=== PATIENT | male | born 1960 | race Caucasian/White ===

== ENCOUNTER 2021-02-27 13:00 | Outpatient (RCR) | payer MEDICARE, SELFPAY ==
[2021-02-27 13:03] VITALS: BMI 33.3
[2021-02-27 13:06] VITALS: BMI 33.3
== END 2021-03-25 09:26 | disposition home or self-care (01) ==
LOC: ANHDMC 13:00
PROVIDERS: PCP Family Medicine; Visit Provider Internal Medicine Endocrinology, Diabetes & Metabolism
DX: E11.65 Type 2 diabetes mellitus with hyperglycemia (principal); Z71.89 Other specified counseling; Z71.3 Dietary counseling and surveillance
CPT/HCPCS: 97802; G0108

== ENCOUNTER 2021-07-09 14:30 | Outpatient (RCR) | payer MEDICARE, SELFPAY | END 2021-07-28 14:27 | disposition home or self-care (01) | LOC: ANHDMC 14:30 | PROVIDERS: PCP Family Medicine; Referring Provider Internal Medicine Endocrinology, Diabetes & Metabolism; Visit Provider Internal Medicine Endocrinology, Diabetes & Metabolism | DX: E11.9 Type 2 diabetes mellitus without complications (principal); Z71.89 Other specified counseling | CPT/HCPCS: G0109 ==

== ENCOUNTER 2021-10-02 14:20 | Outpatient (RCR) | payer MEDICARE, SELFPAY | END 2021-10-10 13:22 | disposition home or self-care (01) | LOC: ANHDMC 14:20 | PROVIDERS: PCP Internal Medicine; Referring Provider Internal Medicine Endocrinology, Diabetes & Metabolism; Visit Provider Internal Medicine Endocrinology, Diabetes & Metabolism | DX: E11.65 Type 2 diabetes mellitus with hyperglycemia (principal); Z71.89 Other specified counseling | CPT/HCPCS: G0109 ==

== ENCOUNTER 2024-08-25 21:06 | Emergency (ER) | payer MEDICARE, SELFPAY ==
[2024-08-25] VITALS (14 sets, daily range): BP systolic 147–234; BP diastolic 83–201; PULSE 84–122; RESP 13–27; TEMP 36.4; O2SAT 89–100
--- NOTE | ~2024-08-25 | CT_ITS ---
EXAMINATION: CTA chest abdomen pelvis DATE: 08/26/2024 06:50 CDT INDICATION: Abdomen pain and vomiting. TECHNIQUE: Computed tomographic angiography (CTA) of the chest, abdomen, and pelvis was performed wit hout and with 100 mL Omnipaque-350 intravenous contrast. The dose-length product was 2059.84 mGy-cm. Maximum intensity projection 3D-reconstructions of the aorta and other arteries were constructed by [facility] technologist on a separate workstation. Automated exposure control and iterative reconstruction te torey were employed. COMPARISON: None. FINDINGS: CHEST CTA: Trace pericardial effusion. There is a left atrial occlusive device. No evidence for pulmonary emboli sm. There is atherosclerosis of the aorta without aneurysm or dissection. There are stent grafts in [facility] aorta and iliac arteries. No thoracic lymphadenopathy. No significant pleural effusion. There is d ependent atelectasis. No pneumothorax. There is emphysema. Small 4 mm right middle lobe nodule, likel y benign. ABDOMEN AND PELVIS CTA: Gallstones. The liver, spleen, pancreas, adrenal glands and kidneys are unremarkable. Dilated small b owel with air-fluid levels, consistent with small bowel obstruction. The colon is relatively decompre ssed. There is transition in the mid abdomen. The distal small bowel is decompressed. No lymphadenopa thy. Mild thoracic spondylosis. No acute osseous abnormality. IMPRESSION: 1. Small bowel obstruction. 2: Cholelithiasis. Reviewed, dictated and finalized at location B.
--- NOTE | ~2024-08-25 | XR_ITS ---
XR abdomen gastric tube insert INDICATION: Evaluate NG tube position. TECHNIQUE: Limited KUB perform for evaluating NG tube . COMPARISON: No prior studies for comparison. FINDINGS: NG tube tip in the stomach. Visualized bowel gas pattern is nonspecific. IMPRESSION: 1: NG tube tip in the stomach. Reviewed, dictated and finalized at location B.
--- OUTSIDE RECORDS SUMMARY | 2024-08-25 21:08 | XMS_ITS | Continuity of Care Document ---
Author Organization [facility] Address [address] [place] [address] utive [facility] [address] [place] [address] Phone Care Team Providers Care Chief Controller Name Role Phone VandanabrodiePepeEvin Unavailable Unavailable Procedures Procedure Date Office/outpatient Visit, [facility] Advance Directives Directive Yes / No Effective Date File Name No Information Encounters Encounter Description Practice Location Reason(s) For Visit Diagnoses Date Provider Providers Copied on Encounter Office/outpat ient Visit, [facility], [address], [place], [place], [id number], tel:[phone] SEC [facility] No Information 7-201 0 Madie Cantuhil. [address] [facility] [address], [place], [place], [facility], . tel:[phone] Referring Provider: Javier Pemberton MD, [facility] [address], [place], [place], [facility]. tel:[phone] Family History Family Member Type Diagnosis Age At Onset No Information Payers Payer name Insurance type Covered constitution party ID Authoriza tion(s) No Information Social History Type Description Quantity Date Captured Comments Sex Male Smoking Status No Information Chief Complaint And Reason For Visit No Information Reason For Referral Reason For Referral No Information History Of Present Illness Encounter Date Complaint History Of Prese nt Illness No Information Functional Status Date Functional Assessmen t No Information Instructions Date Instruction Additional Infor mation No Information Assessments Type Assessment Date No Information Patient Care Teams Name Effective Dates (start - stop) Status Members No Information
--- OUTSIDE RECORDS SUMMARY | 2024-08-25 21:08 | XMS_ITS | Encounter Summary ---
Author Organization [facility] Address [address] [place] [address] Phone Care Team Providers Care Lime Slaker Name Role Phone Neel Lincoln MD Primary Care Provider [phone] Neel Lincoln MD Unavailable [phone] J Carlos Banuelos MD Unavailable [phone] Delmer Heaton MD Unavailable [phone] Lemuel Vega MD Unavailable Encounter Details Date Type Department Care Team (Late Contact Info) Description 12/24/2023 Telephone [facility] [address] [address] Delmer Heaton MD [address] [place] [phone] Social History Tobacco Use Types Packs/Day Years Used Date Smoking Tobacco: Former Cigarettes Smokeless Tobacco: Never Alcohol Use Standard Drinks/Week Comments Not Currently 0 (1 standard drink = 0.6 oz pur e alcohol) quit Sex and Gender Information Value Date Recorded Sex Assigned at Not on file Legal Sex Male 11:00 AM CDT Gender Identity Not on file Sexual Orientation Not on file documented as of this encounter Plan of Treatment Upcoming Encounters Date Type Department Care Team (Late st Contact Info) Description 09/26/2024 2:00 PM CDT Lab [facility] [address] [phone] Lab, [facility] 10/04/2024 1:30 PM CDT Office Visit [facility] [place] [address] [place] [phone] Delmer Heaton MD [address] [place] [phone] 11/07/2024 3:45 PM CDT Office Visit [facility] - Endocrin[facility] [address] [place] [address] Lemuel Vega MD [address] [address] documented as of this encounter Visit Diagnoses Not on filedocumented in this encounter Care Teams Lime Slaker Relationship Specialty Start Date End Date Neel Lincoln MD [address] [place] [address] PCP - General Family Medicine 12/17/23 Neel Lincoln MD [address] [place] [address] Family Medicine 12/17/23 J Carlos Banuelos MD [address] [address] Neuromuscular Medicine 11/02/23 Delmer Heaton MD [address] [place] [phone] Consulting Physician Oncology 11/02/23 Lemuel Vega MD [address] [address] Consulting Physician Endocrinology 01/26/24 documented as of this encounter
--- OUTSIDE RECORDS SUMMARY | 2024-08-25 21:08 | XMS_ITS | Clinical Summary ---
Author Organization [facility] [employer] Address [address] [place] [address] Care Team Providers Care Site Controller Name Role Phone Neel Lincoln MD Primary Care Provider [phone] Source Comments [facility],non-owned Affiliates and Associated Physician Practices is amultiple site organization consisting of ambulatory clinics and hospital sitesin [place], [place], [place] and [place]. This disclosure is being madepursuant to the Care Everywhere program and may not contain all information available regarding this patient. Last updated 17.[facility] [employer] Allergies Active Allergy Reactions Criticality Noted Date Comments Acetazolamide Other High 06/19/2022 He states he was dizzy and had a hard time moving arms and legs and was staggering. He states he was dizzy and had a hard time moving arms and legs and was staggering. Cefadroxil Shortness of Breath High 09/02/2021 Reaction: SOB, , Tolerated zosyn 07/2022 Doxycycline Shortness of Breath High 01/15/2023 Medications * Be aware that medications may not be up to date on this document. Alwaysverify current medications with the patient. acetaminophen (Tylenol) 325 MG tablet Take 2 (two) tablets by mouth every 6 hours as needed 08/14/19 23 Active apixaban (Eliquis) 5 MG tablet Take 1 (one) tablet by mouth 2 times daily 08/06/19 23 Active Aspirin Low Dose 81 MG chew tablet CHEW AND SWALLOW 1 TABLET BY MOUTH DAILY AT 8AM 04/10/19 24 Active atorvastatin (Lipitor) 80 MG tablet Take 1 (one) tablet by mouth 10/31/19 23 Active ezetimibe (Zetia) 10 MG tablet Take 1 (one) tablet by mouth once daily 04/15/19 24 Active furosemide (Lasix) 20 MG tablet Take 1 (one) tablet by mouth once daily 05/18/19 24 Active gabapentin (Neurontin) 800 MG tablet Take 1 (one) tablet by mouth 3 times daily 04/15/19 24 Active gemfibrozil (Lopid) 600 MG tablet Take 1 (one) tablet by mouth 10/09/19 23 Active Insulin Glargine, 1 Unit Dial, (Toujeo) pen Inject 45 (forty five) Units subcutaneously 2 times daily Active HumaLOG KwikPen 100 UNIT/ML pen INJECT UNDER THE SKIN TWICE A DAY PER: 200-300:5UNITS, 301-400:7UNITS, 400+:10UNITS. MAX 20UNITS/DAY 05/01/19 24 Active B-D ULTRAFINE III SHORT PEN 31G X 8 MM needle USE TO INJECT INSULIN UP TO 5 TIMES DAILY. 02/26/20 23 Active isosorbide mononitrate CR 24hr (Imdur) 30 MG tablet Take 1 (one) tablet by mouth once daily 03/25/19 24 Active levothyroxine (Synthroid) 75 MCG tablet Take 1 (one) tablet by mouth every morning 04/02/19 24 Active lisinopril (Prinivil; Zestril) 20 MG tablet Take 1 (one) tablet by mouth once daily 06/01/19 23 Active metFORMIN ER 24hr (Glucophage XR) 500 MG tablet Take 1 (one) tablet by mouth 2 times daily 03/06/20 23 Active metoprolol succinate XL 24hr (Toprol XL) 100 MG tablet 06/14/19 24 Active nitroGLYCERIN (Nitrostat) 0.4 MG tablet PLEASE SEE ATTACHED FOR DETAILED DIRECTIONS 08/18/19 23 Active pantoprazole EC (Protonix) 40 MG tablet Take 1 (one) tablet by mouth once daily 05/05/19 24 Active potassium chloride ER (K-TAB) 20 MEQ tablet Take 2 (two) tablets by mouth once daily 04/10/19 24 Active folic acid (Folvite) 1 MG tablet Take 1 (one) tablet by mouth once daily 10/23/19 24 Active Pyridoxine HCl 100 MG Take 0.5 (one-half) tablet by mouth once daily 10/28/19 24 Active Mounjaro 5 MG/0.5ML injection Inject 5 (five) mg subcutaneously every 7 days 07/21/19 25 Active omeprazole (PriLOSEC) 40 MG capsule Take 1 (one) capsule by mouth once daily 05/09/19 25 Active levETIRAcetam (Keppra) 250 MG tablet Take 1 (one) tablet by mouth 2 times daily Active clopidogrel (plaVIX) 75 MG tablet Take 1 (one) tablet by mouth once daily 06/10/19 25 Active vitamin D3 (Cholecalcifero l) 125 MCG (5000 UT) capsule Take 125 mcg by mouth once daily Active glipiZIDE (Glucotrol) 5 MG tablet Take 1 (one) tablet by mouth every evening 04/22/19 24 025 Discontin ued(List Clean-Up) Active Problems Problem Noted Date Diagnosed Date Malignant melanoma of skin of chest 06/23/2023 Encounters Date Type Department Care Team Description 08/02/2024 10:15 AM CDT Office Visit [facility] - General Surgery [address] [place] [address] Enrico Milan MD Malignant melanoma of skin of chest (HCC) (Primary Dx) 08/02/2024 Travel 08/01/2024 Orders Only [facility] - General Surgery [address] [place] [address] Enrico Milan MD Malignant melanoma of skin of chest (HCC) from Last 3 Months Social History Tobacco Use Types Packs/Day Years Used Date Smoking Tobacco: Former Cigarettes 1.5 46 0 07/1976 - 07/2022 Smokeless Tobacco: Former Tobacco Cessation:Counseling Given: No Alcohol Use Standard Drinks/Week Comments Not Currently 0 (1 standard drink = 0.6 oz pure alcohol) 8 years since last alcoholic beverage AUDIT-C Answer Date Recorded Q1: How often do you have a drink containing alcohol? Never 07/08/2023 Q2: How many drinks containi ng alcohol do you have on a typical day when you are drinking? Patient does not drink Q3: How often do you have si x or more drinks on one occasion? Never 07/08/2023 Sex and Gender Information Value Date Recorded Sex Assigned at Not on file Legal Sex Male 8:57 AM AUTOMOTIVE TIRE TESTER Gender Identity Not on file Sexual Orientation Not on file Last Filed Vital Signs Vital Sign Reading Time Taken Comments Blood Pressure 155/88 08/02/2024 10:34 AM CDT Pulse 73 08/02/2024 10:34 AM CDT Temperature 36.4 C (97.6 F) 08/02/2024 10:34 AM CDT Respiratory Rate 14 07/08/2023 1:45 PM CDT Oxygen Saturation 97% 08/02/2024 10:34 AM CDT Inhaled Oxygen Concentration - - Weight 128.4 kg (283 lb) 08/02/2024 10:34 AM CDT Height 185.4 cm (6' 1) 08/02/2024 10:34 AM CDT Body Mass Index 37.34 08/02/2024 10:34 AM CDT Plan of Treatment Upcoming Encounters Date Type Department Care Team (Late st Contact Info) Description 02/07/2025 9:30 AM AUTOMOTIVE TIRE TESTER Office Visit [facility] - General Surgery [address] [place] [phone] Enrico Milan MD [address] [facility] [address] [place] [address] Health Maintenance Due Date Last Done Comments COLOGUARD (AGES 45-75) - COLON CA SCREENING 1960 COLON MONITORING 1960 COLONOSCOPY - COLON CA SCREENING 1960 CT COLONOGRAPHY - COLON CA SCREENING 1960 Colorectal Cancer Screening 1960 FIT - COLON CA SCREENING 1960 FLEX SIG - COLON CA SCREENING 1960 MEDICARE AWV 12 MONTHS 1960 HIV SCREENING 12/08/1975 HEPATITIS C SCREENING 12/03/1978 DTAP/TDAP/TD VACCINES (1 - Tdap) 12/08/1979 PNEUMOCOCCAL VACCINE 50+ (1 of 2 - PCV) 12/08/1979 LUNG CANCER SCREENING 2010 ZOSTER VACCINE (1 of 2) 2010 Respiratory Syncytial Virus (RSV) Vaccine Pt: or over 60 yrs (1 - Risk 60-74 years 1-dose series) 2020 COVID-19 VACCINE ( season) 2023 07/09/2020, 06/11/2020 DEPRESSION SCREENING 03/15/2024 SCREENING FOR DIABETES 06/28/2027 , 05/30/2024, 04/18/2024, Additional history exists INFLUENZA VACCINE Completed 01/26/2024, , 12/20/2020, Additional history exists HEPATITIS B VACCINE Aged Out No longe r eligible based on patient's age to complete this topic HIB VACCINE Aged Out No longer eligi ble based on patient's age to complete this topic HPV VACCINE Aged Out No longer eligi ble based on patient's age to complete this topic MENINGOCOCCAL (Group B) VACCINE SHARED DECISION-MAKING Aged Out No longer eligible based on patient's age to complete this topic MENINGOCOCCAL GROUPS A/C/Y/W VACCINE Aged Out No longer eligible based on patient's age to complete this topic Procedures Procedure Name Priority Date/Time Associated Diagnosis Comments GLUCOSE - POINT OF CARE Routine 07/08/2023 8:46 AM CDT from Last 3 Months or Most Recently Relevant to Health Maintenance Results * (ABNORMAL) GLUCOSE - POINT OF CARE (07/08/2023 8:46 AM CDT) Pathologist [facility] Glucose WB/POC 207(H) 70 - 115 mg/dL 07/08/2023 10:47 AM CDT [facility] Specimen Type Cap Fingerstick 2023 10:47 AM CDT [facility] Blood BLOOD SPECIMEN / Unknown 07/08/2023 8:46 AM CDT 07/08/2023 10:47 AM CDT Enrico Milan MD LAB - POINT OF CARE ORDERABLES F inal Result [facility] [address] [place] [address], [place] [phone] from Last 3 Months or Most Recently Relevant to Health Maintenance Insurance MEDICARE [facility] MEDICARE SUPPLEMENT Care Teams Site Controller Relationship Specialty Start Date End Date Neel Lincoln MD [address] [place] [address] PCP - General Internal Medicine 06/18/23
--- OUTSIDE RECORDS SUMMARY | 2024-08-25 21:08 | XMS_ITS | Encounter Summary ---
Author Organization [facility] Address [address] [facility] [place] [address] Care Team Providers Care Rodding Anode Worker Name Role Phone Neel Lincoln MD Primary Care Provider [phone] Reason for Referral * Consultation (Routine) - Closed Specialty Diagnoses / Procedures Referred By Contac t Referred To Contact Nutrition Services Diagnoses Type 2 diabetes mellitus with other specified complication, with long-term current use of insulin (HCC) PAD (peripheral artery disease) Neel Lincoln MD [address] [place] [address] Phone: tel: fax: Referral ID Status Reason Start Date Expiration Date V isits Requested Visits Authorized [id number] Closed Specialty Services Required 02/03/2024 02/02/2025 1 1 F DIGITAL OFFICER Encounter Details Date Type Department Care Team (Latest Contact Info) Description 02/03/2024 Transcribe Orders [facility] - Centralized Scheduling [address] [place] [address] Neel Lincoln MD [address] [place] [address] Type 2 diabetes mellitus with other specified complication, with long-term current use of insulin ; PAD (peripheral artery disease) Social History Tobacco Use Types Packs/Day Years Used Date Smoking Tobacco: Former Cigarettes 1.5 46 0 07/1976 - 07/2022 Smokeless Tobacco: Former Alcohol Use Standard Drinks/Week Comments Not Currently [...] on file Legal Sex Male 8:57 AM CHIEF DIGITAL OFFICER Gender Identity Not on file Sexual Orientation Not on file documented as of this encounter Functional Status * Is person deaf or have serious hearing difficulty? Answer Date of Assessment Author No 07/08/2023 1:41 PM Ruth Ross RN * Is person blind or have serious difficulty seeing? Answer Date of Assessment Author No 07/08/2023 1:41 PM Ruth Ross RN * Does person have serious difficulty walking/climbing stairs? Answer Date of Assessment Author No 07/08/2023 1:41 PM Ruth Ross RN * Does person have difficulty dressing/bathing? Answer Date of Assessment Author No 07/08/2023 1:41 PM Ruth Ross RN * Does person have difficulty doing errands alone? Answer Date of Assessment Author No 07/08/2023 1:41 PM Ruth Ross RN documented as of this encounter Mental Status * Does person have difficulty concentrating/remembering/making decisions? Answer Entry Date Author No 07/08/2023 1:41 PM Ruth Ross RN documented in this encounter Plan of Treatment Upcoming Encounters Date Type Department Care Team (Late st Contact Info) Description 02/07/2025 9:30 AM CHIEF DIGITAL OFFICER Office Visit [facility] - General Surgery [address] [place] [phone] Enrico Milan MD [address] [facility] [address] [place] [address] Scheduled Referrals Name Type Priority Associated Diagnoses Order Schedule AMB REFERRAL TO NUTRITION Outpatient Referral Routine Type 2 diabetes mellitus with other specified complication, with long-term current use of insulin PAD (peripheral artery disease) 1 Occurrences starting 02/03/2024 until 02/02/2025 documented as of this encounter Visit Diagnoses Diagnosis Type 2 diabetes mellitus with other specified complication, with long-term current use of insulin (HCC)- Primary PAD (peripheral artery disease) Unspecified disorders of arteries and arterioles documented in this encounter Care Teams Rodding Anode Worker Relationship Specialty Start Date End Date Neel Lincoln MD [address] [place] [address] PCP - General Internal Medicine 06/18/23 documented as of this encounter
--- OUTSIDE RECORDS SUMMARY | 2024-08-25 21:08 | XMS_ITS | Clinical Summary ---
Author Organization [facility] Address [address] [place] [address] Phone Care Team Providers Care Advisory Software Engineer Name Role Phone Neel Lincoln MD Primary Care Provider [phone] Neel Lincoln MD Unavailable [phone] J Carlos Banuelos MD Unavailable [phone] Delmer Heaton MD Unavailable [phone] Lemuel Vega MD Unavailable Allergies Active Allergy Reactions Criticality Noted Date Comments Acetazolamide Other (see Comments) High 06/19/2022 He states he was dizzy [...] 09/02/2021 Reaction: SOB, , Tolerated zosyn 07/2022 Reaction: SOB, , Tolerated zosyn 07/2022 Doxycycline Shortness of Breath 04/05/2024 Medications gabapentin (NEURONTIN) 800 MG Tablet Take 1 Tablet by mouth 2 times daily. 04/15/19 24 Active pantoprazole (PROTONIX) 40 MG Tablet Delayed Response Take 1 Tablet by mouth daily. 05/05/19 24 Active apixaban (Eliquis) 5 MG Tablet Take 5 mg by mouth. 08/06/19 Active metoprolol Succinate (TOPROL-XL) 100 MG TABLET SR 24 HR Take 1 Tablet by mouth 2 times daily. 06/05/19 23 Active levothyroxine (SYNTHROID) 75 MCG Tablet Take 1 Tablet by mouth every morning. 07/04/19 22 Active furosemide (LASIX) 20 MG Tablet Take 1 Tablet by mouth daily. 05/18/19 24 Active lisinopril (PRINIVIL, ZESTRIL) 20 MG Tablet Take 1 Tablet by mouth daily. 06/01/19 23 Active isosorbide mononitrate (IMDUR) 30 MG TABLET SR 24 HR Take 1 Tablet by mouth daily. 03/25/19 24 Active gemfibrozil (LOPID) 600 MG Tablet Take 2 Tablets by mouth 2 times daily. 10/09/19 23 Active atorvastatin (LIPITOR) 80 MG Tablet Take 1 Tablet by mouth nightly. 10/31/19 23 Active ezetimibe (ZETIA) 10 MG Tablet Take 10 mg by mouth daily. 12/16/19 22 Active Potassium Chloride ER (KLORCON) 20 MEQ Tablet Controlled Release Take 40 mEq by mouth daily. 10/14/19 24 Active Vitamin B-6 (PYRIDOXINE) 100 MG Tablet Take 50 mg by mouth daily. 10/28/19 24 Active Glucose Blood (Contour Next Test) StripIndication s:Type 2 diabetes mellitus with diabetic polyneuropathy, with long-term current use of insulin (HCC) 3 times a day, E11.42, insulin dependent 300 Each 3 02/01/20 24 Active Insulin Pen Needle (TechLite Plus Pen [place]) 32G X 4 MM [facility] 1 Pen Needle by Does not apply route 5 times daily. 500 Pen Needle 3 02/01/20 24 Active Toujeo SoloStar 300 UNIT/ML Solution Pen-injector 36 units twice a day 21 mL 1 02/29/20 24 Active HumaLOG KwikPen 100 UNIT/ML Solution Pen-injector 24 units before each meal; correctional factor insulin of 1:15 if >140 mg/dL, up to 120 units per day 105 mL 1 02/29/20 24 Active ergocalciferol (VITAMIN D) 37829 UNIT CapsuleIndicati ons:Vitamin D deficiency TAKE 1 CAPSULE BY MOUTH ONCE WEEKLY FOR 8 TOTAL DOSES 8 Capsule 03/21/19 25 Active clindamycin (CLEOCIN T) 1 % Lotion 04/05/19 25 Active ketoconazole (NIZORAL) 2 % Cream 04/05/19 25 Active levETIRAcetam (Keppra) 250 MG Tablet Take 250 mg by mouth 2 times daily. Active clopidogrel (PLAVIX) 75 MG Tablet Take 75 mg by mouth daily. Active omeprazole (PriLOSEC) 40 MG CAPSULE DELAYED RELEASE Take 40 mg by mouth daily. Active folic acid (FOLVITE) 1 MG TabletIndicatio ns:Folate Deficiency Anemia Take 1 Tablet by mouth daily. Indications: Anemia From Inadequate Folic Acid 30 Tablet 3 07/06/19 25 Active Continuous Glucose [employer] (Dexcom G7 [employer]) Device Check blood glucose before each meal and at bedtime 1 Each 08/02/19 25 Active Continuous Glucose Sensor (Dexcom G7 Sensor) Misc Every 10 days 9 Each 3 08/02/19 25 Active Insulin Pen Needle 32G X 4 MM Misc 5 times a day 500 Each 3 08/02/19 25 Active metFORMIN (GLUCOPHAGE) 500 MG Tablet Take 1 Tablet by mouth 2 times daily (with meals). 180 Tablet 3 08/02/19 25 Active Tirzepatide (Mounjaro) 5 MG/0.5ML Solution Auto-injector 5 mg by Subcutaneous route once a week. 6 mL 08/23/19 25 Active Insulin Pen Needle 32G X 4 MM Misc 5 times a day 500 Each 3 01/28/20 24 025 Discontin ued(Dupli betty Order) Continuous Glucose [employer] (Dexcom G7 [employer]) Device Check blood glucose before each meal and at bedtime 1 Each 05/31/19 25 025 Discontin ued(Reord er) Continuous Glucose Sensor (Dexcom G7 Sensor) Misc Every 10 days 9 Each 3 05/31/19 25 025 Discontin ued(Reord er) Tirzepatide (Mounjaro) 5 MG/0.5ML Solution Auto-injector 5 mg by Subcutaneous route once a week. 2 mL 07/21/19 25 025 Discontin ued(Dose adjustmen t) Tirzepatide (Mounjaro) 7.5 MG/0.5ML Solution Auto-injectorIn dications:Type 2 diabetes mellitus with diabetic polyneuropathy, with long-term current use of insulin (HCC) 7.5 mg by Subcutaneous route once a week. 6 mL 08/19/19 25 025 Discontin ued(Dose adjustmen t) Active Problems Problem Noted Date Diagnosed Date Type 2 diabetes mellitus wit h diabetic polyneuropathy, with long-term current use of insulin 01/30/2024 Encounters Date Type Department Care Team Description 08/22/[address] [facility] [address] [place] [address] Lemuel Vega MD Medication Refill 08/18[facility] [place] [address] Lemuel Vega MD Medication Refill 08/01/2024 3:30 PM CDT Office Visit [facility] [address] [place] [address] Lemuel Vega MD Type 2 diabetes mellitus with diabetic polyneuropathy, with long-term current use of insulin (HCC) (Primary Dx); Medication side effect; Insulin dose changed (HCC); Medication dose changed; Class 2 severe obesity due to excess calories with serious comorbidity and body mass index (BMI) of 36.0 to 36.9 in adult (HCC) Discharge Disposition: Discharged to home or Selfcare 08/01/2024 Telephone [facility] [place] [address] Lemuel Vega MD Results 08/01/2024 Travel 07/19/[address] [facility] [address] [place] [address] Lemuel Vega MD Medication Refill 07/05/2024 9:00 AM CDT Office Visit [facility] [address] [phone] Yoselin Michael APRN, ZACK Elevated serum immunoglobulin free light chain level (Primary Dx) 07/05/2024 Travel 06/27/2024 10:30 AM CDT Lab [facility] [address] [phone] [facility] Elevated serum immunoglobulin free light chain level; Hypercalcemia; Paraproteinemia 06/27/2024 Travel 06/07/2024 Results Follow-Up [facility] [address] [place] [address] Lemuel Vega MD CMP (COMPREHENSIVE METABOLIC PANEL) 05/30/2024 3:30 PM CDT Office Visit [facility] [address] [place] [address] Lemuel Vega MD Type 2 diabetes mellitus with diabetic polyneuropathy, with long-term current use of insulin (HCC) (Primary Dx); Insulin dose changed (HCC); New medication added; Class 2 severe obesity due to excess calories with serious comorbidity and body mass index (BMI) of 36.0 to 36.9 in adult (HCC) Discharge Disposition: Discharged to home or Selfcare 05/30/2024 Travel from Last 3 Months Immunizations Immunization Administration Dates Next Due Influenza Vaccine, Quadrivalent, PF 02/02/2023,1 ,01/03/2020 Influenza, Seasonal, Injectable, Undefined 12/16 Influenza,Split Virus,Trivalent,Injectable,PF 01/26/2024 Pneumococcal conjugate PCV20 , polysaccharide FFG260 conjugate, adjuvant, PF 11/17/2023 Family History Medical History Relation Name Comments Cancer Brother 1 Other-comment Brother 1 vascular disea se Diabetes Father Heart Disease Father Cancer Mother Diabetes Mother Heart Disease Mother Diabetes Sister Relation Name Status Comments Brother 1 Alive Brother 2 Alive Child 1 Alive Child 2 Alive Father Mother Alive Sister Alive Social History Tobacco Use Types Packs/Day Years Used Date Smoking Tobacco: Former Cigarettes Smokeless Tobacco: Never Tobacco Cessation:Counseling Given: Not Answered Alcohol Use Standard Drinks/Week Comments Not Currently 0 (1 standard drink = 0.6 oz pur e alcohol) quit Sex and Gender Information Value Date Recorded Sex Assigned at Not on file Legal Sex Male 11:00 AM CDT Gender Identity Not on file Sexual Orientation Not on file Last Filed Vital Signs Vital Sign Reading Time Taken Comments Blood Pressure 128/64 08/01/2024 3:33 PM CDT Pulse 61 08/01/2024 3:33 PM CDT Temperature 36.8 C (98.3 F) 08/01/2024 3:33 PM CDT Respiratory Rate 22 08/01/2024 3:33 PM CDT Oxygen Saturation 96% 08/01/2024 3:33 PM CDT Inhaled Oxygen Concentration - - Weight 127.1 kg (280 lb 3.2 oz) 08/01/2024 3:33 PM CDT Height 185.4 cm (6' 1) 07/05/2024 8:36 AM CDT Body Mass Index 36.97 07/05/2024 8:36 AM CDT Plan of Treatment Upcoming Encounters Date Type Department Care Team (Late st Contact Info) Description 09/26/2024 2:00 PM CDT Lab [facility] [address] [phone] Lab, Cc [facility] 10/04/2024 1:30 PM CDT Office Visit [facility] [address] [phone] Delmer Heaton MD [address] [place] [phone] 11/07/2024 3:45 PM CDT Office Visit [facility] [place] [address] [place] [address] Lemuel Vega MD [address] [address] Health Maintenance Due Date Last Done Comments Diabetes: Eye Exam 1960 Hepatitis C Virus (HCV) Screening 1960 TdaP Immunization 1960 Cologuard 2005 Colonoscopy 2005 Colorectal Cancer Screening 2005 Immunochemical Fecal Occult Blood 2005 Zoster Immunization (1 of 2) 2010 PSA Discussion 12/08/2015 Respiratory Syncytial Virus (RSV) Immunization (Adult) (1 - Risk 60-74 years 1-dose series) 2020 SARS-COV-2 Immunization ( - 2023- season) 2023 07/09/2020, 06/11/2020 Diabetes: Hemoglobin A1c 09/26/2024 025, 02/29/2024, 01/26/2024, Additional history exists Diabetes: Foot Exam 01/27/2025 01/28/2024 Diabetes: Nephropathy Screening 06/27/2025 06/27/2024, 05/30/2024, 03/28/2024, Additional history exists Pneumococcal Immunization (50+ years) Completed 11/17/2023 Pneumococcal Immunization Combined Discontinued 11/17/2023 Influenza Immunization Completed , 02/02/2023, 12/20/2020, Additional history exists Hepatitis B Immunization Aged Out No longer eligible based on patient's age to complete this topic Human Papillomavirus (HPV) Immunization Aged Out No longer eligible based on patient's age to complete this topic Meningococcal Immunization (ACWY) Aged Out No longer eligible based on patient's age to complete this topic Rotavirus Immunization Aged Out No lo nger eligible based on patient's age to complete this topic Procedures Procedure Name Priority Date/Time Associated Diagnosis Comments SERUM FREE LIGHT CHAINS, [place] Routine 06/27/2024 3:28 PM CDT CBC WITH AUTO DIFF OH Routine 06/27/2024 3:28 PM CDT CMP (COMPREHENSIVE METABOLIC PANEL) Routine 06/27/2024 3:28 PM CDT Elevated serum immunoglobulin free light chain level Hypercalcemia Paraproteinemia ELECTROPHORESIS W/ TOTAL PROTEIN SERUM Routine 06/27/2024 3:28 PM CDT Elevated serum immunoglobulin free light chain level Hypercalcemia Paraproteinemia IMMUNOFIXATION, SERUM [place] Routine 06/27/2024 3:28 PM CDT Elevated serum immunoglobulin free light chain level Hypercalcemia Paraproteinemia IMMUNOGLOBULIN IGA, IGG & IGM QUANT Routine 06/27/2024 3:28 PM CDT Elevated serum immunoglobulin free light chain level Hypercalcemia Paraproteinemia FOLIC ACID (FOLATE) Routine 06/27/2024 3 :28 PM CDT Elevated serum immunoglobulin free light chain level Hypercalcemia Paraproteinemia CMP (COMPREHENSIVE METABOLIC PANEL) Routine 05/30/2024 4:31 PM CDT Type 2 diabetes mellitus with diabetic polyneuropathy, with long-term current use of insulin (HCC) POCT GLYCOSYLATED HEMOGLOBIN Routine 02/29/2024 3:38 PM FIRER LOW PRESSURE Type 2 diabetes mellitus with diabetic polyneuropathy, with long-term current use of insulin (HCC) from Last 3 Months or Most Recently Relevant to Health Maintenance Results * (ABNORMAL) SERUM FREE LIGHT CHAINS, [place] (06/27/2024 3:28 PM CDT) FREE KAPPA LT CHAINS 64.8(H) 2.9 - 20.7 mg/L [facility] FREE LAMBDA LT CHAINS 27.0 4.2 - 27.6 mg/L [facility] JOGGLE [facility]ESS [facility] KAPPA/LAMBDA RATIO 2.40(H) 0.22 - 1.[address] [facility] 06/27/2024 3:28 PM CDT us Yoselin Michael APRN, ROLLED MATERIALS WORKER LAB SEND OUTS Fin al Result CANCER JOGGLE PRESS OPERATOR [facility] [place] [address], * IMMUNOFIXATION, SERUM [place] (06/27/2024 3:28 PM CDT) Pathologist [facility] IMMUNOFIXATION RESULT, SERUM Comment CANCER JOGGLE PRESS OPERATOR [facility] Comment:No monoclonality det ected. 06/27/2024 3:28 PM CDT Narrative CANCER JOGGLE PRESS OPERATOR [facility] - 06/29/2024 3:08 PM CDT Testing performed at: [] [facility], [address] [place] [address], [place], [address], , Ruby On Rails Developer: Rickie Cook, PhD Release to patient->Immediate us Yoselin Michael APRN, ROLLED MATERIALS WORKER LAB SEND OUTS Fin al Result CANCER JOGGLE PRESS OPERATOR [facility] [place] [address], [place] [phone] * (ABNORMAL) CBC WITH AUTO DIFF [place] (06/27/2024 3:28 PM CDT) [facility] WBC 8.7 4.0 - 10.0 10*3/uL CANCER JOGGLE PRESS OPERATOR [facility] HGB 14.4 13.7 - 17.5 g/dL CANCER JOGGLE PRESS OPERATOR [facility] HCT 44.2 40.1 - 51.0 % CANCER JOGGLE PRESS OPERATOR [facility] PLT 268 163 - 369 10*3/uL CANCER JOGGLE PRESS OPERATOR [facility] MPV 11.7 9.4 - 12.4 fL CANCER JOGGLE PRESS OPERATOR [facility] RBC 4.93 4.63 - 6.08 10*6/uL CANCER JOGGLE PRESS OPERATOR [facility] MCV 90 79 - 95 fL CANCER JOGGLE PRESS OPERATOR [facility] MCH 29.2 25.6 - 32.2 pg CANCER JOGGLE PRESS OPERATOR OF [facility] MCHC 32.6 32.2 - 36.5 g/dL CANCER JOGGLE PRESS OPERATOR [facility] RDW 15.6(H) 11.6 - 14.4 % CANCER JOGGLE PRESS OPERATOR OF [facility] Neutrophils % 67.2(H) 36.0 - 66.0 % CANCER JOGGLE PRESS OPERATOR OF [facility] Lymphocytes % 21.9 19.0 - 40.0 % CANCER JOGGLE PRESS OPERATOR OF [facility] Monocytes % 7.2 4.1 - 12.1 % CANCER JOGGLE PRESS OPERATOR OF [facility] Eosinophils % 2.2 0.0 - 3.5 % CANCER JOGGLE PRESS OPERATOR [facility] Basophils % 0.9 0.0 - 1.0 % CANCER JOGGLE PRESS OPERATOR [facility] Absolute Neutrophils 5.8 1.4 - 6.6 10*3/uL CANCER JOGGLE PRESS OPERATOR [facility] Absolute Lymphocytes 1.9 0.8 - 4.0 10*3/uL CANCER JOGGLE PRESS OPERATOR [facility] Absolute Monocytes 0.6 0.2 - 1.2 10*3/uL CANCER JOGGLE PRESS OPERATOR [facility] Absolute Eosinophils 0.2 0.0 - 0.4 10*3/uL CANCER JOGGLE PRESS OPERATOR [facility] Absolute Basophils 0.1 0.0 - 0.1 10*3/uL CANCER JOGGLE PRESS OPERATOR [facility] 06/27/2024 3:28 PM CDT Yoselin Michael APRN, ROLLED MATERIALS WORKER LAB SEND OUTS Fin al Result CANCER JOGGLE PRESS OPERATOR [facility] [address] [place] [address], [place] [phone] * IMMUNOGLOBULIN IGA, IGG & IGM QUANT (06/27/2024 3:28 PM CDT) IGG 1,229 635 - 1,741 mg/dL [facility] JOGGLE PRESS [facility] IGA 283 66 - 433 mg/dL [facility] JOGGLE PR[facility] IGM 149 45 - 281 mg/dL [facility] JOGGLE [facility] Blood 06/27/2024 3:2 8 PM CDT Narrative CANCER JOGGLE PRESS OPERATOR [facility] - 06/28/2024 3:02 PM CDT Release to patient->Immediate Yoselin Michael APRN, ROLLED MATERIALS WORKER CHEMISTRY ORDERABLE S Final Result Performing Organization Address City/[facility]/ZIP Co de Phone Number CANCER JOGGLE PRESS OPERATOR [facility] [address] [place] [address], [place] [phone] * FOLIC ACID (FOLATE) (06/27/2024 3:28 PM CDT) Folate >20.00 >=5.90 ng/mL CANCER JOGGLE PRESS OPERATOR [facility] Blood 06/27/2024 3:28 PM CDT Narrative CANCER JOGGLE PRESS OPERATOR [facility] - 06/29/2024 10:21 AM CDT Release to patient->Immediate IS THE PATIENT REQUIRED TO BE FASTING FOR 12 HOURS?->No us Yoselin Michael RIGHT OF WAY MANAGER, ROLLED MATERIALS WORKER CHEMISTRY ORDERABLE S Final Result CANCER JOGGLE PRESS OPERATOR [facility] [address] [place] [address], [place] [phone] * (ABNORMAL) ELECTROPHORESIS W/ TOTAL PROTEIN SERUM (06/27/2024 3:28 PM CDT) PROTEIN, TOTAL, SERUM 7.3 6.0 - 8.5 g/dL CANCER JOGGLE PRESS OPERATOR [facility] ALBUMIN 3.4 2.9 - 4.4 g/dL CANCER JOGGLE PRESS OPERATOR [facility] KEMXX-3-[id number] 0.3 0.0 - 0.4 g/dL CANCER JOGGLE PRESS OPERATOR [facility] PCSUD-9-[id number] 1.1(H) 0.4 - 1.0 g/dL CANCER JOGGLE PRESS OPERATOR [facility] BETA GLOBULIN 1.3 0.7 - 1.3 g/dL CANCER JOGGLE PRESS OPERATOR [facility] GAMMA GLOBULIN 1.3 0.4 - 1.8 g/dL CANCER JOGGLE PRESS OPERATOR [facility] M-SPIKE Not Observed Not Observed g/dL CANCER JOGGLE PRESS OPERATOR [facility] GLOBULIN, TOTAL 3.9 2.2 - 3.9 g/dL CANCER JOGGLE PRESS OPERATOR [facility] A/G RATIO 0.9 0.7 - 1.7 [facility] [facility] [facility] PLEASE NOTE: Comment CANCER JOGGLE PRESS OPERATOR [facility] Comment: Protein electrophoresis scan will follow via computer, mail, or director of instrumental music delivery. PDF . CANCER JOHNNIE TER [facility] Blood 06/27/2024 3:28 PM CDT Narrative CANCER JOGGLE PRESS OPERATOR [facility] - 06/29/2024 3:08 PM CDT Testing performed at: [] [facility], [address] [place] [address], [place], [address], , Ruby On Rails Developer: Rickie Cook, PhD Release to patient->Immediate Yoselin Michael APRN, CNP CHEMISTRY ORDERABLE S Final Result CANCER JOGGLE PRESS OPERATOR [facility] [place] [address], [place] [phone] * (ABNORMAL) CMP (COMPREHENSIVE METABOLIC PANEL) (06/27/2024 3:28 PM CDT) Only the most recent of2 resultswithin the time period is included. Glucose 90 70 - 105 mg/dL [facility] [place] [place] Blood Urea Nitrogen 25 7 - 25 mg/dL [facility] [place] Creatinine 1.4(H) 0.7 - 1.3 mg/dL [facility] [place] Sodium 144 136 - 145 mEq/L [facility] [place] Potassium 4.1 3.5 - 5.1 mEq/L [facility] [place] Chloride 108(H) 98 - 107 mEq/L [facility] [place] Bicarbonate 25 21 - 31 mEq/L [facility] [place] Total Bilirubin 0.4 0.3 - 1.0 mg/dL [facility] [place] Alk. Phosphatase 103 34 - 104 U/L [facility] [place] Aspartate Aminotransferase 22 13 - 39 U/L [facility] [place] Alanine Aminotransferase 21 7 - 52 U/L [facility] [place] Total Protein 7.2 6.4 - 8.9 g/dL [facility] [place] Albumin 4.2 3.5 - 5.7 g/dL [facility] [place] Calcium 10.6(H) 8.6 - 10.3 mg/dL [facility] [place] Anion Gap 15.1(H) 7.0 - 15.0 mEq/L [facility] [place] Globulin 3.0 2.0 - 3.5 g/dL [facility] [place] EGFR 56(L) >60 ml/min/1. 73m2 [facility] [place] Comment: This eGFR is calculated using 2020 CKD-EPI Creatinine equation without race modifier based on the NKF-ASN task force recommendations Equation: sBMY=572*min(SCr/k,1)a*max(SCr/k,1)-1.200*0.9938Age*1.012 (if female), where SCr is serum creatinine, k is 0.7 for females and 0.9 for males, and a is -0.241 for females and -0.302 for males Blood 06/27/2024 3:28 PM CDT Narrative CANCER JOGGLE PRESS OPERATOR [facility] - 06/27/2024 4:16 PM CDT Release to patient->Immediate IS THE PATIENT REQUIRED TO BE FASTING FOR 8 HOURS?->No Yoselin Michael APRN, ROLLED MATERIALS WORKER CHEMISTRY ORDERABLE S Final Result CANCER JOGGLE PRESS OPERATOR [facility] [place] [address], * (ABNORMAL) POCT GLYCOSYLATED HEMOGLOBIN (02/29/2024 3:38 PM FIRER LOW PRESSURE) HGB-A1C 10.1(A) 4 - 6 % Blood 02/29/2024 3:38 PM FIRER LOW PRESSURE Lemuel Vega MD POINT OF CARE TESTING (MANUAL) F inal Result from Last 3 Months or Most Recently Relevant to Health Maintenance Insurance MEDICARE [facility] MEDICARE [employer] [facility] [address] [facility] Care Teams Advisory Software Engineer Relationship Specialty Start Date End Date Neel Lincoln MD [facility] [place] [address] PCP - General Family Medicine 12/17/23 Neel Lincoln MD [address] [place] [address] Family Medicine 12/17/23 JCarlos Banuelos MD [address] [address] Neuromuscular Medicine 11/02/23 Delmer Heaton MD [address] [place] [phone] Consulting Physician Oncology 11/02/23 Lemuel Vgea MD #[address] [address] Consulting Physician Endocrinology 01/26/24
--- OUTSIDE RECORDS SUMMARY | 2024-08-25 21:08 | XMS_ITS | Encounter Summary ---
Author Organization [facility] [place] [address] [facility] [place] [address] Care Team Providers Care Rn Ccu Name Role Phone Neel Lincoln MD Primary Care Provider [phone] Encounter Details Date Type Department Care Team (Late st Contact Info) Description 06/11/2023 Lab Requisition [facility] - DermPath Lab [address] [place] [phone] Anjum Weems MD [facility] DERMATOLOGY [address] [place] [phone] Neoplasm of uncertain behavior of skin Social History Tobacco Use Types Packs/Day Years Used Date Smoking Tobacco: Never Assessed Sex and Gender Information Value Date Recorded Sex Assigned at Not on file Legal 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 Gender Identity Not on file Sexual Orientation Not on file documented as of this encounter Plan of Treatment Upcoming Encounters Date Type Department Care Team (Late st Contact Info) Description 02/07/2025 9:30 AM HAND I BLOCKER Office Visit [facility] - General Surgery [address] [place] [phone] Enrico Milan MD [address] [facility] [address] [place] [address] documented as of this encounter Procedures Procedure Name Priority Date/Time Associated Diagnosis Comments DERMATOPATHOLOGY Routine 06/11/2023 3:33 AM CDT Neoplasm of uncertain behavior of skin documented in this encounter Results * DERMATOPATHOLOGY (06/11/2023 3:33 AM CDT) Case Report Dermatopathology Report Case: [id number] Authorizing Provider: Anjum Weems MD Collected: 06/11/2023 03:33 AM Ordering Location: [facility] - Received: 06/14/2023 01:17 PM DermPath Lab Pathologist: Hoda Harrison MD Specimen: Skin, left chest 3:37 PM CDT DERMATOPATHOLOGY LABORATORY Final Diagnosis Specimen A. SKIN, left chest: MALIGNANT MELANOMA, NODULAR TYPE. BRESLOW THICKNESS 1.9MM, ANTHONY LEVEL IV PRESENT AT MARGIN (C43.59) (see microscopic description, comment, and synoptic report) 3:37 PM CDT DERMATOPATHOLOGY LABORATORY at 1537 CDT Clinical History Basal cell carcinoma vs. Pyogenic granuloma 3:37 PM CDT DERMATOPATHOLOGY LABORATORY Gross Description Specimen A: Received is one formalin filled container labeled with the patient's name and designated left chest. The specimen consists of a shave biopsy measuring 8x7x4 mm. Jar 0. 3:37 PM CDT DERMATOPATHOLOGY LABORATORY Microscopic Description Specimen A. SKIN, left chest: Sections show a proliferation of melanocytes distributed in an irregular pattern at the dermal epidermal junction. In the dermis there are nests and single melanocytes forming a nodule which extends to the margin of the specimen. There is an intraepidermal component present; however, it is not present beyond the dermal component of the tumor. By immunohistochemistr y, lesional cells are positive with SOX-10 (strong, diffuse) and MART-1/MelanA (patchy). There is an associated ulcer, beneath which there are vascular proliferation, fibroblasts, and an edematous stroma. There is also a brisk lymphoid infiltrate associated with the tumor. This lesion is not present at the margin of the specimen. COMMENT: A primary melanoma is favored; however, an epidermotropic metastasis cannot be excluded. Clinical correlation is recommended. 3:37 PM CDT DERMATOPATHOLOGY LABORATORY Disclaimer An external and internal positive and negative controls are appropriate for the histochemical, immunohistochemical and immunofluorescence stain(s) in this case (if any), except where stated explicitly. The performance characteristics of the stain(s) cited in this report were developed and its performance characteristic determined by the Dermatopathology Laboratory at [facility], directed by Dr. Shaw Squires. These tests need not be, and therefore are not, approved by the [place] Food and Drug Administration. The tests are used for clinical purposes. Billing Codes Specimen Charges Stain Charges 87996 1 [id number] 1 1 4 3:37 PM CDT DERMATOPATHOLOGY LABORATORY Embedded Images 4 3:37 PM [facility] DERMATOPATHOLOGY LABORATORY Synoptic Report INVASIVE MELANOMA OF THE SKIN: Biopsy INVASIVE MELANOMA OF THE SKIN: BIOPSY - All Specimens 8th Edition - Protocol posted: 02/24/2023 SPECIMEN Procedure: Biopsy, shave Specimen Laterality: Left TUMOR Tumor Site: Skin of trunk: Left chest Histologic Type: Nodular melanoma Maximum Tumor (Breslow) Thickness (Millimeters): At least: 1.9 mm : Tumor is present at the surgical margin; therefore, the final depth may exceed the current one. Ulceration: Present Anatomic (Anthony) Level: At least level: IV : Tumor is present at the surgical margin; therefore, the final depth may exceed the current one. Mitotic Rate: 7 mitoses per mm2 Microsatellite(s): Cannot be determined Lymphatic and / or Vascular Invasion: Not identified Neurotropism: Not identified Tumor-Infiltrating Lymphocytes: Present, brisk Tumor Regression: Not identified MARGINS Margin Status for Invasive Melanoma: Invasive melanoma present at margin Margin(s) Involved by Invasive Melanoma: Peripheral Margin(s) Involved by Invasive Melanoma: Deep Margin Status for Melanoma In Situ: All margins negative for melanoma in situ pTMN CLASSIFICATION (AJCC 8th Edition) Reporting of pT category is based on information available to the pathologist at the time the report is issued. As per the AJCC (Chapter 1, 8th Ed.) it is the managing physician s responsibility to establish the final pathologic stage based upon all pertinent information, including but potentially not limited to this pathology report. pT Category: pT2b Comment(s): This case was reviewed by Dr. Rashida Weiss, who agrees. 4 3:37 PM CDT DERMATOPATHOLOGY LABORATORY Pathology/Cytolo gy TISSUE SPECIMEN FROM SKIN / Unknown 06/11/2023 3:33 AM CDT 06/14/2023 1:17 PM CDT us Anjum Weems MD LAB - PATHOLOGY/CYTOLOGY LEE SUE Final Result DERMATOPATHOLOGY LABORATORY [facility] - Department of Dermatology [facility] Specialized Medicine [address] [place] [address], [address] [phone] documented in this encounter Visit Diagnoses Diagnosis Neoplasm of uncertain behavior of skin documented in this encounter Care Teams Rn Ccu Relationship Specialty Start Date End Date Neel Lincoln MD [address] [place] [id number] PCP - General Internal Medicine 06/18/23 documented as of this encounter
--- OUTSIDE RECORDS SUMMARY | 2024-08-25 21:09 | XMS_ITS | Clinical Summary ---
Author Organization [facility] Address [address] [place] [address] Care Team Providers Care Reconsignment Clerk Name Role Phone Moisés Flynn MD Unavailable [phone] Eileen Mueller MD Unavailable [phone] Neel Lincoln MD Primary Care Provider [phone] Wes Redmond MD Unavailable [phone] Moisés Bryant MD Unavailable [phone] Allergies Active Allergy Reactions Criticality Noted Date Comments Acetazolamide Dystonia,Other (See comments) High 06/19/2022 He states he was dizzy and had a hard time moving arms and legs and was staggering. He states he was dizzy and had a hard time moving arms and legs and was staggering. He states he was dizzy and had a hard time moving arms and legs and was staggering. Cefadroxil Shortness of breath High 09/02/2021 Tolerated zosyn 07/2022 Reaction: SOB, , Tolerated zosyn 07/2022 Reaction: SOB, , Tolerated zosyn 07/2022 Reaction: SOB, , Tolerated zosyn 07/2022 Doxycycline Shortness of breath High 01/15/2023 Medications gabapentin (NEURONTIN) 800 mg tablet Take 1 tablet (800 mg total) by mouth 3 (three) times a day Active pantoprazole DR (PROTONIX) 40 mg EC tablet Take 1 tablet (40 mg total) by mouth daily Active isosorbide mononitrate ER (IMDUR) 30 mg 24 hr tablet Take 1 tablet (30 mg total) by mouth daily Active insulin lispro (HumaLOG) 100 unit/mL injectionIndicat ions:sliding Scale BS 201-300-3 units, BS 301-400-7 units, BS >400-15 units Inject 0-20 Units under the skin 3 (three) times a day before meals Active metFORMIN (GLUMETZA) 500 mg 24 hr tabletIndication s:resume 06/09/2019 Take 2 tablets (1,000 mg total) by mouth nightly Resume on 07/19/20 1 Active insulin glargine (TOUJEO) 300 unit/mL (1.5 mL) pen for injectionIndicat ions:30 units in am, and 35units at HS Inject 45 Units under the skin 2 (two) times a day Active levothyroxine (SYNTHROID) 75 mcg tablet Take 1 tablet (75 mcg total) by mouth every morning 2 Active ezetimibe (ZETIA) 10 mg tablet Take 1 tablet (10 mg total) by mouth daily 2 Active metoprolol XL (TOPROL-XL) 100 mg 24 hr tablet Take 1 tablet (100 mg total) by mouth 2 (two) times a day 3 Active nitroglycerin (NITROSTAT) 0.[address] 1 tablet (0.4 mg total) under the tongue every 5 (five) minutes as needed for chest pain 2 Active lisinopriL (PRINIVIL,ZESTRI L) 20 mg tablet Take 1 tablet (20 mg total) by mouth daily 3 Active dorzolamide (TRUSOPT) 2 % ophthalmic solution Administer 1 drop into both eyes every evening Active apixaban (ELIQUIS) 5 mg tabletIndication s:atrial fibrillation Take 1 tablet (5 mg total) by mouth every 12 (twelve) hours 3 Active aspirin 81 mg chewable tabletIndication s:cerebral ischemia,Cerebra l Ischemia Take 1 tablet (81 mg total) by mouth daily 30 tablet 11 3 Active acetaminophen 500 mg capsule Take 1 capsule (500 mg total) by mouth every 6 (six) hours as needed for pain 3 Active nicotine (NICODERM CQ) [address] 1 patch on the skin daily 30 patch 3 Active potassium chloride ER (KLOR-CON) 20 mEq CR tablet Take 2 tablets (40 mEq total) by mouth daily 3 Active atorvastatin (LIPITOR) 80 mg tablet Take 1 tablet (80 mg total) by mouth nightly 3 Active furosemide (LASIX) 20 mg tablet Take 1 tablet (20 mg total) by mouth daily Active glipiZIDE (GLUCOTROL) 5 mg tabletIndication s:type 2 diabetes mellitus Take 1 tablet (5 mg total) by mouth nightly Active gemfibroziL (LOPID) 600 mg tablet Take 1 tablet (600 mg total) by mouth 2 (two) times a day 3 Active HYDROcodone-acet aminophen (NORCO) 5-325 mg per tabletIndication s:Pain Take 1-2 tablets by mouth every 4 (four) hours as needed for pain 20 tablet 3 Active Additional Information Patient not taking.Reported on 02/23/2024 Active Problems Problem Noted Date Diagnosed Date Asymptomatic bilateral carotid artery stenosis 0 08/14/2024 Assessment & Plan (08/14/2024 12:37 PM CDT): Minimal carotid stenosis. Repeat carotid doppler in one year and then likely once every two years if stable. Amputation of toe of right foot 11/25/2022 Eschar of toe 11/02/2022 Status post aortic bifurcation bypass graft 09/2022 Amputation of left great toe 08/19/2022 Stroke (cerebrum) 07/20/2022 Hypertension 07/12/2020 Sleep apnea 07/12/2020 GERD (gastroesophageal reflux disease) CAD (coronary artery disease) 07/12/2020 Atherosclerosis of telida ar teries of extremities with intermittent claudication, bilateral legs 07/09/2020 Overview (07/09/2020): Added automatically from request for surgery [id number] Assessment & Plan (06/09/2021 12:42 PM CDT): He has widely patent fem-pop bypasses bilaterally however there's been significant decline in the left SEB with a now absent left toe pressure. There's been less significant decline of the right SEB. I will discuss the changes in his ABIs with Dr. Flynn. We may order a CTA for evaluation of possible recurrent disease developing in the aorto-iliac arteries. Assessment & Plan (12/18/2020 10:40 AM CDT): Progressive left calf claudication with occlusion of left SFA stent on Doppler and poor femoral pulses. Arrange CT AIF for further evaluation then plan revascularization left leg. Chronic pain of both hips 02/26/2020 Assessment & Plan (02/26/2020 9:38 AM ROPE TIER): Bilateral hip claudication with chronically occluded bilateral internal iliac arteries without revascularization options. Common/external iliac artery stenoses without a great decline in pre & post exercise ankle pressures. He's not had a lumbar spine MRI since 2018. We'll repeat an MRI to determine if there is a neurogenic component to his hip claudication. We wouldn't recommend common/external iliac artery intervention unless we're convinced it's contributing to his symptoms. S/P carotid endarterectomy 01/15/2020 Assessment & Plan (03/04/2023 10:37 AM ROPE TIER): Due for follow-up carotid doppler summer 2023. Will coordinate with his 6 month f/u studies of his legs. Assessment & Plan (01/15/2020 2:00 PM ROPE TIER): Left SFA stent patent. Repeat arterial Doppler in six months. Our office will contact him to make the appointment when the time comes. Certainly if there are interval problems, we would be happy to see him sooner. Status post femoral-popliteal bypass surgery 04/2019 Assessment & Plan (03/04/2023 10:36 AM ROPE TIER): Widely patent aorto-bifemoral bypass and bilateral fem-pop bypasses. Repeat ABIs and bilateral LE duplex scans again in six months. Assessment & Plan (12/18/2020 10:32 AM CDT): Patent right leg bypass with stable right leg perfusion. Assessment & Plan (01/15/2020 1:59 PM ROPE TIER): Widely patent right leg bypass. Monitor with repeat Duplex scan in six months. Our office will contact him to make the appointment when the time comes. Certainly if there are interval problems, we would be happy to see him sooner. Generalized postprandial abdominal pain 01/15/20 Assessment & Plan (01/15/2020 1:57 PM ROPE TIER): Arrange CT Angiogram abdomen/pelvis to determine if there's evidence of mesenteric arterial disease as a source of his abdominal pain. Tobacco abuse 05/22/2019 Assessment & Plan (05/22/2019 2:34 PM CDT): The importance of smoking cessation was discussed with the patient including the relationship between peripheral vascular disease and tobacco abuse. Atrial fibrillation (CMS/HCC) 05/19/2017 Hypothyroidism Hyperlipidemia Diabetes Resolved Problems Problem Noted Date Diagnosed Date Resolved Date Claudication 01/22/2021 03/03/2023 Atherosclerosis of telida ar teries of extremities with rest pain, bilateral legs 01/17/2021 03/03/2023 Overview (01/17/2021): Added automatically from request for surgery [id number] Atherosclerosis of telida ar teries of extremities with intermittent claudication, left leg 06/01/2019 07/12/2020 Overview (06/01/2019): Added automatically from request for surgery [id number] Stenosis of peripheral vascular stent 06/01/2019 07/12/2020 Overview (06/01/2019): Added automatically from request for surgery [id number] Foreign body of great toe of right foot with infection 10/17/2018 07/12/2020 Atherosclerosis of telida ar diogo of left lower extremity with intermittent claudication 08/17/2018 07/12/2020 Overview (08/17/2018): Added automatically from request for surgery [id number] Assessment & Plan (05/22/2019 2:44 PM CDT): He has progressive proximal left leg claudication at the level of the hip with a severe left external iliac artery stenosis, a moderate recurrent left in-stent SFA stenosis and decline in the left SEB. I'll discuss his progressive left leg arterial disease with Dr. Flynn, we'll likely arrange a CT angiogram or AIF angiogram. Claudication of lower extremity 11/24/2017 07/12/2020 Assessment & Plan (01/15/2020 2:01 PM ROPE TIER): 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 Revascularization is not possible. Continue exercise to encourage collateral flow. Encounter for therapeutic drug monitoring 05/19/2017 07/12/2020 Surgical follow-up care 02/03/201606/15 Overview (06/18/2016): Postoperative follow-up Sebaceous cyst 12/30/2015 07/10/2022 Overview (06/18/2016): Sebaceous cyst Atherosclerosis of telida artery of extremity 05/08/19 16 07/12/2020 Overview (06/18/2016): Atherosclerosis of telida artery of right lower extremity with rest pain Encounters Date Type Department Care Team Description 08/15/2024 9:00 AM CDT Office Visit [facility] [address] [place] [id number] Shannan Jesus PA Asymptomatic bilateral carotid artery stenosis (Primary Dx); PAD (peripheral artery disease) 08/15/2024 8:00 AM CDT Ancillary Procedure [facility] [address] [place] [id number] Bilateral carotid artery stenosis from Last 3 Months Immunizations Immunization Administration Dates Next Due Influenza, Trivalent, IM (MDV) 12/16/2014 Surgical History Surgery Date Site/Laterality Comments CARDIOVERSION CARDIAC STENT PLACEMENT APPENDECTOMY FEMORAL ARTERY - POPLITEAL ARTERY BYPASS GRAFT 03/15/2015 - 03/14/2016 Right previous right SFA stent occluded FEMORAL ARTERY STENT 03/15/2016 - 03/14/2017 Left left SFA stent ILIAC ARTERY STENT 12/13/2017 Left distal common iliac artery ANGIOPLASTY / STENTING FEMORAL 08/25/2018 Left Medical History Medical History Date Comments Myocardial infarction (HCC) Hyperlipidemia Hypothyroidism Diabetes mellitus type I (HCC) Generalized postprandial abd ominal pain 01/15/2020 Chronic pain of both hips 02/26/2020 Atherosclerosis of telida ar teries of extremities with intermittent claudication, bilateral legs 07/09/2020 Added automatically from request for surgery [id number] Sebaceous cyst 12/30/2015 Sebaceous cyst Foreign body of great toe of right foot with infection 10/17/2018 Tobacco abuse 05/22/2019 Status post femoral-poplitea l bypass surgery 01/15/2020 Hypertension 07/12/2020 GERD (gastroesophageal reflux disease) 07/12/2020 CAD (coronary artery disease) 07/12/2020 Sleep apnea 07/12/2020 no cpap use Atrial fibrillation (HCC) Family History Medical History Relation Name Comments Diabetes Father Heart disease Father Diabetes Mother Heart disease Mother Relation Name Status Comments Father Mother Social History Tobacco Use Types Packs/Day Years Used Date Smoking Tobacco: Former Cigarettes 0.5 47 1 976 - 2022 Passive Smoke Exposure: Past Smokeless Tobacco: Never Tobacco Cessation:Counseling Given: Not Answered Alcohol Use Standard Drinks/Week Comments No 0 (1 standard drink = 0.6 oz pur e alcohol) Social Connection and Isolat ion Panel [NHANES] Answer Date Recorded In a typical week, how many times do you talk on the phone with family, friends, or neighbors? More than three times a week 07/20/2022 How often do you get togethe r with friends or relatives? More than three times a week 07/20/2022 How often do you attend chur or roman catholic services? Never 07/20/2022 Do you belong to any clubs o r organizations such as baptist groups, unions, fraternal or athletic groups, or school groups? No 07/20/2022 How often do you attend meet ings of the clubs or organizations you belong to? Never 07/20/2022 Are you , , di vorced, , never , or living with a partner? 07/20/2022 AUDIT-C Answer Date Recorded Q1: How often do you have a drink containing alcohol? Never 08/23/2023 Q2: How many drinks containi ng alcohol do you have on a typical day when you are drinking? Patient does not drink 06/10/202 4 Q3: How often do you have si x or more drinks on one occasion? Never 08/23/2023 Overall Financial Resource Strain (CARDIA) Answe r Date Recorded How hard is it for you to pa y for the very basics like food, housing, medical care, and heating? Not hard at all 07/20/2022 PRAPARE - Transportation Answer Date Re corded In the past 12 months, has l ack of transportation kept you from medical appointments or from getting medications? No 10/2022 In the past 12 months, has l ack of transportation kept you from meetings, work, or from getting things needed for daily living? No 07/20/2022 Personal Safety Answer Date Recorded Have you ever been in or are you currently in a harmful physical or emotional relationship or is someone making you feel afraid or unsafe? Denies 11/17/2022 Sex and Gender Information Value Date Recorded Sex Assigned at Not on file Legal Sex Male 2:42 PM ROPE TIER Gender Identity Not on file Sexual Orientation Not on file Obstetrics History Last Filed Vital Signs Vital Sign Reading Time Taken Comments Blood Pressure 188/115 02/23/2024 12:02 PM ROPE TIER Pulse 72 02/23/2024 12:02 PM ROPE TIER Temperature 36.6 C (97.8 F) 02/23/2024 12:02 PM ROPE TIER Respiratory Rate 13 11/17/2022 4:05 PM CDT Oxygen Saturation 96% 02/23/2024 12:02 PM ROPE TIER Inhaled Oxygen Concentration - - Weight 111.6 kg (246 lb) 02/23/2024 12:02 PM ROPE TIER Height 182.9 cm (6') 02/23/2024 12:02 PM ROPE TIER Body Mass Index 33.36 02/23/2024 12:02 PM ROPE TIER Plan of Treatment Health Maintenance Due Date Last Done Comments Albumin Creatinine Ratio, Urine 1960 Colon Cancer Screening-Colonoscopy 1960 Depression Screening 1960 Hepatitis C Screening 1960 Prostate Cancer Screening-PSA 1960 Dilated Eye Exam 1960 Foot Exam 1960 DTaP/Tdap/Td Vaccine (1 - Tdap) 12/08/1971 Hepatitis B Screening 1978 Regular Well Visit/Exam 18-64 1978 Pneumococcal vaccine <65 (1 of 2 - PCV) 12/08/1979 Lung Cancer Screening 2010 Zoster Vaccine (1 of 2) 2010 eGFR 11/11/2023 11/10/2022, 07/14, 08/04/2022, Additional history exists Covid-19 Vaccine (3 - 2023-2 5 season) 2023 07/09/2020, 06/11/2020 Hemoglobin A1C 12/23/2023 06/23/2023, 10/14, 07/10/2022, Additional history exists Lipid Panel 03/29/2025 03/29/2024, 01/13, 07/20/2022, Additional history exists Influenza Vaccine Completed 01/26/2024, , 12/20/2020, Additional history exists Medical Devices Implanted Type Area Road Monkey Device Identifier Shelf Expiration Date Model / Serial / Lot [employer] Hemagard 16/8mm 50cm Knit Cross Link Tensile Strength Excellent [id number] - [id number] - [id number] Implanted:Qty: 1 on 07/27/2022 by Moisés Flynn MD at [facility] Graft N/A: Abdomen Book[employer] 01/12/2027 [id number] / [id number] / Daig Thien [id number] Device Closure Angio-Seal Vip Bondek-Plus Polyglyd L70 Cm Od6 Fr Odsec.035 In Vascular - Sn/A - [id number] Implanted:Qty: 1 on 07/17/2020 by Moisés Flynn MD at [facility] Other - see comments Left: Groin Terumo Medical Thien 04/14/2021 [id number] / N/A / [id number] Bard Peripheral Vascular [id number] E-Luminexx Safe Performaxx 9mm 6fr 60mm 80cm Delivery System - [id number] Implanted:Qty: 1 on 12/13/2017 by Moisés Flynn MD at [facility] Stent Left: Arterial Bard Peripheral Vascular 01/12/2020 [id number] / / [id number] Description:Left Common and External Iliac Artery Medtronic Inc Everflex Entrust 6mm 60mm 80cm Self Expand Triaxial Low Profile - Sn/A - [id number] Implanted:Qty: 1 on 07/17/2020 by Moisés Flynn MD at [facility] Stent Right: Iliac Medtronic Inc 01/12/2022 [id number] / N/A / [id number] Medtronic Inc Everflex Entrust 6mm 100mm 80cm Self Expand Triaxial Low Profile - Sn/A - [id number] Implanted:Qty: 1 on 07/17/2020 by Moisés Flynn MD at [facility] Stent Left: Iliac Medtronic Inc 10/15/2022 [id number] / N/A / [id number] Daig Thien/[employer] [id number] Angio-Seal Vip Bondek-Plus 6fr .035in 70cm Hemostatic Latex Free - [id number] Implanted:Qty: 1 on 12/13/2017 by Moisés Flynn MD at [facility] Left: Groin Daig Thien/[employer] 08/12/2018 [id number] / / [id number] Cryolife Inc Patch Cardiovascular 0.8x8cm Nonpyrogenic Pfp0.8x8 - [id number] Implanted:Qty: 1 on 07/21/2022 by Moisés Flynn MD at [facility] Left: Carotid [employer]olife Inc 03/28/2024 PFP0.8X8 / / [id number] Vitalitec Intrnl Inc Sls-Clip Ligate Triangular Wire Chio Groove Small Chevron Clip Latex Free V6804-6 - [id number] Implanted:Qty: 1 on 07/21/2022 by Moisés Flynn MD at [facility] Left: Neck Vitalitec Intrnl Inc A2504-7 / / Vital[employer]c Intrnl Inc Sls-Clip Ligate Triangular Wire Chio Groove Small Chevron Clip Latex Free C8381-4 - [id number] Implanted:Qty: 4 on 07/27/2022 by Moisés Flynn MD at [facility] N/A: Abdomen Vital[employer]c Intrnl Inc [id number] / / Bard Peripheral Vascular Bard .25x.25in [place] Thk1.65mm Square Pledget Cardiovascular Ptfe [id number] - [id number] Implanted:Qty: 1 on 07/27/2022 by Moisés Flynn MD at [facility] N/A: Abdomen Bard Peripheral Vascular [id number] / / Bard Peripheral Vascular Bard 5/16x5/16in [place] Thk1.65mm Pledget Cardiovascular Ptfe 060003 - [id number] Implanted:Qty: 1 on 07/27/2022 by Moisés Flynn MD at [facility] N/A: Abdomen Bard Peripheral Vascular [id number] / / Procedures Procedure Name Priority Date/Time Associated Diagnosis Comments US CAROTIDS DUPLEX BILATERAL Schedule Routine, Read Routine (OP Routine) 08/15/2024 8:48 AM CDT Bilateral carotid artery stenosis EGFR Routine 11/10/2022 1:03 PM CDT Pre-op evaluation HEMOGLOBIN A1C Routine 11/10/2022 1:03 PM CDT Pre-op evaluation LIPID PANEL Routine 07/20/2022 12:27 AM CDT from Last 3 Months or Most Recently Relevant to Health Maintenance Results * US Carotids Duplex Bilateral (08/15/2024 8:48 AM CDT) Anatomical Region Laterality Modality Vascular Bilateral Ultrasound 08/15/2024 7:58 AM CDT Narrative 08/15/2024 3:23 PM CDT [facility] - Department of Vascular Surgery, Vascular Laboratory [address] [place] [address] Carotid Duplex Ultrasound Report Patient Name: CYRUS SUBRAMANIAN : 1960 (63y 8m) Study Date: 08/15/2024 7:58:41 AM Gender: M Tech: Location: [facility] Provider: MOISÉS FLYNN Quality: Adequate Order Provider: MOISÉS FLYNN PROCEDURES: Carotid Report: Carotid duplex examination of the extracranial arteries was performed using 2D, color and spectral Doppler. INDICATIONS: I65.23 Occlusion and stenosis of bilateral carotid arteries. MEASUREMENTS: Right Value Units Left Value Units RT Prox CCA PSV 94 cm/sec LT Prox CCA PSV 120 cm/sec RT Prox CCA EDV 14 cm/sec LT Prox CCA EDV 31 cm/sec RT Distal CCA PSV 80 cm/sec LT Distal CCA PSV 138 cm/sec RT Distal CCA EDV 16 cm/sec LT Distal CCA EDV 34 cm/sec RT Prox ICA PSV 156 cm/sec LT Prox ICA PSV 83 cm/sec RT Prox ICA EDV 32 cm/sec LT Prox ICA EDV 34 cm/sec RT Mid ICA PSV 147 cm/sec LT Mid ICA PSV 81 cm/sec RT Mid ICA EDV 45 cm/sec LT Mid ICA EDV 25 cm/sec RT Distal ICA PSV 71 cm/sec LT Distal ICA PSV 69 cm/sec RT Distal ICA EDV 25 cm/sec LT Distal ICA EDV 28 cm/sec RT ECA Prx PSV 116 cm/sec LT ECA Prx PSV 111 cm/sec RT ICA/CCA 1.96 ratio LT ICA/CCA 0.60 ratio RT VERT PSV 66 cm/sec LT VERT PSV 221 cm/sec FINDINGS: Performing Well Testing Operator: NERY ArambulaT. Rt Common Carotid Artery: The plaque in the right CCA appears to be heterogeneous, calcified and smooth. Atherosclerotic changes of the right common carotid artery with no hemodynamically significant Doppler findings. Rt Internal Carotid Artery: The plaque in the right internal carotid artery appears to be heterogeneous, calcified and smooth. Atherosclerotic changes of the right internal carotid artery without hemodynamically significant Doppler findings. <50% stenosis. Rt External Carotid Artery: Patent right external carotid artery with evidence of atherosclerotic disease present. Rt Vertebral Artery: The right vertebral artery is patent with antegrade flow. Lt Common Carotid Artery: The plaque in the left CCA appears to be heterogeneous and smooth. Atherosclerotic changes of the left common carotid artery with hemodynamically significant Doppler findings; elevated peak systolic velocity as above. Lt Internal Carotid Artery: The plaque in the left internal carotid artery appears to be heterogeneous and smooth. Atherosclerotic changes of the left internal carotid artery without hemodynamically significant Doppler findings. <50% stenosis. Lt External Carotid Artery: Patent left external carotid artery with evidence of atherosclerotic disease present. Lt Vertebral Artery: The left vertebral artery is patent with antegrade flow and ABNORMAL increased velocity of 221cm/s. Comments: Unable to visualize a 0.58cm segment of the right proximal ICA due to calcific shadowing. Due to LEFT distal CCA increased velocity ICA velocities may be underestimated. ICA stenosis grading criteria may not be applicable. Provider Notification: The patient was sent to clinic per provider request. CONCLUSIONS: 1. The right internal carotid artery disease is consistent with a less than 50% stenosis. 2. The left internal carotid artery disease is consistent with a less than 50% stenosis. 3. No evidence of hemodynamically significant stenosis in the right common carotid artery. 4. Atherosclerotic changes of the left common carotid artery with hemodynamically significant Doppler findings. 5. Normal, antegrade flow is noted in the right vertebral artery. 6. The left vertebral artery is patent with antegrade flow and ABNORMAL increased velocity of 221cm/s. 7. Patent bilateral external carotid arteries with evidence of atherosclerotic plaque. HISTORY: Left carotid endarterectomy 07/21/2022. PREVIOUS STUDIES: Previous carotid ultrasound on 08-23-23 Bilat ICA less than 50% stenosis., antegrade verts - DISCLAIMER: The study images and the final report will be retained in the patient chart by the Vascular Laboratory for the legally required time period. This chart constitutes the legal record of any testing performed. ATTESTATION: I have reviewed and interpreted the pertinent images and measurements of this study. I attest to the conclusions in the final report that is provided above. Electronically Signed By: Moisés Flynn MD FACS 08/15/2024 2:05:41 PM CDT Procedure Note Moisés Flynn MD - 08/15/2024 [facility] - Department of Vascular Surgery,Vascular Laboratory [address] [place] [id number] Carotid Duplex Ultrasound Report Patient Name: CYRUS SUBRAMANIAN : 1960 (63y 8m) Study Date: 08/15/2024 7:58:41 AM Gender: M Tech: Location: [facility] Provider: MOISÉS FLYNN Quality: Adequate Order Provider: MOISÉS FLYNN PROCEDURES: Carotid Report: Carotid duplex examination of the extracranial arterieswas performed using 2D, color and spectral Doppler. INDICATIONS: I65.23 Occlusion and stenosis of bilateral carotid arteries. MEASUREMENTS: Right Value Units Left Value Units RT Prox CCA PSV 94 cm/sec LT Prox CCA PSV 120 cm/sec RT Prox CCA EDV 14 cm/sec LT Prox CCA EDV 31 cm/sec RT Distal CCA PSV 80 cm/sec LT Distal CCA PSV 138 cm/sec RT Distal CCA EDV 16 cm/sec LT Distal CCA EDV 34 cm/sec RT Prox ICA PSV 156 cm/sec LT Prox ICA PSV 83 cm/sec RT Prox ICA EDV 32 cm/sec LT Prox ICA EDV 34 cm/sec RT Mid ICA PSV 147 cm/sec LT Mid ICA PSV 81 cm/sec RT Mid ICA EDV 45 cm/sec LT Mid ICA EDV 25 cm/sec RT Distal ICA PSV 71 cm/sec LT Distal ICA PSV 69 cm/sec RT Distal ICA EDV 25 cm/sec LT Distal ICA EDV 28 cm/sec RT ECA Prx PSV 116 cm/sec LT ECA Prx PSV 111 cm/sec RT ICA/CCA 1.96 ratio LT ICA/CCA 0.60 ratio RT VERT PSV 66 cm/sec LT VERT PSV 221 cm/sec FINDINGS: Performing Well Testing Operator: NERY ArambulaT. Rt Common Carotid Artery: The plaque in the right CCA appears to beheterogeneous, calcified and smooth. Atherosclerotic changes of the right common carotidartery with no hemodynamically significant Doppler findings. Rt Internal Carotid Artery: The plaque in the right internal carotidartery appears to be heterogeneous, calcified and smooth. Atherosclerotic changes of the rightinternal carotid artery without hemodynamically significant Doppler findings. <50%stenosis. Rt External Carotid Artery: Patent right external carotid artery withevidence of atherosclerotic disease present. Rt Vertebral Artery: The right vertebral artery is patent with antegradeflow. Lt Common Carotid Artery: The plaque in the left CCA appears to beheterogeneous and smooth. Atherosclerotic changes of the left common carotid artery withhemodynamically significant Doppler findings; elevated peak systolic velocity as above. Lt Internal Carotid Artery: The plaque in the left internal carotid arteryappears to be heterogeneous and smooth. Atherosclerotic changes of the left internalcarotid artery without hemodynamically significant Doppler findings. <50% stenosis. Lt External Carotid Artery: Patent left external carotid artery withevidence of atherosclerotic disease present. Lt Vertebral Artery: The left vertebral artery is patent with antegradeflow and ABNORMAL increased velocity of 221cm/s. Comments: Unable to visualize a 0.58cm segment of the right proximal ICAdue to calcific shadowing. Due to LEFT distal CCA increased velocity ICA velocities may beunderestimated. ICA stenosis grading criteria may not be applicable. Provider Notification: The patient was sent to clinic per providerrequest. CONCLUSIONS: 1. The right internal carotid artery disease is consistent with a lessthan 50% stenosis. 2. The left internal carotid artery disease is consistent with a less than50% stenosis. 3. No evidence of hemodynamically significant stenosis in the right commoncarotid artery. 4. Atherosclerotic changes of the left common carotid artery withhemodynamically significant Doppler findings. 5. Normal, antegrade flow is noted in the right vertebral artery. 6. The left vertebral artery is patent with antegrade flow and ABNORMALincreased velocity of 221cm/s. 7. Patent bilateral external carotid arteries with evidence ofatherosclerotic plaque. HISTORY: Left carotid endarterectomy 07/21/2022. PREVIOUS STUDIES: Previous carotid ultrasound on 08-23-23 Bilat ICA less than 50% stenosis.,antegrade verts - DISCLAIMER: The study images and the final report will be retained in the patientchart by the Vascular Laboratory for the legally required time period. This chartconstitutes the legal record of any testing performed. ATTESTATION: I have reviewed and interpreted the pertinent images and measurements ofthis study. I attest to the conclusions in the final report that is provided above. Electronically Signed By: Moisés Flynn MD [facility] 08/15/2024 2:05:41 PM CDT us Moisés Flynn MD IM US PROCEDURES Final Result * eGFR (11/10/2022 1:03 PM CDT) eGFR 77 mL/min/1. 73 m2 [facility] Comment: Interpretive Data Reference Interval Normal >/= 90 mL/min/1.73m2 Mildly decreased* 60 - 89 mL/min/1.73m2 Mildly to moderately decreased 45 - 59 mL/min/1.73m2 Moderately to severely decreased 30 - 44 mL/min/1.73m2 Severely decreased 15 - 29 mL/min/1.73m2 Kidney Failure < 15 mL/min/1.73m2 *Relative to young adult level Estimated glomerular filtration rate is determined by the 2020 CKD-EPI equation recommended by the National Kidney Foundation (A Unifying Approach to GFR Estimation: Recommendations of the NKF-ASK Task Force on Reassessing the Inclusion of Race in Diagnosing Kidney Disease, JASN 2020). The CKD-EPI equation should not be used for patients with unstable renal function and has not been validated in children and those over 70. Current interpretive data was last reviewed 2021. Blood 11/10/2022 1:03 PM CDT 11/10/2022 1:03 PM CDT Andreea Espinoza NP LAB BLOOD ORDERABLES Fin al Result Performing Organization Address [facility] de Phone Number [facility] [address] [place] [address] * (ABNORMAL) Hemoglobin A1c (11/10/2022 1:03 PM CDT) Pathologist [facility] Hgb A1C 10.0(H) 4.0 - 5.6 % [facility] Estimated Average Glucose 240 mg/dL [facility] Comment: The ADA recommends reporting an estimated Average Glucose (eAG) with all Hemoglobin A1c results using the equation derived from a study of 507 normal and diabetic adults. Minority populations were underrepresented and children were not included. (Diabetes Care 31:9076-4519, 2008). The eAG is not equivalent to a fasting glucose. Blood 11/10/2022 1:03 PM CDT 11/10/2022 1:03 PM CDT Andreea Espinoza NP LAB BLOOD ORDERABLES Fin al Result Performing Organization Address [facility] de Phone Number [facility] [address] [place] [address] * (ABNORMAL) Lipid panel (07/20/2022 12:27 AM CDT) [facility] Cholesterol 97 30 - 199 mg/dL [facility] Comment: Interpretive Data Ages < or = 19 years Acceptable: <170 mg/dL Borderline high: 170-199 mg/dL High: >or= 200 mg/dL Ages > or = 20 years Desirable: <200 mg/dL Borderline high: 200-239 mg/dL High: >or= 240 mg/dL Literature References: 1. Expert Panel on Integrated Guidelines for Cardiovascular Health and Risk Reduction in Children and Adolescents. Pediatrics 2011;128:S213 2. NCEP Expert Panel. Circulation 2004;110:227 Current Interpretive Data was last revised on 2017. Triglycerides 133 <=149 mg/dL [facility] Comment: Interpretive Data Ages < or = 9 years Acceptable: <75 mg/dL Borderline high: 75-99 mg/dL High: >or= 100 mg/dL Ages 10 to 20 years Acceptable: <90 mg/dL Borderline high: 90-129 mg/dL High: >or= 130 mg/dL Ages > or = 20 years Desirable: <150 mg/dL Borderline high: 150-199 mg/dL High: 200-499 mg/dL Very high: >or= 499 mg/dL Literature References: 1. Expert Panel on Integrated Guidelines for Cardiovascular Health and Risk Reduction in Children and Adolescents. Pediatrics 2011;128:S213 2. NCEP Expert Panel. Circulation 2004;110:227 Current Interpretive Data was last revised on 2017. HDL 25(L) >=40 mg/dL [facility] Comment: Interpretive Data Ages < or = 19 years Acceptable: >45 mg/dL Borderline low: 40-45 mg/dL Low: <40 mg/dL Ages > or = 20 years Desirable: >or= 60 mg/dL Low: <40 mg/dL Literature References: 1. Expert Panel on Integrated Guidelines for Cardiovascular Health and Risk Reduction in Children and Adolescents. Pediatrics 2011;128:S213 2. NCEP Expert Panel. Circulation 2004;110:227 Current Interpretive Data was last revised on 2017. LDL, calculated 45 <=129 mg/dL [facility] Comment: Interpretive Data Ages < or = 19 years Acceptable: <110 mg/dL Borderline high: 110-129 mg/dL High: >or= 130 mg/dL Ages > or = 20 years Optimal: <100 mg/dL Near optimal: 100-129 mg/dL Borderline high: 130-159 mg/dL High: >160 mg/dL Literature References: 1. Expert Panel on Integrated Guidelines for Cardiovascular Health and Risk Reduction in Children and Adolescents. Pediatrics 2011;128:S213 2. NCEP Expert Panel. Circulation 2004;110:227 Current Interpretive Data was last revised on 2017. Non-HDL Cholesterol 72 mg/dL [facility] Comment: Interpretive Data Ages < or = 19 years Acceptable: <120 mg/dL Borderline high: 120-144 mg/dL High: >145 mg/dL Ages > or = 20 years When triglycerides are >200 mg/dL, Non-HDL cholesterol is a secondary target of therapy with treatment goals that are 30 mg/dL greater than the LDL cholesterol target. Literature References: 1. Expert Panel on Integrated Guidelines for Cardiovascular Health and Risk Reduction in Children and Adolescents. Pediatrics 2011;128:S213 2. NCEP Expert Panel. Circulation 2004;110:227 Current Interpretive Data was last revised on 2017. Chol/HDL ratio 4 [facility] Blood 07/20/2022 12:2 7 AM CDT 07/20/2022 12:30 AM CDT us Navin Sandoval MD LAB BLOOD ORDERABLES Final Re sult [facility] [address] [place] [address] from Last 3 Months or Most Recently Relevant to Health Maintenance Insurance MEDICARE [facility] [place] [id number] COMMERCIAL GENERIC MEDICARE [facility] [place] [id number] MEDICARE [place] [employer] Advance Directives For more information, please contact: [phone] * Full Code (Latest Code Status on File) Date Activated Date Inactivated Comments 07/20/2022 12:08 AM 08/05/2022 6:30 PM * Full Code Date Activated Date Inactivated Comments 01/22/2021 5:55 PM 01/25/2021 5:15 PM * Full Code Date Activated Date Inactivated Comments 07/17/2020 5:07 PM 07/18/2020 3:08 PM * Full Code Date Activated Date Inactivated Comments 06/07/2019 7:55 PM 06/08/2019 3:07 PM * Full Code Date Activated Date Inactivated Comments 08/25/2018 4:34 PM 08/26/2018 2:20 PM Care Teams Reconsignment Clerk Relationship Specialty Start Date End Date Neel Lincoln MD 1949 [place] [address] PCP - General Internal Medicine 09/03/21 Moisés Flynn MD Surgeon Vascular Surgery 12/14/17 Eileen Mueller MD Internal Medicine 12/18/20 Wes Redmond MD 1949 [place] [address] Internal Medicine 03/04/22 Moisés Bryant MD [address] [address] Neurology 08/24/22
--- OUTSIDE RECORDS SUMMARY | 2024-08-25 21:09 | XMS_ITS | Referral Summary ---
Author Organization [facility] Address [address] [place] [address] Care Team Providers Care Icing Maker Name Role Phone Moisés Flynn MD Unavailable [phone] Eileen Mueller MD Unavailable Neel Lincoln MD Primary Care Provider [phone] Wes Redmond MD Unavailable Moisés Bryant MD Unavailable Encounters Date Type Department Care Team Description 08/15/2024 9:00 AM CDT Office Visit [facility] Surgery [address] [place] [phone] Shannan Jesus PA Asymptomatic bilateral carotid artery stenosis (Primary Dx); PAD (peripheral artery disease) 08/15/2024 8:00 AM CDT Ancillary Procedure [facility] Surgery [address] [place] [phone] Bilateral carotid artery stenosis from Last 3 Months Allergies Active Allergy Reactions Criticality Noted Date [...] Sleep apnea 07/12/2020 GERD (gastroesophageal reflux disease) 1 CAD (coronary artery disease) 07/12/2020 Atherosclerosis of prairie island ar teries of extremities with intermittent claudication, bilateral legs 07/09/2020 Overview (07/09/2020): Added automatically from request for surgery [id number] Assessment & Plan (06/09/2021 12:42 PM CDT): [...] 02/26/2020 Assessment & Plan (02/26/2020 9:38 AM TOP FLAVOR ATTENDANT): Bilateral hip claudication with chronically occluded bilateral [...] 01/15/2020 Assessment & Plan (03/04/2023 10:37 AM TOP FLAVOR ATTENDANT): Due for follow-up carotid doppler summer 2023. Will coordinate with his 6 month f/u studies of his legs. Assessment & Plan (01/15/2020 2:00 PM TOP FLAVOR ATTENDANT): Left SFA stent patent. Repeat arterial Doppler in six months. Our office will contact him to make the appointment when the time comes. Certainly if there are interval problems, we would be happy to see him sooner. Status post femoral-popliteal bypass surgery 04/2019 Assessment & Plan (03/04/2023 10:36 AM TOP FLAVOR ATTENDANT): Widely patent aorto-bifemoral bypass and bilateral fem-pop bypasses. Repeat ABIs and bilateral LE duplex scans again in six months. Assessment & Plan (12/18/2020 10:32 AM CDT): Patent right leg bypass with stable right leg perfusion. Assessment & Plan (01/15/2020 1:59 PM TOP FLAVOR ATTENDANT): Widely patent right leg bypass. Monitor with repeat Duplex scan in six months. Our office will contact him to make the appointment when the time comes. Certainly if there are interval problems, we would be happy to see him sooner. Generalized postprandial abdominal pain 01/15/20 Assessment & Plan (01/15/2020 1:57 PM TOP FLAVOR ATTENDANT): Arrange CT Angiogram abdomen/pelvis to determine if there's evidence of mesenteric arterial disease as a source of his abdominal pain. Tobacco abuse 05/22/2019 Assessment & Plan (05/22/2019 2:34 PM CDT): The importance of smoking cessation was discussed with the patient including the relationship between peripheral vascular disease and tobacco abuse. Atrial fibrillation ([facility]) 05/19/2017 Hypothyroidism Hyperlipidemia Diabetes Resolved Problems Problem Noted Date Diagnosed Date Resolved Date Claudication 01/22/2021 03/03/2023 Atherosclerosis of [place] ar teries of extremities with rest pain, bilateral legs 01/17/2021 03/03/2023 Overview (01/17/2021): Added automatically from request for surgery [id number] Atherosclerosis of [place] ar teries of extremities with intermittent claudication, left leg 06/01/2019 07/12/2020 Overview (06/01/2019): Added automatically from request for surgery [id number] Stenosis of peripheral vascular stent 06/01/2019 07/12/2020 Overview (06/01/2019): Added automatically from request for surgery [id number] Foreign body of great toe of right foot with infection 10/17/2018 07/12/2020 Atherosclerosis of [place] ar diogo of left lower extremity with intermittent claudication 08/17/2018 07/12/2020 Overview (08/17/2018): Added automatically from request for surgery [id number] Assessment & Plan (05/22/2019 2:44 PM CDT): [...] 07/12/2020 Assessment & Plan (01/15/2020 2:01 PM TOP FLAVOR ATTENDANT): 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 Revascularization is not possible. Continue exercise to encourage collateral flow. Encounter for therapeutic drug monitoring 05/19/2017 07/12/2020 Surgical follow-up care 02/03/201606/15 Overview (06/18/2016): Postoperative follow-up Sebaceous cyst 12/30/2015 07/10/2022 Overview (06/18/2016): Sebaceous cyst Atherosclerosis of prairie island artery of extremity 05/08/19 16 07/12/2020 Overview (06/18/2016): Atherosclerosis of [place] artery of right lower extremity with rest pain Immunizations Immunization Administration Dates Next Due Influenza, Trivalent, IM (MDV) 12/16/2014 Social History Tobacco Use Types Packs/Day Years [...] 07/20/2022 How often do you attend chur ch or samaritan services? Never 07/20/2022 Do you belong to any clubs o r organizations such as yarsani groups, unions, fraternal or athletic groups, or [...] on file Legal Sex Male 2:42 PM TOP FLAVOR ATTENDANT Gender Identity Not on file Sexual Orientation Not on file Last Filed Vital Signs Vital Sign Reading Time Taken Comments Blood Pressure 188/115 02/23/2024 12:02 PM TOP FLAVOR ATTENDANT Pulse 72 02/23/2024 12:02 PM TOP FLAVOR ATTENDANT Temperature 36.6 C (97.8 F) 02/23/2024 12:02 PM TOP FLAVOR ATTENDANT Respiratory Rate 13 11/17/2022 4:05 PM CDT Oxygen Saturation 96% 02/23/2024 12:02 PM TOP FLAVOR ATTENDANT Inhaled Oxygen Concentration - - Weight 111.6 kg (246 lb) 02/23/2024 12:02 PM TOP FLAVOR ATTENDANT Height 182.9 cm (6') 02/23/2024 12:02 PM TOP FLAVOR ATTENDANT Body Mass Index 33.36 02/23/2024 12:02 PM TOP FLAVOR ATTENDANT Plan of Treatment Not on file Medical Devices Implanted Type Area Inspection Supervisor Device Identifier Shelf Expiration Date Model / Serial / Lot Trips n Salsa [employer] Hemagard 16/8mm 50cm Knit Cross Link Tensile Strength Excellent [id number] - [id number] - [id number] Implanted:Qty: 1 on 07/27/2022 by Moisés Flynn MD at [facility] Graft N/A: Abdomen Orlebar BrownINGE CASTLE INC 01/12/2027 [id number] / [id number] / Daig Thien [id number] Device Closure Angio-Seal Vip Bondek-Plus Polyglyd L70 Cm Od6 Fr Odsec.035 In Vascular - Sn/A - [id number] Implanted:Qty: 1 on 07/17/2020 by Moisés Flynn MD at [facility] Other - see comments Left: Groin Terumo Medical Thien 04/14/2021 [id number] / N/A / [id number] Bard Peripheral Vascular [id number] E-Luminexx Safe Performaxx 9mm 6fr 60mm 80cm Delivery System - [id number] Implanted:Qty: 1 on 12/13/2017 by Moisés Flynn MD at [facility] Stent Left: Arterial Bard Peripheral Vascular 01/12/2020 [id number] / / [id number] Description:Left Common and External Iliac Artery Medtronic Inc Everflex Entrust 6mm 60mm 80cm Self Expand Triaxial Low Profile - Sn/A - [id number] Implanted:Qty: 1 on 07/17/2020 by Moisés Flynn MD at [facility] Stent Right: Iliac Medtronic Inc 01/12/2022 [id number] -060-080 / N/A / [id number] Medtronic Inc Everflex Entrust 6mm 100mm 80cm Self Expand Triaxial Low Profile - Sn/A - [id number] Implanted:Qty: 1 on 07/17/2020 by Moisés Flynn MD at [facility] Stent Left: Iliac Medtronic Inc 10/15/2022 [id number] -100-080 / N/A / [id number] Daig Thien/[employer] [id number] Angio-Seal Vip Bondek-Plus 6fr .035in 70cm Hemostatic Latex Free - [id number] Implanted:Qty: 1 on 12/13/2017 by Moisés Flynn MD at [facility] Left: Groin Daig Thien/[employer] 08/12/2018 [id number] / / [id number] Cryolife Inc Patch Cardiovascular 0.8x8cm Nonpyrogenic Pfp0.8x8 - [id number] Implanted:Qty: 1 on 07/21/2022 by Moisés Flynn MD at [facility] Left: Carotid Cryolife Inc 03/28/2024 PFP0.8X8 / / [id number] Vitalitec Intrnl Inc Sls-Clip Ligate Triangular Wire Chio Groove Small Chevron Clip Latex Free X2671-9 - [id number] Implanted:Qty: 1 on 07/21/2022 by Moisés Flynn MD at [facility] Left: Neck Vitalitec Intrnl Inc M4056-2 / / Vitalitec Intrnl Inc Sls-Clip Ligate Triangular Wire Chio Groove Small Chevron Clip Latex Free I3439-4 - [id number] Implanted:Qty: 4 on 07/27/2022 by Moisés Flynn MD at [facility] N/A: Abdomen Vitalitec Intrnl Inc [id number] / / Bard Peripheral Vascular Bard .25x.25in La Sal Thk1.65mm Square Pledget Cardiovascular Ptfe [id number] - [id number] Implanted:Qty: 1 on 07/27/2022 by Moisés Flynn MD at [facility] N/A: Abdomen Bard Peripheral Vascular [id number] / / Bard Peripheral Vascular Bard 5/16x5/16in La Sal Thk1.65mm Pledget Cardiovascular Ptfe 805058 - [id number] Implanted:Qty: 1 on 07/27/2022 by Moisés Flynn MD at [facility] N/A: Abdomen Bard Peripheral Vascular [id number] / / Procedures Procedure Name Priority Date/Time [...] AM CDT Narrative 08/15/2024 3:23 PM CDT [facility] - Department of Vascular Surgery, Vascular Laboratory [address] [place] [address] Carotid Duplex Ultrasound Report Patient Name: CYRUS SUBRAMANIAN : 1960 (63y 8m) Study Date: 08/15/2024 7:58:41 AM Gender: M Tech: Location: [facility] Anh Provider: MOISÉS FLYNN Quality: Adequate Order Provider: [...] LT VERT PSV 221 cm/sec FINDINGS: Performing Home Care Assistant: NERY ArambulaT. Rt Common Carotid Artery: The [...] 07/21/2022. PREVIOUS STUDIES: Previous carotid ultrasound on 08-22- Bilat ICA less than 50% stenosis., antegrade [...] Procedure Note Moisés Flynn MD - 08/15/2024 [facility] - Department of Vascular Surgery,Vascular Laboratory [address] [place] [id number] Carotid Duplex Ultrasound Report Patient Name: CYRUS SUBRAMANIAN : 1960 (63y 8m) Study Date: 08/15/2024 7:58:41 AM Gender: M Tech: Location: [facility] Provider: MOISÉS FLYNN Quality: Adequate Order Provider: [...] LT VERT PSV 221 cm/sec FINDINGS: Performing Home Care Assistant: Mary Garcia RVT. Rt Common Carotid Artery: The plaque in [...] 07/21/2022. PREVIOUS STUDIES: Previous carotid ultrasound on 24 Bilat ICA less than 50% stenosis.,antegrade verts [...] above. Electronically Signed By: Moisés Flynn MD [facility] 08/15/2024 2:05:41 PM CDT us Moisés Flynn MD [facility] US PROCEDURES Final Result * eGFR (11/10/2022 1:03 PM CDT) eGFR 77 mL/min/1. 73 m2 [facility] Comment: Interpretive Data Reference Interval Normal [...] of Race in Diagnosing Kidney Disease, JASN 202). The CKD-EPI equation should not be used for patients with unstable renal function and has not been validated in children and those over 70. Current interpretive data was last reviewed 2021. Blood 11/10/2022 1:03 PM CDT 11/10/2022 1:03 PM CDT Andreea Espinoza DIRECTOR OF PRODUCT DEVELOPMENT LAB BLOOD ORDERABLES Fin al Result Performing Organization Address [facility] de Phone Number [facility] [address] [facility] [place] [address] * (ABNORMAL) Hemoglobin A1c (11/10/2022 1:03 PM CDT) Pathologist [facility] Hgb A1C 10.0(H) 4.0 - 5.6 % [facility] Estimated Average Glucose 240 mg/dL [facility] Comment: The ADA recommends reporting an estimated Average Glucose (eAG) with all Hemoglobin A1c results using the equation derived from a study of 507 normal and diabetic adults. Minority populations were underrepresented and children were not included. (Diabetes Care 31:9819-5105, 2008). The eAG is not equivalent to a fasting glucose. Blood 11/10/2022 1:03 PM CDT 11/10/2022 1:03 PM CDT Andreea Espinoza NP LAB BLOOD ORDERABLES Fin al Result Performing Organization Address [facility] de Phone Number [facility] [address] [facility] [place] [address] * (ABNORMAL) Lipid panel (07/20/2022 12:27 AM CDT) [facility] Cholesterol 97 30 - 199 mg/dL [facility] Comment: Interpretive Data Ages < or = [...] revised on 2017. Triglycerides 133 <=149 mg/dL [facility] Comment: Interpretive Data Ages < or = [...] revised on 2017. HDL 25(L) >=40 mg/dL [facility] Comment: Interpretive Data Ages < or = [...] on 2017. LDL, calculated 45 <=129 mg/dL [facility] Comment: Interpretive Data Ages < or = [...] revised on 2017. Non-HDL Cholesterol 72 mg/dL [facility] Comment: Interpretive Data Ages < or = [...] last revised on 2017. Chol/HDL ratio 4 [facility] Blood 07/20/2022 12:2 7 AM CDT 07/20/2022 12:30 AM CDT us Navin Sandoval MD LAB BLOOD ORDERABLES Final [facility] [address] [place] [address] from Last 3 Months or Most Recently Relevant to Health Maintenance Insurance MEDICARE [employer] COMMERCIAL GENERIC MEDICARE [place] MEDICARE [place] [employer] Advance Directives For more information, please contact: [phone] * Full Code (Latest Code Status on [...] 4:34 PM 08/26/2018 2:20 PM Care Teams Icing Maker Relationship Specialty Start Date End Date Neel Lincoln MD 1949 [place] [address] PCP - General Internal Medicine 09/03/21 Moisés Flynn MD Surgeon Vascular Surgery 12/14/17 Eileen Mueller MD Internal Medicine 12/18/20 Wes Redmond MD [address] [place] [address] Internal Medicine 03/04/22 Moisés Bryant MD [address] [facility] [address] [place] [address] Neurology 08/24/22
[2024-08-25 21:58] LABS: Basophils Absolute Auto 0.1 K/mm3 (0.0-0.1); Basophils Percent Auto 0.7 % (0.2-1.2); Eosinophils Absolute Auto 0.2 K/mm3 (0-0.3); Hematocrit 42.2 % (42.0-52.0); Hemoglobin 13.7 g/dL (14.0-18.0); Immature Granulocyte Absolute 0.06 K/mm3 (0.00-0.031); Immature Granulocyte Percent A 0.6 % (0-0.5); Lymphocytes Absolute Auto 1.24 K/mm3 (0.9-3.2); Lymphocytes Percent Auto 11.5 % (18.3-44.2); Mean Corpuscular HGB Conc 32.5 g/dl (32-36); Mean Corpuscular Hemoglobin 28.6 pg (26-34); Mean Corpuscular Volume 88.1 fl (80-100); Mean Platelet Volume 11.2 fl (7.4-10.4); Monocytes Absolute Auto 0.6 K/mm3 (0.1-0.6); Monocytes Percent Auto 5.9 % (2.6-8.5); Neutrophils Absolute Auto 8.5 K/mm3 (1.3-6.7); Neutrophils Percent Auto 79.3 % (45.5-73.1); Platelet Count Result 278 k/mm3 (150-375); Red Blood Count 4.79 M/mm3 (4.6-6.20); Red Cell Distribution Width 15.1 % (11.5-14.5); White Blood Count 10.8 K/mm3 (4.5-10.0)
--- OUTSIDE RECORDS SUMMARY | 2024-08-25 22:00 | XMS_ITS | Continuity of Care Document ---
Author Organization [facility] Address [address] [place] [address] utive [facility] [address] [place] [address] Phone Care Team Providers Care Health And Fitness Professor Name Role Phone VandanabrodiePepeEvin Unavailable Unavailable Procedures Procedure Date Office/outpatient Visit, [facility] Advance Directives Directive Yes / No Effective Date File Name No Information Encounters Encounter Description Practice Location Reason(s) For Visit Diagnoses Date Provider Providers Copied on Encounter Office/outpat ient Visit, [facility], [address], [place], [place], [id number], tel:[phone] [facility] No Information 7-201 0 Madie Cantuhil. [address] [facility] [address], [place], [place], [facility], . tel:[phone] Referring Provider: Javier Pemberton MD, [facility] [facility] [address], [place], [place], [facility]. tel:[phone] Family History Family Member Type Diagnosis Age At Onset No Information Payers Payer name Insurance type Covered democrat ID Authoriza tion(s) No Information Social History [...]
--- OUTSIDE RECORDS SUMMARY | 2024-08-25 22:00 | XMS_ITS | Clinical Summary ---
Author Organization [facility] Address [address] [place] [address] Care Team Providers Care Parts Chaser Name Role Phone Neel Lincoln MD Primary Care Provider [phone] Source Comments [facility],non-owned Affiliates and Associated Physician Practices is amultiple site organization consisting of ambulatory clinics and hospital sitesin [place], [place] and [place]. This disclosure is being madepursuant to the Care Everywhere program and may not contain all information available regarding this patient. 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 Gender Identity Not on file Sexual Orientation [...] st Contact Info) Description 02/07/2025 9:30 AM NURSE STAFF INDUSTRIAL Office Visit [facility] - General Surgery [address] [place] [phone] Enrico Milan MD [address] [facility] [address] [place] [address] Health Maintenance Due Date Last Done [...] OF CARE (07/08/2023 8:46 AM CDT) Pathologist [facility] Glucose WB/POC 207(H) 70 - 115 mg/dL 07/08/2023 10:47 AM CDT [facility] Specimen Type Cap Fingerstick 2023 10:47 AM CDT [facility] Blood BLOOD SPECIMEN / Unknown 07/08/2023 8:46 AM CDT 07/08/2023 10:47 AM CDT Enrico Milan MD LAB - POINT OF CARE ORDERABLES F inal Result [facility] [address] [place] [address], [place] [phone] from Last 3 Months or Most Recently Relevant to Health Maintenance Insurance MEDICARE [facility] MEDICARE SUPPLEMENT Care Teams Parts Chaser Relationship Specialty Start Date End Date Neel Lincoln MD [address] [place] [address] PCP - General Internal Medicine 06/18/23
--- OUTSIDE RECORDS SUMMARY | 2024-08-25 22:01 | XMS_ITS | Clinical Summary ---
Author Organization [facility] Address [address] [place] [address] Care Team Providers Care Operations Support Specialist Name Role Phone Moisés Flynn MD Unavailable [phone] Eileen Mueller MD Unavailable [phone] Neel Lincoln MD Primary Care Provider [phone] Wes Redmond MD Unavailable [phone] Moisés Bryant MD Unavailable [phone] Allergies Active Allergy Reactions Criticality Noted Date [...] CAD (coronary artery disease) 07/12/2020 Atherosclerosis of [place] ar teries of extremities with intermittent claudication, bilateral legs 07/09/2020 Overview (07/09/2020): Added automatically from request for surgery [id number] Assessment & Plan (06/09/2021 12:42 PM CDT): [...] 02/26/2020 Assessment & Plan (02/26/2020 9:38 AM WILDLIFE BIOSTATION RESEARCH ECOLOGIST): Bilateral hip claudication with chronically occluded bilateral [...] 01/15/2020 Assessment & Plan (03/04/2023 10:37 AM WILDLIFE BIOSTATION RESEARCH ECOLOGIST): Due for follow-up carotid doppler summer 2023. Will coordinate with his 6 month f/u studies of his legs. Assessment & Plan (01/15/2020 2:00 PM WILDLIFE BIOSTATION RESEARCH ECOLOGIST): Left SFA stent patent. Repeat arterial Doppler in six months. Our office will contact him to make the appointment when the time comes. Certainly if there are interval problems, we would be happy to see him sooner. Status post femoral-popliteal bypass surgery 04/2019 Assessment & Plan (03/04/2023 10:36 AM WILDLIFE BIOSTATION RESEARCH ECOLOGIST): Widely patent aorto-bifemoral bypass and bilateral fem-pop bypasses. Repeat ABIs and bilateral LE duplex scans again in six months. Assessment & Plan (12/18/2020 10:32 AM CDT): Patent right leg bypass with stable right leg perfusion. Assessment & Plan (01/15/2020 1:59 PM WILDLIFE BIOSTATION RESEARCH ECOLOGIST): Widely patent right leg bypass. Monitor with repeat Duplex scan in six months. Our office will contact him to make the appointment when the time comes. Certainly if there are interval problems, we would be happy to see him sooner. Generalized postprandial abdominal pain 01/15/20 Assessment & Plan (01/15/2020 1:57 PM WILDLIFE BIOSTATION RESEARCH ECOLOGIST): Arrange CT Angiogram abdomen/pelvis to determine if [...] Resolved Date Claudication 01/22/2021 03/03/2023 Atherosclerosis of [place] ar teries of extremities with rest pain, bilateral legs 01/17/2021 03/03/2023 Overview (01/17/2021): Added automatically from request for surgery [id number] Atherosclerosis of [place] ar teries of extremities with intermittent claudication, left leg 06/01/2019 07/12/2020 Overview (06/01/2019): Added automatically from request for surgery [id number] Stenosis of peripheral vascular stent 06/01/2019 07/12/2020 Overview (06/01/2019): Added automatically from request for surgery [id number] Foreign body of great toe of right foot with infection 10/17/2018 07/12/2020 Atherosclerosis of [place] ar diogo of left lower extremity with intermittent claudication 08/17/2018 07/12/2020 Overview (08/17/2018): Added automatically from request for surgery [id number] Assessment & Plan (05/22/2019 2:44 PM CDT): [...] 07/12/2020 Assessment & Plan (01/15/2020 2:01 PM WILDLIFE BIOSTATION RESEARCH ECOLOGIST): 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 Revascularization is not possible. Continue exercise to encourage collateral flow. Encounter for therapeutic drug monitoring 05/19/2017 07/12/2020 Surgical follow-up care 02/03/201606/15 Overview (06/18/2016): Postoperative follow-up Sebaceous cyst 12/30/2015 07/10/2022 Overview (06/18/2016): Sebaceous cyst Atherosclerosis of [place] artery of extremity 05/08/19 16 07/12/2020 Overview (06/18/2016): Atherosclerosis of [place] artery of right lower extremity with rest pain Encounters Date Type Department Care Team Description 08/15/2024 9:00 AM CDT Office Visit [facility] Surgery [address] [place] [phone] Shannan Jesus PA Asymptomatic bilateral carotid artery stenosis (Primary Dx); PAD (peripheral artery disease) 08/15/2024 8:00 AM CDT Ancillary Procedure [facility] Surgery [address] [place] [phone] Bilateral carotid artery stenosis from Last 3 [...] pain of both hips 02/26/2020 Atherosclerosis of [place] ar teries of extremities with intermittent claudication, bilateral legs 07/09/2020 Added automatically from request for surgery [id number] Sebaceous cyst 12/30/2015 Sebaceous cyst Foreign body [...] How often do you attend chur or church services? Never 07/20/2022 Do you belong to any clubs o r organizations such as protestant groups, unions, fraternal or athletic groups, or [...] on file Legal Sex Male 2:42 PM WILDLIFE BIOSTATION RESEARCH ECOLOGIST Gender Identity Not on file Sexual Orientation Not on file Obstetrics History Last Filed Vital Signs Vital Sign Reading Time Taken Comments Blood Pressure 188/115 02/23/2024 12:02 PM WILDLIFE BIOSTATION RESEARCH ECOLOGIST Pulse 72 02/23/2024 12:02 PM WILDLIFE BIOSTATION RESEARCH ECOLOGIST Temperature 36.6 C (97.8 F) 02/23/2024 12:02 PM WILDLIFE BIOSTATION RESEARCH ECOLOGIST Respiratory Rate 13 11/17/2022 4:05 PM CDT Oxygen Saturation 96% 02/23/2024 12:02 PM WILDLIFE BIOSTATION RESEARCH ECOLOGIST Inhaled Oxygen Concentration - - Weight 111.6 kg (246 lb) 02/23/2024 12:02 PM WILDLIFE BIOSTATION RESEARCH ECOLOGIST Height 182.9 cm (6') 02/23/2024 12:02 PM WILDLIFE BIOSTATION RESEARCH ECOLOGIST Body Mass Index 33.36 02/23/2024 12:02 PM WILDLIFE BIOSTATION RESEARCH ECOLOGIST Plan of Treatment Health Maintenance Due Date [...] history exists Medical Devices Implanted Type Area Caregivers Homecare Device Identifier Shelf Expiration Date Model / Serial / Lot SplitSecnd Inc Hemagard 16/8mm 50cm Knit Cross Link Tensile Strength Excellent [id number] - [id number] - [id number] Implanted:Qty: 1 on 07/27/2022 by Moisés Flynn MD at [facility] Graft N/A: Abdomen SolidFireINGE CASTLE INC 01/12/2027 [id number] / [id number] / Daig Thien [id number] Device Closure Angio-Seal Vip Bondek-Plus Polyglyd L70 Cm Od6 Fr Odsec.035 In Vascular - Sn/A - [id number] Implanted:Qty: 1 on 07/17/2020 by Moisés Flynn MD at [facility] Other - see comments Left: Groin Terumo Medical Thien 04/14/2021 [id number] / N/A / [id number] Bard Peripheral Vascular [id number] E-Luminexx Safe Performaxx 9mm 6fr 60mm 80cm Delivery System - [id number] Implanted:Qty: 1 on 12/13/2017 by Moisés Flynn MD at [facility] Stent Left: Arterial Bard Peripheral Vascular 01/12/2020 [id number] / / [id number] Description:Left Common and External Iliac Artery Medtronic Inc Everflex Entrust 6mm 60mm 80cm Self Expand Triaxial Low Profile - Sn/A - [id number] Implanted:Qty: 1 on 07/17/2020 by Moisés Flynn MD at [facility] Stent Right: Iliac Medtronic Inc 01/12/2022 [id number] -060-080 / N/A / [id number] Medtronic Inc Everflex Entrust 6mm 100mm 80cm Self Expand Triaxial Low Profile - Sn/A - [id number] Implanted:Qty: 1 on 07/17/2020 by Moisés Flynn MD at [facility] Stent Left: Iliac Medtronic Inc 10/15/2022 [id number] -100-080 / N/A / [id number] Daig Thien/[employer] [id number] Angio-Seal Vip Bondek-Plus 6fr .035in 70cm Hemostatic Latex Free - [id number] Implanted:Qty: 1 on 12/13/2017 by Moisés Flynn MD at [facility] Left: Groin Daig Thien/[employer] 08/12/2018 [id number] / / [id number] Cryolife Inc Patch Cardiovascular 0.8x8cm Nonpyrogenic Pfp0.8x8 - [id number] Implanted:Qty: 1 on 07/21/2022 by Moisés Flynn MD at [facility] Left: Carotid Cryolife Inc 03/28/2024 PFP0.8X8 / / [id number] Vitalitec Intrnl Inc Sls-Clip Ligate Triangular Wire Chio Groove Small Chevron Clip Latex Free X4122-0 - [id number] Implanted:Qty: 1 on 07/21/2022 by Moisés Flynn MD at [facility] Left: Neck Vitalitec Intrnl Inc S2800-0 / / Vitalitec Intrnl Inc Sls-Clip Ligate Triangular Wire Chio Groove Small Chevron Clip Latex Free L8153-3 - [id number] Implanted:Qty: 4 on 07/27/2022 by Moisés Flynn MD at [facility] N/A: Abdomen Vitalitec Intrnl Inc H8519-0 / / Bard Peripheral Vascular Bard .25x.25in Buhl Thk1.65mm Square Pledget Cardiovascular Ptfe [id number] - [id number] Implanted:Qty: 1 on 07/27/2022 by Moisés Flynn MD at [facility] N/A: Abdomen Bard Peripheral Vascular [id number] / / Bard Peripheral Vascular Bard 5/16x5/16in Buhl Thk1.65mm Pledget Cardiovascular Ptfe 983206 - [id number] Implanted:Qty: 1 on 07/27/2022 by Moisés Flynn MD at [facility] N/A: Abdomen Bard Peripheral Vascular [id number] / / Procedures Procedure Name Priority Date/Time [...] AM CDT Narrative 08/15/2024 3:23 PM CDT [facility] - Department of Vascular Surgery, Vascular Laboratory [address] [place] [address] Carotid Duplex Ultrasound Report Patient Name: CYRUS SUBRAMANIAN : 1960 (63y 8m) Study Date: 08/15/2024 7:58:41 AM Gender: M Tech: Location: [facility] Provider: MOISÉS FLYNN Quality: Adequate Order Provider: [...] LT VERT PSV 221 cm/sec FINDINGS: Performing Micropaleontologist: NERY ArambulaT. Rt Common Carotid Artery: The [...] Procedure Note Moisés Flynn MD - 08/15/2024 [facility] - Department of Vascular Surgery,Vascular Laboratory [address] [place] [address] Carotid Duplex Ultrasound Report Patient Name: CYRUS SUBRAMANIAN : 1960 (63y 8m) Study Date: 08/15/2024 7:58:41 AM Gender: M Tech: Location: [facility] Provider: MOISÉS FLYNN Quality: Adequate Order Provider: [...] LT VERT PSV 221 cm/sec FINDINGS: Performing Micropaleontologist: NERY ArambulaT. Rt Common Carotid Artery: The [...] above. Electronically Signed By: Moisés Flynn MD [facility] 08/15/2024 2:05:41 PM CDT us Moisés Flynn MD IM US PROCEDURES Final Result * eGFR (11/10/2022 1:03 PM CDT) eGFR 77 mL/min/1. 73 m2 [facility] Comment: Interpretive Data Reference Interval Normal >/= [...] ORDERABLES Fin al Result Performing Organization Address [facility] de Phone Number [facility] [address] [place] [address] * (ABNORMAL) Hemoglobin A1c (11/10/2022 1:03 PM CDT) Pathologist [facility] Hgb A1C 10.0(H) 4.0 - 5.6 % [facility] Estimated Average Glucose 240 mg/dL [facility] Comment: The ADA recommends reporting an estimated Average Glucose (eAG) with all Hemoglobin A1c results using the equation derived from a study of 507 normal and diabetic adults. Minority populations were underrepresented and children were not included. (Diabetes Care 31:1361-4552, 2008). The eAG is not equivalent to a fasting glucose. Blood 11/10/2022 1:03 PM CDT 11/10/2022 1:03 PM CDT Andreea Espinoza NP LAB BLOOD ORDERABLES Fin al Result Performing Organization Address [facility] de Phone Number [facility] [address] [place] [address] * (ABNORMAL) Lipid panel (07/20/2022 12:27 AM CDT) [facility] Cholesterol 97 30 - 199 mg/dL [facility] Comment: Interpretive Data Ages < or = [...] revised on 2017. Triglycerides 133 <=149 mg/dL [facility] Comment: Interpretive Data Ages < or = [...] revised on 2017. HDL 25(L) >=40 mg/dL [facility] Comment: Interpretive Data Ages < or = [...] on 2017. LDL, calculated 45 <=129 mg/dL [facility] Comment: Interpretive Data Ages < or = [...] revised on 2017. Non-HDL Cholesterol 72 mg/dL [facility] Comment: Interpretive Data Ages < or = [...] last revised on 2017. Chol/HDL ratio 4 [facility] Blood 07/20/2022 12:2 7 AM CDT 07/20/2022 12:30 AM CDT us Navin Sandoval MD LAB BLOOD ORDERABLES Final Re sult [facility] [address] Department [place] [address] from Last 3 Months or Most Recently Relevant to Health Maintenance Insurance MEDICARE [facility] [place] [id number] COMMERCIAL GENERIC MEDICARE [facility] [place] [id number] MEDICARE [place] [facility] Advance Directives For more information, please contact: [phone] * Full Code (Latest Code Status on [...] 4:34 PM 08/26/2018 2:20 PM Care Teams Operations Support Specialist Relationship Specialty Start Date End Date Neel Lincoln MD [address] [place] [address] PCP - General Internal Medicine 09/03/21 Moisés Flynn MD Surgeon Vascular Surgery 12/14/17 Eileen Mueller MD Internal Medicine 12/18/20 Wes Redmond MD [address] [place] [address] Internal Medicine 03/04/22 Moisés Bryant MD [address] [address] Neurology 08/24/22
--- OUTSIDE RECORDS SUMMARY | 2024-08-25 22:01 | XMS_ITS | Encounter Summary ---
Author Organization [facility] Address [address] [place] [place] [address] Care Team Providers Care Wastewater Superintendent Name Role Phone Neel Lincoln MD Primary Care Provider [phone] Encounter Details Date Type Department Care Team (Late st Contact Info) Description 06/11/2023 Lab Requisition [facility] - DermPath Lab [address] 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 Gender Identity Not on file Sexual Orientation Not on file documented as of this encounter Plan of Treatment Upcoming Encounters Date Type Department Care Team (Late st Contact Info) Description 02/07/2025 9:30 AM ELECTRONICS TEACHER Office Visit [facility] - General Surgery [address] [place] [phone] Enrico Milan MD [address] [facility] [address] [place] [address] documented as of this encounter Procedures Procedure Name Priority Date/Time Associated Diagnosis Comments DERMATOPATHOLOGY Routine 06/11/2023 3:33 AM CDT Neoplasm of uncertain behavior of skin documented in this encounter Results * DERMATOPATHOLOGY (06/11/2023 3:33 AM CDT) Case Report Dermatopathology Report Case: [id number] Authorizing Provider: Anjum Weems MD Collected: 06/11/2023 03:33 AM Ordering Location: [facility] - Received: 06/14/2023 01:17 PM [...] characteristic determined by the Dermatopathology Laboratory at [facility], directed by Dr. Shaw Squires. These tests need not be, and therefore are not, approved by the [place] Food and Drug Administration. The tests are used for clinical purposes. Billing Codes Specimen Charges Stain Charges 26281 1 02242 87735 1 1 4 3:37 PM CDT DERMATOPATHOLOGY LABORATORY Embedded Images 4 3:37 PM [facility] [place]NOTE 2] DERMATOPATHOLOGY LABORATORY Synoptic Report INVASIVE MELANOMA OF [...] PATHOLOGY/CYTOLOGY LEE SUE Final Result DERMATOPATHOLOGY LABORATORY [facility] - Department of Dermatology [facility] Specialized Medicine [address] [place] [address], [address] [phone] documented in this encounter Visit Diagnoses Diagnosis Neoplasm of uncertain behavior of skin documented in this encounter Care Teams Wastewater Superintendent Relationship Specialty Start Date End Date Neel Lincoln MD [address] [place] [address] PCP - General Internal Medicine 06/18/23 documented as of this encounter
--- OUTSIDE RECORDS SUMMARY | 2024-08-25 22:01 | XMS_ITS | Clinical Summary ---
Author Organization [facility] Address [address] [place] [address] Phone Care Team Providers Care Cover Making Machine Operator Name Role Phone Neel Lincoln MD Primary Care Provider [phone] Neel Lincoln MD Unavailable [phone] J Carlos Banuelos MD Unavailable [phone] Delmer Heaton MD Unavailable [phone] Lemuel Vega MD Unavailable Allergies Active Allergy [...] Active Insulin Pen Needle (TechLite Plus Pen Randolph) 32G X 4 MM [facility] 1 Pen Needle by Does not apply [...] 1 02/29/20 24 Active ergocalciferol (VITAMIN D) 12127 UNIT CapsuleIndicati ons:Vitamin D deficiency TAKE 1 [...] Tablet 3 07/06/19 25 Active Continuous Glucose Flight Radio Operator (Dexcom G7 Flight Radio Operator) Device Check blood glucose before each meal [...] 025 Discontin ued(Dupli betty Order) Continuous Glucose Flight Radio Operator (Dexcom G7 Flight Radio Operator) Device Check blood glucose before each meal [...] Type Department Care Team Description 08/22/2024 Refill [facility] [address] [place] [address] Lemuel Vega MD Medication Refill 08/18[facility] [place] [address] Lemuel Vega MD Medication Refill 08/01/2024 3:30 PM CDT Office Visit [facility] [address] [place] [address] Lemuel Vega MD Type 2 diabetes mellitus with diabetic polyneuropathy, with long-term current use of insulin (HCC) (Primary Dx); Medication side effect; Insulin dose changed (HCC); Medication dose changed; Class 2 severe obesity due to excess calories with serious comorbidity and body mass index (BMI) of 36.0 to 36.9 in adult (HCC) Discharge Disposition: Discharged to home or Selfcare 08/01/2024 Telephone [facility] [place] [address] Lemuel Vega MD Results 08/01/2024 Travel 07/19/2024 Refill [facility] [address] [place] [address] Lemuel Vega MD Medication Refill 07/05/2024 9:00 AM CDT Office Visit [facility] [address] [phone] Yoselin Michael APRN, ZACK Elevated serum immunoglobulin free light chain level (Primary Dx) 07/05/2024 Travel 06/27/2024 10:30 AM CDT Lab [facility] [address] [phone] Lab, [facility] Elevated serum immunoglobulin free light chain level; Hypercalcemia; Paraproteinemia 06/27/2024 Travel 06/07/2024 Results Follow-Up [facility] [address] [place] [address] Lemuel Vega MD CMP (COMPREHENSIVE METABOLIC PANEL) 05/30/2024 3:30 PM CDT Office Visit [facility] [address] [place] [address] Lemuel Vega MD Type 2 diabetes mellitus [...] Virus,Trivalent,Injectable,PF 01/26/2024 Pneumococcal conjugate PCV20 , polysaccharide VSA826 conjugate, adjuvant, PF 11/17/2023 Family History Medical [...] 2:00 PM CDT Lab [facility] [address] [phone] Lab, Cc [facility] 10/04/2024 1:30 PM CDT Office Visit [facility] [address] [phone] Delmer Heaton MD [address] [place] [phone] 11/07/2024 3:45 PM CDT Office Visit [facility] - [place] [address] [place] [address] Lemuel Vega MD [address] [address] Health Maintenance Due Date Last [...] POCT GLYCOSYLATED HEMOGLOBIN Routine 02/29/2024 3:38 PM PUSHER RUNNER Type 2 diabetes mellitus with diabetic polyneuropathy, with long-term current use of insulin (HCC) from Last 3 Months or Most Recently Relevant to Health Maintenance Results * (ABNORMAL) SERUM FREE LIGHT CHAINS, [place] (06/27/2024 3:28 PM CDT) FREE KAPPA LT CHAINS 64.8(H) 2.9 - 20.7 mg/L [facility] FREE LAMBDA LT CHAINS 27.0 4.2 - 27.6 mg/L [facility] KAPPA/LAMBDA RATIO 2.40(H) 0.22 - 1.74 [facility] 06/27/2024 3:28 PM CDT us Yoselin Michael APRN, CATHODE BUILDER LAB SEND OUTS Fin al Result [facility] [place] [address], * IMMUNOFIXATION, SERUM [place] (06/27/2024 3:28 PM CDT) Pathologist [facility] IMMUNOFIXATION RESULT, SERUM Comment [facility] Comment:No monoclonality det ected. 06/27/2024 3:28 PM CDT Narrative [facility] - 06/29/2024 3:08 PM CDT Testing performed at: [] [facility], [address] [place] [address], [place], [address], , Stripper Opaquer: Rickie Cook, PhD Release to patient->Immediate us Yoselin Michael APRN, CATHODE BUILDER LAB SEND OUTS Fin al Result [facility] [address] [place] [address], [place] [phone] * (ABNORMAL) CBC WITH AUTO DIFF [place] (06/27/2024 3:28 PM CDT) [facility] WBC 8.7 4.0 - 10.0 10*3/uL [facility] HGB 14.4 13.7 - 17.5 g/dL [facility] HCT 44.2 40.1 - 51.0 % [facility] PLT 268 163 - 369 10*3/uL [facility] MPV 11.7 9.4 - 12.4 fL [facility] RBC 4.93 4.63 - 6.08 10*6/uL [facility] MCV 90 79 - 95 fL [facility] MCH 29.2 25.6 - 32.2 pg [facility] LEAD LEVEL DESIGN[facility] MCHC 32.6 32.2 - 36.5 g/dL [facility] RDW 15.6(H) 11.6 - 14.4 % [facility] Neutrophils % 67.2(H) 36.0 - 66.0 % [facility] Lymphocytes % 21.9 19.0 - 40.0 % [facility] Monocytes % 7.2 4.1 - 12.1 % [facility] Eosinophils % 2.2 0.0 - 3.5 % [facility] Basophils % 0.9 0.0 - 1.0 % [facility] Absolute Neutrophils 5.8 1.4 - 6.6 10*3/uL [facility] Absolute Lymphocytes 1.9 0.8 - 4.0 10*3/uL [facility] Absolute Monocytes 0.6 0.2 - 1.2 10*3/uL [facility] Absolute Eosinophils 0.2 0.0 - 0.4 10*3/uL [facility] Absolute Basophils 0.1 0.0 - 0.1 10*3/uL [facility] 06/27/2024 3:28 PM CDT Yoselin Michael APRN, CATHODE BUILDER LAB SEND OUTS Fin al Result [facility] [address] [place] [address], [place] [phone] * IMMUNOGLOBULIN IGA, IGG & IGM QUANT (06/27/2024 3:28 PM CDT) IGG 1,229 635 - 1,741 mg/dL [facility] IGA 283 66 - 433 mg/dL [facility] IGM 149 45 - 281 mg/dL [facility] Blood 06/27/2024 3:2 8 PM CDT Narrative [facility] - 06/28/2024 3:02 PM CDT Release to patient->Immediate Yoselin Michael APRN, CATHODE BUILDER CHEMISTRY ORDERABLE S Final Result Performing Organization Address City/[facility]/ZIP Co de Phone Number [facility] [address] [place] [address], [place] [phone] * FOLIC ACID (FOLATE) (06/27/2024 3:28 PM CDT) Folate >20.00 >=5.90 ng/mL [facility] Blood 06/27/2024 3:28 PM CDT Narrative [facility] - 06/29/2024 10:21 AM CDT Release to patient->Immediate IS THE PATIENT REQUIRED TO BE FASTING FOR 12 HOURS?->No us Yoselin Michael PULP GRINDER AND BLENDER, CATHODE BUILDER CHEMISTRY ORDERABLE S Final Result [facility] [address] [place] [address], [place] [phone] * (ABNORMAL) ELECTROPHORESIS W/ TOTAL PROTEIN SERUM (06/27/2024 3:28 PM CDT) PROTEIN, TOTAL, SERUM 7.3 6.0 - 8.5 g/dL [facility] ALBUMIN 3.4 2.9 - 4.4 g/dL [facility] HTQEY-5-GJMYCKQS 0.3 0.0 - 0.4 g/dL [facility] [id number]-6-AFENCVNG 1.1(H) 0.4 - 1.0 g/dL [facility] BETA GLOBULIN 1.3 0.7 - 1.3 g/dL [facility] GAMMA GLOBULIN 1.3 0.4 - 1.8 g/dL [facility] M-SPIKE Not Observed Not Observed g/dL [facility] GLOBULIN, TOTAL 3.9 2.2 - 3.9 g/dL [facility] A/G RATIO 0.9 0.7 - 1.7 [facility] PLEASE NOTE: Comment [facility] Comment: Protein electrophoresis scan will follow via computer, mail, or enrollment consultant delivery. PDF . [facility] Blood 06/27/2024 3:28 PM CDT Narrative [facility] - 06/29/2024 3:08 PM CDT Testing performed at: [] [facility], [address] [place] [address], [place], [address], , Stripper Opaquer: Rickie Cook, PhD Release to patient->Immediate Yoselin Michael APRN, CNP CHEMISTRY ORDERABLE S Final Result [facility] [place] [address], [place] [phone] * (ABNORMAL) CMP (COMPREHENSIVE METABOLIC PANEL) (06/27/2024 3:28 PM CDT) Only the most recent of2 resultswithin the time period is included. Glucose 90 70 - 105 mg/dL [facility] Blood Urea Nitrogen 25 7 - 25 mg/dL [facility] Creatinine 1.4(H) 0.7 - 1.3 mg/dL [facility] Sodium 144 136 - 145 mEq/L [facility] Potassium 4.1 3.5 - 5.1 mEq/L [facility] Chloride 108(H) 98 - 107 mEq/L [facility] Bicarbonate 25 21 - 31 mEq/L [facility] Total Bilirubin 0.4 0.3 - 1.0 mg/dL [facility] Alk. Phosphatase 103 34 - 104 U/L [facility] Aspartate Aminotransferase 22 13 - 39 U/L [facility] Alanine Aminotransferase 21 7 - 52 U/L [facility] Total Protein 7.2 6.4 - 8.9 g/dL [facility] Albumin 4.2 3.5 - 5.7 g/dL [facility] Calcium 10.6(H) 8.6 - 10.3 mg/dL [facility] Anion Gap 15.1(H) 7.0 - 15.0 mEq/L [facility] Globulin 3.0 2.0 - 3.5 g/dL [facility] EGFR 56(L) >60 ml/min/1. 73m2 [facility] Comment: This eGFR is calculated using 2020 CKD-EPI Creatinine equation without race modifier based on the NKF-ASN task force recommendations Equation: qOXJ=035*min(SCr/k,1)a*max(SCr/k,1)-1.200*0.9938Age*1.012 (if female), where SCr is serum creatinine, k is 0.7 for females and 0.9 for males, and a is -0.241 for females and -0.302 for males Blood 06/27/2024 3:28 PM CDT Narrative [facility] - 06/27/2024 4:16 PM CDT Release to patient->Immediate IS THE PATIENT REQUIRED TO BE FASTING FOR 8 HOURS?->No Yoselin Michael APRN, CATHODE BUILDER CHEMISTRY ORDERABLE S Final Result [facility] [place] [address], * (ABNORMAL) POCT GLYCOSYLATED HEMOGLOBIN (02/29/2024 3:38 PM PUSHER RUNNER) HGB-A1C 10.1(A) 4 - 6 % Blood 02/29/2024 3:38 PM PUSHER RUNNER Lemuel Vega MD POINT OF CARE TESTING (MANUAL) F inal Result from Last 3 Months or Most Recently Relevant to Health Maintenance Insurance MEDICARE [facility] MEDICARE [facility] [place] [id number] [facility] Care Teams Cover Making Machine Operator Relationship Specialty Start Date End Date Neel Lincoln MD [facility] [place] [address] PCP - General Family Medicine 12/17/23 Neel Lincoln MD [address] [place] [address] Family Medicine 12/17/23 J Carlos Banuelos MD [address] [address] Neuromuscular Medicine 11/02/23 Delmer Heaton MD [address] [place] [phone] Consulting Physician Oncology 11/02/23 Lemuel Vega MD #[address] [address] Consulting Physician Endocrinology 01/26/24
--- OUTSIDE RECORDS SUMMARY | 2024-08-25 22:01 | XMS_ITS | Encounter Summary ---
Author Organization [facility] Address [address] [facility] [place] [address] Care Team Providers Care Fitness And Wellness Manager Name Role Phone Neel Lincoln MD Primary Care Provider [phone] Reason for Referral * Consultation (Routine) - Closed Specialty Diagnoses / Procedures Referred By Contac t Referred To Contact Nutrition Services Diagnoses Type 2 diabetes mellitus with other specified complication, with long-term current use of insulin (HCC) PAD (peripheral artery disease) Neel Lincoln MD [address] [place] [address] Phone: tel: fax: Referral ID Status Reason Start Date Expiration Date V isits Requested Visits Authorized [id number] Closed Specialty Services Required 02/03/2024 02/02/2025 1 1 ETIC ASSEMBLER Encounter Details Date Type Department Care Team (Latest Contact Info) Description 02/03/2024 Transcribe Orders [facility] - Centralized Scheduling [address] [place] [address] Neel Lincoln MD [address] [place] [id number] Type 2 diabetes mellitus with other [...] on file Legal Sex Male 8:57 AM COSMETIC ASSEMBLER Gender Identity Not on file Sexual Orientation [...] st Contact Info) Description 02/07/2025 9:30 AM COSMETIC ASSEMBLER Office Visit [facility] - General Surgery [address] [place] [phone] Enrico Milan MD [address] [facility] [address] [place] [phone] Scheduled Referrals Name Type Priority Associated [...] arterioles documented in this encounter Care Teams Fitness And Wellness Manager Relationship Specialty Start Date End Date Neel Lincoln MD [address] [place] [address] PCP - General Internal Medicine 06/18/23 documented as of this encounter
--- OUTSIDE RECORDS SUMMARY | 2024-08-25 22:01 | XMS_ITS | Encounter Summary ---
Author Organization [facility] Address [address] [place] [address] Phone Care Team Providers Care Direct Support Specialist Name Role Phone Neel Lincoln MD Primary Care Provider [phone] Neel Lincoln MD Unavailable [phone] J Carlos Banuelos MD Unavailable [phone] Delmer Heaton MD Unavailable [phone] Lemuel Vega MD Unavailable Encounter Details Date Type Department Care Team (Late Contact Info) Description 12/24/2023 Telephone [facility] [address] [address] Delmer Heaton MD [address] [place] [phone] Social History Tobacco Use Types Packs/Day [...] PM CDT Lab [facility] [address] [phone] Lab, [facility] 10/04/2024 1:30 PM CDT Office Visit [facility] [place] [address] [place] [phone] Delmer Heaton MD [address] [place] [phone] 11/07/2024 3:45 PM CDT Office Visit [facility] - [facility] [address] [place] [address] Lemuel Vega MD [address] [address] documented as of this encounter Visit Diagnoses Not on filedocumented in this encounter Care Teams Direct Support Specialist Relationship Specialty Start Date End Date Neel Lincoln MD [address] [place] [address] PCP - General Family Medicine 12/17/23 Neel Lincoln MD [address] [place] [address] Family Medicine 12/17/23 J Carlos Banuelos MD [address] [address] Neuromuscular Medicine 11/02/23 Delmer Heaton MD [address] [place] [phone] Consulting Physician Oncology 11/02/23 Lemuel Vega MD #[address] [address] Consulting Physician Endocrinology 01/26/24 documented as of this encounter
--- OUTSIDE RECORDS SUMMARY | 2024-08-25 22:01 | XMS_ITS | Referral Summary ---
Author Organization [facility] Address [address] [place] [address] Care Team Providers Care Unix Architect Name Role Phone Moisés Flynn MD Unavailable [phone] Eileen Mueller MD Unavailable Neel Lincoln MD Primary Care Provider [phone] Wes Redmond MD Unavailable Moisés Bryant MD Unavailable Encounters Date Type Department Care Team Description 08/15/2024 9:00 AM CDT Office Visit [facility] Surgery [address] [place] [phone] Shannan Jesus PA Asymptomatic bilateral carotid artery stenosis (Primary Dx); PAD (peripheral artery disease) 08/15/2024 8:00 AM CDT Ancillary Procedure [facility] [address] [place] [phone] Bilateral carotid artery stenosis from Last [...] CAD (coronary artery disease) 07/12/2020 Atherosclerosis of tangirnaq ar teries of extremities with intermittent claudication, bilateral legs 07/09/2020 Overview (07/09/2020): Added automatically from request for surgery [id number] Assessment & Plan (06/09/2021 12:42 PM CDT): [...] 02/26/2020 Assessment & Plan (02/26/2020 9:38 AM GREENHOUSE SUPERINTENDENT): Bilateral hip claudication with chronically occluded bilateral [...] 01/15/2020 Assessment & Plan (03/04/2023 10:37 AM GREENHOUSE SUPERINTENDENT): Due for follow-up carotid doppler summer 2023. Will coordinate with his 6 month f/u studies of his legs. Assessment & Plan (01/15/2020 2:00 PM GREENHOUSE SUPERINTENDENT): Left SFA stent patent. Repeat arterial Doppler in six months. Our office will contact him to make the appointment when the time comes. Certainly if there are interval problems, we would be happy to see him sooner. Status post femoral-popliteal bypass surgery 04/2019 Assessment & Plan (03/04/2023 10:36 AM GREENHOUSE SUPERINTENDENT): Widely patent aorto-bifemoral bypass and bilateral fem-pop bypasses. Repeat ABIs and bilateral LE duplex scans again in six months. Assessment & Plan (12/18/2020 10:32 AM CDT): Patent right leg bypass with stable right leg perfusion. Assessment & Plan (01/15/2020 1:59 PM GREENHOUSE SUPERINTENDENT): Widely patent right leg bypass. Monitor with repeat Duplex scan in six months. Our office will contact him to make the appointment when the time comes. Certainly if there are interval problems, we would be happy to see him sooner. Generalized postprandial abdominal pain 01/15/20 Assessment & Plan (01/15/2020 1:57 PM GREENHOUSE SUPERINTENDENT): Arrange CT Angiogram abdomen/pelvis to determine if there's evidence of mesenteric arterial disease as a source of his abdominal pain. Tobacco abuse 05/22/2019 Assessment & Plan (05/22/2019 2:34 PM CDT): The importance of smoking cessation was discussed with the patient including the relationship between peripheral vascular disease and tobacco abuse. Atrial fibrillation ([facility]) 05/19/2017 Hypothyroidism Hyperlipidemia Diabetes Resolved Problems Problem Noted Date Diagnosed Date Resolved Date Claudication 01/22/2021 03/03/2023 Atherosclerosis of tangirnaq ar teries of extremities with rest pain, bilateral legs 01/17/2021 03/03/2023 Overview (01/17/2021): Added automatically from request for surgery [id number] Atherosclerosis of tangirnaq ar teries of extremities with intermittent claudication, left leg 06/01/2019 07/12/2020 Overview (06/01/2019): Added automatically from request for surgery [id number] Stenosis of peripheral vascular stent 06/01/2019 07/12/2020 Overview (06/01/2019): Added automatically from request for surgery [id number] Foreign body of great toe of right foot with infection 10/17/2018 07/12/2020 Atherosclerosis of tangirnaq ar diogo of left lower extremity with intermittent claudication 08/17/2018 07/12/2020 Overview (08/17/2018): Added automatically from request for surgery [id number] Assessment & Plan (05/22/2019 2:44 PM CDT): [...] 07/12/2020 Assessment & Plan (01/15/2020 2:01 PM GREENHOUSE SUPERINTENDENT): 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 Revascularization is not possible. Continue exercise to encourage collateral flow. Encounter for therapeutic drug monitoring 05/19/2017 07/12/2020 Surgical follow-up care 02/03/201606/15 Overview (06/18/2016): Postoperative follow-up Sebaceous cyst 12/30/2015 07/10/2022 Overview (06/18/2016): Sebaceous cyst Atherosclerosis of tangirnaq artery of extremity 05/08/19 16 07/12/2020 Overview (06/18/2016): Atherosclerosis of tangirnaq artery of right lower extremity with rest [...] often do you attend chur ch or gnosticist services? Never 07/20/2022 Do you belong to any clubs o r organizations such as judaism groups, unions, fraternal or athletic groups, or [...] on file Legal Sex Male 2:42 PM GREENHOUSE SUPERINTENDENT Gender Identity Not on file Sexual Orientation Not on file Last Filed Vital Signs Vital Sign Reading Time Taken Comments Blood Pressure 188/115 02/23/2024 12:02 PM GREENHOUSE SUPERINTENDENT Pulse 72 02/23/2024 12:02 PM GREENHOUSE SUPERINTENDENT Temperature 36.6 C (97.8 F) 02/23/2024 12:02 PM GREENHOUSE SUPERINTENDENT Respiratory Rate 13 11/17/2022 4:05 PM CDT Oxygen Saturation 96% 02/23/2024 12:02 PM GREENHOUSE SUPERINTENDENT Inhaled Oxygen Concentration - - Weight 111.6 kg (246 lb) 02/23/2024 12:02 PM GREENHOUSE SUPERINTENDENT Height 182.9 cm (6') 02/23/2024 12:02 PM GREENHOUSE SUPERINTENDENT Body Mass Index 33.36 02/23/2024 12:02 PM GREENHOUSE SUPERINTENDENT Plan of Treatment Not on file Medical Devices Implanted Type Area Casting Carrier Device Identifier Shelf Expiration Date Model / Serial / Lot MyPronostic [employer] Hemagard 16/8mm 50cm Knit Cross Link Tensile Strength Excellent [id number] - [id number] - [id number] Implanted:Qty: 1 on 07/27/2022 by Moisés Flynn MD at [facility] Graft N/A: Abdomen [employer] 01/12/2027 [id number] / [id number] / Daig Thien [id number] Device Closure Angio-Seal Vip Bondek-Plus Polyglyd L70 Cm Od6 Fr Odsec.035 In Vascular - Sn/A - [id number] Implanted:Qty: 1 on 07/17/2020 by Moisés Flynn MD at [facility] Other - see comments Left: Groin Terumo Medical Thien 04/14/2021 [id number] / N/A / [id number] Bard Peripheral Vascular [id number] E-Luminexx Safe Performaxx 9mm 6fr 60mm 80cm Delivery System - [id number] Implanted:Qty: 1 on 12/13/2017 by Moisés Flynn MD at [facility] Stent Left: Arterial Bard Peripheral Vascular 01/12/2020 [id number] / / [id number] Description:Left Common and External Iliac Artery Medtronic Inc Everflex Entrust 6mm 60mm 80cm Self Expand Triaxial Low Profile - Sn/A - [id number] Implanted:Qty: 1 on 07/17/2020 by Moisés Flynn MD at [facility] Stent Right: Iliac Medtronic Inc 01/12/2022 IMD32-23 -060-080 / N/A / [id number] Medtronic Inc Everflex Entrust 6mm 100mm 80cm Self Expand Triaxial Low Profile - Sn/A - [id number] Implanted:Qty: 1 on 07/17/2020 by Moisés Flynn MD at [facility] Stent Left: Iliac Medtronic Inc 10/15/2022 NNO02-37 -100-080 / N/A / [id number] Daig Thien/[employer] [id number] Angio-Seal Vip Bondek-Plus 6fr .035in 70cm Hemostatic Latex Free - [id number] Implanted:Qty: 1 on 12/13/2017 by Moisés Flynn MD at [facility] Left: Groin Daig Thien/[employer] 08/12/2018 [id number] / / [id number] Cryolife Inc Patch Cardiovascular 0.8x8cm Nonpyrogenic Pfp0.8x8 - [id number] Implanted:Qty: 1 on 07/21/2022 by Moisés Flynn MD at [facility] Left: Carotid Cryolife Inc 03/28/2024 PFP0.8X8 / / [id number] Vitalitec Intrnl Inc Sls-Clip Ligate Triangular Wire Chio Groove Small Chevron Clip Latex Free O0338-3 - [id number] Implanted:Qty: 1 on 07/21/2022 by Moisés Flynn MD at [facility] Left: Neck Vitalitec Intrnl Inc P9070-6 / / Vitalitec Intrnl Inc Sls-Clip Ligate Triangular Wire Chio Groove Small Chevron Clip Latex Free J0517-0 - [id number] Implanted:Qty: 4 on 07/27/2022 by Moisés Flynn MD at [facility] N/A: Abdomen Vitalitec Intrnl Inc Z6260-7 / / Bard Peripheral Vascular Bard .25x.25in [place] Thk1.65mm Square Pledget Cardiovascular Ptfe 085194 - [id number] Implanted:Qty: 1 on 07/27/2022 by Moisés Flynn MD at [facility] N/A: Abdomen Bard Peripheral Vascular [id number] / / Bard Peripheral Vascular Bard 5/16x5/16in [place] Thk1.65mm Pledget Cardiovascular Ptfe 085111 - [id number] Implanted:Qty: 1 on 07/27/2022 by Moisés Flynn MD at [facility] N/A: Abdomen Bard Peripheral Vascular [id number] / / Procedures Procedure Name Priority Date/Time [...] AM CDT Narrative 08/15/2024 3:23 PM CDT [facility] - Department of Vascular Surgery, Vascular Laboratory [address] [place] [address] Carotid Duplex Ultrasound Report Patient Name: CYRUS SUBRAMANIAN : 1960 (63y 8m) Study Date: 08/15/2024 7:58:41 AM Gender: M Tech: Location: [facility] Anh Provider: MOISÉS FLYNN Quality: Adequate Order [...] LT VERT PSV 221 cm/sec FINDINGS: Performing Plate Shear Operator: NERY ArambulaT. Rt Common Carotid Artery: [...] Procedure Note Moisés Flynn MD - 08/15/2024 [facility] - Department of Vascular Surgery,Vascular Laboratory [address] [place] [address] Carotid Duplex Ultrasound Report Patient Name: CYRUS SUBRAMANIAN : 1960 (63y 8m) Study Date: 08/15/2024 7:58:41 AM Gender: M Tech: Location: [facility] Provider: MOISÉS FLYNN Quality: Adequate Order Provider: [...] LT VERT PSV 221 cm/sec FINDINGS: Performing Plate Shear Operator: Mary Garcia RVT. Rt Common Carotid Artery: [...] above. Electronically Signed By: Moisés Flynn MD [facility] 08/15/2024 2:05:41 PM CDT us oMisés Flynn MD [facility] PROCEDURES Final Result * eGFR (11/10/2022 [...] CDT 11/10/2022 1:03 PM CDT Andreea Espinoza DIVE SUPERVISOR LAB BLOOD ORDERABLES Fin al Result Performing Organization Address [facility] de Phone Number [facility] [address] [facility] [address] [place] [address] * (ABNORMAL) Hemoglobin A1c (11/10/2022 1:03 PM CDT) Pathologist [facility] Hgb A1C 10.0(H) 4.0 - 5.6 % [facility] Estimated Average Glucose 240 mg/dL [facility] Comment: The ADA recommends reporting an estimated Average Glucose (eAG) with all Hemoglobin A1c results using the equation derived from a study of 507 normal and diabetic adults. Minority populations were underrepresented and children were not included. (Diabetes Care 31:8849-4787, 2008). The eAG is not equivalent to a fasting glucose. Blood 11/10/2022 1:03 PM CDT 11/10/2022 1:03 PM CDT Andreea Espinoza NP LAB BLOOD ORDERABLES Fin al Result Performing Organization Address [facility] de Phone Number [facility] [address] [facility] [address] [place] [address] * (ABNORMAL) Lipid panel (07/20/2022 12:27 AM CDT) [facility] Cholesterol 97 30 - 199 mg/dL [facility] Comment: Interpretive Data Ages < or = [...] revised on 2017. Triglycerides 133 <=149 mg/dL [facility] Comment: Interpretive Data Ages < or = [...] revised on 2017. HDL 25(L) >=40 mg/dL [facility] Comment: Interpretive Data Ages < or = [...] on 2017. LDL, calculated 45 <=129 mg/dL [facility] Comment: Interpretive Data Ages < or = [...] revised on 2017. Non-HDL Cholesterol 72 mg/dL [facility] Comment: Interpretive Data Ages < or = [...] revised on 2017. Chol/HDL ratio 4 [facility] Blood 07/20/2022 12:2 7 AM CDT 07/20/2022 12:30 AM CDT us Navin Sandoval MD LAB BLOOD ORDERABLES Final Re sult [facility] [address] Department [place] [address] from Last 3 Months or Most Recently Relevant to Health Maintenance Insurance [employer] COMMERCIAL GENERIC [employer]ICARE [employer]ARE [employer] Advance Directives For more information, please contact: [phone] * Full Code (Latest Code Status on [...] 4:34 PM 08/26/2018 2:20 PM Care Teams Unix Architect Relationship Specialty Start Date End Date Neel Lincoln MD [address] [place] [address] PCP - General Internal Medicine 09/03/21 Moisés Flynn MD Surgeon Vascular Surgery 12/14/17 Eileen Mueller MD Internal Medicine 12/18/20 Wes Redmond MD [address] [place] [address] Internal Medicine 03/04/22 Moisés Bryant MD [address] [facility] [address] [place] [address] Neurology 08/24/22
[2024-08-25 22:08] LABS: Alanine Aminotransferase 22 U/L (6-50); Albumin Level 3.9 g/dL (3.5-5.1); Alkaline Phosphatase 110 U/L (38-126); Anion Gap 10 mmol/L (4-12); Aspartate Amino Transferase 38 U/L (17-59); Bilirubin,Total 0.6 mg/dL (0.2-1.3); Blood Urea Nitrogen 21 mg/dL (9-20); Calcium 10.2 mg/dL (8.4-10.2); Carbon Dioxide 23 mmol/L (22-30); Chloride 106 mmol/L (98-107); Estimated CRCL calculation 64 ml/min; Estimated Glomerular Filt Rate 50; Glucose 209 mg/dL (65-110); Lipase 71 U/L (23-300); Potassium 3.9 mmol/L (3.4-5.0); Sodium 139 mmol/L (137-145); Total Protein 7.5 g/dL (6.3-8.2)
[2024-08-25] MEDS: ONDANSETRON INJ 4 MG/2 ML VIAL IV PUSH (22:19)
[2024-08-25] MEDS: SODIUM CHLORIDE 0.9% IV 1,000 ML 999 ML IV CONT (22:19)
[2024-08-25] MEDS: MORPHINE SULFATE (*CRX) 4 MG/ML INJ IV PUSH (22:19)
--- NOTE | 2024-08-25 22:24 | ED_ITS ---
HPI - Abdominal Pain General Chief Complaint: Abdominal Pain <JOI Pickering Last Filed: 08/26/24 14:04> Stated Complaint: abd pain, bloating <JOI Pickering Last Filed: 08/26/24 14:04> Time Seen by Provider: 08/25/24 21:25 <JOI Pickering Last Filed: 08/26/24 14:04> Source: patient <JOI Pickering Last Filed: 08/26/24 14:04> Mode of arrival: ambulatory <JOI Pickering Last Filed: 08/26/24 14:04> Limitations: no limitations <JOI Pickering Last Filed: 08/26/24 14:04> History of Present Illness HPI narrative: This is a 63 year old male that presents to the ER for abdominal pain, nausea, vomiting. Ongoing over the last 3 days. Reports some diarrhea earlier this morning. Extensive abdominal/vascular surgery history. <Rabia Paez PA-C - Last Filed: 08/26/24 14:04> Related Data Allergies/Adverse Reactions: Allergies Allergy/AdvReac Type Severity Reaction Status Date / Time cefadroxil Allergy Dyspnea / Verified 08/25/24 21:32 SOB acetazolamide AdvReac Other Verified 08/25/24 21:32 <Rabia Paez PA-C - Last Filed: 08/26/24 14:04> Review of Systems 2 Review of Systems: CONSTITUTIONAL: Denies fever GASTROINTESTINAL: Reports abdominal pain, nausea, vomiting, and diarrhea. <JOI Pickering Last Filed: 08/26/24 14:04> All systems reviewed & are unremarkable except as noted in HPI and below < JOI Pickering Last Filed: 08/26/24 14:04> [facility] Past Medical History Medical History: Medical History (Updated 08/26/24 @ 03:59 by Keren Saenz MD) Hypertension Hyperlipidemia CAD (coronary artery disease) Peripheral arterial disease Atrial fibrillation Acute on chronic diastolic heart failure <JOI Pickering Last Filed: 08/26/24 14:04> Family History Family History: Family History Father Diabetes mellitus Heart disease Mother Diabetes mellitus Heart disease <Rabia Paez PA-C - Last Filed: 08/26/24 14:04> Social History Social History: Social History Smoking packs per day: 0.5 Smoking cigarettes per day: 10.0 Years smoked: 45 Smoking pack-years: 22.50 Smoking status: Former smoker Tobacco type: cigarettes Smoking end date: 07/19/22 Spiritual care concerns: No <Rabia Paez PA-C - Last Filed: 08/26/24 14:04> Exam 2 Narrative: GENERAL: Uncomfortable, well-nourished, and in no acute distress. HEAD: Normocephalic, atraumatic. EYES: EOMI. CHEST: Clear to auscultation. No respiratory distress. No wheezes rales or rhonchi HEART: Regular rate and rhythm. No murmur heard. Normal peripheral pulses. ABDOMEN: Distended, hypoactive bowel sounds. Tender to palpation throughout the abdomen, without guarding EXTREMITIES: Normal range of motion. No edema. SKIN: Warm, dry, no rash. NEURO: No focal deficits. Alert and oriented x3. PSYCH: Normal mood and affect <Rabia Paez PA-C - Last Filed: 08/26/24 14:04> Course Course Emergency Course: Patient updated on his workup. Will consult with general surgery here first to see if he is appropriate to stay at [facility]. Blackwood recommends transfer for higher level of care due to patient's vascular history <Rabia Paez PA-C - Last Filed: 08/26/24 14:04> patient updated on his workup <Keren Saenz MD - Last Filed: 08/26/24 06:05> Consultations Consultation #1: Spoke with Dr. Deutsch about patient and workup who accepts patient as transfer to [facility] <Rabia Paez PA-C - Last Filed: 08/26/24 14:04> Date: 08/26/24 <Rabia Paez PA-C - Last Filed: 08/26/24 14:04> Vital Signs Vital signs: Vital Signs Temperature 97.6 F 08/25/24 21:09 Pulse Rate 122 H 08/25/24 21:09 Respiratory Rate 20 08/25/24 21:09 Blood Pressure 150/99 H 08/25/24 21:09 Pulse Oximetry 99 08/25/24 21:09 Oxygen Delivery Room Air 08/25/24 21:09 Temperature 97.6 F 08/25/24 21:09 Pulse Rate 97 08/26/24 07:30 Respiratory Rate 16 08/26/24 07:30 Blood Pressure 173/97 H 08/26/24 07:30 Pulse Oximetry 95 08/26/24 07:30 Oxygen Delivery Room Air 08/25/24 21:29 <Rabia Paez PA-C - Last Filed: 08/26/24 14:04> Vital Signs Temperature 97.6 F 08/25/24 21:09 Pulse Rate 122 H 08/25/24 21:09 Respiratory Rate 20 08/25/24 21:09 Blood Pressure 150/99 H 08/25/24 21:09 Pulse Oximetry 99 08/25/24 21:09 Oxygen Delivery Room Air 08/25/24 21:09 Temperature 97.6 F 08/25/24 21:09 Pulse Rate 97 08/26/24 07:30 Respiratory Rate 16 08/26/24 07:30 Blood Pressure 173/97 H 08/26/24 07:30 Pulse Oximetry 95 08/26/24 07:30 Oxygen Delivery Room Air 08/25/24 21:29 <Keren Saenz MD - Last Filed: 08/26/24 06:05> MDM - Abdominal Pain MDM Narrative Medical decision making narrative: 63M here with abd pain, n/v; complicated vascular/abd surgical history. Labs with minimally elevated white count, CT showing SBO. NG tube placed, pain medication IV morphine given, on re-evaluation still having pain so additional rounds given. Discussed with surgeon here who recommends transfer to the hospital his vascular surgeon is at, given his complicated history. Accepted for transfer at [facility] by Dr Deutsch, pending bed availability. I will put him on anticoagulation since he cannot take p.o. right now, discussed with pharmacist, 40 mg subcutaneous Lovenox ordered. Will also give dose of labetalol for heart rate +blood pressure control. 0600: Bed now available; stable for transfer at this time. <Rabia Paez PA-C - Last Filed: 08/26/24 14:04> 63M here with abd pain, n/v; complicated vascular/abd surgical history. Labs with minimally elevated white count, CT showing SBO. NG tube placed, pain medication IV morphine given, on re-evaluation still having pain so additional rounds given. Discussed with surgeon here who recommends transfer to the hospital his vascular surgeon is at, given his complicated history. Accepted for transfer at [facility] by Dr Deutsch, pending bed availability. I will put him a anticoagulation since he cannot take p.o. right now, discussed with pharmacist, 40 mg subcutaneous Lovenox ordered. Will also give dose of labetalol for heart rate +blood pressure control. 0600: Bed now available; stable for transfer at this time. <Keren Saenz MD - Last Filed: 08/26/24 06:05> Lab Data Attestation: I reviewed the patient's lab results. <Rabia Paez PA-C - Last Filed: 08/26/24 14:04> Result diagrams: 08/25/24 21:52 08/25/24 21:52 <Rabia Paez PA-C - Last Filed: 08/26/24 14:04> Labs: Lab Results 08/25/24 08/25/24 08/26/24 Range/Units 21:52 22:11 00:53 WBC 10.8 H (4.5-10.0) K/mm3 RBC 4.79 (4.6-6.20) M/mm3 Hgb 13.7 L (14.0-18.0) g/dL Hct 42.2 (42.0-52.0) % MCV 88.1 (80-100) fl MCH 28.6 (26-34) pg MCHC 32.5 (32-36) g/dl RDW 15.1 H (11.5-14.5) % Plt Count 278 (150-375) k/mm3 MPV 11.2 H (7.4-10.4) fl Immature Gran % (Auto) 0.6 H (0-0.5) % Neut % (Auto) 79.3 H (45.5-73.1) % Lymph % (Auto) 11.5 L (18.3-44.2) % Mower % (Auto) 5.9 (2.6-8.5) % Eos % (Auto) 2.0 (0-4.4) % Baso % (Auto) 0.7 (0.2-1.2) % Lymph # (Auto) 1.24 (0.9-3.2) K/mm3 Mower # (Auto) 0.6 (0.1-0.6) K/mm3 Eos # (Auto) 0.2 (0-0.3) K/mm3 Baso # (Auto) 0.1 (0.0-0.1) K/mm3 Abs Immat Gran (auto) 0.06 H (0.00-0.031) K/mm3 Absolute Neuts (auto) 8.5 H (1.3-6.7) K/mm3 Absolute Nucleated RBC 0.000 (0.0-0.012) K/mm3 Nucleated RBC % 0.0 (0.0-0.2) % Sodium 139 (137-145) mmol/L Potassium 3.9 (3.4-5.0) mmol/L Chloride 106 (98-107) mmol/L Carbon Dioxide 23 (22-30) mmol/L Anion Gap 10 (4-12) mmol/L BUN 21 H D (9-20) mg/dL Creatinine 1.44 H (0.7-1.3) mg/dL Estim Creat Clear Calc 64 ml/min Estimated GFR 50 L (59 - ) Glucose 209 H (65-110) mg/dL Lactic Acid 1.6 (0.7-2.0) mmol/L Calcium 10.2 (8.4-10.2) mg/dL Total Bilirubin 0.6 (0.2-1.3) mg/dL AST 38 (17-59) U/L ALT 22 (6-50) U/L Alkaline Phosphatase 110 (38-126) U/L Total Protein 7.5 (6.3-8.2) g/dL Albumin 3.9 (3.5-5.1) g/dL Lipase 71 (23-300) U/L Urine Color Yellow (Yellow) Urine Appearance Clear (Clear) Urine pH 5.5 (5.0-9.0) Ur Specific [place] > 1.045 H (1.001-1.035) Urine Protein 1+ H (Negative) mg/dL Urine Glucose (UA) 1+ H (Negative) mg/dL Urine Ketones Trace H (Negative) mg/dL Ur Blood (Man) Negative (Negative) Urine Nitrate Negative (Negative) Urine Bilirubin Negative (Negative) Urine Urobilinogen 1.0 (<2.0) mg/dL Leukocyte Esterase Rfl Negative (Negative) OLAYINKA/UL Urine RBC 0-2 (0-2) /hpf Urine WBC 0-5 (0-3) /hpf Ur Squamous Epith Cells None seen (Few) /hpf Urine Bacteria None seen /hpf Urine Casts 0-2 <Rabia Paez PA-C - Last Filed: 08/26/24 14:04> Lab Results 08/25/24 08/25/24 08/26/24 Range/Units 21:52 22:11 00:53 WBC 10.8 H (4.5-10.0) K/mm3 RBC 4.79 (4.6-6.20) M/mm3 Hgb 13.7 L (14.0-18.0) g/dL Hct 42.2 (42.0-52.0) % MCV 88.1 (80-100) fl MCH 28.6 (26-34) pg MCHC 32.5 (32-36) g/dl RDW 15.1 H (11.5-14.5) % Plt Count 278 (150-375) k/mm3 MPV 11.2 H (7.4-10.4) fl Immature Gran % (Auto) 0.6 H (0-0.5) % Neut % (Auto) 79.3 H (45.5-73.1) % Lymph % (Auto) 11.5 L (18.3-44.2) % Mower % (Auto) 5.9 (2.6-8.5) % Eos % (Auto) 2.0 (0-4.4) % Baso % (Auto) 0.7 (0.2-1.2) % Lymph # (Auto) 1.24 (0.9-3.2) K/mm3 Mower # (Auto) 0.6 (0.1-0.6) K/mm3 Eos # (Auto) 0.2 (0-0.3) K/mm3 Baso # (Auto) 0.1 (0.0-0.1) K/mm3 Abs Immat Gran (auto) 0.06 H (0.00-0.031) K/mm3 Absolute Neuts (auto) 8.5 H (1.3-6.7) K/mm3 Absolute Nucleated RBC 0.000 (0.0-0.012) K/mm3 Nucleated RBC % 0.0 (0.0-0.2) % Sodium 139 (137-145) mmol/L Potassium 3.9 (3.4-5.0) mmol/L Chloride 106 (98-107) mmol/L Carbon Dioxide 23 (22-30) mmol/L Anion Gap 10 (4-12) mmol/L BUN 21 H D (9-20) mg/dL Creatinine 1.44 H (0.7-1.3) mg/dL Estim Creat Clear Calc 64 ml/min Estimated GFR 50 L (59 - ) Glucose 209 H (65-110) mg/dL Lactic Acid 1.6 (0.7-2.0) mmol/L Calcium 10.2 (8.4-10.2) mg/dL Total Bilirubin 0.6 (0.2-1.3) mg/dL AST 38 (17-59) U/L ALT 22 (6-50) U/L Alkaline Phosphatase 110 (38-126) U/L Total Protein 7.5 (6.3-8.2) g/dL Albumin 3.9 (3.5-5.1) g/dL Lipase 71 (23-300) U/L Urine Color Yellow (Yellow) Urine Appearance Clear (Clear) Urine pH 5.5 (5.0-9.0) Ur Specific [place] > 1.045 H (1.001-1.035) Urine Protein 1+ H (Negative) mg/dL Urine Glucose (UA) 1+ H (Negative) mg/dL Urine Ketones Trace H (Negative) mg/dL Ur Blood (Man) Negative (Negative) Urine Nitrate Negative (Negative) Urine Bilirubin Negative (Negative) Urine Urobilinogen 1.0 (<2.0) mg/dL Leukocyte Esterase Rfl Negative (Negative) OLAYINKA/UL Urine RBC 0-2 (0-2) /hpf Urine WBC 0-5 (0-3) /hpf Ur Squamous Epith Cells None seen (Few) /hpf Urine Bacteria None seen /hpf Urine Casts 0-2 <Keren Saenz MD - Last Filed: 08/26/24 06:05> Imaging Data Radiologist's impression: ITS Impressions Abdomen X-Ray 08/26/24 06:26 IMPRESSION: 1: NG tube tip in the stomach. Chest/Abdomen/Pelvis CTA 08/26/24 06:50 IMPRESSION: 1. Small bowel obstruction. 2: Cholelithiasis. CTA chest/abdomen/pelvis: No pulmonary contusion or pneumothorax. No acute fractures. No traumatic visceral injury. No acute fractures. Dilated small bowel, measuring up to 3.8 cm, concerning for bowel obstruction. Area of transition is wall thickened small bowel in the midabdomen <MARILU Pickering - Last Filed: 08/26/24 14:04> ITS Impressions Abdomen X-Ray 08/26/24 06:26 IMPRESSION: 1: NG tube tip in the stomach. Chest/Abdomen/Pelvis CTA 08/26/24 06:50 IMPRESSION: 1. Small bowel obstruction. 2: Cholelithiasis. <Keren Saenz MD - Last Filed: 08/26/24 06:05> Critical Care Time Critical Care Time Critical Care Time: Yes <Keren Saenz MD - Last Filed: 08/26/24 06:05> Total Critical Care Time: 35 <Rabia Paez PA-C - Last Filed: 08/26/24 14:04> 31 <Keren Saenz MD - Last Filed: 08/26/24 06:05> Discharge Plan Discharge Clinical Impression: SBO (small bowel obstruction) <JOI Pickering Last Filed: 08/26/24 14:04> Patient Disposition: Acute Care Hospital <Rabia Paez PA-C - Last Filed: 08/26/24 14:04> Condition: Serious <JOI Pickering Last Filed: 08/26/24 14:04> Patient Language: Korean <JIO Pickering Last Filed: 08/26/24 14:04> Prescriptions: No Action atorvastatin 80 mg Tablet 80 mg PO HS Qty: 30 0RF sennosides [Senokot] 8.6 mg Tablet 8.6 mg PO HS Qty: 30 0RF acetaminophen [Mapap (acetaminophen)] 325 mg Tablet 650 mg PO Q6H PRN (Reason: Pain) Qty: 30 0RF trazodone 50 mg Tablet 25 mg PO HS Qty: 30 0RF lisinopril 20 mg Tablet 20 mg PO DAILY Qty: 30 0RF isosorbide mononitrate 30 mg Tablet Extended Release 24 Hr 30 mg PO QAM Qty: 30 0RF metoprolol succinate [Toprol XL] 100 mg Tablet Extended Release 24 Hr 100 mg PO BID Qty: 60 0RF gabapentin 400 mg Capsule 800 mg PO TID Qty: 90 0RF levothyroxine [Synthroid] 75 mcg Tablet 75 mcg PO DAILY@0630 Qty: 30 0RF gemfibrozil 600 mg Tablet 600 mg PO BIDAC Qty: 60 0RF pantoprazole 40 mg Tablet,Delayed Release (Dr/Ec) 40 mg PO QAM Qty: 30 0RF nicotine [Nicoderm CQ] 21 mg/24 hr Patch 24 Hour 1 patch transdermal QAM Qty: 30 0RF nitroglycerin [Nitrostat] 0.4 mg Tablet, Sublingual 0.4 mg sublingual Q5MIN PRN (Reason: Chest Pain) Qty: 30 0RF aspirin [Children's Aspirin] 81 mg Tablet,Chewable 81 mg PO DAILY@0800 Qty: 30 0RF furosemide 20 mg Tablet 60 mg PO QAM Qty: 30 0RF glipizide 5 mg Tablet 5 mg PO QPM Qty: 30 0RF oxycodone 5 mg Tablet 5 mg PO Q6H PRN (Reason: Pain Rated 7-10) Qty: 12 0RF ezetimibe [Zetia] 10 mg Tablet 10 mg PO QAM Qty: 30 0RF Eliquis 5 mg Tablet 5 mg PO Q12HR Qty: 60 0RF potassium chloride [K-Tab] 20 mEq Tablet Extended Release 40 meq PO DAILY Qty: 30 0RF metformin 1,000 mg tablet extended release 24 hr 1,000 mg PO QPM Qty: 30 0RF insulin glargine 100 unit/mL solution 36 unit subcut BID Qty: 10 0RF dorzolamide 2 % drops 1 drp EACH EYE DAILY Qty: 10 0RF <Rabia Paez PA-C - Last Filed: 08/26/24 14:04> Follow-up/Referrals: Latonia,Neel Braden MD [Primary Care Provider] - <Rabia Paez PA-C - Last Filed: 08/26/24 14:04>
[2024-08-25 22:30] LABS: Lactic Acid Reflex 1.6 mmol/L (0.7-2.0)
[2024-08-26] VITALS (15 sets, daily range): BP systolic 153–215; BP diastolic 91–126; PULSE 91–118; RESP 9–20; O2SAT 90–99
[2024-08-26] MEDS: METOCLOPRAMIDE HCL INJ 10 MG/2 ML VIAL IV PUSH (00:14)
[2024-08-26] MEDS: diphenhydrAMINE HCl INJ 50 MG/ML VIAL 25 MG IV PUSH (00:14)
[2024-08-26] MEDS: MORPHINE SULFATE (*CRX) 4 MG/ML INJ IV PUSH (00:52)
[2024-08-26 01:04] LABS: Add Urine Microscopic? YES; Appearance Urine Clear (Clear); Bacteria Urine None Seen /hpf; Bilirubin Urine Negative (Negative); Blood Urine Negative (Negative); Color Urine Yellow (Yellow); Glucose Urine UA 1+ mg/dL (Negative); Ketones Urine Trace mg/dL (Negative); Leukocyte Esterase Ur Negative LEU/UL (Negative); Nitrate Urine Negative (Negative); Non Pathogenic Casts 0-2; Protein Urine 1+ mg/dL (Negative); RBC Urine 0-2 /hpf (0-2); Specific Grav Ur > 1.045 (1.001-1.035); Squamous Epithelial Cell Urine None Seen /hpf (Few); WBC Urine 0-5 /hpf (0-3); pH Urine 5.5 (5.0-9.0)
[2024-08-26] MEDS: METOPROLOL TARTRATE INJ 5 MG/5 ML VIAL IV PUSH (01:47)
--- NOTE | 2024-08-26 02:15 | PC.NURSE ---
this rn spoke with CLEMENT Cason at 0214 for nurse to nurse report.
[2024-08-26] MEDS: HYDROmorphone HCL INJ (*CRX) 2 MG/ML VIAL 0.5 MG IV PUSH (03:12)
[2024-08-26] MEDS: ENOXAPARIN 40 MG/0.4 ML SYRINGE SUB-Q (06:03)
[2024-08-26] MEDS: LABETALOL HCL INJ 100 MG/20 ML VIAL 10 MG IV PUSH (06:04)
== END 2024-08-26 08:45 | disposition short-term general hospital (02) ==
PROVIDERS: Physician Assistant; Emergency Provider Emergency Medicine; PCP Internal Medicine
DX: K56.609 Unspecified intestinal obstruction, unspecified as to partial versus complete obstruction (principal); I25.10 Atherosclerotic heart disease of native coronary artery without angina pectoris; I73.9 Peripheral vascular disease, unspecified; I48.91 Unspecified atrial fibrillation; I11.0 Hypertensive heart disease with heart failure; I50.33 Acute on chronic diastolic (congestive) heart failure; E78.5 Hyperlipidemia, unspecified; Z87.891 Personal history of nicotine dependence; Z79.899 Other long term (current) drug therapy; Z79.82 Long term (current) use of aspirin; Z79.01 Long term (current) use of anticoagulants; Z79.84 Long term (current) use of oral hypoglycemic drugs; K80.20 Calculus of gallbladder without cholecystitis without obstruction
CPT/HCPCS: 36415; 71275; 74174; 80053; 81001; 83605; 83690; 85025; 96361; 96374; 96375; 96376; 99285; J1171; J1200; J1650; J2270; J2405; J2765; J7030; Q9967

== ENCOUNTER 2025-03-07 06:56 | Inpatient (IN) | payer MEDICARE, SELFPAY ==
--- OUTSIDE RECORDS SUMMARY | 2025-03-06 15:20 | XMS_ITS | Encounter Summary ---
Author Organization [facility] Address [address] [place] [address] Care Team Providers Care Log Operations Coordinator Name Role Phone Neel Lincoln MD Primary Care Provider [phone] Reason for Visit * Reason Comments Follow Up Patient is here for a 3 month follow up. Diabetes Patient sees Dr. Vega @ [facility]. Last A1c on 02/27 was 8.7%. Hyperlipidemia Hypothyroidism GERD Encounter Details Date Type Department Care Team (Late st Contact Info) Description 03/06/2025 3:20 PM OFFICE MACHINE SERVICER Office Visit [facility] Family & Internal Medicine [address] [phone] Neel Lincoln MD [address] [place] [id number] Follow Up (Patient is here for a 3 month follow up.); Diabetes (Patient sees Dr. Vega @ [facility]. Last A1c on 02/27 was 8.7%.); Hyperlipidemia; Hypothyroidism; GERD Social History Tobacco Use Types Packs/Day Years Used Date Smoking Tobacco: Former Cigarettes 0.5 46 0 07/19/1976 - 07/19/2022 Smokeless Tobacco: Never Tobacco Cessation:Counseling Given: No Alcohol Use Standard Drinks/Week Comments Not Currently 0 (1 standard drink = 0.6 oz pur e alcohol) quit 8 years ago B1300 Health Literacy Answer Date Recor ded How often do you need to hav e someone help you when you read instructions, pamphlets, or other written material from your doctor or pharmacy? Rarely 03/29/2024 [facility] Utilities Answer Date Recorded In the past 12 months has th e [employer], [employer], [employer]aud[employer], or water [employer] threatened to shut off services in your home? No 03/29/2024 Humiliation, Afraid, Rape, and Kick questionnair e Answer Date Recorded Within the last year, have y ou been afraid of your partner or ex-partner? No 03/29/2024 Within the last year, have y ou been humiliated or emotionally abused in other ways by your partner or ex-partner? No Within the last year, have y ou been kicked, hit, slapped, or otherwise physically hurt by your partner or ex-partner? No 03/29/2024 Within the last year, have y ou been raped or forced to have any kind of sexual activity by your partner or ex-partner? No 03/29/2024 Social Connection and Isolation Panel Answer Date Recorded In a typical week, how many times do you talk on the phone with family, friends, or neighbors? Three times a week 03/29/19 How often do you get togethe r with friends or relatives? Once a week 03/29/2024 How often do you attend chur or samaritan services? 1 to 4 times per year 03/29/2024 Do you belong to any clubs o r organizations such as moravian groups, unions, fraternal or athletic groups, or school groups? Patient declined 03/29/2024 How often do you attend meet ings of the clubs or organizations you belong to? Patient declined 03/29/2024 Are you , , di vorced, , never , or living with a partner? 03/29/2024 AUDIT-C Answer Date Recorded Q1: How often do you have a drink containing alcohol? Never 03/29/2024 Q2: How many drinks containi ng alcohol do you have on a typical day when you are drinking? Patient does not drink Q3: How often do you have si x or more drinks on one occasion? Never 03/29/2024 Overall Financial Resource Strain (CARDIA) Answe r Date Recorded How hard is it for you to pa y for the very basics like food, housing, medical care, and heating? Not hard at all 03/29/2024 PHQ-2 Answer Date Recorded Patient Health Questionnaire-2 Score 0 04/04/2024 [facility] - Occupational Stress Questionnaire Answer Date Recorded Do you feel stress - tense, restless, nervous, or anxious, or unable to sleep at night because your mind is troubled all the time - these days? Only a little 03/29/2024 Exercise Vital Sign Answer Date Recorde d On average, how many days pe r week do you engage in moderate to strenuous exercise (like a brisk walk)? 2 days 03/29/2024 On average, how many minutes do you engage in exercise at this level? 30 min 03/29/2024 Hunger Vital Sign Answer Date Recorded Within the past 12 months, y ou worried that your food would run out before you got the money to buy more. Never true 03/29/19 25 Within the past 12 months, t he food you bought just didn't last and you didn't have money to get more. Never true 03/29/2024 PRAPARE - Transportation Answer Date Re corded In the past 12 months, has l ack of transportation kept you from medical appointments or from getting medications? No 03/15 In the past 12 months, has l ack of transportation kept you from meetings, work, or from getting things needed for daily living? No 03/29/2024 Housing Stability Vital Sign Answer Hardeep e Recorded In the last 12 months, was t here a time when you were not able to pay the mortgage or rent on time? No 03/29/2024 In the past 12 months, how m any times have you moved where you were living? 0 03/29/2024 At any time in the past 12 m [facility], were you homeless or living in a detention (including now)? No 03/29/2024 Sex and Gender Information Value Date Recorded Sex Assigned at Male 03/29/2024 8:05 PM OFFICE MACHINE SERVICER Legal Sex Male 1:56 PM CDT Gender Identity Not on file Sexual Orientation Not on file Occupation Industry Job Start Date Job End Date Not on file Not on file Not on file Not on file documented as of this encounter Last Filed Vital Signs Vital Sign Reading Time Taken Comments Blood Pressure 108/62 03/06/2025 3:25 PM OFFICE MACHINE SERVICER Pulse 57 03/06/2025 3:25 PM OFFICE MACHINE SERVICER Temperature 36.7 C (98.1 F) 03/06/2025 3:25 PM OFFICE MACHINE SERVICER Respiratory Rate - - Oxygen Saturation 92% 03/06/2025 3:25 PM OFFICE MACHINE SERVICER Inhaled Oxygen Concentration - - Weight 130.8 kg (288 lb 4.8 oz) 03/06/2025 3:25 PM OFFICE MACHINE SERVICER Height 182.9 cm (6') 03/06/2025 3:25 PM OFFICE MACHINE SERVICER Body Mass Index 39.1 03/06/2025 3:25 PM OFFICE MACHINE SERVICER documented in this encounter Functional Status * Are you deaf or do you have serious difficulty hearing Answer Date of Assessment Author Status Yes 03/29/2024 11:07 PM Jacki Lua RN Active * Are you blind or do you have serious difficulty seeing, even when wearing glasses? Answer Date of Assessment Author Status Yes 03/29/2024 11:07 PM Jacki Lua RN Active * Do you have serious difficulty walking or climbing stairs? Answer Date of Assessment Author Status Yes 03/29/2024 11:07 PM Jacki Lua RN Active * Do you have difficulty dressing or bathing? Answer Date of Assessment Author Status No 03/29/2024 11:07 PM Jacki Lua RN Active * Because of a physical, mental, or emotional condition, do you have difficulty doing errands alone such as visiting a doctor's office or shopping? Answer Date of Assessment Author Status No 03/29/2024 11:07 PM Jacki Lua RN Active documented as of this encounter Mental Status * Because of a physical, mental, or emotional condition, do you have serious difficulty concentrating, remembering, or making decisions? Answer Entry Date Author Status No 03/29/2024 11:07 PM Jacki Lua RN Active documented in this encounter Progress Notes * Neel Lincoln MD - 03/06/2025 3:20 PM CST Images from the original note were not included. Office Progress Note Reason for Visit: Follow Up (Patient is here for a 3 month follow up.), Diabetes (Patient sees Dr. Vega @ [facility]. Last A1c on 02/27 was 8.7%.), Hyperlipidemia, Hypothyroidism, and GERD History of Present Illness: History of Present Illness The patient presents for evaluation of diabetes mellitus. He reports a gradual decrease in his blood glucose levels, with the most recent A1c test conducted last week. He has been prescribed Ozempic but has not yet started the treatment. His current medication regimen includes Mounjaro, which he takes at a low dose for 1 to 2 weeks before gradually increasing the dosage. He does not currently take any fiber supplements and consumes approximately 2 to 3 bottles of water daily. He has previously consulted with several dietitians and continues to follow their dietary recommendations. His diet primarily consists of corn, potatoes, green beans, chicken sandwiches, and fish. He also consumes cupcakes before bedtime, which he believes contributes to his insomnia. He occasionally takes Benadryl to aid sleep. He has experienced weight fluctuations, with a recent weight loss followed by a regain to his current weight of 288 pounds. He has a history of skin cancer and his insole buffer has requested a chest x- ray as part of his ongoing health monitoring. Hypertension: Doing well on current medications. He is compliant with medication without medicationside effects. He denies chest pain, shortness of breath, headaches, lightheadedness or dizziness. Hyperlipidemia: Doing well with current medication. Compliant with medication without medication side effects. Denies muscle aches or joint pains from medications Coronary disease: Doing well at this time on current medications. He denies chest pains or dyspnea on exertion. He denies neck strength usage. Hypothyroidism: Doing well on current levothyroxine dosage. He is compliant with medication withoutmedication side effects. He denies signs or symptoms of hypothyroidism. Atrial fibrillation: Doing well on current medications. He denies palpitations or dyspnea on exertion. ROS: Review of Systems All other systems reviewed and are negative. Medications: Current Outpatient Medications on File Prior to Visit Medication Sig acetaminophen (TYLENOL) 325 MG tablet Take 2 tablets (650 mg total) by mouth every 6 (six) hours asneeded. FOR PAIN ASPIRIN LOW DOSE 81 MG chewable tablet CHEW AND SWALLOW 1 TABLET BY MOUTH DAILY AT 8AM atorvastatin (LIPITOR) 80 MG tablet TAKE 1 TABLET BY MOUTH EVERY NIGHT AT BEDTIME CONTOUR NEXT TEST test strip USE TO TEST 4 TIMES DAILY BEFORE MEALS AND NIGHTLY ezetimibe (ZETIA) 10 MG tablet TAKE 1 TABLET BY MOUTH DAILY fluticasone propionate (FLONASE) 50 MCG/ACT nasal spray 1 spray by Nasal route daily. folic acid (FOLVITE) 1 MG tablet Take 1 tablet (1 mg total) by mouth daily. furosemide (LASIX) 20 MG tablet TAKE 1 TABLET BY MOUTH DAILY gabapentin (NEURONTIN) 800 MG tablet Take 1 tablet (800 mg total) by mouth 3 (three) times daily. gemfibrozil (LOPID) 600 MG tablet TAKE 1 TABLET BY MOUTH TWICE DAILY insulin lispro, 1 Unit Dial, (HUMALOG KWIKPEN) 100 UNIT/ML injection (PEN) INJECT UNDER THE SKIN TWICE A DAY PER: 200-300:5UNITS, 301-400:7UNITS, 400+:10UNITS. MAX 20UNITS/DAY (Patient taking differently: Inject 24 Units into the skin 3 (three) times daily before meals.) Insulin Pen Needle (TECHLITE PEN NEEDLES) 31G X 5 MM Misc USE 1 NEEDLE 4 TIMES A DAY isosorbide mononitrate ER (IMDUR) 30 MG 24 hr tablet TAKE 1 TABLET BY MOUTH DAILY [employer] BLOOD GLUCOSE TEST test strip 1 STRIP BY DOES NOT APPLY ROUTE 4 (FOUR) TIMES DAILY BEFORE MEALS AND NIGHTLY. Lancets 30G [facility] [place] TO [place] TWICE DAILY levETIRAcetam (KEPPRA) 250 MG tablet Take 1 tablet (250 mg total) by mouth 2 (two) times daily. levETIRAcetam (KEPPRA) 500 MG tablet Take 1 tablet (500 mg total) by mouth 2 (two) times daily. levothyroxine (SYNTHROID) 75 MCG tablet TAKE 1 TABLET BY MOUTH EVERY MORNING lisinopril (PRINIVIL) 20 MG tablet TAKE 1 TABLET BY MOUTH DAILY metFORMIN ER (GLUCOPHAGE-XR) 500 MG 24 hr tablet Take 1 tablet (500 mg total) by mouth 2 (two) times a day. metoprolol succinate ER (TOPROL-XL) 100 MG 24 hr tablet TAKE 1 TABLET BY MOUTH TWICE DAILY nitroglycerin 0.[address] 1 tablet (0.4 mg total) under the tongue every 5 (five) minutes as needed for Chest Pain (x3 doses). omeprazole (PRILOSEC) 40 MG capsule TAKE 1 CAPSULE BY MOUTH DAILY potassium chloride CR (K-TAB) 20 MEQ tablet Take 1 tablet (20 mEq total) by mouth daily. Pyridoxine 100 MG tablet Take 0.5 tablets (50 mg total) by mouth daily. TOUJEO SOLOSTAR 300 UNIT/ML Solution Pen-injector Inject 36 Units into the skin 2 (two) times a day. vitamin D3, cholecalciferol, 125 mcg capsule Take 1 capsule (125 mcg total) by mouth daily. levETIRAcetam (KEPPRA) 500 MG tablet TAKE 1 TABLET BY MOUTH TWICE A DAY No current facility-administered medications on file prior to visit. Allergies: Allergies Allergen Reactions Acetazolamide Dystonia and Other (see comment) He states he was dizzy and had [...] and was staggering. Cefadroxil Shortness of Breath Reaction: SOB, , Tolerated zosyn 07/2022 Doxycycline Shortness of Breath Medical History: Past Medical History[1] Surgical History: Past Surgical History[2] Social History: Social History[3] Family History: Family History[4] PE: Physical Exam Vitals and nursing note reviewed. Constitutional: Appearance: Normal appearance. He is well-developed. HENT: Head: Normocephalic and atraumatic. Eyes: Extraocular Movements: Extraocular movements intact. Conjunctiva/sclera: Conjunctivae normal. Pupils: Pupils are equal, round, and reactive to light. Neck: Vascular: Normal carotid pulses. No carotid bruit. Cardiovascular: Rate and Rhythm: Normal rate and regular rhythm. Heart sounds: Normal heart sounds. No murmur heard. No friction rub. No gallop. Pulmonary: Effort: Pulmonary effort is normal. No respiratory distress. Breath sounds: Normal breath sounds. No wheezing. Skin: General: Skin is warm and dry. Neurological: Mental Status: He is alert and oriented to person, place, and time. Psychiatric: Behavior: Behavior normal. Judgment: Judgment normal. Filed Vitals: 03/06/25 1525 BP: 108/62 Pulse: (!) 57 Temp: 98.1 ??F (36.7 ??C) TempSrc: Temporal SpO2: 92% Weight: 130.8 kg (288 lb 4.8 oz) Height: 1.829 m (6') Diagnoses/Impression: 1. Malignant melanoma of skin of chest (CMS/HCC HHS/HCC) CANCELED: XR CHEST PA+LAT 2. Diabetic polyneuropathy associated with type 2 diabetes mellitus (CMS/HCC HHS/HCC) Chronic 3. Hyperlipidemia associated with type 2 diabetes mellitus (CMS/HCC HHS/HCC) 4. Hypertension associated with type 2 diabetes mellitus (CMS/HCC HHS/HCC) Chronic 5. Coronary artery disease due to type 2 diabetes mellitus (CMS/HCC HHS/HCC) Chronic 6. Type 2 diabetes mellitus with atherosclerosis of [place] arteries of extremity with intermittent claudication (CMS/HCC HHS/HCC) Chronic 7. Acquired hypothyroidism Chronic 8. Paroxysmal atrial fibrillation (CMS/HCC HHS/HCC) Chronic 9. Uncontrolled type 2 diabetes mellitus with hyperglycemia (CMS/HCC HHS/HCC) Chronic 10. Type 2 diabetes mellitus with other specified complication, with long-term current use of insulin (CMS/HCC HHS/HCC) Chronic 11. Type 2 diabetes mellitus with diabetic peripheral angiopathy and gangrene, with long-term current use of insulin (CMS/HCC HHS/HCC) Chronic Recommendations and Plan: 1. Diabetic polyneuropathy associated with type 2 diabetes mellitus (CMS/HCC HHS/HCC) Stable, continue with current treatment. 2. Hyperlipidemia associated with type 2 diabetes mellitus (CMS/HCC HHS/HCC) Well controlled, continue with present management. 3. Hypertension associated with type 2 diabetes mellitus (CMS/HCC HHS/HCC) Doing well, continue with same medications. 4. Coronary artery disease due to type 2 diabetes mellitus (CMS/HCC HHS/HCC) Well controlled, continue with present management. 5. Malignant melanoma of skin of chest (CMS/HCC HHS/HCC) (Primary) Chest x-ray ordered, will forward results to his insole buffer. 6. Type 2 diabetes mellitus with atherosclerosis of [place] arteries of extremity with intermittent claudication (CMS/HCC HHS/HCC) 7. Acquired hypothyroidism Doing well, continue with same levothyroxine dosage. 8. Paroxysmal atrial fibrillation (CMS/HCC HHS/HCC) Well controlled, continue with present management. 9. Uncontrolled type 2 diabetes mellitus with hyperglycemia (CMS/HCC HHS/HCC) 10. Type 2 diabetes mellitus with other specified complication, with long-term current use of insulin (CMS/HCC HHS/HCC) 11. Type 2 diabetes mellitus with diabetic peripheral angiopathy and gangrene, with long-term current use of insulin ([facility]) No orders of the defined types were placed in this encounter. Assessment & Plan Diabetes mellitus: - A1c level has shown a significant improvement, decreasing from 10.2 to 8.7. - Benefiber is recommended as a fiber supplement to alleviate constipation. He is encouraged to increase his water intake to 6-8 bottles per day to prevent dehydration. A high-protein, low-fat, and low-carbohydrate diet is recommended, with a focus on lean meats such as chicken and fish, and a reduction in red meat consumption. He is cautioned against overeating and consuming unhealthy foods, which could lead to nausea and abdominal pain. - He is advised to monitor his food intake closely and make necessary adjustments if these symptomsoccur. He is encouraged to limit his intake of cupcakes and chips, and instead opt for healthier snacks such as apples, bananas, beef jerky, chicken breast, carrot sticks, and celery. He is advised to avoid fried foods and opt for grilled or boiled alternatives. - He is encouraged to reduce his portion sizes, particularly when consuming pork and beef. If thereis no significant weight loss by the next visit, a referral to a dietitian will be considered. Malignant melanoma: - A chest x-ray will be ordered to monitor for any potential metastasis or recurrence. Follow-up: The patient will follow up in 3 months. I personally spent a total of 45 minutes on the day of the encounter. This includes uqxn-ra-peic and puy-nwnz-oi-face time I provided on the day of the encounter & excludes time spent performing separately reportable services. This document was created in part by using voice recognition software and was reviewed by the author. If errors are present, please bring them to your provider's attention. PCP: NEEL LINCOLN MD 03/06/2025 [1] Past Medical History: Diagnosis Date A-fib ([facility]) Arthritis CAD (coronary artery disease) COPD (chronic obstructive pulmonary disease) ([facility]) previous primary always said pt did not have this, but current says he does (per ) Diabetes mellitus ([facility]) Disease of thyroid gland Hypertension Metabolic encephalopathy 03/29/2024 PVD (peripheral vascular disease) Sleep apnea, unspecified [2] Past Surgical History: Procedure Laterality Date AMPUTATION METATARSAL+TOE,SINGLE 11/2022 left great toe, right second toe APPENDECTOMY CARDIAC CATHETERIZATION 1999 & 2013 CATARACT EXTRACTION Bilateral 12/2022 EV FEMPOP ARTL REVSC TCAT PLMT IV ST [facility] CLSR 2015 & 2020 OTHER PROCEDURE bypass graft XA CORONARY INTERVENTION 1999 & 2013 [3] Social History Socioeconomic History Marital status: Spouse name: Remedios Number of children: 2 Occupational History Employer: DISABLED Tobacco Use Smoking status: Former Current packs/day: 0.00 Average packs/day: 0.5 packs/day for 46.0 years (23.0 ttl pk-yrs) Types: Cigarettes Start date: 07/19/1976 Quit date: 07/19/2022 Years since quittin.6 Smokeless tobacco: Never Vaping Use Vaping status: Never Used Substance and Sexual Activity Alcohol use: Not Currently Comment: quit 8 years ago Drug use: Never Other Topics Concern Service No Blood Transfusions Yes Caffeine Concern Yes Special Diet No Exercise No Social Drivers of Health Financial Resource Strain: Low Risk (03/29/2024) Overall Financial Resource Strain (CARDIA) Difficulty of Paying Living Expenses: Not hard at all Food Insecurity: No Food Insecurity (03/29/2024) Hunger Vital Sign Worried About Running Out of Food in the Last Year: Never true Ran Out of Food in the Last Year: Never true Transportation Needs: No Transportation Needs (03/29/2024) PRAPARE - Transportation Lack of Transportation (Medical): No Lack of Transportation (Non-Medical): No Physical Activity: Insufficiently Active (03/29/2024) Exercise Vital Sign Days of Exercise per Week: 2 days Minutes of Exercise per Session: 30 min Stress: No Stress Concern Present (03/29/2024) [facility] - Occupational Stress Questionnaire Feeling of Stress : Only a little Social Connections: Unknown (03/29/2024) Social Connection and Isolation Panel Frequency of Communication with Friends and Family: Three times a week Frequency of Social Gatherings with Friends and Family: Once a week Attends Protestant Services: 1 to 4 times per year Active Member of Clubs or Organizations: Patient declined Attends Club or Organization Meetings: Patient declined Marital Status: Intimate Partner Violence: Not At Risk (03/29/2024) Humiliation, Afraid, Rape, and Kick questionnaire Fear of Current or Ex-Partner: No Emotionally Abused: No Physically Abused: No Sexually Abused: No Housing Stability: Low Risk (03/29/2024) Housing Stability Vital Sign Unable to Pay for Housing in the Last Year: No Number of Times Moved in the Last Year: 0 Homeless in the Last Year: No [4] Family History Problem Relation Name Age of Onset Diabetes Mother Coronary artery disease Mother Heart Attack Mother Breast Cancer Mother Stent Cardiac Mother Other (Pacemaker) Mother Atrial fibrillation Mother Hyperlipidemia Mother Thyroid Disease Mother Diabetes Father Heart Attack Father Coronary artery disease Father CABG Father 46 x3 Hypertension Father Hyperlipidemia Father Diabetes Sister Other (lung mass) Brother non-cancerous, lobectomy Peripheral vascular disease Brother COPD Brother Colon Cancer Brother No Known Problems Brother Alzheimer's disease Maternal Aunt Stroke Maternal Aunt Breast Cancer Maternal Aunt Cancer Paternal Uncle stomach cancer Seizures Paternal Uncle CHF Maternal Grandmother Heart Attack Maternal Grandfather CABG Maternal Grandfather Coronary artery disease Maternal Grandfather Diabetes Paternal Grandmother DE Paternal Grandfather Cancer Paternal Grandfather unknown type CE MACHINE SERVICER documented in this encounter Plan of Treatment Upcoming Encounters Date Type Department Care Team (Late st Contact Info) Description 03/27/2025 3:40 PM OFFICE MACHINE SERVICER [facility] [address] [facility], [address] [place] [phone] J Carlos Banuelos MD [address] [place] [address] 04/10/2025 8:00 AM OFFICE MACHINE SERVICER [facility] [address] [facility] [address] [place] [phone] Estrada Cao DO 3 [facility] [address] [place] [address] 06/12/2025 2:40 PM CDT Office Visit [facility] Family & Internal Medicine - [employer] [address] [place] [phone] Neel Lincoln MD [address] [place] [address] 12/03/2025 12:30 PM CDT Office Visit [facility] [address] [place], [place] [phone] Yonathan Kelley MD Three [facility] [address] [place] [address] documented as of this encounter Goals Goal Patient Goal Type Associated Problems Recent Progress Patient-Stated? Author Consistently take medications as Prescribed Lifestyle On track(2024 1:56 PM OFFICE MACHINE SERVICER) No Nguyen Muller, RN Health - patient able to perform ADLs independently Lifestyle On track(2024 1:56 PM OFFICE MACHINE SERVICER) No Nguyen Muller, RN documented as of this encounter Visit Diagnoses Diagnosis Malignant melanoma of skin of chest ([facility])- Primary Malignant melanoma of skin of trunk, except scrotum Diabetic polyneuropathy associated with type 2 diabetes mellitus ([facility]) Hyperlipidemia associated with type 2 diabetes mellitus ([facility]) Hypertension associated with type 2 diabetes mellitus ([facility]) Coronary artery disease due to type 2 diabetes mellitus ([facility]) Type 2 diabetes mellitus with atherosclerosis of [place] arteries of extremity with intermittent claudication ([facility]/H[facility]) Acquired hypothyroidism Paroxysmal atrial fibrillation ([facility]) Atrial fibrillation Uncontrolled type 2 diabetes mellitus with hyperglycemia ([facility]) Type 2 diabetes mellitus with other specified complication, with long-term current use of insulin ([facility]) Type 2 diabetes mellitus with diabetic peripheral angiopathy and gangrene, with long-term current use of insulin ([facility]) documented in this encounter Additional Health Concerns Assessment Noted Time PHQ-9 Depression Total Score: 1 12/04/19 22 1:22 PM CDT documented as of this encounter Care Teams Log Operations Coordinator Relationship Specialty Start Date End Date Neel Lincoln MD [address] [place] [address] PCP - General INTERNAL MEDICINE 09/02/21 documented as of this encounter
--- OUTSIDE RECORDS SUMMARY | 2025-03-06 15:20 | XMS_ITS | Encounter Summary ---
Author Organization [facility] Address [address] [place] [address] Care Team Providers Care Pasting Inspector Name Role Phone Neel Lincoln MD Primary Care Provider [phone] Reason for Visit * Reason Comments Follow Up Patient is here for a 3 month follow up. Diabetes Patient sees Dr. Vega @ [facility]. Last A1c on 02/27 was 8.7%. Hyperlipidemia Hypothyroidism GERD Encounter Details Date Type Department Care Team (Late st Contact Info) Description 03/06/2025 3:20 PM MIRROR FABRICATION SUPERVISOR Office Visit [facility] Family & Internal Medicine [address] [phone] Neel Lincoln MD [address] [place] [address] Follow Up (Patient is here for [...] from your doctor or pharmacy? Rarely 03/29/2024 [facility] Utilities Answer Date Recorded In the past 12 months has th e [employer], [employer], [facility], or water [employer] threatened to shut off services in your [...] How often do you attend chur or caodaism services? 1 to 4 times per year 03/29/2024 Do you belong to any clubs o r organizations such as jainism groups, unions, fraternal or athletic groups, or [...] Recorded Patient Health Questionnaire-2 Score 0 04/04/2024 [place] [employer] of Occupat ional Health - Occupational Stress [...] any time in the past [address] [facility], were you homeless or living in a mcfp (including now)? No 03/29/2024 Sex and Gender Information Value Date Recorded Sex Assigned at Male 03/29/2024 8:05 PM MIRROR FABRICATION SUPERVISOR Legal Sex Male 1:56 PM CDT Gender Identity Not on file Sexual Orientation Not on file Occupation Industry Job Start Date Job End Date Not on file Not on file Not on file Not on file documented as of this encounter Last Filed Vital Signs Vital Sign Reading Time Taken Comments Blood Pressure 108/62 03/06/2025 3:25 PM MIRROR FABRICATION SUPERVISOR Pulse 57 03/06/2025 3:25 PM MIRROR FABRICATION SUPERVISOR Temperature 36.7 C (98.1 F) 03/06/2025 3:25 PM MIRROR FABRICATION SUPERVISOR Respiratory Rate - - Oxygen Saturation 92% 03/06/2025 3:25 PM MIRROR FABRICATION SUPERVISOR Inhaled Oxygen Concentration - - Weight 130.8 kg (288 lb 4.8 oz) 03/06/2025 3:25 PM MIRROR FABRICATION SUPERVISOR Height 182.9 cm (6') 03/06/2025 3:25 PM MIRROR FABRICATION SUPERVISOR Body Mass Index 39.1 03/06/2025 3:25 PM MIRROR FABRICATION SUPERVISOR documented in this encounter Functional Status * [...] a history of skin cancer and his mobility specialist has requested a chest x- ray as [...] DAILY BEFORE MEALS AND NIGHTLY. 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 6. 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 This includes xeon-kf-znjc and qzv-xyja-cp-face time I provided on the day of the encounter & excludes time spent performing separately reportable services. This document was created in part by using voice recognition software and was reviewed by the author. If errors are present, please bring them to your provider's attention. PCP: NEEL LINCOLN MD 03/06/2025 [1] Past Medical History: Diagnosis Date A-fib ([facility]) Arthritis CAD (coronary artery disease) COPD (chronic obstructive pulmonary disease) ([facility]) previous primary always said pt did not have this, but current says he does (per ) Diabetes mellitus ([facility]) Disease of thyroid gland Hypertension Metabolic encephalopathy [...] min Stress: No Stress Concern Present (03/29/2024) [place] [employer] of Occupational Health - Occupational Stress Questionnaire Feeling of Stress : Only a little Social Connections: Unknown (03/29/2024) Social Connection and Isolation Panel Frequency of Communication with Friends and Family: Three times a week Frequency of Social Gatherings with Friends and Family: Once a week Attends Scientologist Services: 1 to 4 times per year [...] artery disease Maternal Grandfather Diabetes Paternal Grandmother [place] Paternal Grandfather Cancer Paternal Grandfather unknown type OR FABRICATION SUPERVISOR documented in this encounter Plan of Treatment Upcoming Encounters Date Type Department Care Team (Late st Contact Info) Description 03/27/2025 3:40 PM MIRROR FABRICATION SUPERVISOR [facility] 3 [facility], [address] [place] [phone] J Carlos Banuelos MD 3 [place] [address] 04/10/2025 8:00 AM MIRROR FABRICATION SUPERVISOR Office Visit [facility] 3 [facility] [place] [phone] Estrada Cao DO 3 [facility] [address] [place] [address] 06/12/2025 2:40 PM CDT Office Visit [facility] Family & Internal Medicine - [place] [address] [place] [phone] Neel Lincoln MD [address] [place] [address] 12/03/2025 12:30 PM CDT Office Visit [facility] [address] [place], [place] [phone] Yonathan Kelley MD Three [facility] [address] [place] [address] documented as of this encounter Goals Goal Patient Goal Type Associated Problems Recent Progress Patient-Stated? Author Consistently take medications as Prescribed Lifestyle On track(2024 1:56 PM MIRROR FABRICATION SUPERVISOR) No Nguyen Muller, RN Health - patient able to perform ADLs independently Lifestyle On track(2024 1:56 PM MIRROR FABRICATION SUPERVISOR) No Nguyen Muller, RN documented as of this encounter Visit Diagnoses Diagnosis Malignant melanoma of skin of chest ([facility] Primary Malignant melanoma of skin of trunk, except scrotum Diabetic polyneuropathy associated with type 2 diabetes mellitus ([facility]) Hyperlipidemia associated with type 2 diabetes mellitus ([facility]) Hypertension associated with type 2 diabetes mellitus ([facility]) Coronary artery disease due to type 2 diabetes mellitus ([facility]) 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 ([facility]) Acquired hypothyroidism Paroxysmal atrial fibrillation ([facility]) Atrial fibrillation Uncontrolled type 2 diabetes mellitus with hyperglycemia ([facility]) Type 2 diabetes mellitus with other specified complication, with long-term current use of insulin ([facility]) Type 2 diabetes mellitus with diabetic peripheral angiopathy and gangrene, with long-term current use of insulin ([facility]) documented in this encounter Additional Health Concerns Assessment Noted Time PHQ-9 Depression Total Score: 1 12/04/19 22 1:22 PM CDT documented as of this encounter Care Teams Pasting Inspector Relationship Specialty Start Date End Date Neel Lincoln MD [address] [place] [id number] PCP - General INTERNAL MEDICINE 09/02/21 documented as of this encounter
--- OUTSIDE RECORDS SUMMARY | 2025-03-06 15:20 | XMS_ITS | Encounter Summary ---
Author Organization [facility] Address [address] [place] [address] Care Team Providers Care Paralegal Supervisor Name Role Phone Neel Lincoln MD Primary Care Provider [phone] Reason for Visit * Reason Comments Follow Up Patient is here for a 3 month follow up. Diabetes Patient sees Dr. Vega @ [facility]. Last A1c on 02/27 was 8.7%. Hyperlipidemia Hypothyroidism GERD Encounter Details Date Type Department Care Team (Late st Contact Info) Description 03/06/2025 3:20 PM RESEARCH CHEMICAL ENGINEER Office Visit [facility] Family & Internal Medicine [address] [phone] Neel Lincoln MD [address] [place] [address] Follow Up (Patient is here for [...] from your doctor or pharmacy? Rarely 03/29/2024 [facility] Utilities Answer Date Recorded In the past 12 months has th e [employer], [employer], [employer], or water [employer] threatened to shut off services in your [...] How often do you attend chur or denominational services? 1 to 4 times per year 03/29/2024 Do you belong to any clubs o r organizations such as hindu groups, unions, fraternal or athletic groups, or [...] Recorded Patient Health Questionnaire-2 Score 0 04/04/2024 [place] of Occupat ional Health - Occupational Stress [...] any time in the past 12 m [facility], were you homeless or living in a jail (including now)? No 03/29/2024 Sex and Gender Information Value Date Recorded Sex Assigned at Male 03/29/2024 8:05 PM RESEARCH CHEMICAL ENGINEER Legal Sex Male 1:56 PM CDT Gender Identity Not on file Sexual Orientation Not on file Occupation Industry Job Start Date Job End Date Not on file Not on file Not on file Not on file documented as of this encounter Last Filed Vital Signs Vital Sign Reading Time Taken Comments Blood Pressure 108/62 03/06/2025 3:25 PM RESEARCH CHEMICAL ENGINEER Pulse 57 03/06/2025 3:25 PM RESEARCH CHEMICAL ENGINEER Temperature 36.7 C (98.1 F) 03/06/2025 3:25 PM RESEARCH CHEMICAL ENGINEER Respiratory Rate - - Oxygen Saturation 92% 03/06/2025 3:25 PM RESEARCH CHEMICAL ENGINEER Inhaled Oxygen Concentration - - Weight 130.8 kg (288 lb 4.8 oz) 03/06/2025 3:25 PM RESEARCH CHEMICAL ENGINEER Height 182.9 cm (6') 03/06/2025 3:25 PM RESEARCH CHEMICAL ENGINEER Body Mass Index 39.1 03/06/2025 3:25 PM RESEARCH CHEMICAL ENGINEER documented in this encounter Functional Status * [...] a history of skin cancer and his supervisor operations has requested a chest x- ray as [...] DAILY BEFORE MEALS AND NIGHTLY. 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 6. 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) No orders of the defined types [...] the day of the encounter. This includes usvz-ok-ydlf and gqm-iyfe-gc-face time I provided on the day of the encounter & excludes time spent performing separately reportable services. This document was created in part by using voice recognition software and was reviewed by the author. If errors are present, please bring them to your provider's attention. PCP: NEEL LINCOLN MD 03/06/2025 [1] Past Medical History: Diagnosis Date A-fib ([facility]) Arthritis CAD (coronary artery disease) COPD (chronic obstructive pulmonary disease) ([facility]) previous primary always said pt did not have this, but current says he does (per ) Diabetes mellitus ([facility]) Disease of thyroid gland Hypertension Metabolic [...] min Stress: No Stress Concern Present (03/29/2024) [place] of Occupational Health - Occupational Stress Questionnaire Feeling of Stress : Only a little Social Connections: Unknown (03/29/2024) Social Connection and Isolation Panel Frequency of Communication with Friends and Family: Three times a week Frequency of Social Gatherings with Friends and Family: Once a week Attends Taoism Services: 1 to 4 times per year [...] artery disease Maternal Grandfather Diabetes Paternal Grandmother [place] Paternal Grandfather Cancer Paternal Grandfather unknown type ARCH CHEMICAL ENGINEER documented in this encounter Plan of Treatment Upcoming Encounters Date Type Department Care Team (Late st Contact Info) Description 03/27/2025 3:40 PM RESEARCH CHEMICAL ENGINEER [facility] 3 [facility], [address] [place] [phone] J Carlos Banuelos MD [address] [place] [address] 04/10/2025 8:00 AM RESEARCH CHEMICAL ENGINEER [facility] 3 [facility] [place] [phone] Estrada Cao DO 3 [facility] [address] [place] [address] 06/12/2025 2:40 PM CDT Office Visit [facility] Family & Internal Medicine - [place] [address] [place] [phone] Neel Lincoln MD [address] [place] [address] 12/03/2025 12:30 PM CDT Office Visit [facility] [address] [place], [place] [phone] Yonathan Kelley MD Three [facility] [address] [place] [address] documented as of this encounter Goals Goal Patient Goal Type Associated Problems Recent Progress Patient-Stated? Author Consistently take medications as Prescribed Lifestyle On track(2024 1:56 PM RESEARCH CHEMICAL ENGINEER) No Nguyen Muller, RN Health - patient able to perform ADLs independently Lifestyle On track(2024 1:56 PM RESEARCH CHEMICAL ENGINEER) No Nguyen Muller, RN documented as of this encounter Visit Diagnoses Diagnosis Malignant melanoma of skin of chest ([facility])- Primary Malignant melanoma of skin of trunk, except scrotum Diabetic polyneuropathy associated with type 2 diabetes mellitus ([facility]) Hyperlipidemia associated with type 2 diabetes mellitus ([facility]) Hypertension associated with type 2 diabetes mellitus ([facility]) Coronary artery disease due to type 2 diabetes mellitus (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) Type 2 diabetes mellitus with other specified complication, with long-term current use of insulin ([facility]) Type 2 diabetes mellitus with diabetic peripheral angiopathy and gangrene, with long-term current use of insulin ([facility]) documented in this encounter Additional Health Concerns Assessment Noted Time PHQ-9 Depression Total Score: 1 12/04/19 22 1:22 PM CDT documented as of this encounter Care Teams Paralegal Supervisor Relationship Specialty Start Date End Date Neel Lincoln MD [address] [place] [id number] PCP - General INTERNAL MEDICINE 09/02/21 documented as of this encounter
[2025-03-07] VITALS (8 sets, daily range): BP systolic 133–175; BP diastolic 73–106; PULSE 70–96; RESP 14–17; TEMP 36.4–37; O2SAT 93–99; BMI 37.7
--- NOTE | ~2025-03-07 | CT_ITS ---
EXAMINATION: CT abdomen pelvis w con DATE: 03/07/2025 09:05 INDICATION: Abdominal pain and prior small bowel obstruction. TECHNIQUE: Computed tomography (CT) of the abdomen and pelvis was performed with 100 mL Omnipaque-350 intravenous contrast. Automated exposure control and iterative reconstruction technique were employed. The dose-length product was 1569.25 mGy-cm. COMPARISON: None FINDINGS: Minimal bibasilar atelectasis. Heart size is normal. Atherosclerotic coronary artery calcification. No pericardial or pleural effusion. Small sliding-type hiatal hernia. Couple small calcified gallstones the dependent aspect of the otherwise normal nondilated gallbladder with no gallbladder wall thickening or pericholecystic stranding to suggest acute cholecystitis.. Liver, spleen, pancreas, bilateral adrenal glands and kidneys are normal. No intra or extrahepatic biliary ductal dilation. There are multiple loops of mildly dilated fluid-filled small bowel which measure up to 3.7 cm in maximal diameter. At the transition point there is a 2.2 cm long segment of luminal narrowing with some associated wall thickening which suggests possible partial obstruction related to stricture. This can be seen on axial series 3, image 152. The more distal small bowel is intermittently decompressed or normal in caliber. The appendix is not visualized and there is surgical clips near the tip the cecum which suggests possible prior appendectomy. There are few scattered clonic diverticula without adjacent inflammatory stranding to suggest diverticulitis. Bladder is normal. Small amount of ascites in the deep pelvis. No abscess or free peritoneal gas. Postoperative scarring along the midline of the anterior abdominal wall. There there is a patent aortobifemoral bypass graft which extend beyond thrombosed bilateral thrombosed common and external iliac artery stents. No pathologically enlarged abdominal or pelvic lymphadenopathy. Mild lumbar and lower thoracic spondylosis. IMPRESSION: 1. Likely mild partial small bowel obstruction with transition point at 2 cm segment of focal luminal narrowing with associated wall thickening suspicious for stricture. 2. Small amount of likely reactive ascites in the pelvis. No abscess or free intraperitoneal gas. 3. Cholelithiasis. 4. Patent aortobifemoral bypass graft spanning the thrombosed bilateral common and external iliac artery stents. Reviewed, dictated and finalized at location A. ER BOSS IMPRESSION: 1. Likely mild partial small bowel obstruction with transition point at 2 cm se gment of focal luminal narrowing with associated wall thickening suspicious for stricture. 2. Small amount of likely reactive ascites in the pelvis. No abscess or free in traperitoneal gas. 3. Cholelithiasis. 4. Patent aortobifemoral bypass graft spanning the thrombosed bilateral common and external iliac artery stents.
--- NOTE | ~2025-03-07 | XR_ITS ---
Examination: XR abdomen gastric tube insert Clinical History: ng tube insertion Comparison: CT abdomen and pelvis earlier same day Technique: Portable AP Findings/impression: 1. NG tube within gastric fundus. 2. Persistent small bowel obstruction. Reviewed, dictated and finalized at location R. 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
--- OUTSIDE RECORDS SUMMARY | 2025-03-07 06:59 | XMS_ITS | Encounter Summary ---
Author Organization [facility] Address [address] [place] [address] Care Team Providers Care Commissary Clerk Name Role Phone Neel Lincoln MD Primary Care Provider [phone] Nguyen Muller RN Unavailable [phone] Encounter Details Date Type Department Care Team (Late st Contact Info) Description 02/29/2024 Pre-Procedure Call [facility] Pre-[place] [address] Bony Celeste MD Three [facility] [address] [place], [place] [address] Social History Tobacco Use Types Packs/Day Years Used Date Smoking Tobacco: Former Cigarettes 0.5 46 0 07/19/1976 - 07/19/2022 Smokeless Tobacco: Never Alcohol Use Standard Drinks/Week Comments Not Currently 0 (1 standard drink = 0.6 oz pur e alcohol) quit 8 years ago PHQ-2 Answer Date Recorded Patient Health Questionnaire-2 Score 0 05/05/2023 Sex and Gender Information Value Date Recorded Sex Assigned at Male 03/29/2024 8:05 PM MOLD BURNER Legal Sex Male 1:56 PM CDT Gender Identity Not on file Sexual Orientation Not on file Occupation Industry Job Start Date Job End Date Not on file Not on file Not on file Not on file documented as of this encounter Plan of Treatment Upcoming Encounters Date Type Department Care Team (Late st Contact Info) Description 03/27/2025 3:40 PM MOLD BURNER Office Visit [facility] 3 [facility], [address] [place] [phone] J Carlos Banuelos MD 3 [facility] [place] [address] 04/10/2025 8:00 AM MOLD BURNER [facility] 3 [facility] [address] [place] [phone] Estrada Cao DO 3 [facility] [address] [place] [address] 06/12/2025 2:40 PM CDT Office Visit [facility] Internal Medicine - [place] [address] [place] [phone] Neel Lincoln MD [address] [place] [address] 12/03/2025 12:30 PM CDT Office Visit [facility] [address] [place] [address] Yonathan Kelley MD Three [facility] [address] [place] [address] documented as of this encounter Visit Diagnoses Not on filedocumented in this encounter Additional Health Concerns Infection Onset Date Last Indicated Resolved Time COVID-19 Rule Out 03/30/2024 03/30/2024 03/30/2024 6:06 AM MOLD BURNER COVID-19 Rule Out 03/31/2024 03/31/2024 03/31/2024 11:07 AM MOLD BURNER Assessment Noted Time PHQ-9 Depression Total Score: 1 12/04/19 22 1:22 PM CDT documented as of this encounter Care Teams Commissary Clerk Relationship Specialty Start Date End Date Neel Lincoln MD [address] [place] [address] PCP - General INTERNAL MEDICINE 09/02/21 Nguyen Muller RN [address] [place] [address] Offset Second Press Operator (Ambulatory) REGISTERED NURSE 03/31/2402/06 documented as of this encounter
--- OUTSIDE RECORDS SUMMARY | 2025-03-07 06:59 | XMS_ITS | Encounter Summary ---
Author Organization [facility] Address [address] [place] [address] Care Team Providers Care E Commerce Strategist Name Role Phone Neel Lincoln MD Primary Care Provider [phone] Encounter Details Date Type Department Care Team (Latest Contact Info) Description 03/06/2025 Travel Social History Tobacco Use Types Packs/Day Years [...] from your doctor or pharmacy? Rarely 03/29/2024 [facility] Utilities Answer Date Recorded In the past 12 months has e Personal [employer], gas, oil, or water [employer] threatened to shut off services in your [...] or neighbors? Three times a week 03/29/19 25 How often do you get togethe r with friends or relatives? Once a week 03/29/2024 How often do you attend chur ch or druze services? 1 to 4 times per year 03/29/2024 Do you belong to any clubs o r organizations such as mu-ism groups, unions, fraternal or athletic groups, or [...] Recorded Patient Health Questionnaire-2 Score 0 04/04/2024 [facility] - Occupational Stress Questionnaire Answer Date Recorded [...] any time in the past 12 m ont, were you homeless or living in a fci (including now)? No 03/29/2024 Sex and Gender Information Value Date Recorded Sex Assigned at Male 03/29/2024 8:05 PM CORPORATE LEGAL MANAGER Legal Sex Male 1:56 PM CDT Gender Identity Not on file Sexual Orientation Not on file Occupation Industry Job Start Date Job End Date Not on file Not on file Not on file Not on file documented as of this encounter Functional Status * Are you [...] Lua RN Active documented in this encounter Plan of Treatment Upcoming Encounters Date Type Department Care Team (Late st Contact Info) Description 03/27/2025 3:40 PM CORPORATE LEGAL MANAGER Office Visit [facility] [address] [place] [address] J Carlos Banuelos MD [address] [place] [address] 04/10/2025 8:00 AM CORPORATE LEGAL MANAGER Office Visit [facility] [address] [place] [address] Estrada Cao DO [address] [place] [address] 06/12/2025 2:40 PM CDT Office Visit [facility] Family & Internal Medicine - [place] [address] [place] [address] Neel Lincoln MD [address] [place] [address] 12/03/2025 12:30 PM CDT Office Visit [facility] [address] [place], [place] [id number] Yonathan Kelley MD [address] [place] [address] documented as of this encounter Goals Goal Patient Goal Type Associated Problems Recent Progress Patient-Stated? Author Consistently take medications as Prescribed Lifestyle On track(2024 1:56 PM CORPORATE LEGAL MANAGER) No Nguyen Muller, RN Health - patient able to perform ADLs independently Lifestyle On track(2024 1:56 PM CORPORATE LEGAL MANAGER) No Nguyen Muller, RN documented as of this encounter Visit Diagnoses Not on filedocumented in this encounter Additional Health Concerns Assessment Noted Time PHQ-9 Depression Total Score: 1 12/04/19 22 1:22 PM CDT documented as of this encounter Care Teams E Commerce Strategist Relationship Specialty Start Date End Date Neel Lincoln MD [address] [place] [id number] PCP - General INTERNAL MEDICINE 09/02/21 documented as of this encounter
--- OUTSIDE RECORDS SUMMARY | 2025-03-07 06:59 | XMS_ITS | Encounter Summary ---
Author Organization [facility] Address [address] [place] [address] Care Team Providers Care Seafood Processor Name Role Phone Neel Lincoln MD Primary Care Provider [phone] Nguyen Muller RN Unavailable [phone] Encounter Details Date Type Department Care Team (Late st Contact Info) Description 03/03/2024 Pre-Procedure Call [facility] [place] [address] Bony Celeste MD Three [facility] [address] [place], [place] [id number] Anesthesia Record Procedure Summary Procedure Name Responsible Anesthesiologist Anesthesia Start Time Anesthesia Stop Time XA LEFT ATRIAL APPENDAGE CLOSURE Vanessa Escobar MD 03/03/24 1008 03/03/24 1232 Events Date Time Event Comment 03/03/2024 0949 AN CIVIL CLERK Prepped 0955 0955 AN Anesthesia Prepped 1008 An Start Patient ID and consent checked and patient reassessed. 1008 An Start Data 1009 Preoxygenation 1009 Face Mask Applied 1009 Anesthesia Ready 1012 An Induction The patient was reevaluated immediately before moderate or deep sedation use and before anesthesia induction. 1202 Preoxygenation 1204 An LMA 1210 LMA Removed 1211 An LMA 1223 LMA Removed 1223 Face Mask Applied 1227 An Emergence 1227 an stop data 1232 Post Anesthetic Care Handoff I completed my handoff to the receiving nurse during which we: 1. Identified the patient 2. Identified the responsible provider 3. Reviewed the pertinent medical history 4. Discussed the surgical course 5. Reviewed intra-op anesthesia management and issues during anesthesia 6. Set expectations for post-procedure period 7. Allowed opportunity for questions and acknowledgement of understanding. 1232 An Stop Meds * Agents No agents on file. * Blood No blood administrations on file. Lines, Drains, and Airways Type Details Placement Removal Peripheral IV Placement Date: 02/13 ; Placement Time: 09; Placed Outside of This Facility?: No; Size: 18 G; Orientation: Distal, Right; Location: Antecubital; Site Prep: Chlorhexidine; Local Anesthetic: None; Inserted By: John; Insertion attempts: 1; Ultrasound-guided Placement?: No; Patient Tolerance: Tolerated well; Removal Date: 03/03/24; Removal Time: 152; Removal Reason: Patient Discharged 03/03/24 0941 by Nenita Richard RN 03/03/24 1527 by Nenita Richard RN Peripheral IV Placement Date: 02/13 ; Placement Time: 0942; Placed Outside of This Facility?: No; Size: 20 G; Orientation: Anterior, Right; Location: Wrist; Site Prep: Chlorhexidine; Local Anesthetic: None; Inserted By: John; Insertion attempts: 1; Ultrasound-guided Placement?: No; Patient Tolerance: Tolerated well; Removal Date: 03/03/24; Removal Time: 1527; Removal Reason: Patient Discharged 03/03/24 0942 by Nenita Richard RN 03/03/24 1527 by Nenita Richard RN Venous Sheath 03/03/24; 1059; Injectable; (9Fr upsized to 15Fr for device deployment); Right; Femoral; Tolerated well; Intact 03/03/24 1059 by John Sprague RN 03/03/24 1230 by John Sprague RN Venous Sheath 03/03/24; 1059; Injectable; 8; Left; Femoral; Tolerated well; Intact 03/03/24 1059 by John Sprague RN 03/03/24 1230 by John Sprague RN Supraglottic Airway Placement Date: 02/13 ; Placement Time: 1204; Airway Device: LMA; LMA Size: 4; Placed Outside of This Facility?: No; Placed By: Anesthesiologist; Style: i-gel; Insertion Attempts:1; Breath Sounds:Clear bilaterally, Equal bilaterally; Breath Sound:Clear; Placement Verified By: Auscultation, Capnography, Chest Rise; Extubation Assessment: Suctioned, Alert, Tolerated well, Patient spontaneously breathing, Atraumatic, Able to swallow, Deep breathes w/equal chest movements; Removal Date: 03/03/24; Removal Time: 1223; Removal Person: Anesthesiologist; Removal Reason: Poor Seal 03/03/24 1204 by Afsaneh Ashton CRNA 03/03/24 1223 by Afsaneh Ashton CRNA Supraglottic Airway Placement Date: 02/13 ; Placement Time: 1211; Airway Device: LMA; LMA Size: 5; Placed Outside of This Facility?: No; Placed By: Anesthesiologist; Style: i-gel; Insertion Attempts:1; Breath Sounds:Clear bilaterally, Equal bilaterally; Breath Sound:Clear; Placement Verified By: Capnography, Auscultation, Chest Rise; Extubation Assessment: Suctioned, Alert, Tolerated well, Able to swallow, Atraumatic, Deep breathes w/equal chest movements; Removal Date: 03/03/24; Removal Time: 1223; Removal Person: CIVIL CLERK; Removal Reason: End of Case 03/03/24 1211 by Afsaneh Ashton CRNA 03/03/24 1223 by Afsaneh Ashton CRNA documented in this encounter Social History Tobacco Use Types Packs/Day Years [...] Sex Assigned at Male 03/29/2024 8:05 PM RECLAMATION FURNACE OPERATOR Legal Sex Male 1:56 PM CDT Gender Identity Not on file Sexual Orientation Not on file Occupation Industry Job Start Date Job End Date Not on file Not on file Not on file Not on file documented as of this encounter Last Filed Vital Signs Vital Sign Reading Time Taken Comments Blood Pressure - - Pulse - - Temperature - - Respiratory Rate - - Oxygen Saturation - - Inhaled Oxygen Concentration - - Weight 128.8 kg (284 lb) 02/29/2024 9:20 AM RECLAMATION FURNACE OPERATOR Height - - Body Mass Index 37.47 01/26/2024 8:27 AM RECLAMATION FURNACE OPERATOR documented in this encounter Progress Notes * Ayanna Fischer RN - 02/29/2024 9:40 AM CST PATIENT CAN CLIMB 2 FLIGHTS OF STAIRS WITHOUT CP OR EXTREME SOB. yes ACTIVITY TOLERANCE IS THE SAME 6 MONTHS AGO. Had stroke back in July, so some improvements since.Balance was affected. Uses cane occasionally- for distance walking if out. DENIES CARDIAC TESTING. Dr Kelley AVERAGE BLOOD PRESSURE? Varies, runs high, unsure of numbers. Arrival time of 0900- will bring him. Pt will be fasting after midnight. Never had any complications with anesthesia? A while back was under anesthesia so long that when they brought him out he was combative. Has not had any fevers or infections in past 14 days Discussed surgical soap. Does not have any loose articles other than readers. Contacted CLEMENT Hernandez regarding labs- pt can have done day of surgery. Has ANTHONY< does not use Cpap. Does not have any implanted devices. 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 Spoke with pt : Remedios [phone] Lincoln for Medical Clearance due to pt HGBA1C 11.5. Dr Lincoln out of town this week. Dr Alvarez covering. Received call from SRINI Gloria who indicates that Dr Alvarez is not comfortable clearing pt for surgery. However, he asks that we reach out to pt teletype telegrapher, Dr Vega to request clearance. Spoke with Dr Vega's staff who indicate that pt is scheduled to be seen in office today at 3:30. Faxed request to Dr Vega's office for surgery clearance. AMATION FURNACE OPERATOR AMATION FURNACE OPERATOR documented in this encounter OR Notes * OR PreOp - Lesli Martinez CNP - 02/29/2024 10:37 AM CST Chart reviewed. Per phone interview, patient denies any SOB/CP with 2 FOS. Uses cane since stroke in July. Per phone interview, patient sees chief sustainability officer Dr. Kelley. Please request medical clearance / most recent HgbA1c 11.5. Addendum 03/02/24 PCP out of town and unable to provide medical clearance. Endocrine clearance received per Dr. Vega. Stress test 11/24/23 Stress conclusion: 1. Clinically negative. 2. Electrocardiographically negative stress test for ischemia. 3. Scintigraphic images to follow. Perfusion conclusion: 1. Excellent study quality. Resting motion correction was applied to images. No attenuation is noted. Prone imaging was performed. 2. Normal myocardial perfusion SPECT imaging. 3. Normal wall motion with an ejection fraction of 68%. 4. Stress test with myocardial perfusion imaging shows overall low risk for a cardiac event. Carotid duplex 08/23/23 1. The right internal carotid artery disease is consistent with a less than 50% stenosis. 2. The left internal carotid artery disease is consistent with a less than 50% stenosis. 3. No evidence of hemodynamically significant stenosis in the common carotid artery bilaterally. 4. Normal, antegrade flow is noted in bilateral vertebral arteries. 5. Patent bilateral external carotid arteries with evidence of atherosclerotic plaque. EKG 08/12/[address] DEVIATION AND MODERATE T-WAVE ABNORMALITY, CONSIDER ANTEROLATERAL ISCHEMIA [-0.1+ mV T-WAVE IN I/aVL/V5/V6] ST DEVIATION AND MODERATE T-WAVE ABNORMALITY, CONSIDER INFERIOR ISCHEMIA [-0.1+ mV T-WAVE IN II/aVF] Compared to ECG 07/19/2022 17:55:07 Possible ischemia now present T-wave abnormality still present Other ischemic changes, not STEMI Rate 68 Echo 07/20/22 1. Normal global and regional left ventricular systolic function. Ejection Fraction is estimated at 60-65 %. Normal left ventricular cavity size. Mild concentric left ventricular hypertrophy. 2. Saline contrast study negative for R to L shunt. 3. Small to moderate pericardial effusion. No echocardiographic evidence to suggest pericardial tamponade. 11/27/21 coronary angiography. There was severe two-vessel disease affecting the left circumflex andthe distal RCA. PCI was unsuccessful from the transradial approach. AMATION FURNACE OPERATOR AMATION FURNACE OPERATOR documented in this encounter Plan of Treatment Upcoming Encounters Date Type Department Care Team (Late st Contact Info) Description 03/27/2025 3:40 PM RECLAMATION FURNACE OPERATOR Office Visit [facility] [address], [address] [place] [address] J Carlos Banuelos MD [address] [facility] [place] [address] 04/10/2025 8:00 AM RECLAMATION FURNACE OPERATOR Office Visit [facility] [address] [facility] [place] [address] Estrada Cao DO [address] [facility] [place] [address] 06/12/2025 2:40 PM CDT Office Visit [facility] Internal [facility] - [place] [address] [place] [address] Neel Lincoln MD [address] [place] [address] 12/03/2025 12:30 PM CDT Office Visit [facility] [address] [place] [address] Yonathan Kelley MD [address] [place] [address] documented as of this encounter Visit Diagnoses Not on filedocumented in this encounter Additional Health Concerns Infection Onset Date Last Indicated Resolved Time COVID-19 Rule Out 03/30/2024 03/30/2024 03/30/2024 6:06 AM RECLAMATION FURNACE OPERATOR COVID-19 Rule Out 03/31/2024 03/31/2024 03/31/2024 11:07 AM RECLAMATION FURNACE OPERATOR Assessment Noted Time PHQ-9 Depression Total Score: 1 12/04/19 22 1:22 PM CDT documented as of this encounter Care Teams Seafood Processor Relationship Specialty Start Date End Date Neel Lincoln MD [address] [place] [id number] PCP - General INTERNAL MEDICINE 09/02/21 Nguyen Muller, RN [address] [place], [place] [address] Electric Power Line Examiner (Ambulatory) REGISTERED NURSE 03/31/2402/06 documented as of this encounter
--- OUTSIDE RECORDS SUMMARY | 2025-03-07 06:59 | XMS_ITS | Data Portability ---
[facility] Address [address] [place] [address] Assessment No assessment recorded. Plan of Treatment Reminders Order Date Submit Date Provider Last Modified By Organization Details Last Modified Time Details Appointments None recorded. Lab None recorded. Referral None recorded. Procedures None recorded. Surgeries None recorded. Imaging None recorded. Medication Orders fluticasone propionate 50 mcg/actuati on nasal spray,suspe nsion 2024 025 [id number], [address], [place], [address], 16:04:42 Patient TargetsNo targets recorded. Patient InstructionsNo instructions recorded. Reason for Referral None Reported. Results Created Date Observation Date Name Description Value Unit Range Abnormal Flag Note LastModifiedBy Organization Detail LastModifiedTime 11/08/1911/07/2024 Hemog lobin A1c/H emogl obin. total in Blood hemoglobin A1C/hemoglob in.total in blood 10.2 % low: 4%high : 6% abnormal Not Available Not Available 11/08/2024 12:24:49 11/08/1911/07/2024 Hemog lobin A1c/H emogl obin. total in Blood interpretati on and review of laboratory results Abnorm al Not Available Not Available 12:24:49 Result Notes None recorded. Medical Equipment None Reported. Medications Name Sig Start Date Stop Date Status Note LastModified by Organization Details LastModified Time atorvastatin 80 mg tablet TAKE 1 TABLET BY MOUTH EVERYDAY AT BEDTIME active Not Available Not Available No t Available levetiraceta m 500 mg tablet TAKE 1 TABLET BY MOUTH TWICE A DAY active Not Available Not Available No t Available lisinopril 20 mg tablet TAKE 1 TABLET BY MOUTH EVERY DAY active Not Available Not Available No t Available isosorbide mononitrate ER 30 mg tablet,exten ded release 24 hr TAKE 1 TABLET BY MOUTH EVERY DAY active Not Available Not Available No t Available metoprolol succinate ER 100 mg tablet,exten ded release 24 hr TAKE 1 TABLET BY MOUTH TWICE A DAY active Not Available Not Available No t Available clopidogrel 75 mg tablet TAKE 1 TABLET BY MOUTH EVERY DAY active Not Available Not Available No t Available levothyroxin e 75 mcg tablet TAKE 1 TABLET BY MOUTH EVERY DAY IN THE MORNING active Not Available Not Available No t Available lorazepam 0.5 mg tablet TAKE 1 TABLET BY MOUTH ONCE NEEDED FOR ANXIETY. TAKE 1 TABLET 15 MINUTES BEFORE EACH MRI SCAN active Not Available Not Available No t Available gabapentin 800 mg tablet TAKE 1 TABLET BY MOUTH THREE TIMES DAILY active Not Available Not Available Not Available gemfibrozil 600 mg tablet TAKE 2 TABLETS BY MOUTH TWICE A DAY active Not Available Not Available No t Available pantoprazole 40 mg tablet,delay ed release TAKE 1 TABLET BY MOUTH EVERY DAY active Not Available Not Available No t Available fluoromethol one 0.1 % eye drops,suspen frankie INSTILL 1 DROP INTO THE LEFT EYE 3 TIMES DAILY X7 DAYS, THEN TWICE DAILY X7 DAYS active Not Available Not Available No t Available aspirin 81 mg chewable tablet CHEW AND SWALLOW 1 TABLET BY MOUTH DAILY AT 8AM active Not Available Not Available No t Available folic acid 1 mg tablet TAKE 1 TABLET BY MOUTH EVERY DAY active Not Available Not Available No t Available furosemide 20 mg tablet TAKE 1 TABLET BY MOUTH EVERY DAY active Not Available Not Available No t Available pyridoxine (vitamin B6) 100 mg tablet TAKE 1/2 TABLET BY MOUTH DAILY active Not Available Not Available Not Available ergocalcifer ol (vitamin D2) 1,250 mcg (50,000 unit) capsule TAKE 1 CAPSULE BY MOUTH ONCE WEEKLY FOR 8 TOTAL DOSES active Not Available Not Available No t Available fluticasone propionate 50 mcg/actuatio n nasal spray,suspen frankie [place] 2 sprays every day by intranasal route. 2024 active Not Available Not Available Not Avai lable glipizide 5 mg tablet TAKE 1 TABLET BY MOUTH EVERY DAY IN THE EVENING active Not Available Not Available No t Available clindamycin 1 % lotion APPLY A THIN LAYER ON THE AFFECTED AREA(S) IN THE ARMPITS TWICE DAILY NEEDED active Not Available Not Available No t Available ezetimibe 10 mg tablet TAKE 1 TABLET BY MOUTH EVERY DAY active Not Available Not Available No t Available Humalog KwikPen (U-100) Insulin 100 unit/mL subcutaneous INJECT 24 UNITS BEFORE EACH MEAL. CORRECTIONA L FACTOR INSULIN OF 1:15 IF >140MG/DL. MAX 120U PER DAY. active Not Available Not Available No t Available Contour Next Test Strips USE TO TEST 3 TIMES DAILY active Not Available Not Available No t Available potassium chloride ER 20 mEq tablet,exten ded release TAKE 1 TABLET BY MOUTH ONCE DAILY active Not Available Not Available No t Available Toumarychuy SoloStar U-300 Insulin 300 unit/mL (1.5 mL) subcutaneous pen INJECT 40 UNITS SUBCUTANEOU SLY TWICE DAILY active Not Available Not Available No t Available Mounjaro 5 mg/0.5 mL subcutaneous pen injector INJECT 5 MG BY SUBCUTANEOU S ROUTE ONCE A WEEK. active Not Available Not Available No t Available Mounjaro 2.5 mg/0.5 mL subcutaneous pen injector INJECT 2.5 MG UNDER THE SKIN ONCE WEEKLY active Not Available Not Available Not Available Vitals Date Recorded Body height Body mass index (BMI) Body weight Heart rate Respiratory rate Body temperature Systolic And Diastolic Provider Name and Address Organization Details Last Updated DateTime 185.42 cm 37.2 kg/m2 455444. 69 g 87 /min 16 /min 97.2 [degF] 91/57 mm[Hg] Kendra Hickey MA [facility] 15:52:11 Social History Question Answer Notes LastModified by Organizat ion Details LastModified Time Tobacco Smoking Status Former Smoker quit 2021 Kendra Hickey MA null, [facility] 11/07/2024 15:47:27 Are You Blind Or Do You Have Difficulty Seeing? No Reading Glasses Information not available 11/07/2024 What Is Your Level Of Caffeine Consumption? Moderate Coffee, Soda Information not available 11/07/2024 In The 14 Days Before Symptom Onset, Have You Had Close Contact With A Laboratory-confir med COVID-19 While That Case Was Ill? No Information not available 11/07/2024 In The 14 Days Before Symptom Onset, Have You Had Close Contact With A Person Who Is Under Investigation For COVID-19 While That Person Was Ill? No Information not available 11/07/2024 Have You Been To An Area Known To Be High Risk For COVID-19? No Information not available 11/07/2024 Are You Deaf Or Do You Have Serious Difficulty Hearing? No Information not available 11/07/2024 What Type Of Diet Are You Following? REGULAR Information not available 11/07/2024 What Is The Highest Grade Or Level Of School You Have Completed Or The Highest Degree You Have Received? [id number] Information not available 11/07/2024 What Was The Date Of Your Most Recent Tobacco Screening? 11/07/2024 Information not available 11/07/2024 What Is Your Relationship Status? Information not available 11/07/2024 At What Age Did You Start Smoking Tobacco? 15 Information not available 11/07/2024 How Much Tobacco Do You Smoke? 2 PPD 1 1/2 Pack A Day Information not available 11/07/2024 Has Tobacco Cessation Counseling Been Provided? No Information not available 11/07/2024 Sex: Male Functional Status Question Answer Note LastModified by Organizat ion Details LastModified Time Do you use any illicit or recreational drugs? No Information not available 11/07/2024 Do you or have you ever used any other forms of tobacco or nicotine? No Information not available 11/07/2024 What is your level of alcohol consumption? None Information not available 11/07/2024 Are you currently employed? No Disability Information not available 11/07/2024 Mental Status Question Answer Note LastModified by Organization D etails LastModified Time Do you feel stressed (tense, restless, nervous, or anxious, or unable to sleep at night)? [id number] Information not available 11/07/2024 Family History Nothing Reported. Medical History No medical history recorded. Immunizations Vaccine Type Date Status Note Provider Nam e and Address Organization Details Recorded Time Influenza, split virus, quadrivalent, PF 0 completed Not Available [facility] 11/07/2024 15:32:35 COVID-19, mRNA, LNP-S, PF, 100 mcg/0.5mL dose or 50 mcg/0.25mL dose 1 completed Not Available [facility] 11/07/2024 15:32:35 COVID-19, mRNA, LNP-S, PF, 100 mcg/0.5mL dose or 50 mcg/0.25mL dose 1 completed Not Available [facility] 11/07/2024 15:32:35 Influenza, split virus, quadrivalent, PF 1 completed Not Available [facility] 11/07/2024 15:32:35 Influenza, split virus, quadrivalent, PF 3 completed Not Available [facility] 11/07/2024 15:32:35 Pneumococcal conjugate PCV20, polysaccharide NLR952 conjugate, adjuvant, PF 4 completed Not Available [facility] 11/07/2024 15:32:35 Influenza, split virus, trivalent, PF 4 completed Not Available [facility] 11/07/2024 15:32:35 Past Encounters Encounter ID Performer Location Encounter Start Date Encounter Closed Date Diagnosis/Indication Diagnosis SNOMED-CT Code Diagnosis ICD10 Code Diagnosis IMO Codes Diagnosis Note [id number] Lester Roper MD [facility] (Adult Med) [address] [place] [address] 11/07/2024 15:28:28 11/08/2024 15:04:09 Dysfunction of bilateral eustachian tubes 3387063198 414222 H69.93 [id number] follow back if not improving Chronic rhinitis 2381443 6 J31.0 2545 Health Concerns Section Related Observation LastModified by Organization Detai ls LastModified Time None Recorded Concern Status LastModified by Organization Details LastModified Time None Recorded Advance Directives Directive None Recorded Payers Insurance Date Sequence Insurance Name Policy Number Policy Lord Covered Member ID Lord Member ID Guarantor Name 11/07/2024 2 [employer] - [employer] [facility] (MEDICARE SUPPLEMENT) Cyrus Vee [id number] Cyrus Vee 11/07/2024 1 [place] Cyrus Vee [id number] Cyrus Vee 11/08/2024 MEDICARE A-[place]: [facility] Cyrus Vee [id number] Cyrus Vee 11/07/2024 3 *SELF PAY* Ri ursula Vee Notes Date Note Type Note Provider Name and Address Organization Details Recorded Time 11/07/2024 text/html ROS as noted in the HPI Pt complaining of wax in his ears. He says they are blocked. He also complains of nasal congestion and drainage. he is on antihistamines Lester Roper MD Attn: Accounting,[address] [facility], [place], [address], [facility] 11/07/2024 16:05:15
--- OUTSIDE RECORDS SUMMARY | 2025-03-07 06:59 | XMS_ITS | Encounter Summary ---
Author Organization [facility] Address [address] [place] [address] Care Team Providers Care Court Deputy Name Role Phone Neel Lincoln MD Primary Care Provider [phone] Nguyen Muller RN Unavailable [phone] Encounter Details Date Type Department Care Team (Late Contact Info) Description 11/24/2021 TradeCard Message Enc [facility] [address] [facility] Provider Results Social History Tobacco Use Types Packs/Day Years Used Date Smoking Tobacco: Every Day Cigarettes 0.5 46 Smokeless Tobacco: Never Comments:Provider to genetic counselor , 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 trying to quite Alcohol Use Standard Drinks/Week Comments Not Currently 0 (1 standard drink = 0.6 oz pur e alcohol) quite 8 years ago Sex and Gender Information Value Date Recorded Sex Assigned at Male 03/29/2024 8:05 PM EDGER AUTOMATIC Legal Sex Male 1:56 PM CDT Gender Identity Not on file Sexual Orientation Not on file Occupation Industry Job Start Date Job End Date Not on file Not on file Not on file Not on file COVID-19 Exposure Response Date Recorded In the last 10 days, have yo u been in contact with someone who was confirmed or suspected to have Coronavirus/COVID-19? No / Unsure 11/27/2021 7:40 AM CDT documented as of this encounter Plan of Treatment Upcoming Encounters Date Type Department Care Team (Late Contact Info) Description 03/27/2025 3:40 PM EDGER AUTOMATIC Office Visit [facility] Medical [facility] Multispecialty Care [facility] [address] [facility], [address] [place] [address] J Carlos Banuelos MD [address] [facility] [place] [address] 04/10/2025 8:00 AM EDGER AUTOMATIC Office Visit [facility] Medical [facility] Care - [facility] [address] [facility] [place] [address] Estrada Cao DO [address] [facility] [address] [place] [address] 06/12/2025 2:40 PM CDT Office Visit [facility] Family & Internal Medicine [facility] [address] [place] [address] Neel Lincoln MD [address] [place] [address] 12/03/2025 12:30 PM CDT Office Visit [facility] [address] [place] [address] Yonathan Kelley MD [address] [facility] [place] [address] documented as of this encounter Visit Diagnoses Not on filedocumented in this encounter Additional Health Concerns Infection Onset Date Last Indicated Resolved Time COVID-19 Rule Out 03/30/2024 03/30/2024 03/30/2024 6:06 AM EDGER AUTOMATIC COVID-19 Rule Out 03/31/2024 03/31/2024 03/31/2024 11:07 AM EDGER AUTOMATIC documented as of this encounter Care Teams Court Deputy Relationship Specialty Start Date End Date Neel Lincoln MD [address] [place] [address] PCP - General INTERNAL MEDICINE 09/02/21 Nguyen Muller RN [address] [place] [address] Hot Repairman (Ambulatory) REGISTERED NURSE 03/31/2402/06 documented as of this encounter
--- OUTSIDE RECORDS SUMMARY | 2025-03-07 06:59 | XMS_ITS | Encounter Summary ---
Author Organization [facility] Address [address] [place] [address] Care Team Providers Care Die Cast Engineer Name Role Phone Neel Lincoln MD Primary Care Provider [phone] Nguyen Muller RN Unavailable [phone] Encounter Details Date Type Department Care Team (Late Contact Info) Description 11/05/2023 CareXtend Message Enc [address], [address] [place] [address] Push IOt, [facility] Provider EEG Results Social History Tobacco Use Types Packs/Day Years Used Date Smoking Tobacco: Former Cigarettes 0.5 46 0 07/19/1976 - 07/19/2022 Smokeless Tobacco: Never Alcohol Use Standard Drinks/Week Comments Not Currently 0 (1 standard drink = 0.6 oz pur e alcohol) quite 8 years ago PHQ-2 Answer Date Recorded Patient Health Questionnaire-2 Score 0 05/05/2023 Sex and Gender Information Value Date Recorded Sex Assigned at Male 03/29/2024 8:05 PM MANAGER CRISIS Legal Sex Male 1:56 PM CDT Gender Identity Not on file Sexual Orientation Not on file Occupation Industry Job Start Date Job End Date Not on file Not on file Not on file Not on file documented as of this encounter Plan of Treatment Upcoming Encounters Date Type Department Care Team (Late Contact Info) Description 03/27/2025 3:40 PM MANAGER CRISIS Office Visit [address], [address] [place] [address] J Carlos Banuelos MD [address] [facility] [place] [address] 04/10/2025 8:00 AM MANAGER CRISIS Office Visit [facility] Multispecialty Care - [facility] [address] [facility] [place] [address] Estrada Cao DO [address] [facility] [address] [place] [address] 06/12/2025 2:40 PM CDT Office Visit [facility] Family & Internal Medicine - [place] [address] [place] [address] Neel Lincoln MD [address] [place] [address] 12/03/2025 12:30 PM CDT Office Visit [facility] [address] [place] [address] Yonathan Kelley MD [address] [facility] [place] [address] documented as of this encounter Visit Diagnoses Not on filedocumented in this encounter Additional Health Concerns Infection Onset Date Last Indicated Resolved Time COVID-19 Rule Out 03/30/2024 03/30/2024 03/30/2024 6:06 AM MANAGER CRISIS COVID-19 Rule Out 03/31/2024 03/31/2024 03/31/2024 11:07 AM MANAGER CRISIS Assessment Noted Time PHQ-9 Depression Total Score: 1 12/04/19 22 1:22 PM CDT documented as of this encounter Care Teams Die Cast Engineer Relationship Specialty Start Date End Date Neel Lincoln MD [facility] [place] [address] PCP - General INTERNAL MEDICINE 09/02/21 Nguyen Muller, RN [address] [place] [address] Order Runner (Ambulatory) REGISTERED NURSE 03/31/2402/06 documented as of this encounter
--- OUTSIDE RECORDS SUMMARY | 2025-03-07 06:59 | XMS_ITS | Encounter Summary ---
Author Organization [facility] Address [address] [place] [address] Care Team Providers Care Freelance Copywriter Name Role Phone Neel Lincoln MD Primary Care Provider [phone] Nguyen Muller RN Unavailable [phone] Encounter Details Date Type Department Care Team (Late st Contact Info) Description 08/14/2022 Hospital Follow-up Call [facility] Medical Group Family & Internal Medicine [address] [address] Neel Lincoln MD [address] [place] [address] Social History Tobacco Use Types Packs/Day Years Used Date Smoking Tobacco: Every Day Cigarettes 0.5 46 Smokeless Tobacco: Never Comments:Provider to baby counselor , 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 trying to quite Alcohol Use Standard Drinks/Week Comments Not Currently 0 (1 standard drink = 0.6 oz pur e alcohol) quite 8 years ago PHQ-2 Answer Date Recorded Patient Health Questionnaire-2 Score 0 06/04/2022 Sex and Gender Information Value Date Recorded Sex Assigned at Male 03/29/2024 8:05 PM MEDICAL RECORDS SECRETARY Legal Sex Male 1:56 PM CDT Gender [...] suspected to have Coronavirus/COVID-19? No / Unsure 07/19/2022 6:12 PM CDT documented as of this encounter Plan of Treatment Upcoming Encounters Date Type Department Care Team (Late st Contact Info) Description 03/27/2025 3:40 PM MEDICAL RECORDS SECRETARY Office [facility] [address] [facility], [address] [place] [address] J Carlos Banuelos MD [address] [place] [address] 04/10/2025 8:00 AM MEDICAL RECORDS SECRETARY Office [facility] [address] [facility] [address] [place] [address] Estrada Cao DO [address] [facility] [address] [place] [address] 06/12/2025 2:40 PM CDT Office Visit [facility] Family & Internal Medicine - [place] [address] [place] [address] Neel Lincoln MD [address] [place] [address] 12/03/2025 12:30 PM CDT Office Visit [facility] [address] [place] [address] Yonathan Kelley MD [address] [place] [address] documented as of this encounter Visit Diagnoses Not on filedocumented in this encounter Additional Health Concerns Infection Onset Date Last Indicated Resolved Time COVID-19 Rule Out 03/30/2024 03/30/2024 03/30/2024 6:06 AM MEDICAL RECORDS SECRETARY COVID-19 Rule Out 03/31/2024 03/31/2024 03/31/2024 11:07 AM MEDICAL RECORDS SECRETARY Assessment Noted Time PHQ-9 Depression Total Score: 1 12/04/19 22 1:22 PM CDT documented as of this encounter Care Teams Freelance Copywriter Relationship Specialty Start Date End Date Neel Lincoln MD [address] [place] [address] PCP - General INTERNAL MEDICINE 09/02/21 Nguyen Muller, RN [address] [place] [address] Flanging Operator (Ambulatory) REGISTERED NURSE 03/31/2402/06 documented as of this encounter
--- OUTSIDE RECORDS SUMMARY | 2025-03-07 06:59 | XMS_ITS | Clinical Summary ---
Author Organization [facility] Address [address] [place] [address] Phone Care Team Providers Care Police Crime Scene Technician Name Role Phone Neel Lincoln MD Primary Care Provider [phone] Neel Lincoln MD Unavailable [phone] J Carlos Banuelos MD Unavailable [phone] Delmer Heaton MD Unavailable [phone] Lemuel Vega MD Unavailable Allergies Active Allergy [...] mouth 2 times daily. 04/15/19 24 Active apixaban (Eliquis) 5 MG Tablet Take 5 mg by mouth. 08/06/19 23 Active metoprolol Succinate (TOPROL-XL) 100 MG TABLET [...] Active gemfibrozil (LOPID) 600 MG Tablet Take 1 Tablet by mouth 2 times daily. 10/09/19 23 [...] mg by mouth daily. 10/28/19 24 Active Insulin Pen Needle (TechLite Plus Pen Bryant) 32G X 4 MM [facility] 1 Pen Needle by Does not apply route 5 times daily. 500 Pen Needle 3 02/01/20 24 Active HumaLOG KwikPen 100 UNIT/ML Solution Pen-injector 24 units before each meal; correctional factor insulin of 1:15 if >140 mg/dL, up to 120 units per day 105 mL 1 02/29/20 24 Active ergocalciferol (VITAMIN D) 48225 UNIT CapsuleIndication s:Vitamin D deficiency TAKE 1 CAPSULE BY MOUTH ONCE WEEKLY FOR 8 TOTAL DOSES 8 Capsule 03/21/19 25 Active clindamycin (CLEOCIN T) 1 % Lotion 04/05/19 25 Active ketoconazole (NIZORAL) 2 % Cream 04/05/19 Active levETIRAcetam (Keppra) 250 MG Tablet Take 250 mg by mouth 2 times daily. Active clopidogrel (PLAVIX) 75 MG Tablet Take 75 mg by mouth daily. Active omeprazole (PriLOSEC) 40 MG CAPSULE DELAYED RELEASE Take 40 mg by mouth daily. Active Insulin Pen Needle 32G X 4 MM Misc 5 times a day 500 Each 3 08/02/19 Active metFORMIN (GLUCOPHAGE) 500 MG Tablet Take 1 Tablet by mouth 2 times daily (with meals). 180 Tablet 3 08/02/19 Active folic acid (FOLVITE) 1 MG TabletIndications :Elevated serum immunoglobulin free light chain level TAKE 1 TABLET BY MOUTH DAILY FOR ANEMIA FROM INADEQUATE FOLIC ACID 90 Tablet 3 09/06/19 Active Continuous Glucose Sprinkler Fitter Helper (Dexcom G7 Sprinkler Fitter Helper) Device Check blood glucose before each meal and at bedtime: E11.9 1 Each 11/09/19 Active Additional Information Patient not taking.Reported on 02/27/2025 Continuous Glucose Sensor (Dexcom G7 Sensor) Misc Every 10 days: E11.9, insulin dependent 9 Each 3 11/10/19 Active Additional Information Patient not taking.Reported on 02/27/2025 Touamandao SoloStar 300 UNIT/ML Solution Pen-injector INJECT 40 UNITS SUBCUTANEOUSLY TWICE DAILY 30 mL 1 12/02/19 25 Active glucose blood (Contour Next Test) Strip 3 times a day: E11.9, insulin dependent 300 Each 3 02/22/20 25 Active Ozempic, 0.25 or 0.5 MG/DOSE, 2 MG/3ML Solution Pen-injector 0.25 mg SC weekly for 4 weeks and 0.5 mg SC weekly for 4 weeks 6 mL 02/28/20 25 Active glucose blood (Contour Next Test) Strip 4 times a day: E11.9, insulin dependent 400 Each 3 11/10/19 25 025 Disconti nued(Reo rder) Active Problems Problem Noted Date Diagnosed Date Type 2 diabetes mellitus wit h diabetic polyneuropathy, with long-term current use of insulin 01/30/2024 Encounters Date Type Department Care Team Description 02/27/2025 1:15 PM SUPERVISOR PREP Office Visit [facility] - Endocrinology - [place] [address] [place] [address] Lemuel Vega MD Type 2 diabetes mellitus with diabetic polyneuropathy, with long-term current use of insulin (Primary Dx); Insulin dose changed; New medication added; Class 2 severe obesity due to excess calories with serious comorbidity and body mass index (BMI) of 38.0 to 38.9 in adult Discharge Disposition: Discharged to home or Selfcare 02/27/2025 Travel 02/21/2025 Refill [facility] [address] [place] [address] Lemuel Vega MD Medication Refill from Last 3 Months Immunizations Immunization Administration Dates Next Due Influenza Vaccine, Quadrivalent, PF 02/02/2023,1 ,01/03/2020 Influenza, Seasonal, Injectable, Undefined 12/16 Influenza,Split Virus,Trivalent,Injectable,PF 01/26/2024 Pneumococcal conjugate PCV20 , polysaccharide [id number] conjugate, adjuvant, PF 11/17/2023 Family History Medical [...] Years Used Date Smoking Tobacco: Former Cigarettes 3 S tarted: 2022 Smokeless Tobacco: Never Alcohol Use Standard Drinks/Week Comments Not Currently 0 (1 standard drink = 0.6 oz pur e alcohol) quit Sex and Gender Information Value Date Recorded Sex Assigned at Not on file Legal Sex Male 11:00 AM CDT Gender Identity Not on file Sexual Orientation Not on file Last Filed Vital Signs Vital Sign Reading Time Taken Comments Blood Pressure 122/70 02/27/2025 1:27 PM SUPERVISOR PREP Pulse 85 02/27/2025 1:27 PM SUPERVISOR PREP Temperature 36.7 C (98 F) 02/27/2025 1:27 PM SUPERVISOR PREP Respiratory Rate 22 02/27/2025 1:27 PM SUPERVISOR PREP Oxygen Saturation 97% 02/27/2025 1:27 PM SUPERVISOR PREP Inhaled Oxygen Concentration - - Weight 131.7 kg (290 lb 6.4 oz) 02/27/2025 1:27 PM SUPERVISOR PREP Height 185.4 cm (6' 1) 10/04/2024 2:20 PM CDT Body Mass Index 38.31 10/04/2024 2:20 PM CDT Plan of Treatment Upcoming Encounters Date Type Department Care Team (Late st Contact Info) Description 04/02/2025 2:45 PM SUPERVISOR PREP Office Visit [facility] [address] [place] [address] Delmer Heaton MD [address] [place] [address] 05/29/2025 3:30 PM CDT Office Visit [facility] - [facility]ology - [place] [address] [place] [address] Lemuel Vega MD [address] [facility] [address] Health Maintenance Due Date Last Done Comments Hepatitis C Virus (HCV) Screening 1960 TdaP Immunization 1960 Cologuard 2005 Colonoscopy 2005 Colorectal Cancer Screening 2005 Immunochemical Fecal Occult Blood 2005 Respiratory Syncytial Virus (RSV) Immunization (Adult) (1 - Risk 50-74 years 1-dose series) 2010 Zoster Immunization (1 of 2) 2010 PSA Discussion 12/08/2015 Medicare Initial AWV G0438 03/15/2020 Influenza Immunization (#1) 11/13/202401/13, 02/02/2023, 12/20/2020, Additional history exists SARS-COV-2 Immunization (2024- season) 2024 07/09/2020, 06/11/2020 Diabetes: Foot Exam 01/27/2025 01/28/2024 Diabetes: Hemoglobin A1c 08/28/202502/27/2 025, 11/07/2024, 11/07/2024, Additional history exists Diabetes: Nephropathy Screening 10/04/2025 10/04/2024, 09/29/2024, 06/27/2024, Additional history exists Diabetes: Eye Exam 01/09/2026 01/09/2025, 01/09/2025 Pneumococcal Immunization (50+ years) Completed 11/17/2023 Pneumococcal Immunization Combined Discontinued 11/17/2023 Hepatitis B Immunization Aged Out No longer eligible based on patient's age to complete this topic Human Papillomavirus (HPV) Immunization (No Doses Required) Completed Meningococcal Immunization (ACWY) Aged Out No longer eligible based on patient's age to complete this topic Rotavirus Immunization Aged Out No lo nger eligible based on patient's age to complete this topic Procedures Procedure Name Priority Date/Time Associated Diagnosis Comments POCT GLYCOSYLATED HEMOGLOBIN Routine 02/27/2025 1:30 PM SUPERVISOR PREP Type 2 diabetes mellitus with diabetic polyneuropathy, with long-term current use of insulin UR MICROALBUMIN/CREATINI NE RATIO RANDOM Routine 10/04/2024 2:59 PM CDT from Last 3 Months or Most Recently Relevant to Health Maintenance Results * (ABNORMAL) POCT GLYCOSYLATED HEMOGLOBIN (02/27/2025 1:30 PM SUPERVISOR PREP) HGB-A1C 8.7(A) 4 - 6 % Blood 02/27/2025 1:30 PM SUPERVISOR PREP Lemuel Vega MD POINT OF CARE TESTING (MANUAL) F inal Result * (ABNORMAL) UR MICROALBUMIN/CREATININE RATIO RANDOM (10/04/2024 2:59 PM CDT) CREATININE, URINE 61.9 NOT ESTAB. MG/DL CANCER OFFICE RENTAL CLERK [facility] MICROALBUMIN, URINE 19.3 NOT ESTAB. UG/ML CANCER OFFICE RENTAL CLERK [facility] MICROALB/CREAT RATIO 31(H) 0 - 29 MG/G CREAT CANCER OFFICE RENTAL CLERK [facility] Comment: NORMAL: 0 - 29 MODERATELY INCREASED: 30 - 300 SEVERELY INCREASED: >300 10/04/2024 2:59 PM CDT Narrative CANCER OFFICE RENTAL CLERK [facility] - 10/05/2024 1:08 PM CDT TESTING PERFORMED AT: [facility] [address] [facility], [place], [address], PHONE: [phone], MOBILE APPLICATION ENGINEER: YENNI RODRIGUEZ, PHD us Lemuel Vega MD URINE ORDERABLES Final Result CANCER OFFICE RENTAL CLERK OF [facility] [place] [address], from Last 3 Months or Most Recently Relevant to Health Maintenance Insurance MEDICARE [facility] MEDICARE [employer] Care Teams Police Crime Scene Technician Relationship Specialty Start Date End Date Neel Lincoln MD [address] [place] [address] PCP - General Family Medicine 12/17/23 Neel Lincoln MD [address] [place] [address] Family Medicine 12/17/23 J Carlos Banuelos MD [address] [place] [address] Neuromuscular Medicine 11/02/23 Delmer Heaton MD [address] [place] [phone] Consulting Physician Oncology 11/02/23 Lemuel Vega MD [address] [phone] Consulting Physician Endocrinology 01/26/24
--- OUTSIDE RECORDS SUMMARY | 2025-03-07 06:59 | XMS_ITS | Encounter Summary ---
Author Organization [facility] Address [address] [place] [address] Care Team Providers Care C.O.D. Audit Clerk Name Role Phone Neel Lincoln MD Primary Care Provider [phone] Encounter Details Date Type Department Care Team (Late st Contact Info) Description 06/11/[address] [facility] - DermPath Lab [address] [place] [phone] Anjum Weems MD [facility] DER[facility] [address] [place] [phone] Neoplasm of uncertain behavior of skin Social History Tobacco Use Types Packs/Day Years Used Date Smoking Tobacco: Never Assessed Sex and Gender Information Value Date Recorded Sex Assigned at Not on file Legal Sex Male 8:57 AM MECHANICAL ENGINEERING DRAFTSPERSON Gender Identity Not on file Sexual Orientation Not on file documented as of this encounter Plan of Treatment Upcoming Encounters Date Type Department Care Team (Late st Contact Info) Description 08/15/2025 9:30 AM CDT Office Visit [facility] - General Surgery [address] [place] [phone] Enrico Milan MD [address] [facility] [address] [place] [address] documented as of this encounter Procedures Procedure Name Priority Date/Time Associated Diagnosis Comments DERMATOPATHOLOGY Routine 06/11/2023 3:33 AM CDT Neoplasm of uncertain behavior of skin documented in this encounter Results * DERMATOPATHOLOGY (06/11/2023 3:33 AM CDT) Case Report Dermatopathology Report Case: [id number] Authorizing Provider: Anjum Weems MD Collected: 06/11/2023 03:33 AM Ordering Location: [facility] - Received: 06/14/2023 01:17 PM [...] characteristic determined by the Dermatopathology Laboratory at [facility], directed by Dr. Shaw Squires. These tests need not be, and therefore are not, approved by the [place] Food and Drug Administration. The tests are used for clinical purposes. Billing Codes Specimen Charges Stain Charges 01217 1 46443 44075 1 1 4 3:37 PM CDT DERMATOPATHOLOGY LABORATORY Embedded Images 4 3:37 PM [facility] DERMATOPATHOLOGY LABORATORY Synoptic Report INVASIVE MELANOMA OF [...] Rashida Weiss, who agrees. 4 3:37 PM T DERMATOPATHOLOGY LABORATORY Pathology/Cytolo gy TISSUE SPECIMEN FROM SKIN / Unknown 06/11/2023 3:33 AM CDT 06/14/2023 1:17 PM CDT us Anjum Weems MD LAB - PATHOLOGY/CYTOLOGY VELIAE LINETTE Final Result DERMATOPATHOLOGY LABORATORY [facility] - Department of Dermatology [facility] [address] [place] [address], [address] [phone] documented in this encounter Visit Diagnoses Diagnosis Neoplasm of uncertain behavior of skin documented in this encounter Care Teams C.O.D. Audit Clerk Relationship Specialty Start Date End Date Neel Lincoln MD [address] [place] [phone] PCP - General Internal Medicine 06/18/23 documented as of this encounter
--- OUTSIDE RECORDS SUMMARY | 2025-03-07 06:59 | XMS_ITS | Encounter Summary ---
Author Organization [facility] Address [address] [place] [address] Care Team Providers Care Wire Annealer Name Role Phone Neel Lincoln MD Primary Care Provider [phone] Nguyen Muller RN Unavailable [phone] Encounter Details Date Type Department Care Team (Latest Contact Info) Description 03/01/2024 Begun Message Enc [facility] [place] [address] [phone] [facility], [facility] Provider PAIN CLINIC CONSULTATION Social History Tobacco Use Types Packs/Day Years [...] Sex Assigned at Male 03/29/2024 8:05 PM WASHER BLANKET Legal Sex Male 1:56 PM CDT Gender Identity Not on file Sexual Orientation Not on file Occupation Industry Job Start Date Job End Date Not on file Not on file Not on file Not on file documented as of this encounter Plan of Treatment Upcoming Encounters Date Type Department Care Team (Late st Contact Info) Description 03/27/2025 3:40 PM WASHER BLANKET Office Visit [facility] Group Multispecialty Care - [facility] [address] [facility], [address] [place] [address] J Carlos Banuelos MD [address] [place] [address] 04/10/2025 8:00 AM WASHER BLANKET Office Visit [facility] Medical [facility] Multispecialty Care - [facility] [address] [facility] [address] [place] [address] Estrada Cao DO [address] [place] [address] 06/12/2025 2:40 PM CDT Office Visit [facility] Medical Group Family & Internal Medicine - [place] [address] [place] [address] Neel Lincoln MD [address] [place] [address] 12/03/2025 12:30 PM CDT Office Visit [facility] [address] [place] [address] Yonathan Kelley MD [address] [place] [address] documented as of this encounter Visit Diagnoses Not on filedocumented in this encounter Additional Health Concerns Infection Onset Date Last Indicated Resolved Time COVID-19 Rule Out 03/30/2024 03/30/2024 03/30/2024 6:06 AM WASHER BLANKET COVID-19 Rule Out 03/31/2024 03/31/2024 03/31/2024 11:07 AM WASHER BLANKET Assessment Noted Time PHQ-9 Depression Total Score: 1 12/04/19 22 1:22 PM CDT documented as of this encounter Care Teams Wire Annealer Relationship Specialty Start Date End Date Neel Lincoln MD [address] [place] [address] PCP - General INTERNAL MEDICINE 09/02/21 Nguyen Muller RN [address] [place] [address] Backshoe Person (Ambulatory) REGISTERED NURSE 03/31/2402/06 documented as of this encounter
--- OUTSIDE RECORDS SUMMARY | 2025-03-07 06:59 | XMS_ITS | Clinical Summary ---
Author Organization [facility] Address [address] [place] [address] Care Team Providers Care Stave Log Ripsaw Operator Name Role Phone Moisés Flynn MD Unavailable [phone] Eileen Mueller MD Unavailable Neel Lincoln MD Primary Care Provider [phone] Wes Redmond MD Unavailable Moisés Bryant MD Unavailable Nikolai Russell MD Unavailable [phone] Allergies Active Allergy Reactions Criticality Noted Date [...] mouth 3 (three) times a day Active isosorbide mononitrate ER (IMDUR) 30 mg 24 hr tablet Take 1 tablet (30 mg total) by mouth daily Active insulin lispro (HumaLOG) 100 unit/mL injection Inject 0-20 Units under the skin 3 (three) times a day before meals Active metFORMIN (GLUMETZA) 500 mg 24 hr tablet Take 2 tablets (1,000 mg total) by mouth nightly Resume on 07/19/20 1 Active insulin glargine (TOUJEO) 300 unit/mL (1.5 mL) pen for injection Inject 45 Units under the skin 2 [...] drop into both eyes every evening Active aspirin 81 mg chewable tabletIndication s:cerebral ischemia,Cerebra l Ischemia Take 1 tablet (81 mg total) by mouth daily 30 tablet 11 3 Active acetaminophen 500 mg capsule Take 1 capsule (500 mg total) by mouth every 6 (six) hours as needed for pain 3 Active potassium chloride ER (KLOR-CON) 20 mEq CR tablet Take 2 tablets (40 mEq total) by mouth daily 3 Active atorvastatin (LIPITOR) 80 mg tablet Take 1 tablet (80 mg total) by mouth nightly 3 Active furosemide (LASIX) 20 mg tablet Take 1 tablet (20 mg total) by mouth daily Active glipiZIDE (GLUCOTROL) 5 mg tablet Take 1 tablet (5 mg total) by mouth nightly Active gemfibroziL (LOPID) 600 mg tablet Take 1 tablet (600 mg total) by mouth 2 (two) times a day 3 Active omeprazole (PriLOSEC) 40 mg capsule Take 1 capsule (40 mg total) by mouth daily Active clopidogreL (PLAVIX) 75 mg tablet Take 1 tablet (75 mg total) by mouth daily 5 Active ergocalciferol (VITAMIN D) 50,000 unit capsule Take 1 capsule (50,000 Units total) by mouth once a week 5 Active levETIRAcetam (KEPPRA) 500 mg tablet Take 1 tablet (500 mg total) by mouth 2 (two) times a day Active folic acid (FOLVITE) 1 mg tablet Take 1 tablet (1,000 mcg total) by mouth daily 4 Active Mounjaro 2.5 mg/0.5 mL pen injector injection Inject 0.5 mL (2.5 mg total) under the skin once a week 5 Active pyridoxine (VITAMIN B-6) 100 mg tablet Take 0.5 tablets (50 mg total) by mouth daily 4 Active Active Problems Problem Noted Date Diagnosed Date Epiretinal membrane (ERM) of right eye Assessment & Plan (01/09/2025 9:17 AM CDT): Mild without cystoid macular edema (CME) . Diffuse thinning left eye (OS) with suboptimal visual acuity (VA). Ddx includes vaso-occlusive event given patient report of acute vision loss left eye (OS) 2 years ago. Stable visual acuity (VA) since then. Retinitis pigmentosa of both eyes 01/09/2025 Assessment & Plan (01/09/2025 9:15 AM CDT): Bone spicule changes, attenuated vessels , waxy pallor. Consistent with retinitis pigmentosa (RP) . Followed by Dr. Russell with referral for ERG testing Follow up mfERG, ffERG DM type 2 without retinopathy 01/09/2025 Assessment & Plan (01/09/2025 9:13 AM CDT): Suboptimal control. Abdominal pain 08/26/2024 SBO (small bowel obstruction) 08/26/2024 Chronic diastolic congestive heart failure 08/26 Type 2 diabetes mellitus wit h hyperglycemia, with long-term current use of insulin 08/26/2024 Chronic obstructive pulmonary disease 08/16/2024 Asymptomatic bilateral carotid artery stenosis 0 08/14/2024 Assessment & Plan (08/14/2024 12:37 PM CDT): Minimal carotid stenosis. Repeat carotid doppler in one year and then likely once every two years if stable. Amputation of toe of right foot 11/25/2022 Eschar of toe 11/02/2022 Status post aortic bifurcation bypass graft 09/2022 Amputation of left great toe 08/19/2022 Stroke (cerebrum) 07/20/2022 Primary hypertension 07/12/2020 Sleep apnea 07/12/2020 GERD (gastroesophageal reflux disease) CAD (coronary artery disease) 07/12/2020 Atherosclerosis of quinault ar teries of extremities with intermittent claudication, bilateral legs 07/09/2020 Overview (07/09/2020): Added automatically from request for surgery [id number] Assessment & Plan (06/09/2021 12:42 PM CDT): [...] 02/26/2020 Assessment & Plan (02/26/2020 9:38 AM WORD PROCESSOR): Bilateral hip claudication with chronically occluded bilateral [...] 01/15/2020 Assessment & Plan (03/04/2023 10:37 AM WORD PROCESSOR): Due for follow-up carotid doppler summer 2023. Will coordinate with his 6 month f/u studies of his legs. Assessment & Plan (01/15/2020 2:00 PM WORD PROCESSOR): Left SFA stent patent. Repeat arterial Doppler in six months. Our office will contact him to make the appointment when the time comes. Certainly if there are interval problems, we would be happy to see him sooner. Status post femoral-popliteal bypass surgery 04/2019 Assessment & Plan (03/04/2023 10:36 AM WORD PROCESSOR): Widely patent aorto-bifemoral bypass and bilateral fem-pop bypasses. Repeat ABIs and bilateral LE duplex scans again in six months. Assessment & Plan (12/18/2020 10:32 AM CDT): Patent right leg bypass with stable right leg perfusion. Assessment & Plan (01/15/2020 1:59 PM WORD PROCESSOR): Widely patent right leg bypass. Monitor with repeat Duplex scan in six months. Our office will contact him to make the appointment when the time comes. Certainly if there are interval problems, we would be happy to see him sooner. Generalized postprandial abdominal pain 01/15/20 20 Assessment & Plan (01/15/2020 1:57 PM WORD PROCESSOR): Arrange CT Angiogram abdomen/pelvis to determine if there's evidence of mesenteric arterial disease as a source of his abdominal pain. Tobacco abuse 05/22/2019 Assessment & Plan (05/22/2019 2:34 PM CDT): The importance of smoking cessation was discussed with the patient including the relationship between peripheral vascular disease and tobacco abuse. Permanent atrial fibrillation 05/19/2017 Acquired hypothyroidism Hypercholesterolemia Diabetes Resolved Problems Problem Noted Date Diagnosed Date Resolved Date Claudication 01/22/2021 03/03/2023 Atherosclerosis of quinault ar teries of extremities with rest pain, bilateral legs 01/17/2021 03/03/2023 Overview (01/17/2021): Added automatically from request for surgery [id number] Atherosclerosis of quina[place] ar teries of extremities with intermittent claudication, left leg 06/01/2019 07/12/2020 Overview (06/01/2019): Added automatically from request for surgery [id number] Stenosis of peripheral vascular stent 06/01/2019 07/12/2020 Overview (06/01/2019): Added automatically from request for surgery [id number] Foreign body of great toe of right foot with infection 10/17/2018 07/12/2020 Atherosclerosis of quina[place] ar [place] of left lower extremity with intermittent claudication 08/17/2018 07/12/2020 Overview (08/17/2018): Added automatically from request for surgery [id number] Assessment & Plan (05/22/2019 2:44 PM CDT): [...] 07/12/2020 Assessment & Plan (01/15/2020 2:01 PM WORD PROCESSOR): 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 Revascularization is not possible. Continue exercise to encourage collateral flow. Encounter for therapeutic drug monitoring 05/19/2017 07/12/2020 Surgical follow-up care 02/03/201606/15 Overview (06/18/2016): Postoperative follow-up Sebaceous cyst 12/30/2015 07/10/2022 Overview (06/18/2016): Sebaceous cyst Atherosclerosis of quinault artery of extremity 05/08/19 16 07/12/2020 Overview (06/18/2016): Atherosclerosis of quinault artery of right lower extremity with rest pain Encounters Date Type Department Care Team Description 02/22/2025 Telephone [facility] [address], [address] [place] [address] Romana Jurado MD PhD 02/20/2025 Telephone [facility] [address] [place] [phone] Romana Jurado MD PhD results requested 01/23/2025 3:00 PM WORD PROCESSOR Imaging Exam [facility] [address] [place] [phone] Epiretinal membrane (ERM) of both eyes 01/16/2025 2:00 PM WORD PROCESSOR Imaging Exam [facility] [address] [place] [phone] Epiretinal membrane (ERM) of both eyes 01/16/2025 Telephone [facility] [address] [place] [phone] Romana Jurado MD PhD ERG Questions 01/10/2025 Orders Only [facility] [address] [place] [phone] Gabe Peterson MD Epiretinal membrane (ERM) of both eyes (Primary Dx) 01/10/2025 Orders Only [facility] [address] [place] [address] Gabe Peterson MD Epiretinal membrane (ERM) of both eyes (Primary Dx) 01/09/2025 8:00 AM CDT Office Visit [facility] [address] [place] [phone] Romana Jurado MD PhD Retinitis pigmentosa of both eyes (Primary Dx); Epiretinal membrane (ERM) of both eyes; DM type 2 without retinopathy (HCC) 12/26/2024 Documentation [id number] [place] [address] Juan Pablo Huitron MD CKD follow-up 12/06/2024 Telephone [facility] [place] [address] Amrit Díaz MD new pt from Last 3 Months Immunizations Immunization Administration [...] artery ANGIOPLASTY / STENTING FEMORAL 08/25/2018 Left CATARACT EXTRACTION Bilateral Medical History Medical History Date Comments Myocardial infarction (HCC) Hyperlipidemia Hypothyroidism Diabetes mellitus type I Generalized postprandial abd ominal pain 01/15/2020 Chronic pain of both hips 02/26/2020 Atherosclerosis of quinault ar teries of extremities with intermittent claudication, bilateral legs 07/09/2020 Added automatically from request for surgery [id number] Sebaceous cyst 12/30/2015 Sebaceous cyst Foreign body [...] oz pur e alcohol) Social Connection and Isolation Panel Answer Date Recorded In a typical week, how many times do you talk on the phone with family, friends, or neighbors? More than three times a week 07/20/2022 How often do you get togethe r with friends or relatives? More than three times a week 07/20/2022 How often do you attend chur or taoism services? Never 07/20/2022 Do you belong to any clubs o r organizations such as methodist groups, unions, fraternal or athletic groups, or [...] making you feel afraid or unsafe? Denies 08/26/2024 Sex and Gender Information Value Date Recorded Sex Assigned at Not on file Legal Sex Male 2:42 PM WORD PROCESSOR Gender Identity Not on file Sexual Orientation Not on file Last Filed Vital Signs Vital Sign Reading Time Taken Comments Blood Pressure 163/96 08/28/2024 6:45 AM CDT Pulse 67 08/28/2024 6:45 AM CDT Temperature 36.6 C (97.8 F) 08/28/2024 4:48 AM CDT Respiratory Rate 18 08/28/2024 4:48 AM CDT Oxygen Saturation 95% 08/28/2024 4:48 AM CDT Inhaled Oxygen Concentration - - Weight 122.6 kg (270 lb 4.8 oz) 08/27/2024 9:59 AM CDT Height 185.4 cm (6' 1) 08/26/2024 9:50 AM CDT Body Mass Index 35.66 08/26/2024 9:50 AM CDT Plan of Treatment Health Maintenance Due Date Last Done Comments Albumin Creatinine Ratio, Urine 1960 Colon Cancer Screening-Colonoscopy 1960 Depression Screening 1960 Hepatitis C Screening 1960 Prostate Cancer Screening-PSA 1960 Foot Exam 1960 DTaP/Tdap/Td Vaccine (1 - Tdap) 12/08/1971 Hepatitis B Screening 1978 Regular Well Visit/Exam 18-64 1978 Pneumococcal vaccine <65 (1 of 2 - PCV) 12/08/1979 Lung Cancer Screening 2010 Zoster Vaccine (1 of 2) 2010 Covid-19 Vaccine (3 - 2024-2 6 season) 2024 07/09/2020, 06/11/2020 Influenza Vaccine (#1) 2024 , 02/02/2023, 12/20/2020, Additional history exists Hemoglobin A1C 02/26/2025 08/27/2024, 06/13, 11/10/2022, Additional history exists Lipid Panel 03/29/2025 03/29/2024, 01/13, 07/20/2022, Additional history exists eGFR 08/28/2025 08/28/2024, 08/13, 08/26/2024, Additional history exists Dilated Eye Exam 01/09/2026 01/09/2025 Medical Devices Implanted Type Area Induction Coordination Engineer Device Identifier Shelf Expiration Date Model / Serial / Lot Getinge [employer] Inc Hemagard 16/8mm 50cm Knit Cross Link Tensile Strength Excellent [id number] - [id number] - [id number] Implanted:Qty: 1 on 07/27/2022 by Moisés Flynn MD at [facility] Graft N/A: Abdomen GETINGE CASTLE INC 01/12/2027 [id number] / [id number] / Daig Thien [id number] Device Closure Angio-Seal Vip Bondek-Plus Polyglyd L70 Cm Od6 Fr Odsec.035 In Vascular - Sn/A - [id number] Implanted:Qty: 1 on 07/17/2020 by Moisés Flynn MD at [facility] Other - see comments Left: Groin Terumo Medical Thien 04/14/2021 [id number] / N/A / [id number] Bard Peripheral Vascular [id number] E-Luminexx Safe Performaxx 9mm 6fr 60mm 80cm Delivery System - [id number] Implanted:Qty: 1 on 12/13/2017 by Moisés Flynn MD at [facility] Stent Left: Arterial Bard Peripheral Vascular 01/12/2020 [id number] / / [id number] Description:Left Common and External Iliac Artery Medtronic Inc Everflex Entrust 6mm 60mm 80cm Self Expand Triaxial Low Profile - Sn/A - [id number] Implanted:Qty: 1 on 07/17/2020 by Moisés Flynn MD at [facility] Stent Right: Iliac Medtronic Inc 01/12/2022 [id number] / N/A / [id number] Medtronic Inc Everflex Entrust 6mm 100mm 80cm Self Expand Triaxial Low Profile - Sn/A - [id number] Implanted:Qty: 1 on 07/17/2020 by Moisés Flynn MD at [facility] Stent Left: Iliac Medtronic Inc 10/15/2022 [id number] / N/A / [id number] Daig Thien/[employer] [id number] Angio-Seal Vip Bondek-Plus 6fr .035in 70cm Hemostatic Latex Free - [id number] Implanted:Qty: 1 on 12/13/2017 by Moisés Flynn MD at [facility] Left: Groin Daig Thien/[employer] 08/12/2018 [id number] / / [id number] Cryolife Inc Patch Cardiovascular 0.8x8cm Nonpyrogenic Pfp0.8x8 - [id number] Implanted:Qty: 1 on 07/21/2022 by Moisés Flynn MD at [facility] Left: Carotid Cryolife Inc 03/28/2024 PFP0.8X8 / / [id number] Vitalitec Intrnl Inc Sls-Clip Ligate Triangular Wire Chio Groove Small Chevron Clip Latex Free N3842-6 - [id number] Implanted:Qty: 1 on 07/21/2022 by Moisés Flynn MD at [facility] Left: Neck Vitalitec Intrnl Inc [id number] / / Vitalitec Intrnl Inc Sls-Clip Ligate Triangular Wire Chio Groove Small Chevron Clip Latex Free Z6883-4 - [id number] Implanted:Qty: 4 on 07/27/2022 by Moisés Flynn MD at [facility] N/A: Abdomen Vitalitec Intrnl Inc [id number] / / Bard Peripheral Vascular Bard .25x.25in [place] Thk1.65mm Square Pledget Cardiovascular Ptfe [id number] - [id number] Implanted:Qty: 1 on 07/27/2022 by Moisés Flynn MD at [facility] N/A: Abdomen Bard Peripheral Vascular [id number] / / Bard Peripheral Vascular Bard 5/16x5/16in [place] Thk1.65mm Pledget Cardiovascular Ptfe 767255 - [id number] Implanted:Qty: 1 on 07/27/2022 by Moisés Flynn MD at [facility] N/A: Abdomen Bard Peripheral Vascular [id number] / / Procedures Procedure Name Priority Date/Time Associated Diagnosis Comments ERG FULL FIELD - OU - BOTH EYES Routine 01/23/2025 3:27 PM WORD PROCESSOR Epiretinal membrane (ERM) of both eyes MULTIFOCAL ELECTRORETINOGRAPHY (ERG) - OU - BOTH EYES Routine 01/16/2025 2:29 PM WORD PROCESSOR Epiretinal membrane (ERM) of both eyes FUNDUS PHOTOS/FAF - OU - BOTH EYES Routine 01/09/2025 8:59 AM CDT Retinitis pigmentosa of both eyes OCT, RETINA - OU - BOTH EYES Routine 01/09/2025 8:58 AM CDT Epiretinal membrane (ERM) of both eyes EGFR Routine 08/28/2024 7:53 AM CDT HEMOGLOBIN A1C Routine 08/27/2024 3:27 PM CDT LIPID PANEL Routine 07/20/2022 12:27 AM CDT from Last 3 Months or Most Recently Relevant to Health Maintenance Results * ERG Full Field - OU - Both Eyes (01/23/2025 3:27 PM WORD PROCESSOR) Anatomical Region Laterality Modality Head Other Narrative 01/25/2025 11:15 AM WORD PROCESSOR VISUAL DIAGNOSTIC REPORT: Patient: Cyrus Vee : 60 Referring Physician: Romana Jurado MD Date of Examination: 01/23/25 Clinical History: This is a 64-year-old man referred for Visual Diagnostic Testing related to a diagnosis of Retinitis Pigmentosa. Multi-focal ERG was performed here 01/16/25 and demonstrated mild central cone/macular dysfunction OD and severe central cone/macular dysfunction OS. Full field ERG was performed. ERG: Full field ERG was performed OU with DTL electrodes and Ganzfeld stimulation according to ISCEV standards. After 20 minutes of dark adaptation, a pure faizan response was obtained with a dim white light. The light intensity was then increased to obtain a mixed faizan-cone signal to dim and bright white lights under scotopic conditions. Light adapted cone responses were elicited by single flash and 30 Hz flicker. Amplitudes and implicit times were recorded. Responses were averaged to minimize noise. Cooperation and fixation were felt to be good for each eye. Results: All responses (faizan specific, maximal flash scotopic, photopic, and 30 Hz flicker) were non-recordable OU. Impression: These results indicate severe, widespread faizan and cone dysfunction OU. These results could be compatible with advanced Retinitis Pigmentosa. Clinical correlation is recommended. Thank you so much for referring this patient for electrodiagnostic testing. If you would like to review the full set of tracings from this study, please contact our office at [phone], and we would be happy to send these to your office. Please feel free to contact my office if you would like to discuss these results further. Gabe Peterson M.D. Professor, Departments of Ophthalmology and Visual Sciences and Neurology Director, Visual Electrophysiology Service [facility] Medicine E-mail: [email or web address] Gabe Peterson MD OPHTH ELECTRORETINOG ALEE Final Result * Multifocal Electroretinography (ERG) - OU - Both Eyes (01/16/2025 2:29 PM WORD PROCESSOR) Anatomical Region Laterality Modality Head Other Narrative 01/18/2025 4:45 PM WORD PROCESSOR VISUAL DIAGNOSTIC REPORT: Patient: Cyrus Vee : 60 Referring Physician: Romana Jurado MD Date of Examination: 01/16/25 Clinical History: This is a 64-year-old man referred for Visual Diagnostic Testing related to a diagnosis of Retinitis Pigmentosa. Multifocal ERG was performed. He will return on a separate day for full field ERG. No prior studies were available for comparison. Multi-focal ERG: Multifocal ERG testing was conducted using the Espion Electrodiagnostic Imaging System with 61hexagons covering the central 45 of the visual field. This was performed according to standard ISCEV protocol. Both eyes were fully dilated. Responses were obtained and analyzed with trace array and two-dimensional P1 latency plots. Cooperation and fixation were felt to be good for each eye. Ring averages were compared with normative control data from this laboratory. Results: Multifocal ERG recordings demonstrated mild, diffuse reduction in signal across the entire testing field OD with reduced ring averages for rings 1-5. Responses for the left eye demonstrated severe, diffuse reduction in signal across the entire testing field with severely reduced ring averages for rings 1-5. Impression: These results indicate mild central cone/macular dysfunction OD and severe central cone/macular dysfunction OS. Clinical correlation is recommended. Thank you so much for referring this patient for electrodiagnostic testing. If you would like to review the full set of tracings from this study, please contact our office at [phone], and we would be happy to send these to your office. Please feel free to contact my office if you would like to discuss these results further. Gabe Peterson M.D. Professor, Departments of Ophthalmology and Visual Sciences and Neurology Director, Visual Electrophysiology Service [facility] E-mail: [email or web address] Gabe Peterson MD OPHTH ELECTRORETINOG ALEE Final Result * Fundus Photos/FAF - OU - Both Eyes (01/09/2025 8:59 AM CDT) Anatomical Region Laterality Modality Head Fundus Photograp hy Narrative 01/09/2025 8:59 AM CDT Right eye (OD): diffuse bone spicule changes Left eye (OS):diffuse bone spicule changes Romana Jurado MD PhD OPHTH PHOTOGRAPHY Fi nal Result * OCT, Retina - OU - Both Eyes (01/09/2025 8:58 AM CDT) Anatomical Region Laterality Modality Head Optical Coherenc e Tomography Narrative 01/09/2025 8:58 AM CDT Right eye (OD): mild epiretinal membrane (ERM) , no cystoid macular edema (CME), early loss of foveal contour Left eye (OS): mild epiretinal membrane (ERM) with diffuse thinning , no cystoid macular edema (CME) Romana Jurado MD PhD OPHTH TOMOGRAPHY Fin al Result * eGFR (08/28/2024 7:53 AM CDT) eGFR 74 >=60 mL/min/1. 73 m2 Comment: Interpretive Data Reference Interval Normal >/= [...] interpretive data was last reviewed 2021. Blood 08/28/2024 7:53 AM CDT 08/28/2024 8:14 AM CDT Lb Pollard MD LAB BLOOD ORDERABLES Final Result Performing Organization Address [facility] Co de Phone Number [facility] [address] [place] [employer] [place] [address] * (ABNORMAL) Hemoglobin A1c (08/27/2024 3:27 PM CDT) Hgb A1C 8.2(H) 4.0 - 5.6 % Estimated Average Glucose 189 mg/dL [facility] Comment: The ADA recommends reporting an estimated Average Glucose (eAG) with all Hemoglobin A1c results using the equation derived from a study of 507 normal and diabetic adults. Minority populations were underrepresented and children were not included. (Diabetes Care 31:8450-4061, 2008). The eAG is not equivalent to a fasting glucose. Blood 08/27/2024 3:27 PM CDT 08/27/2024 4:09 PM CDT Lb Pollard MD LAB BLOOD ORDERABLES Final Result Performing Organization Address City/[facility]/ZIP Co de Phone Number [facility] [address] Department [employer] [place], [place] [id number] * (ABNORMAL) Lipid panel (07/20/2022 12:27 AM CDT) Pathologist [facility] Cholesterol 97 30 - 199 mg/dL [facility] Comment: Interpretive Data Ages < or = [...] revised on 2017. Triglycerides 133 <=149 mg/dL [facility] Comment: Interpretive Data Ages < or = [...] revised on 2017. HDL 25(L) >=40 mg/dL [facility] Comment: Interpretive Data Ages < or = [...] on 2017. LDL, calculated 45 <=129 mg/dL [facility] Comment: Interpretive Data Ages < or = [...] revised on 2017. Non-HDL Cholesterol 72 mg/dL [facility] Comment: Interpretive Data Ages < or = [...] last revised on 2017. Chol/HDL ratio 4 [facility] Blood 07/20/2022 12:2 7 AM CDT 07/20/2022 12:30 AM CDT us Navin Sandoval MD LAB BLOOD ORDERABLES Final Re sult [facility] [address] Department [place] [address] from Last 3 Months or Most Recently Relevant to Health Maintenance Additional Health Concerns Infection Onset Date Last Indicated Ring Surveillance: Vanna em Comment:W5 GIRISH em surveillance - rooms 1-16 08/28/202408/28 Insurance MEDICARE [employer]CIAL GENERIC MEDICARE [employer] Advance Directives For more information, please contact: [phone] * Full Code (Latest Code Status on File) Date Activated Date Inactivated Comments 08/26/2024 10:08 AM 08/28/2024 4:10 PM * Full Code Date Activated Date Inactivated Comments 07/20/2022 12:08 AM 08/05/2022 6:30 PM * Full Code Date Activated Date Inactivated Comments 01/22/2021 5:55 PM 01/25/2021 5:15 PM * Full Code Date Activated Date Inactivated Comments 07/17/2020 5:07 PM 07/18/2020 3:08 PM * Full Code Date Activated Date Inactivated Comments 06/07/2019 7:55 PM 06/08/2019 3:07 PM Care Teams Stave Log Ripsaw Operator Relationship Specialty Start Date End Date Neel Lincoln MD [address] [place] [address] PCP - General Internal Medicine 09/03/21 Moisés Flynn MD Surgeon Vascular Surgery 12/14/17 Eileen Mueller MD Internal Medicine 12/18/20 Wes Redmond MD [address] [place] [address] Internal Medicine 03/04/22 Moisés Bryant MD [address] [place] [address] Neurology 08/24/22 Nikolai Russell MD [address] [place] [address] Referring Physician Ophthalmology 12/07/24
--- OUTSIDE RECORDS SUMMARY | 2025-03-07 06:59 | XMS_ITS | Encounter Summary ---
Author Organization [facility] Address [address] [facility] [place] [facility] [place] [address] Care Team Providers Care Caving Guide Name Role Phone Neel Lincoln MD Primary Care Provider [phone] Reason for Referral * Consultation (Routine) - Closed Specialty Diagnoses / Procedures Referred By Contac t Referred To Contact Nutrition Services Diagnoses Type 2 diabetes mellitus with other specified complication, with long-term current use of insulin (HCC) PAD (peripheral artery disease) Neel Lincoln MD [address] [place] [address] Phone: tel: fax: Referral ID Status Reason Start Date Expiration Date V isits Requested Visits Authorized [id number] Closed Specialty Services Required 02/03/2024 02/02/2025 1 1 NCIAL RECORDING CLERK Encounter Details Date Type Department Care Team (Latest Contact Info) Description 02/03/2024 Transcribe Orders [facility] - Centralized Scheduling [address] [place] [address] Neel Lincoln MD [address] [place] [address] Type 2 diabetes mellitus with other [...] on file Legal Sex Male 8:57 AM FINANCIAL RECORDING CLERK Gender Identity Not on file Sexual Orientation [...] Description 08/15/2025 9:30 AM CDT Office Visit [facility] - General Surgery [address] [place] [address] Enrico Milan MD [facility] [address] [place] [address] Scheduled Referrals Name Type Priority Associated [...] arterioles documented in this encounter Care Teams Caving Guide Relationship Specialty Start Date End Date Neel Lincoln MD [address] [place] [address] PCP - General Internal Medicine 06/18/23 documented as of this encounter
--- OUTSIDE RECORDS SUMMARY | 2025-03-07 06:59 | XMS_ITS | Encounter Summary ---
Author Organization [facility] Address [address] [place] [address] Care Team Providers Care Cake Cutter Machine Name Role Phone Neel Lincoln MD Primary Care Provider Encounter Details Date Type Department Care Team (Latest Contact Info) Description 02/27/2025 Scan [facility] INFO SRVCS Scanned, Doc Med Group Social History Tobacco Use Types Packs/Day Years [...] from your doctor or pharmacy? Rarely 03/29/2024 [facility] Utilities Answer Date Recorded In the past 12 months has [facility] [employer], gas, oil, or water [employer] threatened to shut off services in your [...] How often do you attend chur or sabianism services? 1 to 4 times per year 03/29/2024 Do you belong to any clubs o r organizations such as restorationism groups, unions, fraternal or athletic groups, or [...] Recorded Patient Health Questionnaire-2 Score 0 04/04/2024 [facility] of Occupat ional Health - Occupational Stress [...] any time in the past 12 m [facility], were you homeless or living in a correction (including now)? No 03/29/2024 Sex and Gender Information Value Date Recorded Sex Assigned at Male 03/29/2024 8:05 PM SENIOR SOLUTIONS CONSULTANT Legal Sex Male 1:56 PM CDT Gender [...] Assessment Author Status No 03/29/2024 11:07 PM SENIOR SOLUTIONS CONSULTANT Long, Jacki R, RN Active documented as of this encounter Mental Status * Because of a physical, mental, or emotional condition, do you have serious difficulty concentrating, remembering, or making decisions? Answer Entry Date Author Status No 03/29/2024 11:07 PM SENIOR SOLUTIONS CONSULTANT Jacki Hollins RN Active documented in this encounter Plan of Treatment Upcoming Encounters Date Type Department Care Team (Late st Contact Info) Description 03/27/2025 3:40 PM SENIOR SOLUTIONS CONSULTANT [facility] [address] [place] [address] J Carlos Banuelos MD [address] [place] [address] 04/10/2025 8:00 AM SENIOR SOLUTIONS CONSULTANT Office Visit [facility] [address] [place] [address] Estrada Cao DO [address] [place] [address] 06/12/2025 2:40 PM CDT Office Visit [facility] - [place] [address] [place] [address] Neel Lincoln MD [address] [place] [address] 12/03/2025 12:30 PM CDT Office Visit [facility] [address] [place] [address] Yonathan Kelley MD [address] [place] [address] documented as of this encounter Goals Goal Patient Goal Type Associated Problems Recent Progress Patient-Stated? Author Consistently take medications as Prescribed Lifestyle On track(2024 1:56 PM SENIOR SOLUTIONS CONSULTANT) No Nguyen Muller, RN Health - patient able to perform ADLs independently Lifestyle On track(2024 1:56 PM SENIOR SOLUTIONS CONSULTANT) No Nguyen Muller RN documented as of this encounter Visit Diagnoses Not on filedocumented in this encounter Additional Health Concerns Assessment Noted Time PHQ-9 Depression Total Score: 1 12/04/19 22 1:22 PM CDT documented as of this encounter Care Teams Cake Cutter Machine Relationship Specialty Start Date End Date Neel Lincoln MD [address] [place] [address] PCP - General INTERNAL MEDICINE 09/02/21 documented as of this encounter
--- OUTSIDE RECORDS SUMMARY | 2025-03-07 06:59 | XMS_ITS | Clinical Summary ---
Author Organization [facility] Address [address] [place] [address] Care Team Providers Care Director Business Development Name Role Phone Neel Lincoln MD Primary Care Provider [phone] Source Comments [facility],non-owned Affiliates and Associated Physician Practices is amultiple site organization consisting of ambulatory clinics and hospital sitesin [place], [place], [place] and [place]. This disclosure is being madepursuant to the Care Everywhere program and may not contain all information available regarding this patient. Last updated 17.[facility] Allergies Active Allergy Reactions Criticality Noted Date [...] 125 mcg by mouth once daily Active Active Problems Problem Noted Date Diagnosed Date Malignant melanoma of skin of chest 06/23/2023 Encounters Date Type Department Care Team Description 02/07/2025 9:30 AM AIR TESTER Office Visit [facility] - General Surgery [address] [place] [address] Enrico Milan MD Malignant melanoma of skin of chest (HCC) (Primary Dx) 02/07/2025 Travel 02/07/2025 Orders Only [facility] - General Surgery [address] [place] [address] Enrico Milan MD Malignant melanoma of skin of chest (HCC) from Last 3 Months Social History Tobacco Use Types Packs/Day Years Used Date Smoking Tobacco: Former Cigarettes 1.5 46 0 07/1976 - 07/2022 Smokeless Tobacco: Former Tobacco Cessation:Counseling Given: Not Answered Alcohol Use [...] on file Legal Sex Male 8:57 AM AIR TESTER Gender Identity Not on file Sexual Orientation Not on file Last Filed Vital Signs Vital Sign Reading Time Taken Comments Blood Pressure 175/102 02/07/2025 8:51 AM AIR TESTER Pulse 71 02/07/2025 8:51 AM AIR TESTER Temperature 36.8 C (98.3 F) 02/07/2025 8:51 AM AIR TESTER Respiratory Rate 14 07/08/2023 1:45 PM CDT Oxygen Saturation 100% 02/07/2025 8:51 AM AIR TESTER Inhaled Oxygen Concentration - - Weight 128.4 kg (283 lb) 02/07/2025 8:51 AM AIR TESTER Height 185.4 cm (6' 1) 02/07/2025 8:51 AM AIR TESTER Body Mass Index 37.34 02/07/2025 8:51 AM AIR TESTER Plan of Treatment Upcoming Encounters Date Type Department Care Team (Late st Contact Info) Description 08/15/2025 9:30 AM CDT Office Visit [facility] - General Surgery [address] [place] [address] Enrico Milan MD [address] [facility] [address] [place] [address] Health Maintenance Due Date Last Done Comments [...] 12/03/1978 DTAP/TDAP/TD VACCINES (1 - Tdap) 12/08/1979 LUNG CANCER SCREENING 2010 PNEUMOCOCCAL VACCINE 50+ (1 of 1 - PCV) 2010 Respiratory Syncytial Virus (RSV) Vaccine Pt: or over 60 yrs (1 - Risk 50-74 years 1-dose series) 2010 ZOSTER VACCINE (1 of 2) 2010 DEPRESSION SCREENING 03/15/2024 COVID-19 VACCINE (3 - season) 2024 07/09/2020, 06/11/2020 INFLUENZA VACCINE (#1) 2024 4, 02/02/2023, 12/20/2020, Additional history exists SCREENING FOR DIABETES 07/07/2026 4, 07/08/2023, 06/23/2023, Additional history exists HEPATITIS B VACCINE Aged [...] POINT OF CARE (07/08/2023 8:46 AM CDT) Glucose WB/POC 207(H) 70 - 115 mg/dL 07/08/2023 10:47 AM CDT [facility] Specimen Type Cap Fingerstick 2023 10:47 AM CDT [facility] Blood BLOOD SPECIMEN / Unknown 07/08/2023 8:46 AM CDT 07/08/2023 10:47 AM CDT us Enrico Milan MD LAB - POINT OF CARE ORDERABLES F inal Result [facility] [address] [place] [address], [place] [phone] from Last 3 Months or Most Recently Relevant to Health Maintenance Insurance MEDICARE [facility] MEDICARE SUPPLEMENT Care Teams Director Business Development Relationship Specialty Start Date End Date Neel Lincoln MD [address] [place] [address] PCP - General Internal Medicine 06/18/23
[2025-03-07 07:47] LABS: Hematocrit 46.0 % (42.0-52.0); Hemoglobin 14.9 g/dL (14.0-18.0); Immature Granulocyte Percent A 0.4 % (0-0.5); Lymphocytes Absolute Auto 1.28 K/mm3 (0.9-3.2); Mean Corpuscular HGB Conc 32.4 g/dl (32-36); Mean Corpuscular Hemoglobin 28.9 pg (26-34); Mean Corpuscular Volume 89.3 fl (80-100); Nucleated Red Blood Cells Absolute Auto 0.000 K/mm3 (0.0-0.012); Nucleated Red Blood Cells Perc 0.0 % (0.0-0.2); Platelet Count Result 294 k/mm3 (150-375); Red Blood Count 5.15 M/mm3 (4.6-6.20); White Blood Count 14.5 K/mm3 (4.5-10.0)
[2025-03-07] MEDS: ONDANSETRON INJ 4 MG/2 ML VIAL IV PUSH (07:55)
[2025-03-07 08:05] LABS: Alanine Aminotransferase 24 U/L (6-50); Albumin Level 4.1 g/dL (3.5-5.1); Alkaline Phosphatase 121 U/L (38-126); Anion Gap 10 mmol/L (4-12); Aspartate Amino Transferase 31 U/L (17-59); Bilirubin,Total 0.6 mg/dL (0.2-1.3); Blood Urea Nitrogen 23 mg/dL (9-20); Calcium 10.1 mg/dL (8.4-10.2); Carbon Dioxide 24 mmol/L (22-30); Chloride 107 mmol/L (98-107); Estimated CRCL calculation 68 ml/min; Estimated Glomerular Filt Rate 51; Glucose 191 mg/dL (65-110); Lipase 41 U/L (23-300); Potassium 4.5 mmol/L (3.4-5.0); Sodium 141 mmol/L (137-145); Total Protein 8.0 g/dL (6.3-8.2)
--- OUTSIDE RECORDS SUMMARY | 2025-03-07 08:26 | XMS_ITS | Encounter Summary ---
Author Organization [facility] Address [address] [place] [address] Care Team Providers Care Manager Drive Name Role Phone Neel Lincoln MD Primary Care Provider [phone] Nguyen Muller RN Unavailable [phone] Encounter Details Date Type Department Care Team (Late Contact Info) Description 11/05/2023 [employer] Message Enc [address], [address] [place] [address] [employer]t, [facility] Provider EEG Results Social History Tobacco Use [...] Sex Assigned at Male 03/29/2024 8:05 PM BODY AND FENDER WORKER Legal Sex Male 1:56 PM CDT Gender Identity Not on file Sexual Orientation Not on file Occupation Industry Job Start Date Job End Date Not on file Not on file Not on file Not on file documented as of this encounter Plan of Treatment Upcoming Encounters Date Type Department Care Team (Late Contact Info) Description 03/27/2025 3:40 PM BODY AND FENDER WORKER Office Visit [address], [address] [place] [address] J Carlos Banuelos MD [address] [place] [address] 04/10/2025 8:00 AM BODY AND FENDER WORKER Office Visit [facility] [address] [facility] [place] [address] Estrada Cao DO [address] [facility] [address] [place] [address] 06/12/2025 2:40 PM CDT Office Visit [facility] Internal Medicine - [place] [address] [place] [address] Neel Lincoln MD [address] [place] [address] 12/03/2025 12:30 PM CDT Office Visit [facility] [address] [place] [address] Yonathna Kelley MD [address] [facility] [place] [address] documented as of this encounter Visit Diagnoses Not on filedocumented in this encounter Additional Health Concerns Infection Onset Date Last Indicated Resolved Time COVID-19 Rule Out 03/30/2024 03/30/2024 03/30/2024 6:06 AM BODY AND FENDER WORKER COVID-19 Rule Out 03/31/2024 03/31/2024 03/31/2024 11:07 AM BODY AND FENDER WORKER Assessment Noted Time PHQ-9 Depression Total Score: 1 12/04/19 22 1:22 PM CDT documented as of this encounter Care Teams Manager Drive Relationship Specialty Start Date End Date Neel Lincoln MD [facility] [place] [address] PCP - General INTERNAL MEDICINE 09/02/21 Nguyen Muller, RN [address] [place] [address] House Mother (Ambulatory) REGISTERED NURSE 03/31/2402/06 documented as of this encounter
--- OUTSIDE RECORDS SUMMARY | 2025-03-07 08:26 | XMS_ITS | Encounter Summary ---
Author Organization [facility] Address [address] [facility] [place] [address] Care Team Providers Care Manager Labor Relations Name Role Phone Neel Lincoln MD Primary Care Provider [phone] Reason for Referral * Consultation (Routine) - Closed Specialty Diagnoses / Procedures Referred By Contac t Referred To Contact Nutrition Services Diagnoses Type 2 diabetes mellitus with other specified complication, with long-term current use of insulin (HCC) PAD (peripheral artery disease) Neel Lincoln MD [address] [place] [address] Phone: tel: fax: Referral ID Status Reason Start Date Expiration Date V isits Requested Visits Authorized [id number] Closed Specialty Services Required 02/03/2024 02/02/2025 1 1 ROL INTEGRATION ENGINEER Encounter Details Date Type Department Care Team (Latest Contact Info) Description 02/03/2024 Transcribe Orders [facility] - Central[facility] Scheduling [address] [place] [address] Neel Lincoln MD [address] [place] [address] Type 2 diabetes mellitus with other [...] on file Legal Sex Male 8:57 AM CONTROL INTEGRATION ENGINEER Gender Identity Not on file Sexual Orientation [...] Visit [facility] - General Surgery [address] [place] [address] Enrico Milan MD [facility] [address] [place] [address] Scheduled Referrals Name Type Priority [...] arterioles documented in this encounter Care Teams Manager Labor Relations Relationship Specialty Start Date End Date Neel Lincoln MD [address] [place] [address] PCP - General Internal Medicine 06/18/23 documented as of this encounter
--- OUTSIDE RECORDS SUMMARY | 2025-03-07 08:26 | XMS_ITS | Encounter Summary ---
Author Organization [facility] Address [address] [place] [address] Care Team Providers Care Naval Inspector Name Role Phone Neel Lincoln MD Primary Care Provider [phone] Encounter Details Date Type Department Care Team [...] from your doctor or pharmacy? Rarely 03/29/2024 [facility] Utilities Answer Date Recorded In the past 12 months has e [employer], gas, oil, or water [employer] threatened to shut off services in your [...] you attend chur ch or gnosticist services? 1 to 4 times per year 03/29/2024 Do you belong to any clubs o r organizations such as bahai groups, unions, fraternal or athletic groups, or [...] Recorded Patient Health Questionnaire-2 Score 0 04/04/2024 [facility] - Occupational Stress Questionnaire Answer Date Recorded [...] were you homeless or living in a alf (including now)? No 03/29/2024 Sex and Gender Information Value Date Recorded Sex Assigned at Male 03/29/2024 8:05 PM TEXTILE KNITTER Legal Sex Male 1:56 PM CDT Gender [...] Date Author Status No 03/29/2024 11:07 PM Jakci Lua RN Active documented in this encounter Plan of Treatment Upcoming Encounters Date Type Department Care Team (Late st Contact Info) Description 03/27/2025 3:40 PM TEXTILE KNITTER Office Visit [facility] [address] [facility] [address] [place] [address] J Carlos Banuelos MD [address] [facility] [address] [place] [address] 04/10/2025 8:00 AM TEXTILE KNITTER Office Visit [facility] [address] [facility] [address] [place] [address] Estrada Cao DO [address] [facility] [address] [place] [address] 06/12/2025 2:40 PM CDT Office Visit [facility] - [place] [address] [place] [address] Neel Lincoln MD [address] [place] [address] 12/03/2025 12:30 PM CDT Office Visit [place] [place] [facility] [address] [place], [place] [address] Yonathan Kelley MD [address] [place] [address] documented as of this encounter Goals Goal Patient Goal Type Associated Problems Recent Progress Patient-Stated? Author Consistently take medications as Prescribed Lifestyle On track(2024 1:56 PM TEXTILE KNITTER) No Nguyen Muller, RN Health - patient able to perform ADLs independently Lifestyle On track(2024 1:56 PM TEXTILE KNITTER) No Nguyen Muller, RN documented as of this encounter Visit Diagnoses Not on filedocumented in this encounter Additional Health Concerns Assessment Noted Time PHQ-9 Depression Total Score: 1 12/04/19 22 1:22 PM CDT documented as of this encounter Care Teams Naval Inspector Relationship Specialty Start Date End Date Neel Lincoln MD [address] [place] [address] PCP - General INTERNAL MEDICINE 09/02/21 documented as of this encounter
--- OUTSIDE RECORDS SUMMARY | 2025-03-07 08:26 | XMS_ITS | Encounter Summary ---
Author Organization [facility] Address [address] [place] [address] Care Team Providers Care Truck Driver Supervisor Name Role Phone Neel Lincoln MD Primary Care Provider [phone] Nguyen Muller RN Unavailable [phone] Encounter Details Date Type Department Care Team (Late st Contact Info) Description 08/14/2022 Hospital Follow-up Call [facility] Family & Internal Medicine [address] [address] Neel Lincoln MD [address] [place] [address] Social History Tobacco Use Types Packs/Day Years Used Date Smoking Tobacco: Every Day Cigarettes 0.5 46 Smokeless Tobacco: Never Comments:Provider to financial services counselor , 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 trying to quite Alcohol Use Standard Drinks/Week Comments Not Currently 0 (1 standard drink = 0.6 oz pur e alcohol) quite 8 years ago PHQ-2 Answer Date Recorded Patient Health Questionnaire-2 Score 0 06/04/2022 Sex and Gender Information Value Date Recorded Sex Assigned at Male 03/29/2024 8:05 PM MOLD INSPECTOR Legal Sex Male 1:56 PM CDT Gender [...] Contact Info) Description 03/27/2025 3:40 PM MOLD INSPECTOR [facility] [address] [facility], [address] [place] [address] J Carlos Banuelos MD 3 [facility] [place] [address] 04/10/2025 8:00 AM MOLD INSPECTOR [facility] [address] [place] [address] Estrada Cao DO [address] [facility] [address] [place] [address] 06/12/2025 2:40 PM CDT Office Visit [facility] [place] [address] [place] [address] Neel Lincoln MD [address] [place] [address] 12/03/2025 12:30 PM CDT Office Visit [place] [facility] [address] [place] [address] Yonathan Kelley MD [address] [place] [address] documented as of this encounter Visit Diagnoses Not on filedocumented in this encounter Additional Health Concerns Infection Onset Date Last Indicated Resolved Time COVID-19 Rule Out 03/30/2024 03/30/2024 03/30/2024 6:06 AM MOLD INSPECTOR COVID-19 Rule Out 03/31/2024 03/31/2024 03/31/2024 11:07 AM MOLD INSPECTOR Assessment Noted Time PHQ-9 Depression Total Score: 1 12/04/19 22 1:22 PM CDT documented as of this encounter Care Teams Truck Driver Supervisor Relationship Specialty Start Date End Date Neel Lincoln MD [address] [place] [address] PCP - General INTERNAL MEDICINE 09/02/21 Nguyen Muller, RN [address] [place] [address] Efficiency Expert (Ambulatory) REGISTERED NURSE 03/31/2402/06 documented as of this encounter
--- OUTSIDE RECORDS SUMMARY | 2025-03-07 08:26 | XMS_ITS | Encounter Summary ---
Author Organization [facility] Address [address] [place] [address] Care Team Providers Care Rand Cementer Name Role Phone Neel Lincoln MD Primary Care Provider Nguyen Muller RN Unavailable [phone] Encounter Details Date Type Department Care Team (Late Contact Info) Description 11/24/2021 [employer] Message [facility] [address] [employer], [facility] Provider Results Social History Tobacco Use Types Packs/Day Years Used Date Smoking Tobacco: Every Day Cigarettes 0.5 46 Smokeless Tobacco: Never Comments:Provider to beauty counselor , 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 trying to quite Alcohol Use Standard Drinks/Week Comments Not Currently 0 (1 standard drink = 0.6 oz pur e alcohol) quite 8 years ago Sex and Gender Information Value Date Recorded Sex Assigned at Male 03/29/2024 8:05 PM MASONRY TEACHER Legal Sex Male 1:56 PM CDT Gender [...] (Late Contact Info) Description 03/27/2025 3:40 PM MASONRY TEACHER Office Visit [facility] Mult[facility] Care [facility] [address] [facility] [place] [address] J Carlos Banuelos MD 3 [facility] [place] [address] 04/10/2025 8:00 AM MASONRY TEACHER Office Visit [facility] Medical [facility] - [facility] [address] [facility] [place] [address] Estrada Cao DO [address] [facility] [address] [place] [address] 06/12/2025 2:40 PM CDT Office Visit [facility] Medical [facility] Family & Internal Medicine [facility] [address] [place] [address] Neel Lincoln MD [address] [place] [address] 12/03/2025 12:30 PM CDT Office Visit [facility] [address] [place] [address] Yonathan Kelley MD Three [facility] [place] [address] documented as of this encounter Visit Diagnoses Not on filedocumented in this encounter Additional Health Concerns Infection Onset Date Last Indicated Resolved Time COVID-19 Rule Out 03/30/2024 03/30/2024 03/30/2024 6:06 AM MASONRY TEACHER COVID-19 Rule Out 03/31/2024 03/31/2024 03/31/2024 11:07 AM MASONRY TEACHER documented as of this encounter Care Teams Rand Cementer Relationship Specialty Start Date End Date Neel Lincoln MD [address] [place] [address] PCP - General INTERNAL MEDICINE 09/02/21 Nguyen Muller RN [address] [place] [address] Hardware Manager (Ambulatory) REGISTERED NURSE 03/31/2402/06 documented as of this encounter
--- OUTSIDE RECORDS SUMMARY | 2025-03-07 08:26 | XMS_ITS | Clinical Summary ---
Author Organization [facility] Neumitra Address [address] [place] [address] Care Team Providers Care Furniture Refinisher Name Role Phone Neel Lincoln MD Primary Care Provider [phone] Source Comments [facility],non-owned Affiliates and Associated Physician Practices is amultiple site organization consisting of ambulatory clinics and hospital sitesin [place], [place], [place] and [place]. This disclosure is being madepursuant to the Care Everywhere program and may not contain all information available regarding this patient. Last updated 17.[facility] Neumitra Allergies Active Allergy Reactions Criticality Noted Date [...] Department Care Team Description 02/07/2025 9:30 AM OIL WINTERIZER Office Visit [facility] - General Surgery [address] [place] [address] Enrico Milan MD Malignant melanoma of skin of chest (HCC) (Primary Dx) 02/07/2025 Travel 02/07/2025 Orders Only [facility] - General Surgery [address] [place] [address] Enrico Milan MD Malignant melanoma of skin [...] on file Legal Sex Male 8:57 AM OIL WINTERIZER Gender Identity Not on file Sexual Orientation Not on file Last Filed Vital Signs Vital Sign Reading Time Taken Comments Blood Pressure 175/102 02/07/2025 8:51 AM OIL WINTERIZER Pulse 71 02/07/2025 8:51 AM OIL WINTERIZER Temperature 36.8 C (98.3 F) 02/07/2025 8:51 AM OIL WINTERIZER Respiratory Rate 14 07/08/2023 1:45 PM CDT Oxygen Saturation 100% 02/07/2025 8:51 AM OIL WINTERIZER Inhaled Oxygen Concentration - - Weight 128.4 kg (283 lb) 02/07/2025 8:51 AM OIL WINTERIZER Height 185.4 cm (6' 1) 02/07/2025 8:51 AM OIL WINTERIZER Body Mass Index 37.34 02/07/2025 8:51 AM OIL WINTERIZER Plan of Treatment Upcoming Encounters Date Type Department Care Team (Late st Contact Info) Description 08/15/2025 9:30 AM CDT Office Visit [facility] - General Surgery [address] [place] [address] Enrico Milan MD [address] [facility] [address] [place] [address] Health Maintenance Due Date Last Done Comments [...] - 115 mg/dL 07/08/2023 10:47 AM CDT [facility] Specimen Type Cap Fingerstick 2023 10:47 AM CDT [facility] Blood BLOOD SPECIMEN / Unknown 07/08/2023 8:46 AM CDT 07/08/2023 10:47 AM CDT us Enrico Milan MD LAB - POINT OF CARE ORDERABLES F inal Result [facility] [address] [place] [address], [place] [phone] from Last 3 Months or Most Recently Relevant to Health Maintenance Insurance MEDICARE [facility] MEDICARE SUPPLEMENT Care Teams Furniture Refinisher Relationship Specialty Start Date End Date Neel Lincoln MD [address] [place] [address] PCP - General Internal Medicine 06/18/23
--- OUTSIDE RECORDS SUMMARY | 2025-03-07 08:26 | XMS_ITS | Encounter Summary ---
Author Organization [facility] Address [address] [facility] [place] [address] Care Team Providers Care Central Supply Manager Name Role Phone Neel Lincoln MD Primary Care Provider [phone] Encounter Details Date Type Department Care Team (Late st Contact Info) Description 06/11/2023 Lab Requisition [facility] - DermPath Lab [address] [place] [phone] Anjum Weems MD [facility] [address] [place] [address] Neoplasm of uncertain behavior of skin Social History Tobacco Use Types Packs/Day Years Used Date Smoking Tobacco: Never Assessed Sex and Gender Information Value Date Recorded Sex Assigned at Not on file Legal Sex Male 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[employer] Gender Identity Not on file Sexual Orientation Not on file documented as of this encounter Plan of Treatment Upcoming Encounters Date Type Department Care Team (Late st Contact Info) Description 08/15/2025 9:30 AM CDT Office Visit [facility] - General Surgery [address] [place] [phone] Enrico Milan MD [address] [facility] [address] [place] [address] documented as of this encounter Procedures Procedure Name Priority Date/Time Associated Diagnosis Comments DERMATOPATHOLOGY Routine 06/11/2023 3:33 AM CDT Neoplasm of uncertain behavior of skin documented in this encounter Results * DERMATOPATHOLOGY (06/11/2023 3:33 AM CDT) Case Report Dermatopathology Report Case: [id number] Authorizing Provider: Anjum Weems MD Collected: 06/11/2023 03:33 AM Ordering Location: [facility] - Received: 06/14/2023 01:17 [...] characteristic determined by the Dermatopathology Laboratory at [facility], directed by Dr. Shaw Squires. These tests need not be, and therefore are not, approved by the [place] Food and Drug Administration. The tests are used for clinical purposes. Billing Codes Specimen Charges Stain Charges 23859 1 [id number] 79602 1 1 4 3:37 PM CDT DERMATOPATHOLOGY LABORATORY Embedded Images 4 3:[address] [facility] DERMATOPATHOLOGY LABORATORY Synoptic Report INVASIVE MELANOMA OF [...] PATHOLOGY/CYTOLOGY VELIAE LINETTE Final Result DERMATOPATHOLOGY LABORATORY [facility] - Department of Dermatology [facility] [address] [place] [address], [address] [phone] documented in this encounter Visit Diagnoses Diagnosis Neoplasm of uncertain behavior of skin documented in this encounter Care Teams Central Supply Manager Relationship Specialty Start Date End Date Neel Lincoln MD [address] [place] [address] PCP - General Internal Medicine 06/18/23 documented as of this encounter
--- OUTSIDE RECORDS SUMMARY | 2025-03-07 08:26 | XMS_ITS | Encounter Summary ---
Author Organization [facility] Address [address] [place] [address] Care Team Providers Care Vascular Tech Name Role Phone Neel Lincoln MD Primary Care Provider [phone] Nguyen Muller RN Unavailable [phone] Encounter Details Date Type Department Care Team (Late st Contact Info) Description 03/03/2024 Pre-Procedure Call [facility] [place] [address] Bony Celeste MD Three [facility]. [facility] [address] [place], [place] [phone] Anesthesia Record Procedure Summary Procedure Name Responsible Anesthesiologist Anesthesia Start Time Anesthesia Stop Time XA LEFT ATRIAL APPENDAGE CLOSURE Vanessa Escobar MD 03/03/24 1008 03/03/24 1232 Events Date Time Event Comment 03/03/2024 0949 AN DENTAL APPLIANCE REPAIRER Prepped 0955 0955 AN Anesthesia Prepped 1008 [...] Date: 03/03/24; Removal Time: 1223; Removal Person: DENTAL APPLIANCE REPAIRER; Removal Reason: End of Case 03/03/24 1211 [...] Sex Assigned at Male 03/29/2024 8:05 PM SEED CLEANER Legal Sex Male 1:56 PM CDT Gender [...] 128.8 kg (284 lb) 02/29/2024 9:20 AM SEED CLEANER Height - - Body Mass Index 37.47 01/26/2024 8:27 AM SEED CLEANER documented in this encounter Progress Notes * [...] before amputation. Spoke with pt : Remedios [phone] Lincoln for Medical Clearance due to pt HGBA1C 11.5. Dr Lincoln out of town this week. Dr Alvarez covering. Received call from SRINI Gloria who indicates that Dr Alvarez is not comfortable clearing pt for surgery. However, he asks that we reach out to pt mysql developer, Dr Vega to request clearance. Spoke with Dr Vega's staff who indicate that pt is scheduled to be seen in office today at 3:30. Faxed request to Dr Vega's office for surgery clearance. CLEANER CLEANER documented in this encounter OR Notes * OR PreOp - Lesli Martinez CNP - 02/29/2024 10:37 AM CST Chart reviewed. Per phone interview, patient denies any SOB/CP with 2 FOS. Uses cane since stroke in July. Per phone interview, patient sees reliability manager Dr. Kelley. Please request medical clearance / [...] PCI was unsuccessful from the transradial approach. CLEANER CLEANER documented in this encounter Plan of Treatment Upcoming Encounters Date Type Department Care Team (Late st Contact Info) Description 03/27/2025 3:40 PM SEED CLEANER Office Visit [facility] [address] [facility], [address] [place] [address] J Carlos Banuelos MD [address] [place] [address] 04/10/2025 8:00 AM SEED CLEANER Office Visit [facility] [address] [facility] [place] [address] Estrada Cao DO [address] [facility] [address] [place] [address] 06/12/2025 2:40 PM CDT Office Visit [facility] [place] [address] [place] [address] Neel Lincoln MD [address] [place] [address] 12/03/2025 12:30 PM CDT Office Visit [facility] [address] [place] [address] Yonathan Kelley MD [address] [place] [address] documented as of this encounter Visit Diagnoses Not on filedocumented in this encounter Additional Health Concerns Infection Onset Date Last Indicated Resolved Time COVID-19 Rule Out 03/30/2024 03/30/2024 03/30/2024 6:06 AM SEED CLEANER COVID-19 Rule Out 03/31/2024 03/31/2024 03/31/2024 11:07 AM SEED CLEANER Assessment Noted Time PHQ-9 Depression Total Score: 1 12/04/19 22 1:22 PM CDT documented as of this encounter Care Teams Vascular Tech Relationship Specialty Start Date End Date Neel Lincoln MD [address] [place] [address] [phone] PCP - General INTERNAL MEDICINE 09/02/21 Nguyen Muller, RN [address] [place], [place] [phone] Professional Builder (Ambulatory) REGISTERED NURSE 03/31/2402/06 documented as of this encounter
--- OUTSIDE RECORDS SUMMARY | 2025-03-07 08:26 | XMS_ITS | Clinical Summary ---
Author Organization [facility] Address [address] [place] [address] Phone Care Team Providers Care Licensing Analyst Name Role Phone Neel Lincoln MD Primary Care Provider [phone] Neel Lincoln MD Unavailable [phone] J Carlos Banuelos MD Unavailable [phone] Delmer Heaton MD Unavailable [phone] Lemuel Vega MD Unavailable Allergies Active Allergy [...] Active Insulin Pen Needle (TechLite Plus Pen [place]) 32G X 4 MM [facility] 1 Pen Needle by Does not apply route 5 times daily. 500 Pen Needle 3 02/01/20 24 Active HumaLOG KwikPen 100 UNIT/ML Solution Pen-injector 24 units before each meal; correctional factor insulin of 1:15 if >140 mg/dL, up to 120 units per day 105 mL 1 02/29/20 24 Active ergocalciferol (VITAMIN D) 95088 UNIT CapsuleIndication s:Vitamin D deficiency TAKE 1 [...] 90 Tablet 3 09/06/19 Active Continuous Glucose Prescription Clerk Lenses (Dexcom G7 Prescription Clerk Lenses) Device Check blood glucose before each meal [...] Department Care Team Description 02/27/2025 1:15 PM ADVERTISING DISPATCH CLERK Office Visit [facility] - [place] [address] [place] [address] Lemuel Vega MD Type 2 [...] 02/21/2025 Refill [facility] [address] [place] [address] Lemuel Vega MD Medication Refill from Last 3 Months Immunizations Immunization Administration Dates Next Due Influenza Vaccine, Quadrivalent, PF 02/02/2023,1 ,01/03/2020 Influenza, Seasonal, Injectable, Undefined 12/16 Influenza,Split Virus,Trivalent,Injectable,PF 01/26/2024 Pneumococcal conjugate PCV20 , polysaccharide [id number] conjugate, adjuvant, PF 11/17/2023 Family History Medical [...] Comments Blood Pressure 122/70 02/27/2025 1:27 PM ADVERTISING DISPATCH CLERK Pulse 85 02/27/2025 1:27 PM ADVERTISING DISPATCH CLERK Temperature 36.7 C (98 F) 02/27/2025 1:27 PM ADVERTISING DISPATCH CLERK Respiratory Rate 22 02/27/2025 1:27 PM ADVERTISING DISPATCH CLERK Oxygen Saturation 97% 02/27/2025 1:27 PM ADVERTISING DISPATCH CLERK Inhaled Oxygen Concentration - - Weight 131.7 kg (290 lb 6.4 oz) 02/27/2025 1:27 PM ADVERTISING DISPATCH CLERK Height 185.4 cm (6' 1) 10/04/2024 2:20 PM CDT Body Mass Index 38.31 10/04/2024 2:20 PM CDT Plan of Treatment Upcoming Encounters Date Type Department Care Team (Late st Contact Info) Description 04/02/2025 2:45 PM ADVERTISING DISPATCH CLERK Office Visit [facility] [address] [place] [address] Delmer Heaton MD [address] [place] [address] 05/29/2025 3:30 PM CDT Office Visit [facility] - [place] [address] [place] [address] Lemuel Vega MD [address] [facility] [address] Health Maintenance Due Date Last [...] POCT GLYCOSYLATED HEMOGLOBIN Routine 02/27/2025 1:30 PM ADVERTISING DISPATCH CLERK Type 2 diabetes mellitus with diabetic polyneuropathy, with long-term current use of insulin UR MICROALBUMIN/CREATINI NE RATIO RANDOM Routine 10/04/2024 2:59 PM CDT from Last 3 Months or Most Recently Relevant to Health Maintenance Results * (ABNORMAL) POCT GLYCOSYLATED HEMOGLOBIN (02/27/2025 1:30 PM ADVERTISING DISPATCH CLERK) HGB-A1C 8.7(A) 4 - 6 % Blood 02/27/2025 1:30 PM ADVERTISING DISPATCH CLERK Lemuel Vega MD POINT OF CARE TESTING (MANUAL) F inal Result * (ABNORMAL) UR MICROALBUMIN/CREATININE RATIO RANDOM (10/04/2024 2:59 PM CDT) CREATININE, URINE 61.9 NOT ESTAB. MG/DL CANCER SLURRY CONTROL TENDER [facility] MICROALBUMIN, URINE 19.3 NOT ESTAB. UG/ML CANCER SLURRY CONTROL TENDER [facility] MICROALB/CREAT RATIO 31(H) 0 - 29 MG/G CREAT CANCER SLURRY CONTROL TENDER [facility] Comment: NORMAL: 0 - 29 MODERATELY INCREASED: 30 - 300 SEVERELY INCREASED: >300 10/04/2024 2:59 PM CDT Narrative CANCER SLURRY CONTROL TENDER [facility] - 10/05/2024 1:08 PM CDT TESTING PERFORMED AT: [CB] [facility] [address] [facility], [place], [address], PHONE: [phone], RESERVATIONS SPECIALIST: YENNI RODRIGUEZ, PHD us Lemuel Vega MD URINE ORDERABLES Final Result CANCER SLURRY CONTROL TENDER [facility] [place] [address], from Last 3 Months or Most Recently Relevant to Health Maintenance Insurance MEDICARE [facility] MEDICARE [employer] Care Teams Licensing Analyst Relationship Specialty Start Date End Date Neel Lincoln MD [address] [place] [address] PCP - General Family Medicine 12/17/23 Neel Lincoln MD [address] [place] [address] Family Medicine 12/17/23 J Carlos Banuelos MD [address] [place] [address] Neuromuscular Medicine 11/02/23 Delmer Heaton MD [address] [place] [phone] Consulting Physician Oncology 11/02/23 Lemuel Vega MD [address] [phone] Consulting Physician Endocrinology 01/26/24
--- OUTSIDE RECORDS SUMMARY | 2025-03-07 08:26 | XMS_ITS | Encounter Summary ---
Author Organization [facility] Address [address] [place] [address] Care Team Providers Care Airconditioning Engineer Name Role Phone Neel Lincoln MD Primary Care Provider [phone] Nguyen Muller RN Unavailable [phone] Encounter Details Date Type Department Care Team (Latest Contact Info) Description 03/01/2024 DSC Trading Message Enc [facility] Interventional Pain Management [place] [address] [id number] [employer], [facility] Provider PAIN CLINIC CONSULTATION Social History [...] Sex Assigned at Male 03/29/2024 8:05 PM WORKDAY MANAGER Legal Sex Male 1:56 PM CDT Gender Identity Not on file Sexual Orientation Not on file Occupation Industry Job Start Date Job End Date Not on file Not on file Not on file Not on file documented as of this encounter Plan of Treatment Upcoming Encounters Date Type Department Care Team (Late st Contact Info) Description 03/27/2025 3:40 PM WORKDAY MANAGER Office Visit [facility] Multispecialty Care - [facility] [address] [facility], [address] [place] [address] J Carlos Banuelos MD [address] [facility] [place] [address] 04/10/2025 8:00 AM WORKDAY MANAGER Office Visit [facility] Medical [facility] Multispecialty Care - [facility] [address] [facility] [address] [place] [address] Estrada Cao DO [address] [facility] [address] [place] [address] 06/12/2025 2:40 PM CDT Office Visit [facility] Family & [facility] - [place] [address] [place] [address] Neel Lincoln MD [address] [place] [address] 12/03/2025 12:30 PM CDT Office Visit [facility] [address] [place] [address] Yonathan Kelley MD [address] [place] [address] documented as of this encounter Visit Diagnoses Not on filedocumented in this encounter Additional Health Concerns Infection Onset Date Last Indicated Resolved Time COVID-19 Rule Out 03/30/2024 03/30/2024 03/30/2024 6:06 AM WORKDAY MANAGER COVID-19 Rule Out 03/31/2024 03/31/2024 03/31/2024 11:07 AM WORKDAY MANAGER Assessment Noted Time PHQ-9 Depression Total Score: 1 12/04/19 22 1:22 PM CDT documented as of this encounter Care Teams Airconditioning Engineer Relationship Specialty Start Date End Date Neel Lincoln MD [address] [place] [address] PCP - General INTERNAL MEDICINE 09/02/21 Nguyen Muller RN [address] [place] [address] Molder Pipe Covering (Ambulatory) REGISTERED NURSE 03/31/2402/06 documented as of this encounter
--- OUTSIDE RECORDS SUMMARY | 2025-03-07 08:26 | XMS_ITS | Clinical Summary ---
Author Organization [facility] Address [address] [place] [address] Care Team Providers Care Software Engineering Project Manager Name Role Phone Neel Lincoln MD Primary Care Provider [phone] Allergies Active Allergy Reactions Criticality Noted Date Comments Acetazolamide Dystonia,Other (see comment) High 06/19/2022 He states he was dizzy [...] Doxycycline Shortness of Breath High 01/15/2023 Medications nitroglycerin 0.[address] 1 tablet (0.4 mg total) under the tongue every 5 (five) minutes as needed for Chest Pain (x3 doses). 022 Active TOUJEO SOLOSTAR 300 UNIT/ML Solution Pen-injector Inject 36 Units into the skin 2 (two) times a day. 022 Active acetaminophen (TYLENOL) 325 MG tablet Take 2 tablets (650 mg total) by mouth every 6 (six) hours as needed. FOR PAIN 023 Active metFORMIN ER (GLUCOPHAGE-XR) 500 MG 24 hr tablet Take 1 tablet (500 mg total) by mouth 2 (two) times a day. 023 Active insulin lispro, 1 Unit Dial, (HUMALOG KWIKPEN) 100 UNIT/ML injection (PEN)Indications: Type 2 diabetes mellitus with other specified complication, with long-term current use of insulin ([facility]) INJECT UNDER THE SKIN TWICE A DAY PER: 200-300:5UNITS, 301-400:7UNITS, 400+:10UNITS. MAX 20UNITS/DAY 6 mL 5 024 Active Additional Information Patient taking differently: 24 Units Subcutaneous 3 times daily before meals, Reported on 03/06/2025 folic acid (FOLVITE) 1 MG tabletIndications :Neuropathy Take 1 tablet (1 mg total) by mouth daily. 30 tablet 11 024 Active Lancets 30G MiscIndications:U ncontrolled type 2 diabetes mellitus with hyperglycemia ([facility] HHS/HCC) USE TO TEST TWICE DAILY 200 each 3 024 Active KROGER BLOOD GLUCOSE TEST test stripIndications: Uncontrolled type 2 diabetes mellitus with hyperglycemia ([facility]) 1 STRIP BY DOES NOT APPLY ROUTE 4 (FOUR) TIMES DAILY BEFORE MEALS AND NIGHTLY. 400 strip 5 024 Active CONTOUR NEXT TEST test stripIndications: Type 2 diabetes mellitus with other specified complication, with long-term current use of insulin ([facility]) USE TO TEST 4 TIMES DAILY BEFORE MEALS AND NIGHTLY 400 strip 5 024 Active Insulin Pen Needle (TECHLITE PEN NEEDLES) 31G X 5 MM MiscIndications:T ype 2 diabetes mellitus with other specified complication, with long-term current use of insulin ([facility] H[facility]/HCC) USE 1 NEEDLE 4 TIMES A DAY 400 each 024 Active vitamin D3, cholecalciferol, 125 mcg capsule Take 1 capsule (125 mcg total) by mouth daily. Active Pyridoxine 100 MG tabletIndications :Neuropathy Take 0.5 tablets (50 mg total) by mouth daily. 30 tablet 6 025 Active levETIRAcetam (KEPPRA) 250 MG tablet Take 1 tablet (250 mg total) by mouth 2 (two) times daily. Active metoprolol succinate ER (TOPROL-XL) 100 MG 24 hr tabletIndications :Coronary artery disease involving [place] coronary artery of [place] heart with other form of angina pectoris,Abdomina l aortic aneurysm (AAA) without rupture, unspecified part,Permanent atrial fibrillation ([facility] H[facility]/HCC) TAKE 1 TABLET BY MOUTH TWICE DAILY 180 tablet 3 025 Active lisinopril (PRINIVIL) 20 MG tabletIndications :Essential (primary) hypertension TAKE 1 TABLET BY MOUTH DAILY 90 tablet 3 025 Active levothyroxine (SYNTHROID) 75 MCG tabletIndications :Acquired hypothyroidism TAKE 1 TABLET BY MOUTH EVERY MORNING 90 tablet 3 025 Active omeprazole (PRILOSEC) 40 MG capsuleIndication s:Gastroesophagea l reflux disease without esophagitis TAKE 1 CAPSULE BY MOUTH DAILY 90 capsule 3 025 Active isosorbide mononitrate ER (IMDUR) 30 MG 24 hr tabletIndications :Essential (primary) hypertension TAKE 1 TABLET BY MOUTH DAILY 90 tablet 3 025 Active fluticasone propionate (FLONASE) 50 MCG/ACT nasal sprayIndications: Allergic rhinitis due to pollen, unspecified seasonality 1 spray by Nasal route daily. 48 g 6 025 Active levETIRAcetam (KEPPRA) 500 MG tabletIndications :Localization-rel ated focal epilepsy with complex partial seizures ([facility]/HCC) Take 1 tablet (500 mg total) by mouth 2 (two) times daily. 180 tablet 11 025 Active ASPIRIN LOW DOSE 81 MG chewable tabletIndications :Hyperlipidemia, mixed,Essential (primary) hypertension CHEW AND SWALLOW 1 TABLET BY MOUTH DAILY AT 8AM 90 tablet 3 025 Active gabapentin (NEURONTIN) 800 MG tabletIndications :Diabetic polyneuropathy associated with type 2 diabetes mellitus ([facility]/HCC) Take 1 tablet (800 mg total) by mouth 3 (three) times daily. 90 tablet 3 025 Active potassium chloride CR (K-TAB) 20 MEQ tabletIndications :Essential (primary) hypertension Take 1 tablet (20 mEq total) by mouth daily. 14 tablet 025 Active ezetimibe (ZETIA) 10 MG tabletIndications :Coronary artery disease involving [place] coronary artery of [place] heart with other form of angina pectoris,Hyperlip idemia, mixed,PAD (peripheral artery disease),Type 2 diabetes mellitus with other specified complication, with long-term current use of insulin ([facility]),Abdomina l aortic aneurysm (AAA) without rupture, unspecified part TAKE 1 TABLET BY MOUTH DAILY 90 tablet 3 Active atorvastatin (LIPITOR) 80 MG tabletIndications :Hyperlipidemia, mixed TAKE 1 TABLET BY MOUTH EVERY NIGHT AT BEDTIME 90 tablet 3 Active gemfibrozil (LOPID) 600 MG tabletIndications :Hyperlipidemia, mixed TAKE 1 TABLET BY MOUTH TWICE DAILY 180 tablet 3 Active furosemide (LASIX) 20 MG tabletIndications :Essential (primary) hypertension TAKE 1 TABLET BY MOUTH DAILY 90 tablet 3 025 Active levETIRAcetam (KEPPRA) 500 MG tabletIndications :Seizure ([facility]) TAKE 1 TABLET BY MOUTH TWICE A DAY 60 tablet 1 025 2024 Discontinued(D uplicate Med) atorvastatin (LIPITOR) 80 MG tabletIndications :Hyperlipidemia, mixed TAKE 1 TABLET BY MOUTH EVERY NIGHT AT BEDTIME 90 tablet 1 025 2024 Discontinued gabapentin (NEURONTIN) 800 MG tabletIndications :Diabetic polyneuropathy associated with type 2 diabetes mellitus ([facility]) Take 1 tablet (800 mg total) by mouth 3 (three) times daily. 90 tablet 025 2024 Discontinued(R eorder) potassium chloride CR (K-TAB) 20 MEQ tabletIndications :Essential (primary) hypertension Take 1 tablet (20 mEq total) by mouth daily. 90 tablet 3 025 2024 Discontinued(R eorder) ezetimibe (ZETIA) 10 MG tabletIndications :Coronary artery disease involving [place] coronary artery of [place] heart with other form of angina pectoris,Hyperlip idemia, mixed,PAD (peripheral artery disease),Type 2 diabetes mellitus with other specified complication, with long-term current use of insulin ([facility]),Abdomina l aortic aneurysm (AAA) without rupture, unspecified part TAKE 1 TABLET BY MOUTH DAILY 90 tablet 025 2024 Discontinued furosemide (LASIX) 20 MG tabletIndications :Essential (primary) hypertension TAKE 1 TABLET BY MOUTH DAILY 90 tablet 025 2024 Discontinued gemfibrozil (LOPID) 600 MG tabletIndications :Hyperlipidemia, mixed TAKE 1 TABLET BY MOUTH TWICE DAILY 180 tablet 025 2024 Discontinued Active Problems Problem Noted Date Diagnosed Date Cerebrovascular accident (CVA) 08/31/2024 Small bowel obstruction 08/26/2024 Chronic obstructive pulmonar y disease, unspecified COPD type 08/16/2024 Localization-related focal e pilepsy with complex partial seizures 08/16/2024 Asymptomatic bilateral carotid artery stenosis 0 08/14/2024 Rathke's cleft cyst 04/14/2024 Type 2 diabetes mellitus wit h diabetic polyneuropathy, with long-term current use of insulin 01/30/2024 Acquired absence of left great toe 08/16/2023 Morbid (severe) obesity due to excess calories 0 08/16/2023 Malignant melanoma of skin of chest 06/23/2023 Cancer of skin of chest 06/18/2023 06/18/19 24 Eschar of toe 11/02/2022 Chronic pain 10/19/2022 Hypokalemia 10/19/2022 Insomnia 10/19/2022 Positive culture findings in wound 10/19/2022 Tobacco use 10/19/2022 Acute on chronic diastolic heart failure 023 Type 2 diabetes mellitus wit h diabetic peripheral angiopathy and gangrene, with long-term current use of insulin 09/01/2022 Amputation of toe of right foot 08/19/2022 Status post aortic bifurcation bypass graft 09/2022 Hemiparesis affecting right side as late effect of cerebrovascular accident (CVA) 07/20/2022 S/P PTCA (percutaneous transluminal coronary ang ioplasty) 10/13/2021 PAD (peripheral artery disease) 10/13/2021 Type 2 diabetes mellitus wit h other specified complication, with long-term current use of insulin 10/13/2021 Hyperlipidemia associated with type 2 diabetes m ellitus 09/02/2021 Diabetic neuropathy associat ed with type 2 diabetes mellitus 09/02/2021 Internal derangement of knee 09/02/2021 Hypothyroidism 09/02/2021 AAA (abdominal aortic aneurysm) 09/02/2021 Cataract 09/02/2021 Uncontrolled diabetes mellitus with hyperglycemi a 06/24/2021 Atherosclerosis of [place] ar teries of extremities with rest pain, bilateral legs 01/17/2021 Overview (10/19/2022): Added automatically from request for surgery [id number] Hypertension associated with type 2 diabetes kelly litus 07/12/2020 Coronary artery disease due to type 2 diabetes m ellitus 07/12/2020 GERD (gastroesophageal reflux disease) Sleep apnea 07/12/2020 Type 2 diabetes mellitus wit h atherosclerosis of [place] arteries of extremity with intermittent claudication 07/09/2020 Overview (04/11/2024): Added automatically from request for surgery [id number] Last Assessment & Plan: He has widely patent fem-pop bypasses bilaterally however there's been significant decline in the left SEB with a now absent left toe pressure. There's been less significant decline of the right SEB. I will discuss the changes in his ABIs with Dr. Flynn. We may order a CTA for evaluation of possible recurrent disease developing in the aorto-iliac arteries. Added automatically from request for surgery [id number] Chronic pain of both hips 02/26/2020 Overview (09/02/2021): Last Assessment & Plan: Bilateral hip claudication with chronically occluded bilateral [...] we're convinced it's contributing to his symptoms. Status post femoral-popliteal bypass surgery 04/2019 Overview (10/21/2023): Last Assessment & Plan: Patent right leg bypass with stable right leg perfusion. Last Assessment & Plan: Widely patent aorto-bifemoral bypass and bilateral fem-pop bypasses. Repeat ABIs and bilateral LE duplex scans again in six months. S/P carotid endarterectomy 01/15/2020 Overview (10/21/2023): Last Assessment & Plan: Left SFA stent patent. Repeat arterial Doppler in six months. Our office will contact him to make the appointment when the time comes. Certainly if there are interval problems, we would be happy to see him sooner. Last Assessment & Plan: Due for follow-up carotid doppler summer 2023. Will coordinate with his 6 month f/u studies of his legs. Atrial fibrillation 05/19/2017 Resolved Problems Problem Noted Date Diagnosed Date Resolved Date Type 1 diabetes mellitus 08/31/2024 Metabolic encephalopathy 03/29/202406/2024 Encounters Date Type Department Care Team Description 03/06/2025 3:20 PM PATTERN HANGER Office Visit [facility] [address] [phone] Neel Lincoln MD Follow Up (Patient is here for a 3 month follow up.); Diabetes (Patient sees Dr. Vega @ [facility]. Last A1c on 02/27 was 8.7%.); Hyperlipidemia; Hypothyroidism; GERD 03/06/2025 Travel 02/27/2025 Scan HEALTH INFO SRVCS Scanned, [facility] 02/26/2025 Telephone [facility] [address] [phone] Neel Lincoln MD Medication Request 02/07/2025 Scan HEALTH INFO SRVCS Scanned, [facility] 01/31/2025 Patient Out[facility] [address] [place] [address] Clarissa Gonzalez LPN Pre-visit Gap Closure 01/12/2025 Scan HEALTH INFO SRVCS Scanned, [facility] 12/20[facility] [address] [place] [address] J Carlos Banuelos MD Medication Request from Last 3 Months Immunizations Immunization Administration Dates Next Due Fluzone (IIV3, Trivalent, 0.5 ML Prefilled Syrin ge) 01/26/2024 Fluzone 6 Months+ Quad (0.5 mL Prefilled Syringe ) 02/02/2023 Influenza Adult (Generic) 12/20/2020,01/03/2020 MODERNA COVID-19 (12+) MRNA, LNP-S, PF, 100 MCG/ 0.5 ML DOSE 07/09/2020,06/11/2020 Pneumococcal (Prevnar 20) 11/17/2023 Family History Medical History Relation Comments COPD Brother 1 Colon Cancer Brother 1 Peripheral vascular disease Brother 1 lung mass Brother 1 non-cancerous, l obectomy No Known Problems Brother 2 CABG Father x3 Coronary artery disease Father Diabetes Father Heart Attack Father Hyperlipidemia Father Hypertension Father Alzheimer's disease Maternal Aunt 1 Stroke Maternal Aunt 2 Breast Cancer Maternal Aunt 3 CABG Maternal Grandfather Coronary artery disease Maternal Grandfather Heart Attack Maternal Grandfather CHF Maternal Grandmother Atrial fibrillation Mother Breast Cancer Mother Coronary artery disease Mother Diabetes Mother Heart Attack Mother Hyperlipidemia Mother Pacemaker Mother Stent Cardiac Mother Thyroid Disease Mother Cancer Paternal Grandfather unknown typ e [place] Paternal Grandfather Diabetes Paternal Grandmother Cancer Paternal Uncle 1 stomach cancer Seizures Paternal Uncle 2 Diabetes Sister Relation Status Comments Brother 1 Alive Brother 2 Alive Father (Age 55) Maternal Aunt 1 Maternal Aunt 2 Maternal Aunt 3 Alive Maternal Grandfather Maternal Grandmother Mother Alive Paternal Grandfather Paternal Grandmother Paternal Uncle 1 Paternal Uncle 2 Sister Alive Social History Tobacco Use Types [...] doctor or pharmacy? Rarely 03/29/2024 [facility] Utilities Answer Date Recorded In the past 12 months has e [employer], gas, oil, or water company threatened to shut off services in your [...] week 03/29/2024 How often do you attend [facility] or church services? 1 to 4 times per year 03/29/2024 Do you belong to any clubs o r organizations such as caodaism groups, unions, fraternal or athletic groups, or [...] Recorded Patient Health Questionnaire-2 Score 0 04/04/2024 [facility] of Occupat ional Health - Occupational Stress [...] were you homeless or living in a long-term (including now)? No 03/29/2024 Sex and Gender Information Value Date Recorded Sex Assigned at Male 03/29/2024 8:05 PM PATTERN HANGER Legal Sex Male 1:56 PM CDT Gender Identity Not on file Sexual Orientation Not on file Occupation Industry Job Start Date Job End Date Not on file Not on file Not on file Not on file Last Filed Vital Signs Vital Sign Reading Time Taken Comments Blood Pressure 108/62 03/06/2025 3:25 PM PATTERN HANGER Pulse 57 03/06/2025 3:25 PM PATTERN HANGER Temperature 36.7 C (98.1 F) 03/06/2025 3:25 PM PATTERN HANGER Respiratory Rate 20 11/27/2024 3:35 PM CDT Oxygen Saturation 92% 03/06/2025 3:25 PM PATTERN HANGER Inhaled Oxygen Concentration - - Weight 130.8 kg (288 lb 4.8 oz) 03/06/2025 3:25 PM PATTERN HANGER Height 182.9 cm (6') 03/06/2025 3:25 PM PATTERN HANGER Body Mass Index 39.1 03/06/2025 3:25 PM PATTERN HANGER Plan of Treatment Upcoming Encounters Date Type Department Care Team (Late st Contact Info) Description 03/27/2025 3:40 PM PATTERN HANGER [facility] [address] [facility], [address] [place] [phone] J Carlos Banuelos MD [address] [place] [phone] 04/10/2025 8:00 AM PATTERN HANGER Office Visit [facility] - [address], [address] [place] [phone] Estrada Cao DO 3 [facility] [address] [place] [phone] 06/12/2025 2:40 PM CDT Office Visit [facility] - [place] [address] [place] [phone] Neel Lincoln MD [address] [place] [address] 12/03/2025 12:30 PM CDT Office Visit [facility] [address] [place] [address] Yonathan Kelley MD [facility] [address] [place] [address] Health Maintenance Due Date Last Done Comments Colorectal Cancer Screening Colonoscopy (10 Years) 1960 Kidney Health Evaluation 1960 Annual Physical 12/08/1963 Hepatitis C 1978 DTaP, Tdap and Td Vaccines (1 - Tdap) 12/08/1979 Zoster Vaccines (1 of 2) 2010 RSV Immunization or 60+ Years (1 - Risk 60-74 years 1-dose series) 2020 COVID-19 Vaccine (3 - season) 2024 07/09/2020, 06/11/2020 Influenza Adult (#1) 2024 01/26/2024, 02/02/2023, 12/20/2020, Additional history exists Lipid Panel 03/29/2025 03/29/2024, 01/13, 07/20/2022, Additional history exists Hemoglobin A1C 05/10/2025 11/07/2024, 08/13, 08/01/2024, Additional history exists Diabetes: Retinopathy Eye Exam 12/04/2025 12/04/2024, 08/21/2024, 02/07/2024, Additional history exists Pneumococcal Vaccine: 50+ Years Completed 11/17/2023 PHQ-2 (Physician Benton) Completed 04/04/2024 Hepatitis A Vaccines Aged Out No long er eligible based on patient's age to complete this topic Meningococcal B Vaccine Aged Out No l onger eligible based on patient's age to complete this topic Meningococcal Vaccine Aged Out No juan manda eligible based on patient's age to complete this topic RSV Immunizations Under 20 Months Aged Out No longer eligible based on patient's age to complete this topic Goals Goal Patient Goal Type Associated Problems Recent Progress Patient-Stated? Author Consistently take medications as Prescribed Lifestyle On track(2024 1:56 PM PATTERN HANGER) Nguyen Solis RN Health - patient able to perform ADLs independently Lifestyle On track(2024 1:56 PM PATTERN HANGER) No Nguyen Muller parts product analyst Procedure Name Priority Date/Time Associated Diagnosis Comments XR CHEST PA+LAT Routine 03/06/2025 4:33 PM PATTERN HANGER Malignant melanoma of skin of chest (CMS/HCC HHS/HCC) DIABETIC RETINOPATHY EXAM (NEGATIVE)(SCAN ORDER) Routine 12/04/2024 HEMOGLOBIN GLYCOSYLATED A1C Routine 11/07/2024 LIPID PANEL Routine 03/29/2024 8:40 PM PATTERN HANGER from Last 3 Months or Most Recently Relevant to Health Maintenance Results * XR CHEST PA+LAT (03/06/2025 4:33 PM PATTERN HANGER) Anatomical Region Laterality Modality Chest Radiographic Nini ging 03/06/2025 4:39 PM PATTERN HANGER Impressions 03/06/2025 4:41 PM PATTERN HANGER =====IMPRESSION:===== No acute findings. Ordered By: YONAS RITTER Interpreted By: Irving Hollins MD, 03/06/2025 4:39 PM Narrative 03/06/2025 4:41 PM PATTERN HANGER [facility] [place] [address] EXAMINATION: PA AND LATERAL CHEST Exam date/time: 03/06/2025 4:25 PM Reason For Exam: malignant melanoma Comparison: 04/11/2024 portable chest Technique: PA and lateral views. Findings: Heart size normal. Proximal airways unremarkable. No suspicious pulmonary lesion, pneumothorax, or pleural effusion. No evidence of focal atelectasis or consolidation. No radiographic evidence of pulmonary nodular opacities. Radiopacity in left atrial appendage region consistent with watchman device. Procedure Note Irving Hollins MD - 03/06/2025 [facility] [place] [address] EXAMINATION: PA AND LATERAL CHEST Exam date/time: 03/06/2025 4:25 PM Reason For Exam: malignant melanoma Comparison: 04/11/2024 portable chest Technique: PA and lateral views. Findings: Heart size normal. Proximal airways unremarkable. No suspiciouspulmonary lesion, pneumothorax, or pleural effusion. No evidence of focalatelectasis or consolidation. No radiographic evidence of pulmonarynodular opacities. Radiopacity in left atrial appendage region consistentwith watchman device. =====IMPRESSION:===== No acute findings. Ordered By: YONAS RITTER Interpreted By: Irving Hollins MD, 03/06/2025 4:39 PM Yonas Ritter MD GENERAL IMAGING Final Result * DIABETIC RETINOPATHY EXAM (NEGATIVE) (12/04/2024) [facility] Scanned SCANNING Final Resu lt [facility] ON[facility] * (ABNORMAL) HEMOGLOBIN, GLYCOSYLATED (11/07/2024) HGB A1C 10.2(A) % 11/07/2024 Default History Genericprovider LABORATORY Edited Result - Final * LIPID PANEL (03/29/2024 8:40 PM PATTERN HANGER) CHOLESTEROL 143 <200 MG/DL 03/29/2024 10:26 PM PATTERN HANGER [facility] TRIGLYCERIDES 90 <150 MG/DL 03/29/2024 10:26 PM PATTERN HANGER [facility] HDL 46 >40.0 MG/DL 03/29/2024 10:26 PM [facility] LDL (CALCULATED) 79 <100 MG/DL 03/29/19 10:26 PM PATTERN HANGER [facility] NON HDL CHOLESTEROL 97 <130 MG/DL 03/29 10:26 PM PATTERN HANGER [facility] CHOL/HDL RATIO 3.1 0.0 - 4.5 03/29/2024 10:26 PM PATTERN HANGER [facility] VLDL CALCULATION 18 5 - 55 MG/DL 03/29/2024 10:26 PM PATTERN HANGER [facility] LIPID INTERPRETATION 03/29/2024 10:26 PM PATTERN HANGER [facility] Comment: [facility] CONCENSUS REPORT RECOMMENDATIONS: ADULT CHILD LOW RISK: CHOLESTEROL <200 <170 TRIGLYCERIDE <150 --- HDL >=60 --- LDL <100 <110 BORDERLINE: CHOLESTEROL 200-239 170-199 TRIGLYCERIDE 150-199 --- HDL 40-59 --- LDL 100-159 110-129 HIGH RISK: CHOLESTEROL >=240 >=200 TRIGLYCERIDE >=200 --- HDL <40 --- LDL >=160 >=130 03/29/2024 8:40 PM PATTERN HANGER Heather Larose DO LABORATORY Final Result [facility] [address] [place] [address], from Last 3 Months or Most Recently Relevant to Health Maintenance Insurance MEDICARE [facility] Advance Directives * Full Code (Latest Code Status on File) Date Activated Date Inactivated Comments 03/29/2024 9:53 PM 04/02/2024 4:01 PM * Full Code Date Activated Date Inactivated Comments 03/03/2024 12:39 PM 03/03/2024 5:40 PM Care Teams Software Engineering Project Manager Relationship Specialty Start Date End Date Neel Lincoln MD [address] [place] [id number] PCP - General INTERNAL MEDICINE 09/02/21
--- OUTSIDE RECORDS SUMMARY | 2025-03-07 08:26 | XMS_ITS | Encounter Summary ---
Author Organization [facility] Address [address] [place] [address] Care Team Providers Care Wax Blender Name Role Phone Neel [place] MD Primary Care Provider [phone] Encounter Details Date Type Department Care Team [...] from your doctor or pharmacy? Rarely 03/29/2024 [facility] Utilities Answer Date Recorded In the past 12 months has [facility] [place], gas, oil, or water [employer] threatened to shut off services in your [...] How often do you attend chur or latter-day services? 1 to 4 times per year 03/29/2024 Do you belong to any clubs o r organizations such as taoism groups, unions, fraternal or athletic groups, or [...] Recorded Patient Health Questionnaire-2 Score 0 04/04/2024 [facility] - Occupational Stress [...] any time in the past 12 m [facility], were you homeless or living in a assisted (including now)? No 03/29/2024 Sex and Gender Information Value Date Recorded Sex Assigned at Male 03/29/2024 8:05 PM HORSERADISH GRINDER Legal Sex Male 1:56 PM CDT Gender [...] Assessment Author Status No 03/29/2024 11:07 PM HORSERADISH GRINDER Long, Jacki R, RN Active documented as of this encounter Mental Status * Because of a physical, mental, or emotional condition, do you have serious difficulty concentrating, remembering, or making decisions? Answer Entry Date Author Status No 03/29/2024 11:07 PM HORSERADISH GRINDER Jacki Hollins RN Active documented in this encounter Plan of Treatment Upcoming Encounters Date Type Department Care Team (Late st Contact Info) Description 03/27/2025 3:40 PM HORSERADISH GRINDER Office Visit [facility] [address] [place] [address] J Carlos Banuelos MD [address] [place] [address] 04/10/2025 8:00 AM HORSERADISH GRINDER Office Visit [facility] [address] [place] [id number] Estrada Cao DO [address] [place] [address] 06/12/2025 2:40 PM CDT Office Visit [facility] [place] [address] [place] [address] Neel [place] MD [address] [place] [address] 12/03/2025 12:30 PM CDT Office Visit [facility] [address] [place] [address] Yonathan Kelley MD [address] [place] [address] documented as of this encounter Goals Goal Patient Goal Type Associated Problems Recent Progress Patient-Stated? Author Consistently take medications as Prescribed Lifestyle On track(2024 1:56 PM HORSERADISH GRINDER) No Nguyen Muller, RN Health - patient able to perform ADLs independently Lifestyle On track(2024 1:56 PM HORSERADISH GRINDER) No Nguyen Muller RN documented as of this encounter Visit Diagnoses Not on filedocumented in this encounter Additional Health Concerns Assessment Noted Time PHQ-9 Depression Total Score: 1 12/04/19 22 1:22 PM CDT documented as of this encounter Care Teams Wax Blender Relationship Specialty Start Date End Date Neel [place] MD [address] [place] [address] PCP - General INTERNAL MEDICINE 09/02/21 documented as of this encounter
--- OUTSIDE RECORDS SUMMARY | 2025-03-07 08:26 | XMS_ITS | Encounter Summary ---
Author Organization [facility] Address [address] [place] [address] Care Team Providers Care Furniture Delivery Driver Name Role Phone Neel [place] MD Primary Care Provider [phone] Nguyen Muller RN Unavailable [phone] Encounter Details Date Type Department Care Team (Late st Contact Info) Description 02/29/2024 Pre-Procedure Call [facility] [place] [address] Bony Celeste MD Three [facility] [address] [place], [place] [address] Social History Tobacco Use Types Packs/Day Years [...] Sex Assigned at Male 03/29/2024 8:05 PM QUALITY CONTROL ASSISTANT Legal Sex Male 1:56 PM CDT Gender Identity Not on file Sexual Orientation Not on file Occupation Industry Job Start Date Job End Date Not on file Not on file Not on file Not on file documented as of this encounter Plan of Treatment Upcoming Encounters Date Type Department Care Team (Late st Contact Info) Description 03/27/2025 3:40 PM QUALITY CONTROL ASSISTANT Office Visit [facility] [address], [address] [place] [address] J Carlos Banuelos MD [address] [place] [address] 04/10/2025 8:00 AM QUALITY CONTROL ASSISTANT [facility] [address] [place] [address] Estrada Cao DO [address] [place] [address] 06/12/2025 2:40 PM CDT Office Visit [facility] - [place] [address] [place] [address] Neel [place] MD [address] [place] [address] 12/03/2025 12:30 PM CDT Office Visit [facility] [address] [place] [address] Yonathan Kelley MD Three [facility] [place] [address] documented as of this encounter Visit Diagnoses Not on filedocumented in this encounter Additional Health Concerns Infection Onset Date Last Indicated Resolved Time COVID-19 Rule Out 03/30/2024 03/30/2024 03/30/2024 6:06 AM QUALITY CONTROL ASSISTANT COVID-19 Rule Out 03/31/2024 03/31/2024 03/31/2024 11:07 AM QUALITY CONTROL ASSISTANT Assessment Noted Time PHQ-9 Depression Total Score: 1 12/04/19 22 1:22 PM CDT documented as of this encounter Care Teams Furniture Delivery Driver Relationship Specialty Start Date End Date Neel [place] MD [address] [place] [address] PCP - General INTERNAL MEDICINE 09/02/21 Nguyen Muller RN [address] [place] [address] Concrete Pointer (Ambulatory) REGISTERED NURSE 03/31/2402/06 documented as of this encounter
--- OUTSIDE RECORDS SUMMARY | 2025-03-07 08:27 | XMS_ITS | Clinical Summary ---
Author Organization [facility] Address [address] [place] [address] Care Team Providers Care Patent Litigation Associate Name Role Phone Moisés Flynn MD Unavailable Eileen Mueller MD Unavailable Neel [place] MD Primary Care Provider [phone] Wes Redmond MD Unavailable Moisés Bryant MD Unavailable Nikolai Russell MD Unavailable [phone] Allergies Active Allergy Reactions Criticality Noted [...] CAD (coronary artery disease) 07/12/2020 Atherosclerosis of [place] of extremities with intermittent claudication, bilateral legs 07/09/2020 Overview (07/09/2020): Added automatically from request for surgery [id number] Assessment & Plan (06/09/2021 12:42 PM CDT): [...] 02/26/2020 Assessment & Plan (02/26/2020 9:38 AM SUPERVISOR FUR FLOOR WORKER): Bilateral hip claudication with chronically occluded bilateral [...] 01/15/2020 Assessment & Plan (03/04/2023 10:37 AM SUPERVISOR FUR FLOOR WORKER): Due for follow-up carotid doppler summer 2023. Will coordinate with his 6 month f/u studies of his legs. Assessment & Plan (01/15/2020 2:00 PM SUPERVISOR FUR FLOOR WORKER): Left SFA stent patent. Repeat arterial Doppler in six months. Our office will contact him to make the appointment when the time comes. Certainly if there are interval problems, we would be happy to see him sooner. Status post femoral-popliteal bypass surgery 04/2019 Assessment & Plan (03/04/2023 10:36 AM SUPERVISOR FUR FLOOR WORKER): Widely patent aorto-bifemoral bypass and bilateral fem-pop bypasses. Repeat ABIs and bilateral LE duplex scans again in six months. Assessment & Plan (12/18/2020 10:32 AM CDT): Patent right leg bypass with stable right leg perfusion. Assessment & Plan (01/15/2020 1:59 PM SUPERVISOR FUR FLOOR WORKER): Widely patent right leg bypass. Monitor with repeat Duplex scan in six months. Our office will contact him to make the appointment when the time comes. Certainly if there are interval problems, we would be happy to see him sooner. Generalized postprandial abdominal pain 01/15/20 20 Assessment & Plan (01/15/2020 1:57 PM SUPERVISOR FUR FLOOR WORKER): Arrange CT Angiogram abdomen/pelvis to determine if [...] Resolved Date Claudication 01/22/2021 03/03/2023 Atherosclerosis of [place] of extremities with rest pain, bilateral legs 01/17/2021 03/03/2023 Overview (01/17/2021): Added automatically from request for surgery [id number] Atherosclerosis of [place] of extremities with intermittent claudication, left leg 06/01/2019 07/12/2020 Overview (06/01/2019): Added automatically from request for surgery [id number] Stenosis of peripheral vascular stent 06/01/2019 07/12/2020 Overview (06/01/2019): Added automatically from request for surgery [id number] Foreign body of great toe of right foot with infection 10/17/2018 07/12/2020 Atherosclerosis of [place] of left lower extremity with intermittent claudication 08/17/2018 07/12/2020 Overview (08/17/2018): Added automatically from request for surgery [id number] Assessment & Plan (05/22/2019 2:44 PM CDT): [...] 07/12/2020 Assessment & Plan (01/15/2020 2:01 PM SUPERVISOR FUR FLOOR WORKER): 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 Revascularization is not possible. Continue exercise to encourage collateral flow. Encounter for therapeutic drug monitoring 05/19/2017 07/12/2020 Surgical follow-up care 02/03/201606/15 Overview (06/18/2016): Postoperative follow-up Sebaceous cyst 12/30/2015 07/10/2022 Overview (06/18/2016): Sebaceous cyst Atherosclerosis of [place] artery of extremity 05/08/19 16 07/12/2020 Overview (06/18/2016): Atherosclerosis of [place] artery of right lower extremity with rest pain Encounters Date Type Department Care Team Description 02/22/2025 Telephone [facility] Ophthalmology [address], [address] [place] [address] Romana Jurado MD PhD 02/20/2025 Telephone [facility] Ophthalmology [address] [place] [address] Romana Jurado MD PhD results requested 01/23/2025 3:00 PM SUPERVISOR FUR FLOOR WORKER Imaging Exam [facility] Ophthalmology [address] [place] [phone] Epiretinal membrane (ERM) of both eyes 01/16/2025 2:00 PM SUPERVISOR FUR FLOOR WORKER Imaging Exam [facility] Medicine Ophthalmology [address] [place] [phone] Epiretinal membrane (ERM) of both eyes 01/16/2025 Telephone [facility] Ophthalmology [address] [place] [address] Romana Jurado MD PhD ERG Questions 01/10/2025 Orders Only [facility] Medicine Ophthalmology [address] [place] [address] Gabe Peterson MD Epiretinal membrane (ERM) of both eyes (Primary Dx) 01/10/2025 Orders Only [facility] Medicine Ophthalmology [address] [place] [address] Gabe Peterson MD Epiretinal membrane (ERM) of both eyes (Primary Dx) 01/09/2025 8:00 AM CDT Office Visit [facility] Medicine Ophthalmology [address] [place] [phone] Romana Jurado MD PhD Retinitis pigmentosa of both eyes (Primary Dx); Epiretinal membrane (ERM) of both eyes; DM type 2 without retinopathy (HCC) 12/26/2024 Documentation [id number] [place] [address] Juan Pablo Huitron MD CKD follow-up 12/06/2024 Telephone [facility] Ophthalmology [facility] [place] [address] Amrit Díaz MD new pt from Last [...] pain of both hips 02/26/2020 Atherosclerosis of [place] of extremities with intermittent claudication, bilateral legs 07/09/2020 Added automatically from request for surgery [id number] Sebaceous cyst 12/30/2015 Sebaceous cyst Foreign body [...] How often do you attend chur or druze services? Never 07/20/2022 Do you belong to any clubs o r organizations such as nondenominational groups, unions, fraternal or athletic groups, or [...] on file Legal Sex Male 2:42 PM SUPERVISOR FUR FLOOR WORKER Gender Identity Not on file Sexual Orientation [...] 01/09/2026 01/09/2025 Medical Devices Implanted Type Area Molding Technician Device Identifier Shelf Expiration Date Model / Serial / Lot Getinge [employer] Hemagard 16/8mm 50cm Knit Cross Link Tensile Strength Excellent [id number] - [id number] - [id number] Implanted:Qty: 1 on 07/27/2022 by Moisés Flynn MD at [facility] Graft N/A: Abdomen GETINGE [employer]STLE INC 01/12/2027 [id number] / [id number] / Daig Thien [id number] Device Closure Angio-Seal Vip Bondek-Plus Polyglyd L70 Cm Od6 Fr Odsec.035 In Vascular - Sn/A - [id number] Implanted:Qty: 1 on 07/17/2020 by Moisés Flynn MD at [facility] Other - see comments Left: Groin Terumo Medical Thien 04/14/2021 [id number] / N/A / [id number] Bard Peripheral Vascular [id number] E-Luminexx Safe Performaxx 9mm 6fr 60mm 80cm Delivery System - [id number] Implanted:Qty: 1 on 12/13/2017 by Moisés Flynn MD at [facility] Stent Left: Arterial Bard Peripheral Vascular 01/12/2020 [id number] / / [id number] Description:Left Common and External Iliac Artery Medtronic Inc Everflex Entrust 6mm 60mm 80cm Self Expand Triaxial Low Profile - Sn/A - [id number] Implanted:Qty: 1 on 07/17/2020 by Moisés Flynn MD at [facility] Stent Right: Iliac Medtronic Inc 01/12/2022 [id number] [id number] / N/A / [id number] Medtronic Inc Everflex Entrust 6mm 100mm 80cm Self Expand Triaxial Low Profile - Sn/A - [id number] Implanted:Qty: 1 on 07/17/2020 by Moisés Flynn MD at [facility] Stent Left: Iliac Medtronic Inc 10/15/2022 [id number] -100-080 / N/A / [id number] Daig Thien/[employer] [id number] Angio-Seal Vip Bondek-Plus 6fr .035in 70cm Hemostatic Latex Free - [id number] Implanted:Qty: 1 on 12/13/2017 by Moisés Flynn MD at [facility] Left: Groin Daig Thien/[employer] 08/12/2018 [id number] / / [id number] Cryolife Inc Patch Cardiovascular 0.8x8cm Nonpyrogenic Pfp0.8x8 - [id number] Implanted:Qty: 1 on 07/21/2022 by Moisés Flynn MD at [facility] Left: Carotid Cryolife Inc 03/28/2024 PFP0.8X8 / / [id number] Vitalitec Intrnl Inc Sls-Clip Ligate Triangular Wire Chio Groove Small Chevron Clip Latex Free Y3425-1 - [id number] Implanted:Qty: 1 on 07/21/2022 by Moisés Flynn MD at [facility] Left: Neck Vitalitec Intrnl Inc F6611-2 / / Vitalitec Intrnl Inc Sls-Clip Ligate Triangular Wire Chio Groove Small Chevron Clip Latex Free S0087-7 - [id number] Implanted:Qty: 4 on 07/27/2022 by Moisés Flynn MD at [facility] N/A: Abdomen Vitalitec Intrnl Inc D3340-8 / / Bard Peripheral Vascular Bard .25x.25in Tiff Thk1.65mm Square [employer]ovascular Ptfe [id number] - [id number] Implanted:Qty: 1 on 07/27/2022 by Moisés Flynn MD at [facility] N/A: Abdomen Bard Peripheral Vascular [id number] / / Bard Peripheral Vascular Bard 5/16x5/16in Tiff Thk1.65mm P[employer]get [employer]ovascular Ptfe 694265 - [id number] Implanted:Qty: 1 on 07/27/2022 by Moisés Flynn MD at [facility] N/A: Abdomen Bard Peripheral Vascular [id number] / / Procedures Procedure Name Priority Date/Time Associated Diagnosis Comments ERG FULL FIELD - OU - BOTH EYES Routine 01/23/2025 3:27 PM SUPERVISOR FUR FLOOR WORKER Epiretinal membrane (ERM) of both eyes MULTIFOCAL ELECTRORETINOGRAPHY (ERG) - OU - BOTH EYES Routine 01/16/2025 2:29 PM SUPERVISOR FUR FLOOR WORKER Epiretinal membrane (ERM) of both eyes FUNDUS [...] OU - Both Eyes (01/23/2025 3:27 PM SUPERVISOR FUR FLOOR WORKER) Anatomical Region Laterality Modality Head Other Narrative 01/25/2025 11:15 AM SUPERVISOR FUR FLOOR WORKER VISUAL DIAGNOSTIC REPORT: Patient: Cyrus Vee : [...] this study, please contact our office at [phone], and we would be happy to send these to your office. Please feel free to contact my office if you would like to discuss these results further. Gabe Peterson M.D. Professor, Departments of Ophthalmology and Visual Sciences and Neurology Director, Visual Electrophysiology Service [facility] E-mail: [email or web address] Gabe Peterson MD OPHTH ELECTRORETINOG ALEE Final Result * Multifocal Electroretinography (ERG) - OU - Both Eyes (01/16/2025 2:29 PM SUPERVISOR FUR FLOOR WORKER) Anatomical Region Laterality Modality Head Other Narrative 01/18/2025 4:45 PM SUPERVISOR FUR FLOOR WORKER VISUAL DIAGNOSTIC REPORT: Patient: Cyrus Vee : [...] this study, please contact our office at [phone], and we would be happy to send these to your office. Please feel free to contact my office if you would like to discuss these results further. Gabe Peterson M.D. Professor, Departments of Ophthalmology and Visual Sciences and Neurology Director, Visual Electrophysiology Service [facility] E-mail: [email or web address] Gabe Peterson MD OPHTH ELECTRORETINOG ALEE Final [...] BLOOD ORDERABLES Final Result Performing Organization Address [facility] Co de Phone Number [facility]3] [address] [place] [address] * (ABNORMAL) Hemoglobin A1c (08/27/2024 3:27 PM CDT) Hgb A1C 8.2(H) 4.0 - 5.6 % Estimated Average Glucose 189 mg/dL [facility]3] Comment: The ADA recommends reporting an estimated Average Glucose (eAG) with all Hemoglobin A1c results using the equation derived from a study of 507 normal and diabetic adults. Minority populations were underrepresented and children were not included. (Diabetes Care 31:4974-3513, 2008). The eAG is not equivalent to a fasting glucose. Blood 08/27/2024 3:27 PM CDT 08/27/2024 4:09 PM CDT Lb Pollard MD LAB BLOOD ORDERABLES Final Result Performing Organization Address City/[facility]/ZIP Co de Phone Number [facility]3] [address] Department [facility] [place], [place] [id number] * (ABNORMAL) Lipid panel (07/20/2022 12:27 AM CDT) Pathologist [facility] Cholesterol 97 30 - 199 mg/dL [facility]3] Comment: Interpretive Data Ages < or = [...] revised on 2017. Triglycerides 133 <=149 mg/dL [facility]3] Comment: Interpretive Data Ages < or = [...] revised on 2017. HDL 25(L) >=40 mg/dL [facility]3] Comment: Interpretive Data Ages < or = [...] on 2017. LDL, calculated 45 <=129 mg/dL [facility]3] Comment: Interpretive Data Ages < or = [...] revised on 2017. Non-HDL Cholesterol 72 mg/dL [facility]3] Comment: Interpretive Data Ages < or = [...] last revised on 2017. Chol/HDL ratio 4 [facility]3] Blood 07/20/2022 12:2 7 AM CDT 07/20/2022 12:30 AM CDT us Navin Sandoval MD LAB BLOOD ORDERABLES Final Re sult [facility]3] [address] Department [place] [address] from Last 3 Months or Most Recently Relevant to Health Maintenance Additional Health Concerns Infection Onset Date Last Indicated Ring Surveillance: Vanna em Comment:W5 GIRISH em surveillance - rooms 1-16 08/28/202408/28 Insurance MEDICARE [employer] COMM[employer]CIAL GENERIC MEDICARE [employer] Advance Directives For more information, please contact: [phone] * Full Code (Latest Code Status on [...] 7:55 PM 06/08/2019 3:07 PM Care Teams Patent Litigation Associate Relationship Specialty Start Date End Date Neel [place] MD [address] [place] [address] PCP - General Internal Medicine 09/03/21 Moisés Flynn MD Surgeon Vascular Surgery 12/14/17 Eileen Mueller MD Internal Medicine 12/18/20 Wes Redmond MD [address] [place] [address] Internal Medicine 03/04/22 Moisés Bryant MD [address] [place] [address] Neurology 08/24/22 Nikolai Russell MD [address] [place] [address] Referring Physician Ophthalmology 12/07/24
--- NOTE | 2025-03-07 09:20 | ED.GENADULT ---
HPI - General Adult General Chief complaint: Abdominal Pain Stated complaint: I think I have a bowel obstruction again Time Seen by Provider: 03/07/25 07:41 History of Present Illness HPI narrative: 64-year-old male with history of small-bowel obstruction, peripheral vascular disease presents to the emergency department for evaluation for 3-4 days of lower abdominal pain. Patient states that he has had increased lower abdominal pain and was concern for small bowel obstruction. Patient states he has been passing flatus and passed some stool today. Patient was treated with nausea medication upon arrival and does feel his nausea improved but is still complaining of abdominal pain. Related Data Home Medications ?Medication ?Instructions ?Recorded ?Confirmed ?Last Taken ?Type fluticasone propionate 50 2 spray intranasal Q12H PRN nasal 03/07/25 03/07/25 Unknown History mcg/actuation nasal congestion spray,suspension folic acid 1 mg tablet 1 mg PO DAILY 03/07/25 03/07/25 Unknown History furosemide 20 mg tablet 20 mg PO QAM 03/07/25 03/07/25 Unknown History gabapentin 400 mg capsule 800 mg PO .Q12HR 03/07/25 03/07/25 Unknown History insulin glargine U-300 conc 300 40 unit subcut .Q12HR 03/07/25 03/07/25 Unknown History unit/mL (1.5 mL) subcutaneous pen (Toujeo SoloStar U-300 Insulin) levetiracetam 500 mg tablet 250 mg PO Q12H 03/07/25 03/07/25 Unknown History levothyroxine 75 mcg tablet 75 mcg PO HS 03/07/25 03/07/25 Unknown History (Synthroid) metformin 500 mg tablet 500 mg PO HS 03/07/25 03/07/25 Unknown History omeprazole 40 mg capsule,delayed 40 mg PO DAILY 03/07/25 03/07/25 Unknown History release potassium chloride 20 mEq 20 meq PO DAILY 03/07/25 03/07/25 Unknown History tablet,extended release (K-Tab) pyridoxine (vitamin B6) 100 mg 50 mg PO DAILY 03/07/25 03/07/25 Unknown History tablet Allergies Allergy/AdvReac Type Severity Reaction Status Date / Time cefadroxil Allergy Dyspnea / Verified 03/07/25 15:42 SOB acetazolamide AdvReac Other Verified 03/07/25 15:42 Review of Systems Review of Systems: All systems reviewed & are unremarkable except as noted in HPI and below [facility] Past Medical History Medical History (Updated 03/07/25 @ 15:57 by LANIE Upton) Hyperlipidemia CAD (coronary artery disease) Hypertension Atrial fibrillation Peripheral arterial disease Acute on chronic diastolic heart failure Family History Family History Father Diabetes mellitus Heart disease Mother Diabetes mellitus Heart disease Social History Social History Smoking packs per day: 1.5 Smoking cigarettes per day: 30.0 Years smoked: 20 Smoking pack-years: 30.00 Smoking status: Former smoker Alcohol intake: former Substance use: never Lack of Transportation: No Lack of Food: Never True Current Housing: I Have Housing Concerned About Future Housing: No Difficulty Paying Gas/Electric Bills: No Difficulty Paying for Meds: No Currently Unemployed: No Education: High School Diploma/GED Difficulty w/ Childcare or Family Care: No Spiritual care concerns: No Exam Narrative: APPEARANCE: Uncomfortable appearing HEAD: normocephalic, atraumatic. EYES: PERRLA/EOMI, conjunctivae clear. NOSE: Normal no drainage EARS:TMS clear with good light reflex. THROAT: Pharynx clear, no exudate. NECK: Supple. No adenopathy, no masses. RESPIRATORY: Airway patent, respirations nonlabored. Clear to auscultation bilaterally, no rales, rhonchi, wheezing. CARDIOVASCULAR: Regular rate and rhythm without murmurs rubs or gallops. ABDOMINAL: Soft, nontender, nondistended, normal bowel sounds MUSCULOSKELETAL: Moves all extremities. Strength/ROM intact, No edema, No calf tenderness. NEURO: Alert. Cranial nerves II through XII intact. Good gait. Good coordination SKIN: Warm, dry. Normal Color Course Vital Signs Vital signs: Vital Signs Temperature 98.2 F 03/07/25 06:59 Pulse Rate 70 03/07/25 06:59 Respiratory Rate 16 03/07/25 06:59 Blood Pressure 133/106 H 03/07/25 06:59 Pulse Oximetry 99 03/07/25 06:59 Oxygen Delivery Room Air 03/07/25 06:59 Temperature 97.5 F L 03/07/25 15:41 Pulse Rate 96 03/07/25 17:01 Respiratory Rate 14 03/07/25 15:41 Blood Pressure 175/99 H 03/07/25 15:41 Pulse Oximetry 95 03/07/25 15:41 Oxygen Delivery Room Air 03/07/25 06:59 [facility] Narrative Medical decision making narrative: [age] old male with extensive vascular history and history of small-bowel obstruction present to the emergency department for evaluation for lower abdominal pain. Patient is currently afebrile but does have a leukocytosis of 14.5 and hemoglobin of 14.9. Creatinine is 1.4 which is similar to his baseline. Lipase was negative. CT scan does show evidence of early small-bowel obstruction. Patient was declined from surgery at [place] [facility] last time due to his extensive vascular history and patient was transferred to [facility]. Patient is willing to be transferred back to their facility at this time. NG tube will be placed. Attempted to get the patient transferred to [facility] and surgery declined the patient stating it was same level of care. Surgery did see the patient as consult here and they did agree to see the patient if he is admitted. They do state if the patient does need surgery then he will need to be transferred at that time. Differential Diagnosis Differential Diagnosis: Colitis, diverticulitis, bowel obstruction, bowel perforation, abscess Lab Data [facility] Lab Attestation statement: I personally reviewed the patient's lab results. 03/07/25 07:39 03/07/25 07:39 Labs: Lab Results 03/07/25 03/07/25 03/07/25 Range/Units 07:39 10:41 13:35 WBC 14.5 H (4.5-10.0) K/mm3 RBC 5.15 (4.6-6.20) M/mm3 Hgb 14.9 (14.0-18.0) g/dL Hct 46.0 (42.0-52.0) % MCV 89.3 (80-100) fl MCH 28.9 (26-34) pg MCHC 32.4 (32-36) g/dl RDW 15.4 H (11.5-14.5) % Plt Count 294 (150-375) k/mm3 MPV 11.3 H (7.4-10.4) fl Immature Gran % (Auto) 0.4 (0-0.5) % Neut % (Auto) 84.9 H (45.5-73.1) % Lymph % (Auto) 8.8 L (18.3-44.2) % Slope % (Auto) 4.4 (2.6-8.5) % Eos % (Auto) 0.9 (0-4.4) % Baso % (Auto) 0.6 (0.2-1.2) % Lymph # (Auto) 1.28 (0.9-3.2) K/mm3 Slope # (Auto) 0.6 (0.1-0.6) K/mm3 Eos # (Auto) 0.1 (0-0.3) K/mm3 Baso # (Auto) 0.1 (0.0-0.1) K/mm3 Abs Immat Gran (auto) 0.06 H (0.00-0.031) K/mm3 Absolute Neuts (auto) 12.3 H (1.3-6.7) K/mm3 Absolute Nucleated RBC 0.000 (0.0-0.012) K/mm3 Nucleated RBC % 0.0 (0.0-0.2) % Sodium 141 (137-145) mmol/L Potassium 4.5 (3.4-5.0) mmol/L Chloride 107 (98-107) mmol/L Carbon Dioxide 24 (22-30) mmol/L Anion Gap 10 (4-12) mmol/L BUN 23 H (9-20) mg/dL Creatinine 1.40 H (0.7-1.3) mg/dL Estim Creat Clear Calc 68 ml/min Estimated GFR 51 L (59 - ) Glucose 191 H (65-110) mg/dL POC Capillary Glucose (65-105) mg/dl Lactic Acid 1.4 (0.7-2.0) mmol/L Calcium 10.1 (8.4-10.2) mg/dL Total Bilirubin 0.6 (0.2-1.3) mg/dL AST 31 (17-59) U/L ALT 24 (6-50) U/L Alkaline Phosphatase 121 (38-126) U/L Total Protein 8.0 (6.3-8.2) g/dL Albumin 4.1 (3.5-5.1) g/dL Lipase 41 (23-300) U/L Urine Color Yellow (Yellow) Urine Appearance Clear (Clear) Urine pH 5.5 (5.0-9.0) Ur Specific [place] > 1.045 H (1.001-1.035) Urine Protein 1+ H (Negative) mg/dL Urine Glucose (UA) 2+ H (Negative) mg/dL Urine Ketones Negative (Negative) mg/dL Ur Blood (Man) Negative (Negative) Urine Nitrate Negative (Negative) Urine Bilirubin Negative (Negative) Urine Urobilinogen 1.0 (<2.0) mg/dL Leukocyte Esterase Rfl Negative (Negative) OLAYINKA/UL Urine RBC 0-2 (0-2) /hpf Urine WBC 0-5 (0-3) /hpf Ur Squamous Epith Cells None seen (Few) /hpf Urine Bacteria None seen /hpf Urine Casts 0-2 03/07/ Range/Units 16:52 WBC (4.5-10.0) K/mm3 RBC (4.6-6.20) M/mm3 Hgb (14.0-18.0) g/dL Hct (42.0-52.0) % MCV (80-100) fl MCH (26-34) pg MCHC (32-36) g/dl RDW (11.5-14.5) % Plt Count (150-375) k/mm3 MPV (7.4-10.4) fl Immature Gran % (Auto) (0-0.5) % Neut % (Auto) (45.5-73.1) % Lymph % (Auto) (18.3-44.2) % Slope % (Auto) (2.6-8.5) % Eos % (Auto) (0-4.4) % Baso % (Auto) (0.2-1.2) % Lymph # (Auto) (0.9-3.2) K/mm3 Slope # (Auto) (0.1-0.6) K/mm3 Eos # (Auto) (0-0.3) K/mm3 Baso # (Auto) (0.0-0.1) K/mm3 Abs Immat Gran (auto) (0.00-0.031) K/mm3 Absolute Neuts (auto) (1.3-6.7) K/mm3 Absolute Nucleated RBC (0.0-0.012) K/mm3 Nucleated RBC % (0.0-0.2) % Sodium (137-145) mmol/L Potassium (3.4-5.0) mmol/L Chloride (98-107) mmol/L Carbon Dioxide (22-30) mmol/L Anion Gap (4-12) mmol/L BUN (9-20) mg/dL Creatinine (0.7-1.3) mg/dL Estim Creat Clear Calc ml/min Estimated GFR (59 - ) Glucose (65-110) mg/dL POC Capillary Glucose 202 H (65-105) mg/dl Lactic Acid (0.7-2.0) mmol/L Calcium (8.4-10.2) mg/dL Total Bilirubin (0.2-1.3) mg/dL AST (17-59) U/L ALT (6-50) U/L Alkaline Phosphatase (38-126) U/L Total Protein (6.3-8.2) g/dL Albumin (3.5-5.1) g/dL Lipase (23-300) U/L Urine Color (Yellow) Urine Appearance (Clear) Urine pH (5.0-9.0) Ur Specific [place] (1.001-1.035) Urine Protein (Negative) mg/dL Urine Glucose (UA) (Negative) mg/dL Urine Ketones (Negative) mg/dL Ur Blood (Man) (Negative) Urine Nitrate (Negative) Urine Bilirubin (Negative) Urine Urobilinogen (<2.0) mg/dL Leukocyte Esterase Rfl (Negative) OLAYINKA/UL Urine RBC (0-2) /hpf Urine WBC (0-3) /hpf Ur Squamous Epith Cells (Few) /hpf Urine Bacteria /hpf Urine Casts Imaging Data Radiologist's impression: ITS Impressions Abdomen/Pelvis CT 03/07/25 09:21 IMPRESSION: 1. Likely mild partial small bowel obstruction with transition point at 2 cm segment of focal luminal narrowing with associated wall thickening suspicious for stricture. 2. Small amount of likely reactive ascites in the pelvis. No abscess or free intraperitoneal gas. 3. Cholelithiasis. 4. Patent aortobifemoral bypass graft spanning the thrombosed bilateral common and external iliac artery stents. Discharge Plan Discharge Clinical Impression: SBO (small bowel obstruction) Patient Disposition: Still a Patient Condition: Serious
[2025-03-07] MEDS: HYDROmorphone HCL INJ (*CRX) 1 MG/ML SYR IV PUSH (09:27)
--- NOTE | 2025-03-07 12:52 | P.HP_ITS ---
H&P: HPI History of Present Illness Date/Time: 03/07/25 12:52 Chief Complaint: - abdominal pain Narrative: Patient is a 64 yo male with PMH of diabetes, chronic pain, CVA, hypertension, hyperlipidemia, CAD, atrial fibrillation s/p Watchman, diastolic heart failure who presents with abdominal pain. History is obtained from patient as well as at bedside. Patient states he started experiencing generalized abdominal discomfort about 3-4 days ago. Reports prior history of bowel obstruction last year and that his symptoms felt similar to this. He had associated nausea without any vomiting. Does state that he had a large, formed bowel movement today. Pain improved with IV pain medication an NG tube placement in the ED. Currently denies chest pain, shortness of breath, dysuria, fever, chills. In ED, CT A/P showed likely mild partial SBO with transition point at 2 cm segment of focal luminal narrowing with associated wall thickening suspicious for stricture, small amount of likely reactive ascites. WBC 14, BUN 23, creatinine 1.4, GFR 51, glucose 191, lactic acid 1.4. UA with elevated specific gravity, 1+ protein, trace ketones. NG-tube placed and general surgery consulted from ED. Review of Systems Review of Systems: All systems reviewed & are unremarkable except as noted in HPI and below PMFSH Past Medical History Medical History (Updated 03/07/25 @ 15:57 by LANIE Upton) Hyperlipidemia CAD (coronary artery disease) Hypertension Atrial fibrillation Peripheral arterial disease Acute on chronic diastolic heart failure Family History Family History Father Diabetes mellitus Heart disease Mother Diabetes mellitus Heart disease Social History Social History Smoking packs per day: 0.5 Smoking cigarettes per day: 10.0 Years smoked: 45 Smoking pack-years: 22.50 Smoking status: Former smoker Tobacco type: cigarettes Smoking end date: 07/19/22 Spiritual care concerns: No Meds Home Medications and Allergies Home Medications ?Medication ?Instructions ?Recorded ?Confirmed ?Type acetaminophen 325 mg tablet (Mapap 650 mg (2 x 325 mg) PO Q6H PRN 08/13/22 Rx (acetaminophen)) Pain #30 tabs apixaban 5 mg tablet (Eliquis) 5 mg PO Q12HR #60 tabs 08/13/22 Rx aspirin 81 mg chewable tablet 81 mg PO DAILY@0800 #30 tabs 08/13/22 Rx (Children's Aspirin) atorvastatin 80 mg tablet 80 mg PO HS #30 tabs 3 Rx dorzolamide 2 % eye drops 1 drp EACH EYE DAILY #10 mL 08/13/22 Rx ezetimibe 10 mg tablet (Zetia) 10 mg PO QAM #30 tabs 0 08/13/22 Rx gemfibrozil 600 mg tablet 600 mg PO BIDAC #60 tabs 04/06 Rx glipizide 5 mg tablet 5 mg PO QPM #30 tabs 3 Rx insulin glargine 100 unit/mL 36 unit (0.36 mL) subcut BID #10 mL 08/13/22 Rx subcutaneous solution isosorbide mononitrate 30 mg 30 mg PO QAM #30 tabs 04/06 Rx tablet,extended release 24 hr lisinopril 20 mg tablet 20 mg PO DAILY #30 tabs 0604/06 Rx metformin 1,000 mg tablet,extended 1,000 mg PO QPM #30 tabs 08/13/22 Rx release 24hr (osmotic) metoprolol succinate 100 mg 100 mg PO BID #60 tabs 04/06 Rx tablet,extended release 24 hr (Toprol XL) nicotine 21 mg/24 hr daily 1 patch transdermal QAM #30 ea 08/13/22 Rx transdermal patch (Nicoderm CQ) nitroglycerin 0.4 mg sublingual 0.4 mg sublingual Q5MI N PRN Chest 08/13/22 Rx tablet (Nitrostat) Pain #30 tabs oxycodone 5 mg tablet 5 mg PO Q6H PRN Pain Rated 7 -10 08/13/22 Rx #12 tabs pantoprazole 40 mg tablet,delayed 40 mg PO QAM #30 tab s 08/13/22 Rx release sennosides 8.6 mg tablet (Senokot) 8.6 mg PO HS #30 ta bs 08/13/22 Rx trazodone 50 mg tablet 25 mg (1/2 x 50 mg) PO HS #3 0 tabs 08/13/22 Rx fluticasone propionate 50 2 spray intranasal Q12H PRN nasal 03/07/25 03/07/25 History mcg/actuation nasal congestion spray,suspension folic acid 1 mg tablet 1 mg PO DAILY 03/07/2503/07 History furosemide 20 mg tablet 20 mg PO QAM 03/07/25 History gabapentin 400 mg capsule 800 mg PO .Q12HR 03/07/25 History insulin glargine U-300 conc 300 40 unit subcut .Q12HR 03/07/25 03/07/25 History unit/mL (1.5 mL) subcutaneous pen (Toujeo SoloStar U-300 Insulin) levetiracetam 500 mg tablet 250 mg PO Q12H 03/07/25 History levothyroxine 75 mcg tablet 75 mcg PO HS 03/07/2502/13 History (Synthroid) metformin 500 mg tablet 500 mg PO HS 03/07/25 History omeprazole 40 mg capsule,delayed 40 mg PO DAILY 03/07/25 History release potassium chloride 20 mEq 20 meq PO DAILY 03/07/25 History tablet,extended release (K-Tab) pyridoxine (vitamin B6) 100 mg 50 mg PO DAILY 03/07/25 03/07/25 History tablet Allergies Allergy/AdvReac Type Severity Reaction Status Date / Time cefadroxil Allergy Dyspnea / Verified 03/07/25 15:42 SOB acetazolamide AdvReac Other Verified 03/07/25 15:42 Vital Signs Vital Signs - 24 hr 03/07/25 06:59 03/07/25 12:10 Temperature 98.2 F 97.6 F Pulse Rate 70 85 Respiratory Rate 16 17 Blood Pressure 133/106 H 151/87 H Pulse Oximetry 99 93 Oxygen Delivery Room Air Exam Narrative: General: NAD Eyes: EOMI ENT: neck supple Cardiovascular: Regular rate and rhythm Respiratory: Clear to auscultation, respirations even and unlabored on RA Gastrointestinal: NG tube in place with small amount of bilious output. Moderately distended, minimal diffuse tenderness, bowel sounds hypoactive Genitourinary: no suprapubic tenderness Musculoskeletal: No edema Skin: warm, dry Neuro: Alert. Psych: Mood appropriate Results Labs Labs: Short CBC 03/07/25 Range/Units 07:39 WBC 14.5 H (4.5-10.0) K/mm3 Hgb 14.9 (14.0-18.0) g/dL Hct 46.0 (42.0-52.0) % Plt Count 294 (150-375) k/mm3 BMP 03/07/25 07:39 Sodium 141 Potassium 4.5 Chloride 107 Carbon Dioxide 24 BUN 23 H Creatinine 1.40 H Glucose 191 H Calcium 10.1 Liver Function 03/07/25 Range/Units 07:39 Total Bilirubin 0.6 (0.2-1.3) mg/dL AST 31 (17-59) U/L ALT 24 (6-50) U/L Alkaline Phosphatase 121 (38-126) U/L Albumin 4.1 (3.5-5.1) g/dL Assessment and Plan Assessment and plan (1) SBO (small bowel obstruction): Code(s): K56.609 - Unspecified intestinal obstruction, unspecified as to partial versus complete obstruction Status: Acute Assessment and Plan: - Presented with 3-4 days of diffuse abdominal pain, nausea - CT A/P showed likely mild partial SBO with transition point at 2 cm segment of focal luminal narrowing with associated wall thickening suspicious for stricture, small amount of likely reactive ascites - NG tube placed to LWIS - NPO - continue IV fluids - replace electrolytes PRN - monitor abdominal exam - PRN pain control, antiemetics - General surgery consulted, recommended to continue NG tube. If any surgical intervention is warranted he will need to be transferred to a tertiary care center due to patient's severe vascular disease. (2) Leukocytosis: Code(s): D72.829 - Elevated white blood cell count, unspecified Status: Acute Assessment and Plan: - WBC 14, afebrile - suspect reactive due to SBO, no bacterial source - monitor off abx for now (3) Diabetes: Code(s): E11.9 - Type 2 diabetes mellitus without complications Status: Acute Assessment and Plan: - hold PO meds - metformin - hold home basal insulin for now while NPO - moderate dose NPO SSI - POCT glucose q6H - hypoglycemia management protocol (4) Peripheral arterial disease: Code(s): I73.9 - Peripheral vascular disease, unspecified Status: Acute Assessment and Plan: - resume home ASA, statin once tolerating PO (5) Hypertension: Code(s): I10 - Essential (primary) hypertension Status: Acute Assessment and Plan: - holding PO meds for NPO status - PRN hydralazine for SBP >180 (6) CAD (coronary artery disease): Code(s): I25.10 - Atherosclerotic heart disease of [place] coronary artery without angina pectoris Status: Acute Assessment and Plan: - hold PO meds while NPO (7) Atrial fibrillation: Code(s): I48.91 - Unspecified atrial fibrillation Status: Acute Assessment and Plan: -schedule IV lopressor 5mg q6H - s/p Watchman 02/2024 (8) CKD (chronic kidney disease): Code(s): N18.9 - Chronic kidney disease, unspecified Status: Acute Assessment and Plan: - Cr 1.4, appears near baseline - avoid nephrotoxins Plan Code status: full code DVT prophylaxis: SCDs Dispo: TBD pending clinical course Home medications still need reconciled, but holding PO meds for NPO status. Prior Studies I have reviewed the following patient records and this information was taken into consideration when formulating the assessment and plan.: previous labs Consultations Consultations: I have discussed the care of this pt with the consulting providers. (General surgery PA) Hospitalist MIPS Advance Care Plan I have confirmed that the patient's Advanced Care Plan is present, code status is documented, or surrogate decision maker is listed in patient medical record.: Yes Medication Reconciliation I have utilized all available resources to obtain, update and review the patients current medications (includes all prescriptions, OTC, herbals, cannabis, and nutritional supplements).: Yes The patient is not eligible for med reconciliation; the patient is in a emergent medical situation where delaying treatment would jeopardize the patients health.: No
--- NOTE | 2025-03-07 13:15 | P.CONGS_ITS ---
Assessment and Plan Assessment and plan (1) SBO (small bowel obstruction): Code(s): K56.609 - Unspecified intestinal obstruction, unspecified as to partial versus complete obstruction Status: Acute Assessment and Plan: Patient is a 64-year-old male who presented to the emergency department this morning with complaints of abdominal pain for the past 3-4 days with associated nausea. he has been having bowel movements with his last being this morning. He has history of one other occurrence of small-bowel obstruction in August. At this time he was transferred from [facility] to [facility] due to his extensive complicated vascular history. He was managed conservatively at this time with NG decompression. Today, CT revealed mild partial small bowel obstruction with transition point at 2 cm segment of focal luminal narrowing with associated wall thickening suspicious for stricture. Patient has a large abdominal midline incisional scar from a previous vascular surgery, likely causing some adhesions. WBC elevated to 14.5. NG tube was placed and confirmed to be in the stomach. Patient will be admitted to the hospital for management of small-bowel obstruction. However, if patient is to needed any sort of surgical intervention he should be transferred to a tertiary care center that is better equipped to manage this patient's vascular disease. Keep patient NPO and continue nasogastric decompression. (2) Diabetes: Code(s): E11.9 - Type 2 diabetes mellitus without complications Status: Acute (3) Peripheral arterial disease: Code(s): I73.9 - Peripheral vascular disease, unspecified Status: Acute (4) Atrial fibrillation: Code(s): I48.91 - Unspecified atrial fibrillation Status: Acute Assessment and Plan: Patient takes Eliquis at home. Plan Patient case and plan of care has been discussed with Dr. De La Rosa. History of Present Illness Consult details Consult date: 03/07/25 Reason for consult: other (SBO) Requesting physician: Alonso Burnette MD Narrative: Patient is a 64 year old male with history of severe peripheral vascular disease, diabetes, afib, HTN, CVA, and HLD who we have been asked to see in surgical consultation for a small bowel obstruction. Patient presented to the ED this morning with complaints of abdominal pain x 3-4 days. States he was very nauseous, but did not vomit. He has continued to have bowel movements. He had a large BM this morning and a small BM when in the ED. Passing flatus. History of SBO this past August. Patient was seen in the emergency department at this time and transferred to [facility] since that is where he follows with his vascular surgeon. He has extensive vascular surgical history including bilateral stenting and bypass, endarterectomy, and an open abdominal surgery of which he can not remember what exactly was done. Patient states that this was his only other occurrence of SBO. It did not require any surgical intervention and was resolved with NG decompression. Upon admission to the ED today, labs revealed a WBC of 14.5. Afebrile. CT demonstrated mild partial small bowel obstruction with transition point at 2 cm segment of focal luminal narrowing with associated wall thickening suspicious for stricture. General surgery team was consulted at this time. NG tube was placed. Patient still endorses lower abdominal pain upon my interview with him. Denies any nausea. He last ate last night around 7:00 p.m. [facility] Past Medical History Medical History (Updated 03/07/25 @ 12:58 by LANIE Upton) Hyperlipidemia CAD (coronary artery disease) Hypertension Atrial fibrillation Peripheral arterial disease Acute on chronic diastolic heart failure Family History Family History Father Diabetes mellitus Heart disease Mother Diabetes mellitus Heart disease Social History Social History Smoking packs per day: 0.5 Smoking cigarettes per day: 10.0 Years smoked: 45 Smoking pack-years: 22.50 Smoking status: Former smoker Tobacco type: cigarettes Smoking end date: 07/19/22 Spiritual care concerns: No Meds Home Medications and Allergies Home Medications ?Medication ?Instructions ?Recorded ?Confirmed ?Type acetaminophen 325 mg tablet (Mapap 650 mg (2 x 325 mg) PO Q6H PRN 08/13/22 Rx (acetaminophen)) Pain #30 tabs apixaban 5 mg tablet (Eliquis) 5 mg PO Q12HR #60 tabs 08/13/22 Rx aspirin 81 mg chewable tablet 81 mg PO DAILY@0800 #30 tabs 08/13/22 Rx (Children's Aspirin) atorvastatin 80 mg tablet 80 mg PO HS #30 tabs 3 Rx dorzolamide 2 % eye drops 1 drp EACH EYE DAILY #10 mL 08/13/22 Rx ezetimibe 10 mg tablet (Zetia) 10 mg PO QAM #30 tabs 0 08/13/22 Rx furosemide 20 mg tablet 60 mg (3 x 20 mg) PO QAM #30 tabs 08/13/22 Rx gabapentin 400 mg capsule 800 mg (2 x 400 mg) PO TID # 90 caps 08/13/22 Rx gemfibrozil 600 mg tablet 600 mg PO BIDAC #60 tabs 04/06 Rx glipizide 5 mg tablet 5 mg PO QPM #30 tabs 3 Rx insulin glargine 100 unit/mL 36 unit (0.36 mL) subcut BID #10 mL 08/13/22 Rx subcutaneous solution isosorbide mononitrate 30 mg 30 mg PO QAM #30 tabs 04/06 Rx tablet,extended release 24 hr levothyroxine 75 mcg tablet 75 mcg PO DAILY@0630 #30 t abs 08/13/22 Rx (Synthroid) lisinopril 20 mg tablet 20 mg PO DAILY #30 tabs 04/06 Rx metformin 1,000 mg tablet,extended 1,000 mg PO QPM #30 tabs 08/13/22 Rx release 24hr (osmotic) metoprolol succinate 100 mg 100 mg PO BID #60 tabs 04/06 Rx tablet,extended release 24 hr (Toprol XL) nicotine 21 mg/24 hr daily 1 patch transdermal QAM #30 ea 08/13/22 Rx transdermal patch (Nicoderm CQ) nitroglycerin 0.4 mg sublingual 0.4 mg sublingual Q5MI N PRN Chest 08/13/22 Rx tablet (Nitrostat) Pain #30 tabs oxycodone 5 mg tablet 5 mg PO Q6H PRN Pain Rated 7 -10 08/13/22 Rx #12 tabs pantoprazole 40 mg tablet,delayed 40 mg PO QAM #30 tab s 08/13/22 Rx release potassium chloride 20 mEq 40 meq (2 x 20 mEq) PO DAILY #30 08/13/22 Rx tablet,extended release (K-Tab) tabs sennosides 8.6 mg tablet (Senokot) 8.6 mg PO HS #30 ta bs 08/13/22 Rx trazodone 50 mg tablet 25 mg (1/2 x 50 mg) PO HS #3 0 tabs 08/13/22 Rx Allergies Allergy/AdvReac Type Severity Reaction Status Date / Time cefadroxil Allergy Dyspnea / Verified 08/25/24 21:32 SOB acetazolamide AdvReac Other Verified 08/25/24 21:32 Vital Signs Vital Signs - 24 hr 03/07/25 06:59 03/07/25 12:10 Temperature 98.2 F 97.6 F Pulse Rate 70 85 Respiratory Rate 16 17 Blood Pressure 133/106 H 151/87 H Pulse Oximetry 99 93 Oxygen Delivery Room Air Exam 2 Const: General: comfortable and no acute distress Eyes: General: appearance normal, both eyes and all related structures Neck: Neck: supple Resp: Effort & Inspection: normal respiratory effort Cardio: Rate: regular rate GI: Inspection: distended, incision (large midline incisional scar) and obesity GI Palp: Yes Soft to palpation and Yes Tenderness to palpation present (GI) (diffusely across lower abdomen) Auscultation: Hypoactive bowel sounds present Rectal Exam: deferred Skin: General skin exam: normal color and no rashes or lesions noted Extrem: General: normal to inspection Psych: Mental Status: mental status grossly normal Results Labs 03/07/25 07:39 03/07/25 07:39 Labs: Abnormal lab results 03/07/25 Range/Units 07:39 WBC 14.5 H (4.5-10.0) K/mm3 RDW 15.4 H (11.5-14.5) % MPV 11.3 H (7.4-10.4) fl Neut % (Auto) 84.9 H (45.5-73.1) % Lymph % (Auto) 8.8 L (18.3-44.2) % Abs Immat Gran (auto) 0.06 H (0.00-0.031) K/mm3 Absolute Neuts (auto) 12.3 H (1.3-6.7) K/mm3 BUN 23 H (9-20) mg/dL Creatinine 1.40 H (0.7-1.3) mg/dL Estimated GFR 51 L (59 - ) Glucose 191 H (65-110) mg/dL Diabetes panel 03/07/25 Range/Units 07:39 Sodium 141 (137-145) mmol/L Potassium 4.5 (3.4-5.0) mmol/L Chloride 107 (98-107) mmol/L Carbon Dioxide 24 (22-30) mmol/L BUN 23 H (9-20) mg/dL Creatinine 1.40 H (0.7-1.3) mg/dL Glucose 191 H (65-110) mg/dL Calcium 10.1 (8.4-10.2) mg/dL AST 31 (17-59) U/L ALT 24 (6-50) U/L Alkaline Phosphatase 121 (38-126) U/L Total Protein 8.0 (6.3-8.2) g/dL Albumin 4.1 (3.5-5.1) g/dL Calcium panel 03/07/25 Range/Units 07:39 Calcium 10.1 (8.4-10.2) mg/dL Albumin 4.1 (3.5-5.1) g/dL Pituitary panel 03/07/25 Range/Units 07:39 Sodium 141 (137-145) mmol/L Potassium 4.5 (3.4-5.0) mmol/L Chloride 107 (98-107) mmol/L Carbon Dioxide 24 (22-30) mmol/L BUN 23 H (9-20) mg/dL Creatinine 1.40 H (0.7-1.3) mg/dL Glucose 191 H (65-110) mg/dL Calcium 10.1 (8.4-10.2) mg/dL Adrenal panel 03/07/25 Range/Units 07:39 Sodium 141 (137-145) mmol/L Potassium 4.5 (3.4-5.0) mmol/L Chloride 107 (98-107) mmol/L Carbon Dioxide 24 (22-30) mmol/L BUN 23 H (9-20) mg/dL Creatinine 1.40 H (0.7-1.3) mg/dL Glucose 191 H (65-110) mg/dL Calcium 10.1 (8.4-10.2) mg/dL Total Bilirubin 0.6 (0.2-1.3) mg/dL AST 31 (17-59) U/L ALT 24 (6-50) U/L Alkaline Phosphatase 121 (38-126) U/L Total Protein 8.0 (6.3-8.2) g/dL Albumin 4.1 (3.5-5.1) g/dL All other labs normal.
[2025-03-07] MEDS: LACTATED RINGERS 1,000 ML 125 ML IV CONT (13:35)
[2025-03-07 13:49] LABS: Add Urine Microscopic? YES; Appearance Urine Clear (Clear); Glucose Urine UA 2+ mg/dL (Negative); Leukocyte Esterase Ur Negative LEU/UL (Negative); Nitrate Urine Negative (Negative); Non Pathogenic Casts 0-2; Specific Grav Ur > 1.045 (1.001-1.035)
--- NOTE | 2025-03-07 14:47 | WPCEDHO ---
ED Hand Off Checklist All vitals saved:y IV Site documented:y All med administrations documented:y Triage Note Triage Note Pt to ed with c/o thinking he has 03/07/25 06:59 another bowel obstructions. Pt having Bilateral lower abdominal area pain x 3-4 days. Pt verbalized being here in August 2024 and being transferred to [facility] for SBO that may need surgery and his vascular surgeon is there. Pt was seen at PCP yesterday and did not verbalize his pain to the pcp at that time. Allergies cefadroxil Allergy (Verified 08/25/24 21:32) Dyspnea / SOB acetazolamide Adverse Reaction (Verified 08/25/24 21:32) Other He states he was dizzy, staggering and talking slow Family History (Last Reviewed 08/06/22 @ 13:[address], PAID SEARCH SPECIALIST) Father Diabetes mellitus Heart disease Mother Diabetes mellitus Heart disease Active Medications including assessments/comments Lactated Ringer's (Lr - Lactated Ringers Iv) 1,000 mls @ 125 mls/hr IV CONT .Q8H LAYNE Last Admin: 03/07/25 13:35 Dose: 125 mls/hr Documented By: JOSS Infusion/Titration Document 03/07/25 13:35 JOSS (Rec: 03/07/25 13:35 JOSS [id number]) Intake IV Site Peripheral Access Right Antecubital Container Volume 1,000 Waste Amount 0 Dosing Infusion Rate 125 Cumulative Dose Not Applicable Increase/Decrease Started Elapsed Time Elapsed Time ( 0m minutes) Administered/Completed Medications Discontinued Medications Hydromorphone HCl (Hydromorphone Hcl Inj (*Crx) 1 Mg/Ml Syr) 1 mg IV PUSH ONCE STA Stop: 03/07/25 09:20 Last Admin: 03/07/25 09:27 Dose: 1 mg Documented By: JOSS Ondansetron HCl (Ondansetron Inj 4 Mg/2 Ml Vial) 4 mg IV PUSH ONCE STA Stop: 03/07/25 07:48 Last Admin: 03/07/25 07:55 Dose: 4 mg Documented By: JOSS Interventions/Assessments IV / Saline Lock, Insert Start: 03/07/25 06:57 Freq: STAT Status: Active Protocol: Document 03/07/25 07:55 JOSS (Rec: 03/07/25 07:55 JOSS [id number]) IV Assessment Peripheral Access Right Antecubital IV Catheter Access Initiated IV Insertion Date 03/07/25 IV Insertion Time 07:55 Catheter Gauge 20 IV Insertion 1 Attempts Ultrasound Used for No Placement IV Site Assessment WNL IV Care and WNL Maintenance PA: Gastrointestinal Assessment Start: 03/07/25 06:56 Freq: Status: Active Protocol: Document 03/07/25 08:00 HARSHA (Rec: 03/07/25 08:00 [facility] [id number]) GI Assessment Gastrointestinal Nausea,Pain,Vomiting Symptoms Description Tender Last Vital Signs Temperature 98.6 F 03/07/25 14:46 Pulse Rate 77 03/07/25 14:46 Respiratory Rate 14 03/07/25 14:46 Pulse Oximetry 94 03/07/25 14:46 Blood Pressure 163/96 H 03/07/25 14:46 Blood Pressure Mean 118 03/07/25 14:46 Oxygen Delivery Room Air 03/07/25 06:59 Weight 130.9 kg 03/07/25 06:59 Last Result - Abnormals Only WBC 14.5 K/mm3 (4.5-10.0) H 03/07/25 07:39 RDW 15.4 % (11.5-14.5) H 03/07/25 07:39 MPV 11.3 fl (7.4-10.4) H 03/07/25 07:39 Neut % (Auto) 84.9 % (45.5-73.1) H 03/07/25 07:39 Lymph % (Auto) 8.8 % (18.3-44.2) L 03/07/25 07:39 Abs Immat Gran (auto) 0.06 K/mm3 (0.00-0.031) H 03/07/25 07:39 Absolute Neuts (auto) 12.3 K/mm3 (1.3-6.7) H 03/07/25 07:39 BUN 23 mg/dL (9-20) H 03/07/25 07:39 Creatinine 1.40 mg/dL (0.7-1.3) H 03/07/25 07:39 Estimated GFR 51 (59-) L 03/07/25 07:39 Glucose 191 mg/dL (65-110) H 03/07/25 07:39 Ur Specific [place] > 1.045 (1.001-1.035) H 03/07/25 13:35 Urine Protein 1+ mg/dL (Negative) H 03/07/25 13:35 Urine Glucose (UA) 2+ mg/dL (Negative) H 03/07/25 13:35 Most Recent Suicide Severity Rating Suicide Severity Rating NO RISK INDICATED 03/07/25 06:59
--- OUTSIDE RECORDS SUMMARY | 2025-03-07 14:50 | XMS_ITS | Encounter Summary ---
Author Organization [facility] Address [address] [place] [address] Care Team Providers Care National Sales Trainer Name Role Phone Neel Lincoln MD Primary Care Provider [phone] Encounter Details Date Type Department Care Team (Late st Contact Info) Description 06/11/2023 Lab Requisition [facility] - DermPath Lab [address] [place] [phone] Anjum Weems MD [facility] [address] [place] [phone] Neoplasm of uncertain behavior of skin Social History Tobacco Use Types Packs/Day Years Used Date Smoking Tobacco: Never Assessed Sex and Gender Information Value Date Recorded Sex Assigned at Not on file Legal 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 Gender Identity Not on file Sexual Orientation Not on file documented as of this encounter Plan of Treatment Upcoming Encounters Date Type Department Care Team (Late st Contact Info) Description 08/15/2025 9:30 AM CDT Office Visit [facility] - General Surgery [address] [place] [phone] Enrico Milan MD [address] [facility] [address] [place] [address] documented as of this encounter Procedures Procedure Name Priority Date/Time Associated Diagnosis Comments DERMATOPATHOLOGY Routine 06/11/2023 3:33 AM CDT Neoplasm of uncertain behavior of skin documented in this encounter Results * DERMATOPATHOLOGY (06/11/2023 3:33 AM CDT) Case Report Dermatopathology Report Case: [id number] Authorizing Provider: Anjum Weems MD Collected: 06/11/2023 03:33 AM Ordering Location: [facility] - Received: 06/14/2023 01:17 [...] characteristic determined by the Dermatopathology Laboratory at [facility], directed by Dr. Shaw Squires. These tests need not be, and therefore are not, approved by the [place] Food and Drug Administration. The tests are used for clinical purposes. Billing Codes Specimen Charges Stain Charges 53055 1 30793 74947 1 1 4 3:37 PM CDT DERMATOPATHOLOGY [...] PATHOLOGY/CYTOLOGY VELIAE LINETTE Final Result DERMATOPATHOLOGY LABORATORY [facility] - Department of Dermatology [facility] Specialized Medicine [address] [place] [address], [address] [phone] documented in this encounter Visit Diagnoses Diagnosis Neoplasm of uncertain behavior of skin documented in this encounter Care Teams National Sales Trainer Relationship Specialty Start Date End Date Neel Lincoln MD [address] [place] [address] PCP - General Internal Medicine 06/18/23 documented as of this encounter
--- OUTSIDE RECORDS SUMMARY | 2025-03-07 14:50 | XMS_ITS | Encounter Summary ---
Author Organization [facility] Address [address] [place] [address] Care Team Providers Care Echometer Engineer Name Role Phone Neel Lincoln MD Primary Care Provider [phone] Nguyen Muller RN Unavailable [phone] Encounter Details Date Type Department Care Team (Late st Contact Info) Description 08/14/2022 Hospital Follow-up Call [facility] Family & Internal Medicine [address] [address] Neel Lincoln MD [address] [place] [address] Social History Tobacco Use Types Packs/Day Years Used Date Smoking Tobacco: Every Day Cigarettes 0.5 46 Smokeless Tobacco: Never Comments:Provider to 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 success 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 , 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 trying to quite Alcohol Use Standard Drinks/Week Comments Not Currently 0 (1 standard drink = 0.6 oz pur e alcohol) quite 8 years ago PHQ-2 Answer Date Recorded Patient Health Questionnaire-2 Score 0 06/04/2022 Sex and Gender Information Value Date Recorded Sex Assigned at Male 03/29/2024 8:05 PM SCREEN AND CYCLONE REPAIRER Legal Sex Male 1:56 PM CDT Gender [...] st Contact Info) Description 03/27/2025 3:40 PM SCREEN AND CYCLONE REPAIRER [facility] [address] [facility], [address] [place] [address] J Carlos Banuelos MD [address] [facility] [place] [address] 04/10/2025 8:00 AM SCREEN AND CYCLONE REPAIRER Office [facility] [address] [place] [phone] Estrada Cao DO [address] [facility] [place] [address] 06/12/2025 2:40 PM CDT Office Visit [facility] Family & Internal Medicine - [place] [address] [place] [address] Neel Lincoln MD [address] [place] [address] 12/03/2025 12:30 PM CDT Office Visit [facility] [address] [place] [address] Yonathan Kelley MD [address] [place] [address] documented as of this encounter Visit Diagnoses Not on filedocumented in this encounter Additional Health Concerns Infection Onset Date Last Indicated Resolved Time COVID-19 Rule Out 03/30/2024 03/30/2024 03/30/2024 6:06 AM SCREEN AND CYCLONE REPAIRER COVID-19 Rule Out 03/31/2024 03/31/2024 03/31/2024 11:07 AM SCREEN AND CYCLONE REPAIRER Assessment Noted Time PHQ-9 Depression Total Score: 1 12/04/19 22 1:22 PM CDT documented as of this encounter Care Teams Echometer Engineer Relationship Specialty Start Date End Date Neel Lincoln MD [address] [place] [address] PCP - General INTERNAL MEDICINE 09/02/21 Nguyen Muller, RN [address] [place] [address] Manufacturing Job Titles (Ambulatory) REGISTERED NURSE 03/31/2402/06 documented as of this encounter
--- OUTSIDE RECORDS SUMMARY | 2025-03-07 14:50 | XMS_ITS | Encounter Summary ---
Author Organization [facility] Address [address] [place] [address] Care Team Providers Care Professor Of Chemistry Name Role Phone Neel Lincoln MD Primary Care Provider [phone] Nguyen Muller RN Unavailable [phone] Encounter Details Date Type Department Care Team (Late Contact Info) Description 11/24/2021 [employer] Message Enc [facility] [address] [employer], [facility] Provider Results Social History Tobacco Use Types Packs/Day Years Used Date Smoking Tobacco: Every Day Cigarettes 0.5 46 Smokeless Tobacco: Never Comments:Provider to child guidance 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 , 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 trying to quite Alcohol Use Standard Drinks/Week Comments Not Currently 0 (1 standard drink = 0.6 oz pur e alcohol) quite 8 years ago Sex and Gender Information Value Date Recorded Sex Assigned at Male 03/29/2024 8:05 PM RELAY ASSOCIATE Legal Sex Male 1:56 PM CDT Gender [...] (Late Contact Info) Description 03/27/2025 3:40 PM RELAY ASSOCIATE Office Visit [facility] Medical Group Multispecialty Care [facility] [address] [facility], [address] [place] [address] J Carlos Banuelos MD [address] [facility] [place] [address] 04/10/2025 8:00 AM RELAY ASSOCIATE Office Visit [facility] Medical [facility] Multispecialty Care - [facility] [address] [facility] [place] [address] Estrada Cao DO [address] [facility] [address] [place] [address] 06/12/2025 2:40 PM CDT Office Visit [facility] Medical [facility] Family & Internal Medicine [facility] [address] [place] [address] Neel Lincoln MD [address] [place] [address] 12/03/2025 12:30 PM CDT Office Visit [facility] [address] [place] [address] Yonathan Kelley MD [address] [facility] [place] [address] documented as of this encounter Visit Diagnoses Not on filedocumented in this encounter Additional Health Concerns Infection Onset Date Last Indicated Resolved Time COVID-19 Rule Out 03/30/2024 03/30/2024 03/30/2024 6:06 AM RELAY ASSOCIATE COVID-19 Rule Out 03/31/2024 03/31/2024 03/31/2024 11:07 AM RELAY ASSOCIATE documented as of this encounter Care Teams Professor Of Chemistry Relationship Specialty Start Date End Date Neel Lincoln MD [address] [place] [address] PCP - General INTERNAL MEDICINE 09/02/21 Nguyen Muller RN [address] [place] [address] Treatment Technician (Ambulatory) REGISTERED NURSE 03/31/2402/06 documented as of this encounter
--- OUTSIDE RECORDS SUMMARY | 2025-03-07 14:50 | XMS_ITS | Encounter Summary ---
Author Organization [facility] Address [address] [place] [address] Care Team Providers Care Parts Administrator Name Role Phone Neel Lincoln MD Primary Care Provider [phone] Nguyen Muller RN Unavailable [phone] Encounter Details Date Type Department Care Team (Latest Contact Info) Description 03/01/2024 [employer] Message Enc [facility] [place] [address] [phone] Kudantino, [facility] Provider PAIN CLINIC CONSULTATION Social History Tobacco [...] Sex Assigned at Male 03/29/2024 8:05 PM PLANT PACKER Legal Sex Male 1:56 PM CDT Gender Identity Not on file Sexual Orientation Not on file Occupation Industry Job Start Date Job End Date Not on file Not on file Not on file Not on file documented as of this encounter Plan of Treatment Upcoming Encounters Date Type Department Care Team (Late st Contact Info) Description 03/27/2025 3:40 PM PLANT PACKER Office Visit [facility] Multispecialty Care - [facility] [address] [facility], [address] [place] [address] J Carlos Banuelos MD [address] [facility] [place] [address] 04/10/2025 8:00 AM PLANT PACKER Office Visit [facility] - [facility] [address] [facility] [address] [place] [address] Estrada Cao DO [address] [facility] [address] [place] [address] 06/12/2025 2:40 PM CDT Office Visit [facility] Family & Internal Medicine - [place] [address] [place] [address] Neel Lincoln MD [address] [place] [address] 12/03/2025 12:30 PM CDT Office Visit [facility] [address] [place] [address] Yonathan Kelley MD [address] [place] [address] documented as of this encounter Visit Diagnoses Not on filedocumented in this encounter Additional Health Concerns Infection Onset Date Last Indicated Resolved Time COVID-19 Rule Out 03/30/2024 03/30/2024 03/30/2024 6:06 AM PLANT PACKER COVID-19 Rule Out 03/31/2024 03/31/2024 03/31/2024 11:07 AM PLANT PACKER Assessment Noted Time PHQ-9 Depression Total Score: 1 12/04/19 22 1:22 PM CDT documented as of this encounter Care Teams Parts Administrator Relationship Specialty Start Date End Date Neel Lincoln MD [address] [place] [address] PCP - General INTERNAL MEDICINE 09/02/21 Nguyen Muller RN [address] [place] [address] Work Manager (Ambulatory) REGISTERED NURSE 03/31/2402/06 documented as of this encounter
--- OUTSIDE RECORDS SUMMARY | 2025-03-07 14:50 | XMS_ITS | Clinical Summary ---
Author Organization [facility] Event Farm Address [address] [place] [address] Care Team Providers Care Entry Table Operator Name Role Phone Neel Lincoln MD Primary Care Provider [phone] Source Comments [facility],non-owned Affiliates and Associated Physician Practices is amultiple site organization consisting of ambulatory clinics and hospital sitesin [place], [place], [place] and [place]. This disclosure is being madepursuant to the Care Everywhere program and may not contain all information available regarding this patient. Last updated 17.[facility] Allergies Active Allergy Reactions Criticality Noted Date [...] Department Care Team Description 02/07/2025 9:30 AM PAINTING TRADES WORKER Office Visit [facility] - General Surgery [address] [place] [address] Enrico Milan MD Malignant melanoma of skin of chest (HCC) (Primary Dx) 02/07/2025 Travel 02/07/2025 Orders Only [facility] - General Surgery [address] [place] [address] Enrico Milan MD Malignant melanoma of skin [...] on file Legal Sex Male 8:57 AM PAINTING TRADES WORKER Gender Identity Not on file Sexual Orientation Not on file Last Filed Vital Signs Vital Sign Reading Time Taken Comments Blood Pressure 175/102 02/07/2025 8:51 AM PAINTING TRADES WORKER Pulse 71 02/07/2025 8:51 AM PAINTING TRADES WORKER Temperature 36.8 C (98.3 F) 02/07/2025 8:51 AM PAINTING TRADES WORKER Respiratory Rate 14 07/08/2023 1:45 PM CDT Oxygen Saturation 100% 02/07/2025 8:51 AM PAINTING TRADES WORKER Inhaled Oxygen Concentration - - Weight 128.4 kg (283 lb) 02/07/2025 8:51 AM PAINTING TRADES WORKER Height 185.4 cm (6' 1) 02/07/2025 8:51 AM PAINTING TRADES WORKER Body Mass Index 37.34 02/07/2025 8:51 AM PAINTING TRADES WORKER Plan of Treatment Upcoming Encounters Date Type Department Care Team (Late st Contact Info) Description 08/15/2025 9:30 AM CDT Office Visit [facility] - General Surgery [address] [place] [phone] Enrico Milan MD [address] [facility] [address] [place] [address] Health Maintenance Due Date Last Done Comments [...] - 115 mg/dL 07/08/2023 10:47 AM CDT [facility] Specimen Type Cap Fingerstick 2023 10:47 AM CDT [facility] Blood BLOOD SPECIMEN / Unknown 07/08/2023 8:46 AM CDT 07/08/2023 10:47 AM CDT us Enrico Milan MD LAB - POINT OF CARE ORDERABLES F inal Result [facility] [address] [place] [address], [place] [phone] from Last 3 Months or Most Recently Relevant to Health Maintenance Insurance MEDICARE [facility] [place] [address] Care Teams Entry Table Operator Relationship Specialty Start Date End Date Neel Lincoln MD [address] [place] [address] PCP - General Internal Medicine 06/18/23
--- OUTSIDE RECORDS SUMMARY | 2025-03-07 14:50 | XMS_ITS | Encounter Summary ---
Author Organization [facility] Address [address] [place] [address] Care Team Providers Care Teacher Kindergarten Name Role Phone Neel Lincoln MD Primary [...] from your doctor or pharmacy? Rarely 03/29/2024 [facility] Utilities Answer Date Recorded In the past 12 months has [facility] [employer], gas, oil, or water [employer] threatened to shut off services in your [...] How often do you attend chur or yazidism services? 1 to 4 times per year 03/29/2024 Do you belong to any clubs o r organizations such as shinto groups, unions, fraternal or athletic groups, or [...] Recorded Patient Health Questionnaire-2 Score 0 04/04/2024 [facility] - Occupational Stress [...] any time in the past 12 m [facility], were you homeless or living in a long term (including now)? No 03/29/2024 Sex and Gender Information Value Date Recorded Sex Assigned at Male 03/29/2024 8:05 PM AUTOMOTIVE PARTS COORDINATOR Legal Sex Male 1:56 PM CDT Gender [...] Assessment Author Status No 03/29/2024 11:07 PM AUTOMOTIVE PARTS COORDINATOR Long, Jacki R, RN Active documented as of this encounter Mental Status * Because of a physical, mental, or emotional condition, do you have serious difficulty concentrating, remembering, or making decisions? Answer Entry Date Author Status No 03/29/2024 11:07 PM AUTOMOTIVE PARTS COORDINATOR Jacki Hollins RN Active documented in this encounter Plan of Treatment Upcoming Encounters Date Type Department Care Team (Late st Contact Info) Description 03/27/2025 3:40 PM AUTOMOTIVE PARTS COORDINATOR Office Visit [facility] [address] [place] [address] J Carlos Banuelos MD [address] [place] [address] 04/10/2025 8:00 AM AUTOMOTIVE PARTS COORDINATOR Office Visit [facility] [address] [place] [phone] Estrada Cao DO [address] [place] [address] 06/12/2025 2:40 PM CDT Office Visit [facility] [place] [address] [place] [address] Neel [place] MD [address] [place] [address] 12/03/2025 12:30 PM CDT Office Visit [facility] [address] [place] [address] Yonathan Kelley MD [address] [place] [address] documented as of this encounter Goals Goal Patient Goal Type Associated Problems Recent Progress Patient-Stated? Author Consistently take medications as Prescribed Lifestyle On track(2024 1:56 PM AUTOMOTIVE PARTS COORDINATOR) No Nguyen Muller, RN Health - patient able to perform ADLs independently Lifestyle On track(2024 1:56 PM AUTOMOTIVE PARTS COORDINATOR) No Nguyen Muller RN documented as of this encounter Visit Diagnoses Not on filedocumented in this encounter Additional Health Concerns Assessment Noted Time PHQ-9 Depression Total Score: 1 12/04/19 22 1:22 PM CDT documented as of this encounter Care Teams Teacher Kindergarten Relationship Specialty Start Date End Date Neel Lincoln MD [address] [place] [address] PCP - General INTERNAL MEDICINE 09/02/21 documented as of this encounter
--- OUTSIDE RECORDS SUMMARY | 2025-03-07 14:50 | XMS_ITS | Clinical Summary ---
Author Organization [facility] Address [address] [place] [address] Care Team Providers Care Roller Repairer Name Role Phone Neel Lincoln MD Primary Care Provider [phone] Allergies Active Allergy Reactions Criticality Noted Date [...] complication, with long-term current use of insulin ([facility]) INJECT UNDER THE SKIN TWICE A DAY [...] ncontrolled type 2 diabetes mellitus with hyperglycemia ([facility]/HCC) USE TO TEST TWICE DAILY 200 each 3 024 Active KROGER BLOOD GLUCOSE TEST test stripIndications: Uncontrolled type 2 diabetes mellitus with hyperglycemia ([facility]) 1 STRIP BY DOES NOT APPLY ROUTE 4 (FOUR) TIMES DAILY BEFORE MEALS AND NIGHTLY. 400 strip 5 024 Active CONTOUR NEXT TEST test stripIndications: Type 2 diabetes mellitus with other specified complication, with long-term current use of insulin ([facility]) USE TO TEST 4 TIMES DAILY BEFORE MEALS AND NIGHTLY 400 strip 5 024 Active Insulin Pen Needle (TECHLITE PEN NEEDLES) 31G X 5 MM MiscIndications:T ype 2 diabetes mellitus with other specified complication, with long-term current use of insulin ([facility]/H[facility]) USE 1 NEEDLE 4 TIMES A [...] 24 hr tabletIndications :Coronary artery disease involving siletz tribe coronary artery of siletz tribe heart with other form of angina pectoris,Abdomina l aortic aneurysm (AAA) without rupture, unspecified part,Permanent atrial fibrillation (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) Take 1 tablet (500 mg total) by mouth 2 (two) times daily. 180 tablet 11 025 Active ASPIRIN LOW DOSE 81 MG chewable tabletIndications :Hyperlipidemia, mixed,Essential (primary) hypertension CHEW AND SWALLOW 1 TABLET BY MOUTH DAILY AT 8AM 90 tablet 3 025 Active gabapentin (NEURONTIN) 800 MG tabletIndications :Diabetic polyneuropathy associated with type 2 diabetes mellitus ([facility]) Take 1 tablet (800 mg total) by mouth 3 (three) times daily. 90 tablet 3 025 Active potassium chloride CR (K-TAB) 20 MEQ tabletIndications :Essential (primary) hypertension Take 1 tablet (20 mEq total) by mouth daily. 14 tablet 025 Active ezetimibe (ZETIA) 10 MG tabletIndications :Coronary artery disease involving siletz tribe coronary artery of siletz tribe heart with other form of angina pectoris,Hyperlip idemia, mixed,PAD (peripheral artery disease),Type 2 diabetes mellitus with other specified complication, with long-term current use of insulin ([facility]),Abdomina l aortic aneurysm (AAA) without rupture, unspecified [...] Active levETIRAcetam (KEPPRA) 500 MG tabletIndications :Seizure ([facility]) TAKE 1 TABLET BY MOUTH TWICE A DAY 60 tablet 1 025 2024 Discontinued(D uplicate Med) atorvastatin (LIPITOR) 80 MG tabletIndications :Hyperlipidemia, mixed TAKE 1 TABLET BY MOUTH EVERY NIGHT AT BEDTIME 90 tablet 1 025 2024 Discontinued gabapentin (NEURONTIN) 800 MG tabletIndications :Diabetic polyneuropathy associated with type 2 diabetes mellitus ([facility]) Take 1 tablet (800 mg total) by mouth 3 (three) times daily. 90 tablet 025 2024 Discontinued(R eorder) potassium chloride CR (K-TAB) 20 MEQ tabletIndications :Essential (primary) hypertension Take 1 tablet (20 mEq total) by mouth daily. 90 tablet 3 025 2024 Discontinued(R eorder) ezetimibe (ZETIA) 10 MG tabletIndications :Coronary artery disease involving siletz tribe coronary artery of siletz tribe heart with other form of angina pectoris,Hyperlip idemia, mixed,PAD (peripheral artery disease),Type 2 diabetes mellitus with other specified complication, with long-term current use of insulin ([facility]),Abdomina l aortic aneurysm (AAA) without rupture, unspecified [...] mellitus with hyperglycemi a 06/24/2021 Atherosclerosis of siletz tribe ar teries of extremities with rest pain, bilateral legs 01/17/2021 Overview (10/19/2022): Added automatically from request for surgery [id number] Hypertension associated with type 2 diabetes kelly litus 07/12/2020 Coronary artery disease due to type 2 diabetes m ellitus 07/12/2020 GERD (gastroesophageal reflux disease) Sleep apnea 07/12/2020 Type 2 diabetes mellitus wit h atherosclerosis of siletz tribe arteries of extremity with intermittent claudication 07/09/2020 Overview (04/11/2024): Added automatically from request for surgery [id number] Last Assessment & Plan: He has widely [...] arteries. Added automatically from request for surgery [id number] Chronic pain of both hips 02/26/2020 Overview [...] Department Care Team Description 03/06/2025 3:20 PM DUCK FARMER Office Visit [facility] [address] [address] Neel Lincoln MD Follow Up (Patient is here for a 3 month follow up.); Diabetes (Patient sees Dr. Vega @ [facility]. Last A1c on 02/27 was 8.7%.); Hyperlipidemia; Hypothyroidism; GERD 03/06/2025 Travel 02/27/2025 Scan HEALTH INFO SRVCS Scanned, [facility] 02/26/2025 Telephone [facility] [address] [address] Neel Lincoln MD Medication Request 02/07/2025 Scan HEALTH INFO SRVCS Scanned, [facility] 01/31/2025 [facility] [address] [place] [address] Clarissa Gonzalez LPN Pre-visit Gap Closure 01/12/2025 Scan HEALTH INFO SRVCS Scanned, [facility] 12/20/2024 [facility] [address] [place] [address] J Carlos Banuelos MD Medication [...] Mother Cancer Paternal Grandfather unknown typ e [place] Paternal Grandfather Diabetes Paternal Grandmother Cancer Paternal [...] from your doctor or pharmacy? Rarely 03/29/2024 [facility] Utilities Answer Date Recorded In the past 12 months has e [employer], gas, oil, or water company threatened to [...] week 03/29/2024 How often do you attend [facility] or pentecostal services? 1 to 4 times per year 03/29/2024 Do you belong to any clubs o r organizations such as orthodox groups, unions, fraternal or athletic groups, or [...] Recorded Patient Health Questionnaire-2 Score 0 04/04/2024 [facility] of Occupat ional Health - Occupational Stress [...] any time in the past 12 m [facility], were you homeless or living in a long term (including now)? No 03/29/2024 Sex and Gender Information Value Date Recorded Sex Assigned at Male 03/29/2024 8:05 PM DUCK FARMER Legal Sex Male 1:56 PM CDT Gender Identity Not on file Sexual Orientation Not on file Occupation Industry Job Start Date Job End Date Not on file Not on file Not on file Not on file Last Filed Vital Signs Vital Sign Reading Time Taken Comments Blood Pressure 108/62 03/06/2025 3:25 PM DUCK FARMER Pulse 57 03/06/2025 3:25 PM DUCK FARMER Temperature 36.7 C (98.1 F) 03/06/2025 3:25 PM DUCK FARMER Respiratory Rate 20 11/27/2024 3:35 PM CDT Oxygen Saturation 92% 03/06/2025 3:25 PM DUCK FARMER Inhaled Oxygen Concentration - - Weight 130.8 kg (288 lb 4.8 oz) 03/06/2025 3:25 PM DUCK FARMER Height 182.9 cm (6') 03/06/2025 3:25 PM DUCK FARMER Body Mass Index 39.1 03/06/2025 3:25 PM DUCK FARMER Plan of Treatment Upcoming Encounters Date Type Department Care Team (Late st Contact Info) Description 03/27/2025 3:40 PM DUCK FARMER [facility] [address] [facility], [address] [place] [address] J Carlos Banuelos MD [address] [place] [address] 04/10/2025 8:00 AM DUCK FARMER [facility] Visit [facility] - [address], [address] [place] [address] Estrada Cao DO [address] [facility] [address] [place] [address] 06/12/2025 2:40 PM CDT Office Visit [facility] - [place] [address] [place] [address] Neel [place] MD [address] [place] [address] 12/03/2025 12:30 PM CDT Office Visit [facility] [address] [place] [address] Yonathan Kelley MD [address] [facility] [place] [address] Health Maintenance Due Date Last Done Comments [...] Vaccine: 50+ Years Completed 11/17/2023 PHQ-2 (Physician [place]) Completed 04/04/2024 Hepatitis A Vaccines Aged Out [...] as Prescribed Lifestyle On track(2024 1:56 PM DUCK FARMER) Nguyen Solis RN Health - patient able to perform ADLs independently Lifestyle On track(2024 1:56 PM DUCK FARMER) No Nguyen Muller shipping point inspector Procedure Name Priority Date/Time Associated Diagnosis Comments XR CHEST PA+LAT Routine 03/06/2025 4:33 PM DUCK FARMER Malignant melanoma of skin of chest (CMS/HCC HHS/HCC) DIABETIC RETINOPATHY EXAM (NEGATIVE)(SCAN ORDER) Routine 12/04/2024 HEMOGLOBIN GLYCOSYLATED A1C Routine 11/07/2024 LIPID PANEL Routine 03/29/2024 8:40 PM DUCK FARMER from Last 3 Months or Most Recently Relevant to Health Maintenance Results * XR CHEST PA+LAT (03/06/2025 4:33 PM DUCK FARMER) Anatomical Region Laterality Modality Chest Radiographic Nini ging 03/06/2025 4:39 PM DUCK FARMER Impressions 03/06/2025 4:41 PM DUCK FARMER =====IMPRESSION:===== No acute findings. Ordered By: YONAS RITTER Interpreted By: Irving Hollins MD, 03/06/2025 4:39 PM Narrative 03/06/2025 4:41 PM DUCK FARMER [facility] [place] [address] EXAMINATION: PA AND LATERAL CHEST Exam date/time: [...] Procedure Note Irving Hollins MD - 03/06/2025 [facility] [place] [address] EXAMINATION: PA AND LATERAL CHEST Exam date/time: [...] Med Group Scanned SCANNING Final Resu lt [facility] ON[facility] * (ABNORMAL) HEMOGLOBIN, GLYCOSYLATED (11/07/2024) HGB A1C 10.2(A) % 11/07/2024 Default History Genericprovider LABORATORY Edited Result - Final * LIPID PANEL (03/29/2024 8:40 PM DUCK FARMER) CHOLESTEROL 143 <200 MG/DL 03/29/2024 10:26 PM DUCK FARMER [facility] TRIGLYCERIDES 90 <150 MG/DL 03/29/2024 10:26 PM DUCK FARMER [facility] HDL 46 >40.0 MG/DL 03/29/2024 10:26 PM [facility] LDL (CALCULATED) 79 <100 MG/DL 03/29/19 10:26 PM DUCK FARMER [facility] NON HDL CHOLESTEROL 97 <130 MG/DL 03/29 10:26 PM DUCK FARMER [facility] CHOL/HDL RATIO 3.1 0.0 - 4.5 03/29/2024 10:26 PM DUCK FARMER [facility] VLDL CALCULATION 18 5 - 55 MG/DL 03/29/2024 10:26 PM DUCK FARMER [facility] LIPID INTERPRETATION 03/29/2024 10:26 PM DUCK FARMER [facility] Comment: NIH CONCENSUS REPORT RECOMMENDATIONS: ADULT CHILD LOW RISK: CHOLESTEROL <200 <170 TRIGLYCERIDE <150 --- HDL >=60 --- LDL <100 <110 BORDERLINE: CHOLESTEROL 200-239 170-199 TRIGLYCERIDE 150-199 --- HDL 40-59 --- LDL 100-159 110-129 HIGH RISK: CHOLESTEROL >=240 >=200 TRIGLYCERIDE >=200 --- HDL <40 --- LDL >=160 >=130 03/29/2024 8:40 PM DUCK FARMER Heather Larose DO LABORATORY Final Result [facility] [address] [place] [address], from Last 3 Months or Most Recently Relevant to Health Maintenance Insurance MEDICARE [facility] Advance Directives * Full Code (Latest Code Status on File) Date Activated Date Inactivated Comments 03/29/2024 9:53 PM 04/02/2024 4:01 PM * Full Code Date Activated Date Inactivated Comments 03/03/2024 12:39 PM 03/03/2024 5:40 PM Care Teams Roller Repairer Relationship Specialty Start Date End Date Neel [place] MD [address] [place] [phone] PCP - General INTERNAL MEDICINE 09/02/21
--- OUTSIDE RECORDS SUMMARY | 2025-03-07 14:50 | XMS_ITS | Encounter Summary ---
Author Organization [facility] Address [address] [place] [address] Care Team Providers Care Aircraft Powerplant Repairer Name Role Phone Neel [place] MD Primary Care Provider [phone] Encounter Details Date Type Department Care Team [...] from your doctor or pharmacy? Rarely 03/29/2024 [facility] Utilities Answer Date Recorded In the past 12 months has e [employer], gas, oil, or water [employer] threatened to shut off services in your [...] often do you attend chur ch or moravian services? 1 to 4 times per year 03/29/2024 Do you belong to any clubs o r organizations such as anabaptist groups, unions, fraternal or athletic groups, or [...] Recorded Patient Health Questionnaire-2 Score 0 04/04/2024 [facility] - Occupational Stress Questionnaire Answer Date [...] were you homeless or living in a residential (including now)? No 03/29/2024 Sex and Gender Information Value Date Recorded Sex Assigned at Male 03/29/2024 8:05 PM HIDES INSPECTOR Legal Sex Male 1:56 PM CDT [...] st Contact Info) Description 03/27/2025 3:40 PM HIDES INSPECTOR Office Visit [facility] [address] [place] [address] J Carlos Banuelos MD [address] [place] [address] 04/10/2025 8:00 AM HIDES INSPECTOR Office Visit [facility] [address] [place] [address] Estrada Cao DO [address] [place] [address] 06/12/2025 2:40 PM CDT Office Visit [facility] [place] [address] [place] [address] Neel Lincoln MD [address] [place] [address] 12/03/2025 12:30 PM CDT Office Visit [facility] [address] [place], [place] [phone] Yonathan Kelley MD [address] [place] [address] documented as of this encounter Goals Goal Patient Goal Type Associated Problems Recent Progress Patient-Stated? Author Consistently take medications as Prescribed Lifestyle On track(2024 1:56 PM HIDES INSPECTOR) No Nguyen Muller, RN Health - patient able to perform ADLs independently Lifestyle On track(2024 1:56 PM HIDES INSPECTOR) No Nguyen Muller, RN documented as of this encounter Visit Diagnoses Not on filedocumented in this encounter Additional Health Concerns Assessment Noted Time PHQ-9 Depression Total Score: 1 12/04/19 22 1:22 PM CDT documented as of this encounter Care Teams Aircraft Powerplant Repairer Relationship Specialty Start Date End Date Neel [place] MD [address] [place] [address] PCP - General INTERNAL MEDICINE 09/02/21 documented as of this encounter
--- OUTSIDE RECORDS SUMMARY | 2025-03-07 14:50 | XMS_ITS | Encounter Summary ---
Author Organization [facility] Address [address] [place] [address] Care Team Providers Care Lease Attendant Name Role Phone Neel Lincoln MD Primary Care Provider [phone] Nguyen Muller RN Unavailable [phone] Encounter Details Date Type Department Care Team (Late st Contact Info) Description 03/03/2024 Pre-Procedure Call [facility] [place] [address] Bony Celeste MD Three [facility]. [facility] [address] [place], [place] [id number] Anesthesia Record Procedure Summary Procedure Name Responsible Anesthesiologist Anesthesia Start Time Anesthesia Stop Time XA LEFT ATRIAL APPENDAGE CLOSURE Vanessa Escobar MD 03/03/24 1008 03/03/24 1232 Events Date Time Event Comment 03/03/2024 0949 AN EMERGENCY DEPT TECH Prepped 0955 0955 AN Anesthesia Prepped 1008 [...] Date: 03/03/24; Removal Time: 1223; Removal Person: EMERGENCY DEPT TECH; Removal Reason: End of Case 03/03/24 1211 [...] Sex Assigned at Male 03/29/2024 8:05 PM POTASH FLAKER Legal Sex Male 1:56 PM CDT Gender [...] 128.8 kg (284 lb) 02/29/2024 9:20 AM POTASH FLAKER Height - - Body Mass Index 37.47 01/26/2024 8:27 AM POTASH FLAKER documented in this encounter Progress Notes * [...] before amputation. Spoke with pt : Remedios [phone] Lincoln for Medical Clearance due to pt HGBA1C 11.5. Dr Lincoln out of town this week. Dr Alvarez covering. Received call from SRINI Gloria who indicates that Dr Alvarez is not comfortable clearing pt for surgery. However, he asks that we reach out to pt distillation operator helper, Dr Vega to request clearance. Spoke with Dr Vega's staff who indicate that pt is scheduled to be seen in office today at 3:30. Faxed request to Dr Vega's office for surgery clearance. SH FLAKER SH FLAKER documented in this encounter OR Notes * OR PreOp - Lesli Martinez CNP - 02/29/2024 10:37 AM CST Chart reviewed. Per phone interview, patient denies any SOB/CP with 2 FOS. Uses cane since stroke in July. Per phone interview, patient sees physician office rep Dr. Kelley. Please request medical clearance / [...] PCI was unsuccessful from the transradial approach. SH FLAKER SH FLAKER documented in this encounter Plan of Treatment Upcoming Encounters Date Type Department Care Team (Late st Contact Info) Description 03/27/2025 3:40 PM POTASH FLAKER Office Visit [facility] [address], [address] [place] [address] J Carlos Banuelos MD [address] [facility] [place] [address] 04/10/2025 8:00 AM POTASH FLAKER Office Visit [facility] [address] [facility] [address] [place] [address] Estrada Cao DO [address] [facility] [address] [place] [address] 06/12/2025 2:40 PM CDT Office Visit [facility] [place] [address] [place] [address] Neel Lincoln MD [address] [place] [address] 12/03/2025 12:30 PM CDT Office Visit [facility] [address] [place] [address] Yonathan Kelley MD [address] [place] [address] documented as of this encounter Visit Diagnoses Not on filedocumented in this encounter Additional Health Concerns Infection Onset Date Last Indicated Resolved Time COVID-19 Rule Out 03/30/2024 03/30/2024 03/30/2024 6:06 AM POTASH FLAKER COVID-19 Rule Out 03/31/2024 03/31/2024 03/31/2024 11:07 AM POTASH FLAKER Assessment Noted Time PHQ-9 Depression Total Score: 1 12/04/19 22 1:22 PM CDT documented as of this encounter Care Teams Lease Attendant Relationship Specialty Start Date End Date Neel Lincoln MD [address] [place] [address] [id number] PCP - General INTERNAL MEDICINE 09/02/21 Nguyen Muller, RN [address] [place], [place] [address] Automotive Glazier (Ambulatory) REGISTERED NURSE 03/31/2402/06 documented as of this encounter
--- OUTSIDE RECORDS SUMMARY | 2025-03-07 14:50 | XMS_ITS | Encounter Summary ---
Author Organization [facility] Address [address] [place] [address] Care Team Providers Care Spectacle Truer Name Role Phone Neel Lincoln MD Primary Care Provider [phone] Nguyen Muller RN Unavailable [phone] Encounter Details Date Type Department Care Team (Late Contact Info) Description 11/05/2023 [employer] Message Enc [address], [address] [place] [address] [place], [facility] Provider EEG Results Social History Tobacco Use [...] Sex Assigned at Male 03/29/2024 8:05 PM FILM CLEANER Legal Sex Male 1:56 PM CDT Gender Identity Not on file Sexual Orientation Not on file Occupation Industry Job Start Date Job End Date Not on file Not on file Not on file Not on file documented as of this encounter Plan of Treatment Upcoming Encounters Date Type Department Care Team (Late Contact Info) Description 03/27/2025 3:40 PM FILM CLEANER Office Visit [address], [address] [place] [address] J Carlos Banuelos MD [address] [place] [address] 04/10/2025 8:00 AM FILM CLEANER Office Visit [facility] [address] [facility] [place] [address] Estrada Cao DO [address] [facility] [address] [place] [address] 06/12/2025 2:40 PM CDT Office Visit [facility] [place] [address] [place] [address] Neel Lincoln MD [address] [place] [address] 12/03/2025 12:30 PM CDT Office Visit [facility] [address] [place] [address] Yonathan Kelley MD Three [facility] [address] [place] [address] documented as of this encounter Visit Diagnoses Not on filedocumented in this encounter Additional Health Concerns Infection Onset Date Last Indicated Resolved Time COVID-19 Rule Out 03/30/2024 03/30/2024 03/30/2024 6:06 AM FILM CLEANER COVID-19 Rule Out 03/31/2024 03/31/2024 03/31/2024 11:07 AM FILM CLEANER Assessment Noted Time PHQ-9 Depression Total Score: 1 12/04/19 22 1:22 PM CDT documented as of this encounter Care Teams Spectacle Truer Relationship Specialty Start Date End Date Neel Lincoln MD [facility] [place] [address] PCP - General INTERNAL MEDICINE 09/02/21 Nguyen Muller, RN [address] [place] [address] Minesweeping Officer (Ambulatory) REGISTERED NURSE 03/31/2402/06 documented as of this encounter
--- OUTSIDE RECORDS SUMMARY | 2025-03-07 14:50 | XMS_ITS | Encounter Summary ---
Author Organization [facility] Address [address] [place] [address] Care Team Providers Care Bench Assembly Inspector Name Role Phone Neel Lincoln MD Primary Care Provider [phone] Nguyen Muller RN Unavailable [phone] Encounter Details Date Type Department Care Team (Late st Contact Info) Description 02/29/2024 Pre-Procedure Call [facility] [place] [address] Bony Celeste MD Three [facility]. [facility] [address] [place], [place] [address] Social History Tobacco Use Types Packs/Day Years [...] Sex Assigned at Male 03/29/2024 8:05 PM USED CAR LOT ATTENDANT Legal Sex Male 1:56 PM CDT Gender Identity Not on file Sexual Orientation Not on file Occupation Industry Job Start Date Job End Date Not on file Not on file Not on file Not on file documented as of this encounter Plan of Treatment Upcoming Encounters Date Type Department Care Team (Late st Contact Info) Description 03/27/2025 3:40 PM USED CAR LOT ATTENDANT Office Visit [facility] [address] [facility], [address] [place] [address] J Carlos Banuelos MD 3 [facility] [place] [address] 04/10/2025 8:00 AM USED CAR LOT ATTENDANT [facility] [address] [facility] [address] [place] [address] Estrada Cao DO [address] [facility] [address] [place] [address] 06/12/2025 2:40 PM CDT Office Visit [facility] - [place] [address] [place] [address] Neel Lincoln MD [address] [place] [address] 12/03/2025 12:30 PM CDT Office Visit [facility] [address] [place] [address] Yonathan Kelley MD Three [facility] [address] [place] [address] documented as of this encounter Visit Diagnoses Not on filedocumented in this encounter Additional Health Concerns Infection Onset Date Last Indicated Resolved Time COVID-19 Rule Out 03/30/2024 03/30/2024 03/30/2024 6:06 AM USED CAR LOT ATTENDANT COVID-19 Rule Out 03/31/2024 03/31/2024 03/31/2024 11:07 AM USED CAR LOT ATTENDANT Assessment Noted Time PHQ-9 Depression Total Score: 1 12/04/19 22 1:22 PM CDT documented as of this encounter Care Teams Bench Assembly Inspector Relationship Specialty Start Date End Date Neel Lincoln MD [address] [place] [address] PCP - General INTERNAL MEDICINE 09/02/21 Nguyen Muller RN [address] [place] [address] Dog Groomer (Ambulatory) REGISTERED NURSE 03/31/2402/06 documented as of this encounter
--- OUTSIDE RECORDS SUMMARY | 2025-03-07 14:50 | XMS_ITS | Clinical Summary ---
Author Organization [facility] Address [address] [place] [address] Phone Care Team Providers Care Wallboard Worker Name Role Phone Neel Lincoln MD Primary Care Provider [phone] Neel Lincoln MD Unavailable [phone] J Carlos Banuelos MD Unavailable [phone] Delmer Heaton MD Unavailable [phone] Lemuel Vega MD Unavailable Allergies Active Allergy [...] Active Insulin Pen Needle (TechLite Plus Pen [place]) 32G X 4 MM [facility] 1 Pen Needle by Does not apply route 5 times daily. 500 Pen Needle 3 02/01/20 24 Active HumaLOG KwikPen 100 UNIT/ML Solution Pen-injector 24 units before each meal; correctional factor insulin of 1:15 if >140 mg/dL, up to 120 units per day 105 mL 1 02/29/20 24 Active ergocalciferol (VITAMIN D) 92357 UNIT CapsuleIndication s:Vitamin D deficiency TAKE 1 [...] 90 Tablet 3 09/06/19 Active Continuous Glucose Social Media Intern (Dexcom G7 Social Media Intern) Device Check blood glucose before each meal [...] Department Care Team Description 02/27/2025 1:15 PM COOK ROAST Office Visit [facility] - [place] [address] [place] [address] Lemuel Vega MD Type 2 [...] 02/21/2025 Refill [facility] [address] [place] [address] Lemuel Vega MD Medication Refill from Last 3 Months Immunizations Immunization Administration Dates Next Due Influenza Vaccine, Quadrivalent, PF 02/02/2023,1 ,01/03/2020 Influenza, Seasonal, Injectable, Undefined 12/16 Influenza,Split Virus,Trivalent,Injectable,PF 01/26/2024 Pneumococcal conjugate PCV20 , polysaccharide ETH145 conjugate, adjuvant, PF 11/17/2023 Family History Medical [...] Comments Blood Pressure 122/70 02/27/2025 1:27 PM COOK ROAST Pulse 85 02/27/2025 1:27 PM COOK ROAST Temperature 36.7 C (98 F) 02/27/2025 1:27 PM COOK ROAST Respiratory Rate 22 02/27/2025 1:27 PM COOK ROAST Oxygen Saturation 97% 02/27/2025 1:27 PM COOK ROAST Inhaled Oxygen Concentration - - Weight 131.7 kg (290 lb 6.4 oz) 02/27/2025 1:27 PM COOK ROAST Height 185.4 cm (6' 1) 10/04/2024 2:20 PM CDT Body Mass Index 38.31 10/04/2024 2:20 PM CDT Plan of Treatment Upcoming Encounters Date Type Department Care Team (Late st Contact Info) Description 04/02/2025 2:45 PM COOK ROAST Office Visit [facility] [address] [place] [address] Delmer Heaton MD [address] [place] [address] 05/29/2025 3:30 PM CDT Office Visit [facility] - [place] [address] [place] [address] Lemuel Vega MD [address] [facility] [address] Health Maintenance Due Date Last [...] POCT GLYCOSYLATED HEMOGLOBIN Routine 02/27/2025 1:30 PM COOK ROAST Type 2 diabetes mellitus with diabetic polyneuropathy, with long-term current use of insulin UR MICROALBUMIN/CREATINI NE RATIO RANDOM Routine 10/04/2024 2:59 PM CDT from Last 3 Months or Most Recently Relevant to Health Maintenance Results * (ABNORMAL) POCT GLYCOSYLATED HEMOGLOBIN (02/27/2025 1:30 PM C[facility] ROAST) HGB-A1C 8.7(A) 4 - 6 % Blood 02/27/2025 1:30 PM [place] ROAST Lemuel Vega MD POINT OF CARE TESTING (MANUAL) F inal Result * (ABNORMAL) UR MICROALBUMIN/CREATININE RATIO RANDOM (10/04/2024 2:59 PM CDT) CREATININE, URINE 61.9 NOT ESTAB. MG/DL CANCER ACCOUNT EXECUTIVE SALES REPRESENTATIVE [facility] MICROALBUMIN, URINE 19.3 NOT ESTAB. UG/ML CANCER ACCOUNT EXECUTIVE SALES REPRESENTATIVE [facility] MICROALB/CREAT RATIO 31(H) 0 - 29 MG/G CREAT CANCER ACCOUNT EXECUTIVE SALES REPRESENTATIVE [facility] Comment: NORMAL: 0 - 29 MODERATELY INCREASED: 30 - 300 SEVERELY INCREASED: >300 10/04/2024 2:59 PM CDT Narrative CANCER ACCOUNT EXECUTIVE SALES REPRESENTATIVE [facility] - 10/05/2024 1:08 PM CDT TESTING PERFORMED AT: [CB[facility] [address] [facility], [place], [address], PHONE: [phone], CHURN DRILL OPERATOR: YENNI RODRIGUEZ, PHD us Lemuel Vega MD URINE ORDERABLES Final Result CANCER ACCOUNT EXECUTIVE SALES REPRESENTATIVE OF [facility] [place] [address], from Last 3 Months or Most Recently Relevant to Health Maintenance Insurance MEDICARE [facility] MEDICARE [employer] Care Teams Wallboard Worker Relationship Specialty Start Date End Date Neel Lincoln MD [address] [place] [address] PCP - General Family Medicine 12/17/23 Neel Lincoln MD [address] [place] [address] Family Medicine 12/17/23 J Carlos Banuelos MD [address] [place] [address] Neuromuscular Medicine 11/02/23 Delmer Heaton MD [address] [place] [phone] Consulting Physician Oncology 11/02/23 Lemuel Vega MD [address] [phone] Consulting Physician Endocrinology 01/26/24
--- OUTSIDE RECORDS SUMMARY | 2025-03-07 14:51 | XMS_ITS | Encounter Summary ---
Author Organization [facility] Address [address] [facility] [place] [address] Care Team Providers Care Iuss Master Analyst Name Role Phone Neel Lincoln MD Primary Care Provider [phone] Reason for Referral * Consultation (Routine) - Closed Specialty Diagnoses / Procedures Referred By Contac t Referred To Contact Nutrition Services Diagnoses Type 2 diabetes mellitus with other specified complication, with long-term current use of insulin (HCC) PAD (peripheral artery disease) Neel Lincoln MD [address] [place] [address] Phone: tel: fax: Referral ID Status Reason Start Date Expiration Date V isits Requested Visits Authorized [id number] Closed Specialty Services Required 02/03/2024 02/02/2025 1 1 RITY INCIDENT RESPONSE SPECIALIST Encounter Details Date Type Department Care Team (Latest Contact Info) Description 02/03/2024 Transcribe Orders [facility] - Centralized Scheduling [address] [place] [address] Neel Lincoln MD [address] [place] [address] Type 2 diabetes mellitus with other [...] on file Legal Sex Male 8:57 AM SECURITY INCIDENT RESPONSE SPECIALIST Gender Identity Not on file Sexual Orientation [...] Visit [facility] - General Surgery [address] [place] [address] Enrico Milan MD [facility] [address] [place] [address] Scheduled Referrals Name Type Priority [...] arterioles documented in this encounter Care Teams Iuss Master Analyst Relationship Specialty Start Date End Date Neel Lincoln MD [address] [place] [address] PCP - General Internal Medicine 06/18/23 documented as of this encounter
--- OUTSIDE RECORDS SUMMARY | 2025-03-07 14:51 | XMS_ITS | Clinical Summary ---
Author Organization [facility] Address [address] [place] [address] Care Team Providers Care Computational Theory Scientist Name Role Phone Moisés Flynn MD Unavailable Eileen Mueller MD Unavailable Neel Lincoln MD Primary Care Provider [phone] Wes Redmond MD Unavailable [phone] Moisés Bryant MD Unavailable Nikolai Russell MD Unavailable [phone] Allergies Active Allergy Reactions Criticality Noted [...] CAD (coronary artery disease) 07/12/2020 Atherosclerosis of [place] ar teries of extremities with intermittent claudication, bilateral legs 07/09/2020 Overview (07/09/2020): Added automatically from request for surgery [id number] Assessment & Plan (06/09/2021 12:42 PM CDT): [...] 02/26/2020 Assessment & Plan (02/26/2020 9:38 AM MULTI SHARE PROGRAM COORDINATOR): Bilateral hip claudication with chronically occluded bilateral [...] 01/15/2020 Assessment & Plan (03/04/2023 10:37 AM MULTI SHARE PROGRAM COORDINATOR): Due for follow-up carotid doppler summer 2023. Will coordinate with his 6 month f/u studies of his legs. Assessment & Plan (01/15/2020 2:00 PM MULTI SHARE PROGRAM COORDINATOR): Left SFA stent patent. Repeat arterial Doppler in six months. Our office will contact him to make the appointment when the time comes. Certainly if there are interval problems, we would be happy to see him sooner. Status post femoral-popliteal bypass surgery 04/2019 Assessment & Plan (03/04/2023 10:36 AM MULTI SHARE PROGRAM COORDINATOR): Widely patent aorto-bifemoral bypass and bilateral fem-pop bypasses. Repeat ABIs and bilateral LE duplex scans again in six months. Assessment & Plan (12/18/2020 10:32 AM CDT): Patent right leg bypass with stable right leg perfusion. Assessment & Plan (01/15/2020 1:59 PM MULTI SHARE PROGRAM COORDINATOR): Widely patent right leg bypass. Monitor with repeat Duplex scan in six months. Our office will contact him to make the appointment when the time comes. Certainly if there are interval problems, we would be happy to see him sooner. Generalized postprandial abdominal pain 01/15/20 20 Assessment & Plan (01/15/2020 1:57 PM MULTI SHARE PROGRAM COORDINATOR): Arrange CT Angiogram abdomen/pelvis to determine if [...] Resolved Date Claudication 01/22/2021 03/03/2023 Atherosclerosis of [place] ar teries of extremities with rest pain, bilateral legs 01/17/2021 03/03/2023 Overview (01/17/2021): Added automatically from request for surgery [id number] Atherosclerosis of [place] ar teries of extremities with intermittent claudication, left leg 06/01/2019 07/12/2020 Overview (06/01/2019): Added automatically from request for surgery [id number] Stenosis of peripheral vascular stent 06/01/2019 07/12/2020 Overview (06/01/2019): Added automatically from request for surgery [id number] Foreign body of great toe of right foot with infection 10/17/2018 07/12/2020 Atherosclerosis of [place] ar diogo of left lower extremity with intermittent claudication 08/17/2018 07/12/2020 Overview (08/17/2018): Added automatically from request for surgery [id number] Assessment & Plan (05/22/2019 2:44 PM CDT): [...] 07/12/2020 Assessment & Plan (01/15/2020 2:01 PM MULTI SHARE PROGRAM COORDINATOR): 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 Revascularization is not possible. Continue exercise to encourage collateral flow. Encounter for therapeutic drug monitoring 05/19/2017 07/12/2020 Surgical follow-up care 02/03/201606/15 Overview (06/18/2016): Postoperative follow-up Sebaceous cyst 12/30/2015 07/10/2022 Overview (06/18/2016): Sebaceous cyst Atherosclerosis of nightm[place] artery of extremity 05/08/19 16 07/12/2020 Overview (06/18/2016): Atherosclerosis of nightm[place] artery of right lower extremity with rest pain Encounters Date Type Department Care Team Description 02/22/2025 Telephone [facility] Ophthalmology [address] 2[address], [address] [place] [address] Romana Jurado MD PhD 02/20/2025 Telephone [facility] Ophthalmology [address] [place] [phone] Romana Jurado MD PhD results requested 01/23/2025 3:00 PM MULTI SHARE PROGRAM COORDINATOR Imaging Exam [facility] Ophthalmology [address] [place] [phone] Epiretinal membrane (ERM) of both eyes 01/16/2025 2:00 PM MULTI SHARE PROGRAM COORDINATOR Imaging Exam [facility] Medicine Ophthalmology [address] [place] [phone] Epiretinal membrane (ERM) of both eyes 01/16/2025 Telephone [facility] Ophthalmology [address] [place] [address] Romana Jurado MD PhD ERG Questions 01/10/2025 Orders Only [facility] Medicine Ophthalmology [address] [place] [address] Gabe Peterson MD Epiretinal membrane (ERM) of both eyes (Primary Dx) 01/10/2025 Orders Only [facility] Medicine Ophthalmology [address] [place] [address] Gabe Peterson MD Epiretinal membrane (ERM) of both eyes (Primary Dx) 01/09/2025 8:00 AM CDT Office Visit [facility] Medicine Ophthalmology [address] [place] [phone] Romana Jurado MD PhD Retinitis pigmentosa of both eyes (Primary Dx); Epiretinal membrane (ERM) of both eyes; DM type 2 without retinopathy (HCC) 12/26/2024 Documentation [id number] [place] [address] Juan Pablo Huitron MD CKD follow-up 12/06/2024 Telephone [facility] Ophthalmology [facility] [place] [address] Amrit Díaz MD new pt from Last [...] pain of both hips 02/26/2020 Atherosclerosis of [place] ar teries of extremities with intermittent claudication, bilateral legs 07/09/2020 Added automatically from request for surgery [id number] Sebaceous cyst 12/30/2015 Sebaceous cyst Foreign body [...] any clubs o r organizations such as episcopalian groups, unions, fraternal or athletic groups, or [...] on file Legal Sex Male 2:42 PM MULTI SHARE PROGRAM COORDINATOR Gender Identity Not on file Sexual Orientation [...] 01/09/2026 01/09/2025 Medical Devices Implanted Type Area Healthcare Sales Representative Device Identifier Shelf Expiration Date Model / Serial / Lot Getinge Dundee Inc Hemagard 16/8mm 50cm Knit Cross Link Tensile Strength Excellent [id number] - [id number] - [id number] Implanted:Qty: 1 on 07/27/2022 by Moisés Flynn MD at [facility] Graft N/A: Abdomen GETINGE CASTLE INC 01/12/2027 [id number] / [id number] / Daig Thien [id number] Device Closure Angio-Seal Vip Bondek-Plus Polyglyd L70 Cm Od6 Fr Odsec.035 In Vascular - Sn/A - [id number] Implanted:Qty: 1 on 07/17/2020 by Moisés Flynn MD at [facility] Other - see comments Left: Groin Terumo Medical Thien 04/14/2021 [id number] / N/A / [id number] Bard Peripheral Vascular [id number] E-Luminexx Safe Performaxx 9mm 6fr 60mm 80cm Delivery System - [id number] Implanted:Qty: 1 on 12/13/2017 by Moisés Flynn MD at [facility] Stent Left: Arterial Bard Peripheral Vascular 01/12/2020 [id number] / / [id number] Description:Left Common and External Iliac Artery Medtronic Inc Everflex Entrust 6mm 60mm 80cm Self Expand Triaxial Low Profile - Sn/A - [id number] Implanted:Qty: 1 on 07/17/2020 by Moisés Flynn MD at [facility] Stent Right: Iliac Medtronic Inc 01/12/2022 CYS15-80 -060-080 / N/A / [id number] Medtronic Inc Everflex Entrust 6mm 100mm 80cm Self Expand Triaxial Low Profile - Sn/A - [id number] Implanted:Qty: 1 on 07/17/2020 by Moisés Flynn MD at [facility] Stent Left: Iliac Medtronic Inc 10/15/2022 GWY00-66 -100-080 / N/A / [id number] Daig Thien/[employer] [id number] Angio-Seal Vip Bondek-Plus 6fr .035in 70cm Hemostatic Latex Free - [id number] Implanted:Qty: 1 on 12/13/2017 by Moisés Flynn MD at [facility] Left: Groin Daig Thien/[employer] 08/12/2018 [id number] / / [id number] Cryolife Inc Patch Cardiovascular 0.8x8cm Nonpyrogenic Pfp0.8x8 - [id number] Implanted:Qty: 1 on 07/21/2022 by Moisés Flynn MD at [facility] Left: Carotid Cryolife Inc 03/28/2024 PFP0.8X8 / / [id number] Vitalitec Intrnl Inc Sls-Clip Ligate Triangular Wire Chio Groove Small Chevron Clip Latex Free D7056-5 - [id number] Implanted:Qty: 1 on 07/21/2022 by Moisés Flynn MD at [facility] Left: Neck Vitalitec Intrnl Inc E0296-6 / / Vitalitec Intrnl Inc Sls-Clip Ligate Triangular Wire Chio Groove Small Chevron Clip Latex Free T7011-0 - [id number] Implanted:Qty: 4 on 07/27/2022 by Moisés Flynn MD at [facility] N/A: Abdomen Vitalitec Intrnl Inc H4502-6 / / Bard Peripheral Vascular Bard .25x.25in [place] Thk1.65mm Square Pledget Cardiovascular Ptfe [id number] - [id number] Implanted:Qty: 1 on 07/27/2022 by Moisés Flynn MD at [facility] N/A: Abdomen Bard Peripheral Vascular [id number] / / Bard Peripheral Vascular Bard 5/16x5/16in [place] Thk1.65mm Pledget Cardiovascular Ptfe 594854 - [id number] Implanted:Qty: 1 on 07/27/2022 by Moisés Flynn MD at [facility] N/A: Abdomen Bard Peripheral Vascular [id number] / / Procedures Procedure Name Priority Date/Time Associated Diagnosis Comments ERG FULL FIELD - OU - BOTH EYES Routine 01/23/2025 3:27 PM MULTI SHARE PROGRAM COORDINATOR Epiretinal membrane (ERM) of both eyes MULTIFOCAL ELECTRORETINOGRAPHY (ERG) - OU - BOTH EYES Routine 01/16/2025 2:29 PM MULTI SHARE PROGRAM COORDINATOR Epiretinal membrane (ERM) of both eyes FUNDUS [...] OU - Both Eyes (01/23/2025 3:27 PM MULTI SHARE PROGRAM COORDINATOR) Anatomical Region Laterality Modality Head Other Narrative 01/25/2025 11:15 AM MULTI SHARE PROGRAM COORDINATOR VISUAL DIAGNOSTIC REPORT: Patient: Cyrus Vee : [...] this study, please contact our office at [phone], and we would be happy to send these to your office. Please feel free to contact my office if you would like to discuss these results further. Gabe Peterson M.D. Professor, Departments of Ophthalmology and Visual Sciences and Neurology Director, Visual Electrophysiology Service [facility] E-mail: [email or web address] us Gabe Peterson MD OPHTH ELECTRORETINOG ALEE Final Result * Multifocal Electroretinography (ERG) - OU - Both Eyes (01/16/2025 2:29 PM MULTI SHARE PROGRAM COORDINATOR) Anatomical Region Laterality Modality Head Other Narrative 01/18/2025 4:45 PM MULTI SHARE PROGRAM COORDINATOR VISUAL DIAGNOSTIC REPORT: Patient: Cyrus Vee : [...] this study, please contact our office at [phone], and we would be happy to send these to your office. Please feel free to contact my office if you would like to discuss these results further. Gabe Peterson M.D. Professor, Departments of Ophthalmology and Visual Sciences and Neurology Director, Visual Electrophysiology Service [facility] Medicine E-mail: [email or web address] Gabe Peterson MD OPHTH ELECTRORETINOG ALEE Final [...] , no cystoid macular edema (CME) Romana Juraod MD PhD OPHTH TOMOGRAPHY Fin al Result [...] BLOOD ORDERABLES Final Result Performing Organization Address [facility] Co de Phone Number [facility] [address] [place] [address] * (ABNORMAL) Hemoglobin A1c (08/27/2024 3:27 PM CDT) Hgb A1C 8.2(H) 4.0 - 5.6 % Estimated Average Glucose 189 mg/dL [facility] Comment: The ADA recommends reporting an estimated Average Glucose (eAG) with all Hemoglobin A1c results using the equation derived from a study of 507 normal and diabetic adults. Minority populations were underrepresented and children were not included. (Diabetes Care 31:0512-3601, 2008). The eAG is not equivalent to a fasting glucose. Blood 08/27/2024 3:27 PM CDT 08/27/2024 4:09 PM CDT Lb Pollard MD LAB BLOOD ORDERABLES Final Result Performing Organization Address City/[facility]/ZIP Co de Phone Number [facility] [address] Department [employer] [place], [place] [id number] * (ABNORMAL) Lipid panel (07/20/2022 12:27 AM CDT) Pathologist [facility] Cholesterol 97 30 - 199 mg/dL [facility] Comment: Interpretive Data Ages < or [...] revised on 2017. Triglycerides 133 <=149 mg/dL [facility] Comment: Interpretive Data Ages < or [...] revised on 2017. HDL 25(L) >=40 mg/dL [facility] Comment: Interpretive Data Ages < or [...] on 2017. LDL, calculated 45 <=129 mg/dL [facility] Comment: Interpretive Data Ages < or [...] revised on 2017. Non-HDL Cholesterol 72 mg/dL [facility] Comment: Interpretive Data Ages < or [...] last revised on 2017. Chol/HDL ratio 4 [facility] Blood 07/20/2022 12:2 7 AM CDT 07/20/2022 12:30 AM CDT us Navin Sandoval MD LAB BLOOD ORDERABLES Final Re sult [facility] [address] Department [place] [address] from Last 3 Months or Most Recently Relevant to Health Maintenance Additional Health Concerns Infection Onset Date Last Indicated Ring Surveillance: Vanna em Comment:W5 GIRISH em surveillance - rooms 1-16 08/28/202408/28 Insurance MEDICARE [employer]CIAL GENERIC MEDICARE [employer] Advance Directives For more information, please contact: [phone] * Full Code (Latest Code Status on [...] 7:55 PM 06/08/2019 3:07 PM Care Teams Computational Theory Scientist Relationship Specialty Start Date End Date Neel Lincoln MD [address] [place] [address] PCP - General Internal Medicine 09/03/21 Moisés Flynn MD Surgeon Vascular Surgery 12/14/17 Eileen Mueller MD Internal Medicine 12/18/20 Wes Redmond MD [address] [place] [address] Internal Medicine 03/04/22 Moisés Bryant MD [address] [place] [address] Neurology 08/24/22 Nikolai Russell MD [address] [place] [address] Referring Physician Ophthalmology 12/07/24
--- NOTE | 2025-03-07 15:17 | PC.NURSE ---
patient being admitted with IVF infusing per order.
--- NOTE | 2025-03-07 15:22 | ADMGEN ---
This patient, Cyrus Vee, was admitted to 2 Medical Room 256-. Patient/family oriented to hospital policies and general routines including ID bracelet, bed and alarms, visiting hours, pain management, procedures, bathroom and other care routines, personal items, smoking policy, room service/diet, and visiting hours. Information on how to activate the Rapid Response Team has been discussed. Patient/Family are encouraged to report perceived risks to care and to ask questions if they do not understand what they are told or what they should do.
[2025-03-07] MEDS: METOPROLOL TARTRATE INJ 5 MG/5 ML VIAL IV PUSH ×2 (17:01→21:30)
[2025-03-07] MEDS: INSULIN ASPART (*BKC) 100 UNITS/ML SUB-Q (17:02)
[2025-03-07] MEDS: LACTATED RINGERS 1,000 ML 100 ML IV CONT (21:31)
[2025-03-08 04:52] VITALS: PULSE 79
[2025-03-08] MEDS: METOPROLOL TARTRATE INJ 5 MG/5 ML VIAL IV PUSH ×4 (04:52→20:18)
[2025-03-08 04:55] VITALS: BP 166/74; PULSE 79; RESP 16; TEMP 36.7; O2SAT 94
[2025-03-08] MEDS: LACTATED RINGERS 1,000 ML 100 ML IV CONT ×3 (04:57→20:17)
[2025-03-08 05:41] LABS: Hematocrit 45.5 % (42.0-52.0); Hemoglobin 14.2 g/dL (14.0-18.0); Immature Granulocyte Percent A 0.3 % (0-0.5); Lymphocytes Absolute Auto 1.20 K/mm3 (0.9-3.2); Mean Corpuscular HGB Conc 31.2 g/dl (32-36); Mean Corpuscular Hemoglobin 28.6 pg (26-34); Mean Corpuscular Volume 91.7 fl (80-100); Nucleated Red Blood Cells Absolute Auto 0.000 K/mm3 (0.0-0.012); Nucleated Red Blood Cells Perc 0.0 % (0.0-0.2); Platelet Count Result 217 k/mm3 (150-375); Red Blood Count 4.96 M/mm3 (4.6-6.20); White Blood Count 8.9 K/mm3 (4.5-10.0)
[2025-03-08 05:56] LABS: Hemoglobin A1C 8.3 % (<5.7)
[2025-03-08 06:32] LABS: Thyroid Stimulating Hormone Reflex 1.350 uIU/mL (0.465-4.68)
[2025-03-08 07:29] LABS: Alanine Aminotransferase 20 U/L (6-50); Albumin Level 3.7 g/dL (3.5-5.1); Alkaline Phosphatase 104 U/L (38-126); Anion Gap 9 mmol/L (4-12); Aspartate Amino Transferase 33 U/L (17-59); Bilirubin,Total 0.9 mg/dL (0.2-1.3); Blood Urea Nitrogen 19 mg/dL (9-20); Calcium 10.0 mg/dL (8.4-10.2); Carbon Dioxide 23 mmol/L (22-30); Chloride 109 mmol/L (98-107); Estimated CRCL calculation 90 ml/min; Estimated Glomerular Filt Rate > 60; Glucose 142 mg/dL (65-110); Magnesium 1.6 mg/dL (1.6-2.3); Potassium 4.5 mmol/L (3.4-5.0); Sodium 141 mmol/L (137-145); Total Protein 7.1 g/dL (6.3-8.2)
--- NOTE | 2025-03-08 07:40 | P.PNIM_ITS ---
Assessment and Plan Assessment and Plan (1) SBO (small bowel obstruction): Code(s): K56.609 - Unspecified intestinal obstruction, unspecified as to partial versus complete obstruction Status: Acute Assessment and Plan: - Presented with 3-4 days of diffuse abdominal pain, nausea - CT A/P showed likely mild partial SBO with transition point at 2 cm segment of focal luminal narrowing with associated wall thickening suspicious for stricture, small amount of likely reactive ascites - NG tube placed to LWIS - NPO - continue IV fluids - replace electrolytes PRN - monitor abdominal exam - PRN pain control, antiemetics - General surgery consulted, plain to clamp NG today and monitor response. If he does well, will remove NG tube tomorrow and advance diet. (2) Leukocytosis: Code(s): D72.829 - Elevated white blood cell count, unspecified Status: Acute Assessment and Plan: - admit WBC 14, afebrile - suspect reactive due to SBO, no bacterial source - monitor off abx for now - WBC normalized (3) Diabetes: Code(s): E11.9 - Type 2 diabetes mellitus without complications Status: Acute Assessment and Plan: - hold PO meds - metformin - hold home basal insulin for now while NPO - moderate dose NPO SSI - POCT glucose q6H - hypoglycemia management protocol (4) Peripheral arterial disease: Code(s): I73.9 - Peripheral vascular disease, unspecified Status: Acute Assessment and Plan: - resume home ASA, statin once tolerating PO (5) Hypertension: Code(s): I10 - Essential (primary) hypertension Status: Acute Assessment and Plan: - holding PO meds for NPO status - PRN hydralazine for SBP >180 (6) CAD (coronary artery disease): Code(s): I25.10 - Atherosclerotic heart disease of [place] coronary artery without angina pectoris Status: Acute Assessment and Plan: - hold PO meds while NPO (7) Atrial fibrillation: Code(s): I48.91 - Unspecified atrial fibrillation Status: Acute Assessment and Plan: -schedule IV lopressor 5mg q6H - s/p Devan 02/2024 (8) CKD (chronic kidney disease): Code(s): N18.9 - Chronic kidney disease, unspecified Status: Acute Assessment and Plan: - admit Cr 1.4, appears near baseline, but did trend down to 1.03 with IV fluids - avoid nephrotoxins Plan Code status: full code DVT prophylaxis: SCDs Dispo: TBD pending clinical course Medical Record Review I have reviewed the following patient records and this information was taken into consideration when formulating the assessment and plan.: previous labs Subjective Date/time seen: 03/08/25 07:40 Interval history: Patient seen and examined at bedside. Doing much better this morning. Passing flatus. No bowel movement since NG tube position yesterday. Denies abdominal pain or nausea. Review of Systems Review of Systems: All systems reviewed & are unremarkable except as noted in HPI and below Exam Narrative: General: NAD Eyes: EOMI ENT: neck supple Cardiovascular: Regular rate and rhythm Respiratory: Clear to auscultation, respirations even and unlabored on RA Gastrointestinal: NG tube in place with clear output. Non distended, nontender, bowel sounds hypoactive. Genitourinary: no suprapubic tenderness Musculoskeletal: No edema Skin: warm, dry Neuro: Alert. Psych: Mood appropriate Objective Data Vital Signs Vital Signs: Vital Signs - 24 hr 03/07/25 12:10 03/07/25 14:46 03/07/25 15:41 Temperature 97.6 F 98.6 F 97.5 F L Pulse Rate 85 77 93 Respiratory Rate 17 14 14 Blood Pressure 151/87 H 163/96 H 175/99 H Pulse Oximetry 93 94 95 Oxygen Delivery Oxygen Flow Rate 03/07/25 17:01 03/07/25 20:00 03/07/25 20:53 Temperature 97.8 F Pulse Rate 96 74 Respiratory Rate 14 Blood Pressure 163/73 H Pulse Oximetry 94 94 Oxygen Delivery Nasal Cannula Oxygen Flow Rate 2 12/24/25 21:30 03/08/25 04:52 03/08/25 04:55 Temperature 98.0 F Pulse Rate 74 79 79 Respiratory Rate 16 Blood Pressure 166/74 H Pulse Oximetry 94 Oxygen Delivery Oxygen Flow Rate Intake/Output Intake/Output: Intake & Output 03/05/25 03/06/25 03/07/25 03/08/25 23:59 23:59 23:59 23:59 Intake Total 857.5 743.3 Output Total 300 950 Balance 557.5 -206.7 Meds/Results Medications: Active Medications Generic Name Dose Route Start Last Admin Trade Name Freq PRN Reason Stop Dose Admin Dextrose 12.5 gm 03/07/25 15:49 Dextrose 50% 25 Gm/50 Ml Syringe IV PUSH PRN PRN Hypoglycemia Protocol Glucagon 1 mg 03/07/25 15:49 Glucagon For Inj 1 Mg Vial IM PRN PRN Hypoglycemia Protocol Glucose 15 gm 03/07/25 15:49 Glucose Oral Gel 15 Gm Of Glucse In 37.5 Gm Tube PO PRN PRN Hypoglycemia Protocol Hydralazine HCl 10 mg 03/07/25 15:52 Hydralazine Hcl 20 Mg/Ml Vial IV PUSH Q8H PRN SBP > 180 Hydromorphone HCl 0.5 mg 03/07/25 12:03 Hydromorphone Hcl Inj (*Crx) 1 Mg/Ml Syr IV PUSH Q4H PRN Pain Rated 7-10 Lactated Ringer's 1,000 mls @ 100 mls/hr 03/07/25 12:05 03/08/25 04:57 Lr - Lactated Ringers Iv IV CONT 100 mls/hr .Q10H LAYNE Administration Dextrose 1,000 mls @ 100 mls/hr 03/07/25 15:49 Dextrose 5% 1,000 Ml IVPB PRN PRN Hypoglycemia Protocol Insulin Aspart 3 - 6 units 03/07/25 18:00 03/08/25 00:37 Insulin Aspart (*Bkc) 100 Units/Ml SUB-Q Not Given Q6HR LAYNE Protocol Metoprolol Tartrate 5 mg 03/07/25 16:00 03/08/25 04:52 Metoprolol Tartrate Inj 5 Mg/5 Ml Vial IV PUSH 5 mg Q6H LAYNE Administration Ondansetron HCl 4 mg 03/07/25 12:03 Ondansetron Inj 4 Mg/2 Ml Vial IV PUSH Q4H PRN Nausea Radiology Results: ITS Impressions Abdomen/Pelvis CT 03/07/25 09:21 IMPRESSION: 1. Likely mild partial small bowel obstruction with transition point at 2 cm segment of focal luminal narrowing with associated wall thickening suspicious for stricture. 2. Small amount of likely reactive ascites in the pelvis. No abscess or free intraperitoneal gas. 3. Cholelithiasis. 4. Patent aortobifemoral bypass graft spanning the thrombosed bilateral common and external iliac artery stents. Labs Labs: Laboratory Results - last 24 hr 03/07/25 03/07/25 03/07/25 07:39 10:41 13:35 WBC 14.5 H RBC 5.15 Hgb 14.9 Hct 46.0 MCV 89.3 MCH 28.9 MCHC 32.4 RDW 15.4 H Plt Count 294 MPV 11.3 H Immature Gran % (Auto) 0.4 Neut % (Auto) 84.9 H Lymph % (Auto) 8.8 L [place] % (Auto) 4.4 Eos % (Auto) 0.9 Baso % (Auto) 0.6 Lymph # (Auto) 1.28 [place] # (Auto) 0.6 Eos # (Auto) 0.1 Baso # (Auto) 0.1 Abs Immat Gran (auto) 0.06 H Absolute Neuts (auto) 12.3 H Absolute Nucleated RBC 0.000 Nucleated RBC % 0.0 Sodium 141 Potassium 4.5 Chloride 107 Carbon Dioxide 24 Anion Gap 10 BUN 23 H Creatinine 1.40 H Estim Creat Clear Calc 68 Estimated GFR 51 L Glucose 191 H POC Capillary Glucose Hemoglobin A1c Lactic Acid 1.4 Calcium 10.1 Magnesium Total Bilirubin 0.6 AST 31 ALT 24 Alkaline Phosphatase 121 Total Protein 8.0 Albumin 4.1 Lipase 41 TSH (Reflex) Urine Color Yellow Urine Appearance Clear Urine pH 5.5 Ur Specific [place] > 1.045 H Urine Protein 1+ H Urine Glucose (UA) 2+ H Urine Ketones Negative Ur Blood (Man) Negative Urine Nitrate Negative Urine Bilirubin Negative Urine Urobilinogen 1.0 Leukocyte Esterase Rfl Negative Urine RBC 0-2 Urine WBC 0-5 Ur Squamous Epith Cells None seen Urine Bacteria None seen Urine Casts 0-2 03/07/25 03/08/25 03/08/25 16:52 00:32 05:05 WBC RBC Hgb Hct MCV MCH MCHC RDW Plt Count MPV Immature Gran % (Auto) Neut % (Auto) Lymph % (Auto) [place] % (Auto) Eos % (Auto) Baso % (Auto) Lymph # (Auto) [place] # (Auto) Eos # (Auto) Baso # (Auto) Abs Immat Gran (auto) Absolute Neuts (auto) Absolute Nucleated RBC Nucleated RBC % Sodium Potassium Chloride Carbon Dioxide Anion Gap BUN Creatinine Estim Creat Clear Calc Estimated GFR Glucose POC Capillary Glucose 202 H 141 H 162 H Hemoglobin A1c Lactic Acid Calcium Magnesium Total Bilirubin AST ALT Alkaline Phosphatase Total Protein Albumin Lipase TSH (Reflex) Urine Color Urine Appearance Urine pH Ur Specific [place] Urine Protein Urine Glucose (UA) Urine Ketones Ur Blood (Man) Urine Nitrate Urine Bilirubin Urine Urobilinogen Leukocyte Esterase Rfl Urine RBC Urine WBC Ur Squamous Epith Cells Urine Bacteria Urine Casts 03/08/25 03/08/25 05:09 06:54 WBC 8.9 RBC 4.96 Hgb 14.2 Hct 45.5 MCV 91.7 MCH 28.6 MCHC 31.2 L RDW 15.2 H Plt Count 217 MPV 12.0 H Immature Gran % (Auto) 0.3 Neut % (Auto) 76.1 H Lymph % (Auto) 13.5 L [place] % (Auto) 7.5 Eos % (Auto) 2.2 Baso % (Auto) 0.4 Lymph # (Auto) 1.20 [place] # (Auto) 0.7 H Eos # (Auto) 0.2 Baso # (Auto) 0.0 Abs Immat Gran (auto) 0.03 Absolute Neuts (auto) 6.8 H Absolute Nucleated RBC 0.000 Nucleated RBC % 0.0 Sodium 141 Potassium 4.5 Chloride 109 H Carbon Dioxide 23 Anion Gap 9 BUN 19 Creatinine 1.03 Estim Creat Clear Calc 90 Estimated GFR > 60 Glucose 142 H POC Capillary Glucose Hemoglobin A1c 8.3 H Lactic Acid Calcium 10.0 Magnesium 1.6 Total Bilirubin 0.9 AST 33 ALT 20 Alkaline Phosphatase 104 Total Protein 7.1 Albumin 3.7 Lipase TSH (Reflex) 1.350 Urine Color Urine Appearance Urine pH Ur Specific [place] Urine Protein Urine Glucose (UA) Urine Ketones Ur Blood (Man) Urine Nitrate Urine Bilirubin Urine Urobilinogen Leukocyte Esterase Rfl Urine RBC Urine WBC Ur Squamous Epith Cells Urine Bacteria Urine Casts
--- NOTE | 2025-03-08 11:56 | WPDPN ---
Progress Note: A&P Assessment and Plan (1) SBO (small bowel obstruction): Code(s): K56.609 - Unspecified intestinal obstruction, unspecified as to partial versus complete obstruction Status: Acute Assessment and Plan: Partial small-bowel obstruction seems to be improving. Patient started have some flatus but no bowel movement yet. NG tube output is nonbilious today. We will go and clamp his NG tube today and allow him to get up and walk and go to the bathroom and sit up in a chair. If he can tolerate at least 12hours of NG tube clamping then likely we will remove the NG tube tomorrow start him on liquids. No acute surgical abdomen at this time. Subjective Date/time seen: 03/08/25 11:56 Interval history: Patient denies any abdominal pain today. He is passing some flatus. No bowel movement yet. NG tube output is nonbilious. White blood count is normal. Vital signs stable. Electrolytes okay. Exam GI: Other: Abdomen is soft and minimally distended. Nontender to palpation. Pretty benign. Objective Data Vital Signs Vital Signs: Vital Signs - 24 hr 03/07/25 12:10 03/07/25 14:46 03/07/25 15:41 Temperature 36.4 C 37.0 C 36.4 C L Pulse Rate 85 77 93 Respiratory Rate 17 14 14 Blood Pressure 151/87 H 163/96 H 175/99 H Pulse Oximetry 93 94 95 Oxygen Delivery Oxygen Flow Rate 03/07/25 17:01 03/07/25 20:00 03/07/25 20:53 Temperature 36.6 C Pulse Rate 96 74 Respiratory Rate 14 Blood Pressure 163/73 H Pulse Oximetry 94 94 Oxygen Delivery Nasal Cannula Oxygen Flow Rate 2 03/07/25 21:30 03/08/25 04:52 03/08/25 04:55 Temperature 36.7 C Pulse Rate 74 79 79 Respiratory Rate 16 Blood Pressure 166/74 H Pulse Oximetry 94 Oxygen Delivery Oxygen Flow Rate Intake/Output Intake/Output: Intake & Output 03/05/25 03/06/25 03/07/25 03/08/25 23:59 23:59 23:59 23:59 Intake Total 857.5 743.3 Output Total 300 950 Balance 557.5 -206.7 Meds/Results Medications: Active Medications Generic Name Dose Route Start Last Admin Trade Name Freq PRN Reason Stop Dose Admin Dextrose 12.5 gm 03/07/25 15:49 Dextrose 50% 25 Gm/50 Ml Syringe IV PUSH PRN PRN Hypoglycemia Protocol Glucagon 1 mg 03/07/25 15:49 Glucagon For Inj 1 Mg Vial IM PRN PRN Hypoglycemia Protocol Glucose 15 gm 03/07/25 15:49 Glucose Oral Gel 15 Gm Of Glucse In 37.5 Gm Tube PO PRN PRN Hypoglycemia Protocol Hydralazine HCl 10 mg 03/07/25 15:52 Hydralazine Hcl 20 Mg/Ml Vial IV PUSH Q8H PRN SBP > 180 Hydromorphone HCl 0.5 mg 03/07/25 12:03 Hydromorphone Hcl Inj (*Crx) 1 Mg/Ml Syr IV PUSH Q4H PRN Pain Rated 7-10 Lactated Ringer's 1,000 mls @ 100 mls/hr 03/07/25 12:05 03/08/25 04:57 Lr - Lactated Ringers Iv IV CONT 100 mls/hr .Q10H LAYNE Administration Dextrose 1,000 mls @ 100 mls/hr 03/07/25 15:49 Dextrose 5% 1,000 Ml IVPB PRN PRN Hypoglycemia Protocol Insulin Aspart 3 - 6 units 03/07/25 18:00 03/08/25 09:03 Insulin Aspart (*Bkc) 100 Units/Ml SUB-Q Not Given Q6HR LAYNE Protocol Metoprolol Tartrate 5 mg 03/07/25 16:00 03/08/25 09:10 Metoprolol Tartrate Inj 5 Mg/5 Ml Vial IV PUSH 5 mg Q6H LAYNE Administration Ondansetron HCl 4 mg 03/07/25 12:03 Ondansetron Inj 4 Mg/2 Ml Vial IV PUSH Q4H PRN Nausea Radiology Results: ITS Impressions Abdomen/Pelvis CT 03/07/25 09:21 IMPRESSION: 1. Likely mild partial small bowel obstruction with transition point at 2 cm segment of focal luminal narrowing with associated wall thickening suspicious for stricture. 2. Small amount of likely reactive ascites in the pelvis. No abscess or free intraperitoneal gas. 3. Cholelithiasis. 4. Patent aortobifemoral bypass graft spanning the thrombosed bilateral common and external iliac artery stents. Labs Labs: Laboratory Results - last 24 hr 03/07/25 03/07/25 03/08/25 13:35 16:52 00:32 WBC RBC Hgb Hct MCV MCH MCHC RDW Plt Count MPV Immature Gran % (Auto) Neut % (Auto) Lymph % (Auto) [place] % (Auto) Eos % (Auto) Baso % (Auto) Lymph # (Auto) [place] # (Auto) Eos # (Auto) Baso # (Auto) Abs Immat Gran (auto) Absolute Neuts (auto) Absolute Nucleated RBC Nucleated RBC % Sodium Potassium Chloride Carbon Dioxide Anion Gap BUN Creatinine Estim Creat Clear Calc Estimated GFR Glucose POC Capillary Glucose 202 H 141 H Hemoglobin A1c Calcium Magnesium Total Bilirubin AST ALT Alkaline Phosphatase Total Protein Albumin TSH (Reflex) Urine Color Yellow Urine Appearance Clear Urine pH 5.5 Ur Specific [place] > 1.045 H Urine Protein 1+ H Urine Glucose (UA) 2+ H Urine Ketones Negative Ur Blood (Man) Negative Urine Nitrate Negative Urine Bilirubin Negative Urine Urobilinogen 1.0 Leukocyte Esterase Rfl Negative Urine RBC 0-2 Urine WBC 0-5 Ur Squamous Epith Cells None seen Urine Bacteria None seen Urine Casts 0-2 03/08/25 03/08/25 03/08/25 05:05 05:09 06:54 WBC 8.9 RBC 4.96 Hgb 14.2 Hct 45.5 MCV 91.7 MCH 28.6 MCHC 31.2 L RDW 15.2 H Plt Count 217 MPV 12.0 H Immature Gran % (Auto) 0.3 Neut % (Auto) 76.1 H Lymph % (Auto) 13.5 L [place] % (Auto) 7.5 Eos % (Auto) 2.2 Baso % (Auto) 0.4 Lymph # (Auto) 1.20 [place] # (Auto) 0.7 H Eos # (Auto) 0.2 Baso # (Auto) 0.0 Abs Immat Gran (auto) 0.03 Absolute Neuts (auto) 6.8 H Absolute Nucleated RBC 0.000 Nucleated RBC % 0.0 Sodium 141 Potassium 4.5 Chloride 109 H Carbon Dioxide 23 Anion Gap 9 BUN 19 Creatinine 1.03 Estim Creat Clear Calc 90 Estimated GFR > 60 Glucose 142 H POC Capillary Glucose 162 H Hemoglobin A1c 8.3 H Calcium 10.0 Magnesium 1.6 Total Bilirubin 0.9 AST 33 ALT 20 Alkaline Phosphatase 104 Total Protein 7.1 Albumin 3.7 TSH (Reflex) 1.350 Urine Color Urine Appearance Urine pH Ur Specific [place] Urine Protein Urine Glucose (UA) Urine Ketones Ur Blood (Man) Urine Nitrate Urine Bilirubin Urine Urobilinogen Leukocyte Esterase Rfl Urine RBC Urine WBC Ur Squamous Epith Cells Urine Bacteria Urine Casts
[2025-03-08 14:00] VITALS: BP 154/76; PULSE 83; RESP 16; TEMP 36.4; O2SAT 98
[2025-03-08 20:00] VITALS: O2SAT 94
[2025-03-08 20:18] VITALS: BP 167/109; PULSE 89; PULSE 97; RESP 20; TEMP 36.4; O2SAT 95
[2025-03-08] MEDS: SALINE 0.65% NAS SOLN 44 ML BTL 1 SPRAY NASAL (20:19)
[2025-03-08 22:31] VITALS: BP 180/99
[2025-03-09] VITALS (15 sets, daily range): BP systolic 124–216; BP diastolic 61–111; PULSE 69–93; RESP 18; TEMP 36.1–36.6; O2SAT 91–97
[2025-03-09] MEDS: HYDROmorphone HCL INJ (*CRX) 1 MG/ML SYR 0.5 MG IV PUSH (00:31)
[2025-03-09] MEDS: METOPROLOL TARTRATE INJ 5 MG/5 ML VIAL 10 MG IV PUSH ×2 (01:55→08:03)
[2025-03-09 05:04] LABS: Hematocrit 43.1 % (42.0-52.0); Hemoglobin 13.4 g/dL (14.0-18.0); Immature Granulocyte Percent A 0.4 % (0-0.5); Lymphocytes Absolute Auto 1.11 K/mm3 (0.9-3.2); Mean Corpuscular HGB Conc 31.1 g/dl (32-36); Mean Corpuscular Hemoglobin 28.2 pg (26-34); Mean Corpuscular Volume 90.7 fl (80-100); Nucleated Red Blood Cells Absolute Auto 0.000 K/mm3 (0.0-0.012); Nucleated Red Blood Cells Perc 0.0 % (0.0-0.2); Platelet Count Result 232 k/mm3 (150-375); Red Blood Count 4.75 M/mm3 (4.6-6.20); White Blood Count 8.4 K/mm3 (4.5-10.0)
[2025-03-09 05:10] LABS: Alanine Aminotransferase 23 U/L (6-50); Albumin Level 3.9 g/dL (3.5-5.1); Alkaline Phosphatase 116 U/L (38-126); Anion Gap 9 mmol/L (4-12); Aspartate Amino Transferase 33 U/L (17-59); Bilirubin,Total 0.8 mg/dL (0.2-1.3); Blood Urea Nitrogen 14 mg/dL (9-20); Calcium 10.2 mg/dL (8.4-10.2); Carbon Dioxide 21 mmol/L (22-30); Chloride 107 mmol/L (98-107); Estimated CRCL calculation 99 ml/min; Estimated Glomerular Filt Rate > 60; Glucose 157 mg/dL (65-110); Magnesium 1.7 mg/dL (1.6-2.3); Potassium 3.7 mmol/L (3.4-5.0); Sodium 137 mmol/L (137-145); Total Protein 7.3 g/dL (6.3-8.2)
[2025-03-09] MEDS: LEVOTHYROXINE SODIUM INJ 100 MCG/5 ML VIAL 37.5 MCG IV PUSH (06:33)
--- NOTE | 2025-03-09 07:20 | P.PNIM_ITS ---
Assessment and Plan Assessment and Plan (1) SBO (small bowel obstruction): Code(s): K56.609 - Unspecified intestinal obstruction, unspecified as to partial versus complete obstruction Status: Acute Assessment and Plan: - Presented with 3-4 days of diffuse abdominal pain, nausea - CT A/P showed likely mild partial SBO with transition point at 2 cm segment of focal luminal narrowing with associated wall thickening suspicious for stricture, small amount of likely reactive ascites - NG tube placed to LWIS - NPO - continue IV fluids - replace electrolytes PRN - monitor abdominal exam - PRN pain control, antiemetics - General surgery following - NG clamped yesterday. Hoping to be able to discontinue NG tube and start diet today. (2) Leukocytosis: Code(s): D72.829 - Elevated white blood cell count, unspecified Status: Acute Assessment and Plan: - admit WBC 14, afebrile - suspect reactive due to SBO, no bacterial source - monitor off abx for now - WBC normalized (3) Diabetes: Code(s): E11.9 - Type 2 diabetes mellitus without complications Status: Acute Assessment and Plan: - hold PO meds - metformin - hemoglobin A1c - 8.3 - hold home basal insulin for now while NPO - moderate dose NPO SSI - POCT glucose q6H - hypoglycemia management protocol (4) Peripheral arterial disease: Code(s): I73.9 - Peripheral vascular disease, unspecified Status: Acute Assessment and Plan: - resume home ASA, statin once tolerating PO (5) Hypertension: Code(s): I10 - Essential (primary) hypertension Status: Acute Assessment and Plan: - holding PO meds for NPO status - BP trend elevated due to missed meds and leg discomfor - continued scheduled Lopressor - PRN hydralazine for SBP >180 (6) CAD (coronary artery disease): Code(s): I25.10 - Atherosclerotic heart disease of [place] coronary artery without angina pectoris Status: Acute Assessment and Plan: - hold PO meds while NPO (7) Atrial fibrillation: Code(s): I48.91 - Unspecified atrial fibrillation Status: Acute Assessment and Plan: -schedule IV lopressor 5mg q6H - s/p [place] 02/2024 (8) CKD (chronic kidney disease): Code(s): N18.9 - Chronic kidney disease, unspecified Status: Acute Assessment and Plan: - admit Cr 1.4, appears near baseline, but did trend down to 0.94 with IV fluids - avoid nephrotoxins (9) Neuropathy: Code(s): G62.9 - Polyneuropathy, unspecified Status: Acute Assessment and Plan: - resume gabapentin when able Plan Code status: full code DVT prophylaxis: SCDs Dispo: TBD pending clinical course Medical Record Review I have reviewed the following patient records and this information was taken into consideration when formulating the assessment and plan.: previous labs Consultations Consultations: I have discussed the care of this pt with the consulting providers. (Georgette Bullock, general surgery PA-C) Subjective Date/time seen: 03/09/25 07:20 Interval history: Patient seen and examined at bedside. Denies pain or nausea. Having pain in his legs from neuropathy due to missing meds. Also complaining of inability to sleep. Hoping to have NG removed soon. Patient hoping to leave today, but explained importance of remaining in the hospital to slowly advance diet, patient expressed understanding. Review of Systems Review of Systems: All systems reviewed & are unremarkable except as noted in HPI and below Exam Narrative: General: NAD Eyes: EOMI ENT: neck supple Cardiovascular: Regular rate and rhythm Respiratory: Clear to auscultation, respirations even and unlabored on RA Gastrointestinal: NG tube in place with clear output. Non distended, nontender, bowel sounds hypoactive. Genitourinary: no suprapubic tenderness Musculoskeletal: No edema Skin: warm, dry Neuro: Alert. Psych: Mood appropriate Objective Data Vital Signs Vital Signs: Vital Signs - 24 hr 03/08/25 14:00 03/08/25 20:00 03/08/25 20:18 Temperature 97.6 F Pulse Rate 83 97 Respiratory Rate 16 Blood Pressure 154/76 H Pulse Oximetry 98 94 Oxygen Delivery Nasal Cannula Oxygen Flow Rate 0 03/08/25 20:18 03/08/25 22:31 03/09/25 01:45 Temperature 97.6 F Pulse Rate 89 91 Respiratory Rate 20 Blood Pressure 167/109 H 180/99 H 189/109 H Pulse Oximetry 95 Oxygen Delivery Oxygen Flow Rate 03/09/25 01:55 03/09/25 02:46 03/09/25 04:22 Temperature 97.2 F L Pulse Rate 92 91 Respiratory Rate 18 Blood Pressure 186/62 H Pulse Oximetry 91 Oxygen Delivery Oxygen Flow Rate 03/09/25 05:50 03/09/25 06:08 Temperature 97.0 F L Pulse Rate 93 Respiratory Rate 18 Blood Pressure 185/111 H Pulse Oximetry Oxygen Delivery Oxygen Flow Rate Intake/Output Intake/Output: Intake & Output 03/06/25 03/07/25 03/08/25 03/09/25 23:59 23:59 23:59 23:59 Intake Total 857.5 2276.6 102.5 Output Total 508 252 8782 Balance 557.5 1326.6 -947.5 Meds/Results Medications: Active Medications Generic Name Dose Route Start Last Admin Trade Name Freq PRN Reason Stop Dose Admin Dextrose 12.5 gm 03/07/25 15:49 Dextrose 50% 25 Gm/50 Ml Syringe IV PUSH PRN PRN Hypoglycemia Protocol Glucagon 1 mg 03/07/25 15:49 Glucagon For Inj 1 Mg Vial IM PRN PRN Hypoglycemia Protocol Glucose 15 gm 03/07/25 15:49 Glucose Oral Gel 15 Gm Of Glucse In 37.5 Gm Tube PO PRN PRN Hypoglycemia Protocol Hydralazine HCl 10 mg 03/09/25 01:23 03/09/25 06:29 Hydralazine Hcl 20 Mg/Ml Vial IV PUSH 10 mg Q4H PRN Administration SBP > 180 Hydromorphone HCl 0.5 mg 03/07/25 12:03 03/09/25 00:31 Hydromorphone Hcl Inj (*Crx) 1 Mg/Ml Syr IV PUSH 0.5 mg Q4H PRN Administration Pain Rated 7-10 Lactated Ringer's 1,000 mls @ 100 mls/hr 03/07/25 12:05 03/08/25 20:17 Lr - Lactated Ringers Iv IV CONT 100 mls/hr .Q10H LAYNE Administration Dextrose 1,000 mls @ 100 mls/hr 03/07/25 15:49 Dextrose 5% 1,000 Ml IVPB PRN PRN Hypoglycemia Protocol Levetiracetam 250 mg/ Sodium 102.5 mls @ 410 mls/hr 03/09/25 01:40 03/09/25 02:39 Chloride IVPB Infused Q12HR LAYNE Infusion Insulin Aspart 3 - 6 units 03/07/25 18:00 03/09/25 06:43 Insulin Aspart (*Bkc) 100 Units/Ml SUB-Q Not Given Q6HR [facility] [place] Protocol Levothyroxine Sodium 37.5 mcg 03/09/25 06:30 03/09/25 06:33 Levothyroxine Sodium Inj 100 Mcg/5 Ml Vial IV PUSH 37.5 mcg DAILY@0630 LAYNE Administration Metoprolol Tartrate 10 mg 03/09/25 02:00 03/09/25 01:55 Metoprolol Tartrate Inj 5 Mg/5 Ml Vial IV PUSH 10 mg Q6H LAYNE Administration Nitroglycerin 0.4 mg 03/09/25 01:17 Nitroglycerin Sl 0.4 Mg Tablet SUBLINGUAL Q5MIN PRN Chest Pain Ondansetron HCl 4 mg 03/07/25 12:03 Ondansetron Inj 4 Mg/2 Ml Vial IV PUSH Q4H PRN Nausea Pantoprazole Sodium 40 mg 03/09/25 09:00 Pantoprazole Sodium Iv 40 Mg Vial IV PUSH QAM LAYNE Sodium Chloride 1 spray 03/08/25 19:59 03/08/25 20:19 Saline 0.65% Samy Soln 44 Ml Btl NASAL 1 spray Q6HR PRN Administration Congestion Radiology Results: ITS Impressions Abdomen/Pelvis CT 03/07/25 09:21 IMPRESSION: 1. Likely mild partial small bowel obstruction with transition point at 2 cm segment of focal luminal narrowing with associated wall thickening suspicious for stricture. 2. Small amount of likely reactive ascites in the pelvis. No abscess or free intraperitoneal gas. 3. Cholelithiasis. 4. Patent aortobifemoral bypass graft spanning the thrombosed bilateral common and external iliac artery stents. Labs Labs: Laboratory Results - last 24 hr 03/08/25 03/08/25 03/08/25 06:54 12:27 18:38 WBC RBC Hgb Hct MCV MCH MCHC RDW Plt Count MPV Immature Gran % (Auto) Neut % (Auto) Lymph % (Auto) [place] % (Auto) Eos % (Auto) Baso % (Auto) Lymph # (Auto) [place] # (Auto) Eos # (Auto) Baso # (Auto) Abs Immat Gran (auto) Absolute Neuts (auto) Absolute Nucleated RBC Nucleated RBC % Sodium 141 Potassium 4.5 Chloride 109 H Carbon Dioxide 23 Anion Gap 9 BUN 19 Creatinine 1.03 Estim Creat Clear Calc 90 Estimated GFR > 60 Glucose 142 H POC Capillary Glucose 172 H 137 H Calcium 10.0 Magnesium 1.6 Total Bilirubin 0.9 AST 33 ALT 20 Alkaline Phosphatase 104 Total Protein 7.1 Albumin 3.7 03/09/25 03/09/25 03/09/25 00:04 04:26 05:58 WBC 8.4 RBC 4.75 Hgb 13.4 L Hct 43.1 MCV 90.7 MCH 28.2 MCHC 31.1 L RDW 14.8 H Plt Count 232 MPV 11.8 H Immature Gran % (Auto) 0.4 Neut % (Auto) 77.6 H Lymph % (Auto) 13.2 L [place] % (Auto) 6.3 Eos % (Auto) 1.9 Baso % (Auto) 0.6 Lymph # (Auto) 1.11 [place] # (Auto) 0.5 Eos # (Auto) 0.2 Baso # (Auto) 0.1 Abs Immat Gran (auto) 0.03 Absolute Neuts (auto) 6.6 Absolute Nucleated RBC 0.000 Nucleated RBC % 0.0 Sodium 137 Potassium 3.7 Chloride 107 Carbon Dioxide 21 L Anion Gap 9 BUN 14 D Creatinine 0.94 Estim Creat Clear Calc 99 Estimated GFR > 60 Glucose 157 H POC Capillary Glucose 126 H 150 H Calcium 10.2 Magnesium 1.7 Total Bilirubin 0.8 AST 33 ALT 23 Alkaline Phosphatase 116 Total Protein 7.3 Albumin 3.9
[2025-03-09] MEDS: PANTOPRAZOLE SODIUM IV 40 MG VIAL IV PUSH (08:03)
[2025-03-09] MEDS: LACTATED RINGERS 1,000 ML 100 ML IV CONT (08:23)
--- NOTE | 2025-03-09 12:57 | P.PNGS_ITS ---
Progress Note: A&P Assessment and Plan (1) SBO (small bowel obstruction): Code(s): K56.609 - Unspecified intestinal obstruction, unspecified as to partial versus complete obstruction Status: Acute Assessment and Plan: * patient tolerated clamping trial without any nausea or vomiting. No abdominal tenderness. Okay to remove NG tube and start clear liquids. * Continue to encourage ambulation. Plan Discussed patient's case and plan of care with Dr. De La Rosa. Subjective Subjective Date/Time Seen: 03/09/25 12:57 Patient reports: no new complaints, feels better, flatus, no bowel movement and afebrile Interval history: patient doing well today. Tolerated clamping trial without any nausea or vomiting. Passing flatus, but no bowel movement. WBC remains normal. Exam Const: General: comfortable and no acute distress GI: GI Palp: Yes Soft to palpation and No Tenderness to palpation present (GI) Auscultation: abnormal bowel sounds ( Hypoactive) Objective Data Vital Signs Vital Signs: Vital Signs - 24 hr 03/08/25 14:00 03/08/25 20:00 03/08/25 20:18 Temperature 97.6 F Pulse Rate 83 97 Respiratory Rate 16 Blood Pressure 154/76 H Pulse Oximetry 98 94 Oxygen Delivery Nasal Cannula Oxygen Flow Rate 0 03/08/25 20:18 03/08/25 22:31 03/09/25 01:45 Temperature 97.6 F Pulse Rate 89 91 Respiratory Rate 20 Blood Pressure 167/109 H 180/99 H 189/109 H Pulse Oximetry 95 Oxygen Delivery Oxygen Flow Rate 03/09/25 01:55 03/09/25 02:46 03/09/25 04:22 Temperature 97.2 F L Pulse Rate 92 91 Respiratory Rate 18 Blood Pressure 186/62 H Pulse Oximetry 91 Oxygen Delivery Oxygen Flow Rate 03/09/25 05:50 03/09/25 06:08 03/09/25 08:15 Temperature 97.0 F L Pulse Rate 93 93 Respiratory Rate 18 18 Blood Pressure 185/111 H Pulse Oximetry 91 Oxygen Delivery Nasal Cannula Oxygen Flow Rate 2 03/09/25 10:03 03/09/25 12:20 Temperature Pulse Rate 90 Respiratory Rate 18 Blood Pressure 192/82 H 192/82 H Pulse Oximetry 97 Oxygen Delivery Oxygen Flow Rate Intake/Output Intake/Output: Intake & Output 03/06/25 03/07/25 03/08/2503/09/25 23:59 23:59 23:59 23:59 Intake Total 857.5 2276.6 1102.5 Output Total 405 230 3325 Balance 557.5 1326.6 -622.5 Meds/Results Medications: Active Medications Generic Name Dose Route Start Last Admin Trade Name Freq PRN Reason Stop Dose Admin Dextrose 12.5 gm 03/07/25 15:49 Dextrose 50% 25 Gm/50 Ml Syringe IV PUSH PRN PRN Hypoglycemia Protocol Glucagon 1 mg 03/07/25 15:49 Glucagon For Inj 1 Mg Vial IM PRN PRN Hypoglycemia Protocol Glucose 15 gm 03/07/25 15:49 Glucose Oral Gel 15 Gm Of Glucse In 37.5 Gm Tube PO PRN PRN Hypoglycemia Protocol Hydralazine HCl 10 mg 03/09/25 01:23 03/09/25 12:24 Hydralazine Hcl 20 Mg/Ml Vial IV PUSH 10 mg Q4H PRN Administration SBP > 180 Hydromorphone HCl 0.5 mg 03/07/25 12:03 03/09/25 00:31 Hydromorphone Hcl Inj (*Crx) 1 Mg/Ml Syr IV PUSH 0.5 mg Q4H PRN Administration Pain Rated 7-10 Lactated Ringer's 1,000 mls @ 100 mls/hr 03/07/25 12:05 03/09/25 08:23 Lr - Lactated Ringers Iv IV CONT 100 mls/hr .Q10H LAYNE Administration Dextrose 1,000 mls @ 100 mls/hr 03/07/25 15:49 Dextrose 5% 1,000 Ml IVPB PRN PRN Hypoglycemia Protocol Levetiracetam 250 mg/ Sodium 102.5 mls @ 410 mls/hr 03/09/25 01:40 03/09/25 08:53 Chloride IVPB 410 mls/hr Q12HR LAYNE Administration Insulin Aspart 3 - 6 units 03/07/25 18:00 03/09/25 12:25 Insulin Aspart (*Bkc) 100 Units/Ml SUB-Q Not Given Q6HR LAYNE Protocol Levothyroxine Sodium 37.5 mcg 03/09/25 06:30 03/09/25 06:33 Levothyroxine Sodium Inj 100 Mcg/5 Ml Vial IV PUSH 37.5 mcg DAILY@0630 LAYNE Administration Melatonin 3 mg 03/09/25 21:00 Melatonin 3 Mg Tablet PO HS LAYNE Metoprolol Tartrate 10 mg 03/09/25 02:00 03/09/25 08:03 Metoprolol Tartrate Inj 5 Mg/5 Ml Vial IV PUSH 10 mg Q6H LAYNE Administration Nitroglycerin 0.4 mg 03/09/25 01:17 Nitroglycerin Sl 0.4 Mg Tablet SUBLINGUAL Q5MIN PRN Chest Pain Ondansetron HCl 4 mg 03/07/25 12:03 Ondansetron Inj 4 Mg/2 Ml Vial IV PUSH Q4H PRN Nausea Pantoprazole Sodium 40 mg 03/09/25 09:00 03/09/25 08:03 Pantoprazole Sodium Iv 40 Mg Vial IV PUSH 40 mg QAM LAYNE Administration Sodium Chloride 1 spray 03/08/25 19:59 03/08/25 20:19 Saline 0.65% Samy Soln 44 Ml Btl NASAL 1 spray Q6HR PRN Administration Congestion Radiology Results: ITS Impressions Abdomen/Pelvis CT 03/07/25 09:21 IMPRESSION: 1. Likely mild partial small bowel obstruction with transition point at 2 cm segment of focal luminal narrowing with associated wall thickening suspicious for stricture. 2. Small amount of likely reactive ascites in the pelvis. No abscess or free intraperitoneal gas. 3. Cholelithiasis. 4. Patent aortobifemoral bypass graft spanning the thrombosed bilateral common and external iliac artery stents. Labs Labs: Laboratory Results - last 24 hr 03/08/25 03/09/25 03/09/25 18:38 00:04 04:26 WBC 8.4 RBC 4.75 Hgb 13.4 L Hct 43.1 MCV 90.7 MCH 28.2 MCHC 31.1 L RDW 14.8 H Plt Count 232 MPV 11.8 H Immature Gran % (Auto) 0.4 Neut % (Auto) 77.6 H Lymph % (Auto) 13.2 L [place] % (Auto) 6.3 Eos % (Auto) 1.9 Baso % (Auto) 0.6 Lymph # (Auto) 1.11 [place] # (Auto) 0.5 Eos # (Auto) 0.2 Baso # (Auto) 0.1 Abs Immat Gran (auto) 0.03 Absolute Neuts (auto) 6.6 Absolute Nucleated RBC 0.000 Nucleated RBC % 0.0 Sodium 137 Potassium 3.7 Chloride 107 Carbon Dioxide 21 L Anion Gap 9 BUN 14 D Creatinine 0.94 Estim Creat Clear Calc 99 Estimated GFR > 60 Glucose 157 H POC Capillary Glucose 137 H 126 H Calcium 10.2 Magnesium 1.7 Total Bilirubin 0.8 AST 33 ALT 23 Alkaline Phosphatase 116 Total Protein 7.3 Albumin 3.9 03/09/25 03/09/25 05:58 11:10 WBC RBC Hgb Hct MCV MCH MCHC RDW Plt Count MPV Immature Gran % (Auto) Neut % (Auto) Lymph % (Auto) [place] % (Auto) Eos % (Auto) Baso % (Auto) Lymph # (Auto) [place] # (Auto) Eos # (Auto) Baso # (Auto) Abs Immat Gran (auto) Absolute Neuts (auto) Absolute Nucleated RBC Nucleated RBC % Sodium Potassium Chloride Carbon Dioxide Anion Gap BUN Creatinine Estim Creat Clear Calc Estimated GFR Glucose POC Capillary Glucose 150 H 167 H Calcium Magnesium Total Bilirubin AST ALT Alkaline Phosphatase Total Protein Albumin
[2025-03-09] MEDS: GABAPENTIN 400 MG CAPSULE 800 MG PO ×2 (13:36→20:15)
--- NOTE | 2025-03-09 13:39 | PC.NURSE ---
Noted bp still high and charted after prn bp meds given, call placed to Aura DELA CRUZ, made aware of bp's order to give home med gabapentin and lisinipril home meds just started. will recheck bp in 1 hr, pain to feet 9/10.
[2025-03-09] MEDS: INSULIN ASPART (*BKC) 100 UNITS/ML SUB-Q (16:59)
[2025-03-09] MEDS: METOPROLOL SUCCINATE EXT REL 100 MG TABCR PO (20:15)
[2025-03-09] MEDS: PANTOPRAZOLE 40 MG TABLET PO (20:15)
[2025-03-09] MEDS: MELATONIN 3 MG TABLET PO (20:15)
[2025-03-09] MEDS: ATORVASTATIN 40 MG TABLET 80 MG PO (20:15)
[2025-03-09] MEDS: INSULIN GLARGINE (*BKC) 100 UNITS/ML 20 UNITS SUB-Q (20:19)
[2025-03-10 05:00] VITALS: BP 188/94; PULSE 114; RESP 18; TEMP 36.4; O2SAT 96
[2025-03-10 05:35] LABS: Hematocrit 41.5 % (42.0-52.0); Hemoglobin 13.4 g/dL (14.0-18.0); Immature Granulocyte Percent A 0.5 % (0-0.5); Lymphocytes Absolute Auto 1.43 K/mm3 (0.9-3.2); Mean Corpuscular HGB Conc 32.3 g/dl (32-36); Mean Corpuscular Hemoglobin 28.6 pg (26-34); Mean Corpuscular Volume 88.7 fl (80-100); Nucleated Red Blood Cells Absolute Auto 0.000 K/mm3 (0.0-0.012); Nucleated Red Blood Cells Perc 0.0 % (0.0-0.2); Platelet Count Result 230 k/mm3 (150-375); Red Blood Count 4.68 M/mm3 (4.6-6.20); White Blood Count 8.4 K/mm3 (4.5-10.0)
[2025-03-10] MEDS: LEVOTHYROXINE SODIUM 75 MCG TABLET PO (06:02)
[2025-03-10 06:03] LABS: Alanine Aminotransferase 23 U/L (6-50); Albumin Level 3.8 g/dL (3.5-5.1); Alkaline Phosphatase 111 U/L (38-126); Anion Gap 7 mmol/L (4-12); Aspartate Amino Transferase 37 U/L (17-59); Bilirubin,Total 0.9 mg/dL (0.2-1.3); Blood Urea Nitrogen 13 mg/dL (9-20); Calcium 10.1 mg/dL (8.4-10.2); Carbon Dioxide 24 mmol/L (22-30); Chloride 107 mmol/L (98-107); Estimated CRCL calculation 91 ml/min; Estimated Glomerular Filt Rate > 60; Glucose 172 mg/dL (65-110); Magnesium 1.7 mg/dL (1.6-2.3); Potassium 3.6 mmol/L (3.4-5.0); Sodium 138 mmol/L (137-145); Total Protein 7.1 g/dL (6.3-8.2)
--- NOTE | 2025-03-10 07:47 | ECG_ITS ---
Test Date: 2025-03-10 08:11:50 Measurements Intervals [place] Rate: 73 P: 0 [place]: 0 QRS: 69 QRSD: 95 T: 81 QT: 407 QTc: 451 Interpretive Statements ATRIAL FIBRILLATION ST-T WAVE ABNORMALITY IN ANTEROLATERAL LEADS- CONSIDER ISCHEMIA BASELINE ARTIFACT- I, III, AVR, AVL ,AVF ABNORMAL ECG No previous ECG available for comparison Electronically Signed On 03-10-2025 09:32:57 [employer] by Aydin Mcintosh D.O.
[2025-03-10 08:00] VITALS: BP 168/84; PULSE 84; O2SAT 100
[2025-03-10] MEDS: INSULIN ASPART (*BKC) 100 UNITS/ML SUB-Q ×2 (08:55→12:22)
[2025-03-10] MEDS: INSULIN GLARGINE (*BKC) 100 UNITS/ML 25 UNITS SUB-Q (08:56)
[2025-03-10 08:57] VITALS: PULSE 84
[2025-03-10] MEDS: ASPIRIN 81 MG CHEWABLE TABLET PO (08:57)
[2025-03-10] MEDS: METOPROLOL SUCCINATE EXT REL 100 MG TABCR PO (08:57)
[2025-03-10] MEDS: FUROSEMIDE 20 MG TABLET PO (08:57)
[2025-03-10] MEDS: EZETIMIBE 10 MG TABLET PO (08:57)
[2025-03-10] MEDS: FOLIC ACID 1 MG TABLET PO (08:57)
[2025-03-10] MEDS: PYRIDOXINE HCL 50 MG TABLET PO (08:57)
[2025-03-10] MEDS: GABAPENTIN 400 MG CAPSULE 800 MG PO (08:57)
[2025-03-10] MEDS: PANTOPRAZOLE 40 MG TABLET PO (08:58)
[2025-03-10] MEDS: ISOSORBIDE MONONITRATE 30 MG TAB.ER.24H PO (08:58)
[2025-03-10 13:47] VITALS: BP 140/84; PULSE 78; RESP 18; TEMP 36.1; O2SAT 94
--- NOTE | 2025-03-10 14:33 | P.PN_ITS ---
Progress Note: A&P Assessment and Plan (1) SBO (small bowel obstruction): Code(s): K56.609 - Unspecified intestinal obstruction, unspecified as to partial versus complete obstruction Status: Acute Assessment and Plan: Partial small-bowel obstruction likely due to abdominal adhesions due to prior abdominal surgery. SBO has resolved with non operative management. Okay to discharge home today. He will not need to follow-up in the office to see me. We will go ahead and give me the clot suppository before going home the try to have him have a bowel movement soon but he does not need to have a before he d ischarges home. Subjective Date/time seen: 03/10/25 14:33 Interval history: Patient feels good. Sitting up in chair right now. Denies any abdominal pain. Passing flatus but not had a bowel movement yet. States he feels like he might need to have a bowel movement soon. Tolerating regular food since yesterday without difficulty. White blood count normal no fever. Exam GI: Other: Abdomen is soft and nondistended. The palpation reveals no tenderness. Exam is benign. Objective Data Vital Signs Vital Signs: Vital Signs - 24 hr 03/09/25 15:23 03/09/25 20:15 03/09/25 21:23 Temperature 36.6 C Pulse Rate 86 69 Respiratory Rate 18 Blood Pressure 188/93 H 196/96 H Pulse Oximetry Oxygen Delivery Oxygen Flow Rate 03/09/25 23:05 03/09/25 23:35 03/10/25 05:00 Temperature 36.4 C L Pulse Rate 114 H Respiratory Rate 18 Blood Pressure 124/61 188/94 H Pulse Oximetry 94 96 Oxygen Delivery Nasal Cannula Oxygen Flow Rate 2 03/10/25 08:00 03/10/25 08:57 03/10/25 09:00 Temperature Pulse Rate 84 84 Respiratory Rate Blood Pressure 168/84 H Pulse Oximetry 100 Oxygen Delivery Room Air Oxygen Flow Rate 03/10/25 13:47 Temperature 36.1 C L Pulse Rate 78 Respiratory Rate 18 Blood Pressure 140/84 Pulse Oximetry 94 Oxygen Delivery Oxygen Flow Rate Intake/Output Intake/Output: Intake & Output 03/07/25 03/08/25 03/09/25 03/10/25 23:59 23:59 23:59 23:59 Intake Total 857.5 2276.6 2292.8 462 Output Total 448 514 5987 2 Balance 557.5 1326.6 292.8 460 Meds/Results Medications: Active Medications Generic Name Dose Route Start Last Admin Trade Name Lukas PRN Reason Stop Dose Admin Acetaminophen 650 mg 03/09/25 13:13 Acetaminophen 325 Mg Tablet PO Q6H PRN Pain 1-3 Aspirin 81 mg 03/10/25 08:00 03/10/25 08:57 Aspirin 81 Mg Chewable Tablet PO 81 mg DAILY@0800 LAYNE Administration Atorvastatin Calcium 80 mg 03/09/25 21:00 03/09/25 20:15 Atorvastatin 40 Mg Tablet PO 80 mg HS LAYNE Administration Dextrose 12.5 gm 03/07/25 15:49 Dextrose 50% 25 Gm/50 Ml Syringe IV PUSH PRN PRN Hypoglycemia Protocol Ezetimibe 10 mg 03/10/25 09:00 03/10/25 08:57 Ezetimibe 10 Mg Tablet PO 10 mg QAM LAYNE Administration Folic Acid 1 mg 03/10/25 09:00 03/10/25 08:57 Folic Acid 1 Mg Tablet PO 1 mg DAILY LAYNE Administration Furosemide 20 mg 03/10/25 09:00 03/10/25 08:57 Furosemide 20 Mg Tablet PO 20 mg QAM LAYNE Administration Gabapentin 800 mg 03/09/25 13:15 03/10/25 08:57 Gabapentin 400 Mg Capsule PO 800 mg Q12HR LAYNE Administration Gemfibrozil 600 mg 03/09/25 16:30 03/10/25 06:02 Gemfibrozil 600 Mg Tablet PO 600 mg BIDAC LAYNE Administration Glucagon 1 mg 03/07/25 15:49 Glucagon For Inj 1 Mg Vial IM PRN PRN Hypoglycemia Protocol Glucose 15 gm 03/07/25 15:49 Glucose Oral Gel 15 Gm Of Glucse In 37.5 Gm Tube PO PRN PRN Hypoglycemia Protocol Hydralazine HCl 10 mg 03/09/25 01:23 03/10/25 06:02 Hydralazine Hcl 20 Mg/Ml Vial IV PUSH 10 mg Q4H PRN Administration SBP > 180 Hydromorphone HCl 0.5 mg 03/07/25 12:03 03/09/25 00:31 Hydromorphone Hcl Inj (*Crx) 1 Mg/Ml Syr IV PUSH 0.5 mg Q4H PRN Administration Pain Rated 7-10 Dextrose 1,000 mls @ 100 mls/hr 03/07/25 15:49 Dextrose 5% 1,000 Ml IVPB PRN PRN Hypoglycemia Protocol Insulin Aspart 3 - 6 units 03/09/25 17:00 03/10/25 12:22 Insulin Aspart (*Bkc) 100 Units/Ml SUB-Q 3 units TIDWM LAYNE Administration Protocol Insulin Glargine 25 units 03/10/25 09:00 03/10/25 08:56 Insulin Glargine (*Bkc) 100 Units/Ml SUB-Q 25 units Q12H LAYNE Administration Isosorbide Mononitrate 30 mg 03/10/25 09:00 03/10/25 08:58 Isosorbide Mononitrate 30 Mg Tab.Er.24h PO 30 mg QAM LAYNE Administration Levetiracetam 250 mg 03/09/25 21:00 03/10/25 08:57 Levetiracetam 250 Mg Tablet PO 250 mg Q12H LAYNE Administration Levothyroxine Sodium 75 mcg 03/10/25 06:30 03/10/25 06:02 Levothyroxine Sodium 75 Mcg Tablet PO 75 mcg DAILY@0630 LAYNE Administration Lisinopril 20 mg 03/09/25 13:15 03/10/25 08:58 Lisinopril 20 Mg Tablet PO 20 mg DAILY LAYNE Administration Melatonin 3 mg 03/09/25 21:00 03/09/25 20:15 Melatonin 3 Mg Tablet PO 3 mg HS LAYNE Administration Metoprolol Succinate 100 mg 03/09/25 21:00 03/10/25 08:57 Metoprolol Succinate Ext Rel 100 Mg Tabcr PO 100 mg Q12HR LAYNE Administration Nitroglycerin 0.4 mg 03/09/25 01:17 Nitroglycerin Sl 0.4 Mg Tablet SUBLINGUAL Q5MIN PRN Chest Pain Ondansetron HCl 4 mg 03/07/25 12:03 Ondansetron Inj 4 Mg/2 Ml Vial IV PUSH Q4H PRN Nausea Pantoprazole Sodium 40 mg 03/09/25 21:00 03/10/25 08:58 Pantoprazole 40 Mg Tablet PO 40 mg Q12HR LAYNE Administration Pyridoxine HCl 50 mg 03/10/25 09:00 03/10/25 08:57 Pyridoxine Hcl 50 Mg Tablet PO 50 mg QAM LAYNE Administration Sodium Chloride 1 spray 03/08/25 19:59 03/08/25 20:19 Saline 0.65% Samy Soln 44 Ml Btl NASAL 1 spray Q6HR PRN Administration Congestion Radiology Results: ITS Impressions Abdomen/Pelvis CT 03/07/25 09:21 IMPRESSION: 1. Likely mild partial small bowel obstruction with transition point at 2 cm segment of focal luminal narrowing with associated wall thickening suspicious for stricture. 2. Small amount of likely reactive ascites in the pelvis. No abscess or free intraperitoneal gas. 3. Cholelithiasis. 4. Patent aortobifemoral bypass graft spanning the thrombosed bilateral common and external iliac artery stents. Labs Labs: Laboratory Results - last 24 hr 03/09/25 03/09/25 03/10/25 16:07 20:18 05:07 WBC 8.4 RBC 4.68 Hgb 13.4 L Hct 41.5 L MCV 88.7 MCH 28.6 MCHC 32.3 RDW 14.8 H Plt Count 230 MPV 11.9 H Immature Gran % (Auto) 0.5 Neut % (Auto) 71.8 Lymph % (Auto) 17.0 L [place] % (Auto) 7.4 Eos % (Auto) 2.6 Baso % (Auto) 0.7 Lymph # (Auto) 1.43 [place] # (Auto) 0.6 Eos # (Auto) 0.2 Baso # (Auto) 0.1 Abs Immat Gran (auto) 0.04 H Absolute Neuts (auto) 6.0 Absolute Nucleated RBC 0.000 Nucleated RBC % 0.0 Sodium 138 Potassium 3.6 Chloride 107 Carbon Dioxide 24 Anion Gap 7 BUN 13 Creatinine 1.02 Estim Creat Clear Calc 91 Estimated GFR > 60 Glucose 172 H POC Capillary Glucose 204 H 225 H Calcium 10.1 Magnesium 1.7 Total Bilirubin 0.9 AST 37 ALT 23 Alkaline Phosphatase 111 Total Protein 7.1 Albumin 3.8 03/10/25 03/10/25 07:22 11:20 WBC RBC Hgb Hct MCV MCH MCHC RDW Plt Count MPV Immature Gran % (Auto) Neut % (Auto) Lymph % (Auto) [place] % (Auto) Eos % (Auto) Baso % (Auto) Lymph # (Auto) [place] # (Auto) Eos # (Auto) Baso # (Auto) Abs Immat Gran (auto) Absolute Neuts (auto) Absolute Nucleated RBC Nucleated RBC % Sodium Potassium Chloride Carbon Dioxide Anion Gap BUN Creatinine Estim Creat Clear Calc Estimated GFR Glucose POC Capillary Glucose 206 H 210 H Calcium Magnesium Total Bilirubin AST ALT Alkaline Phosphatase Total Protein Albumin
--- NOTE | 2025-03-10 14:57 | P.DS_ITS ---
DS: Admitting Diagnosis Discharge Date 03/10/25 Admitting Diagnosis - SBO - leukocytosis DS: Discharge Diagnosis Discharge Diagnosis (1) SBO (small bowel obstruction): Code(s): K56.609 - Unspecified intestinal obstruction, unspecified as to partial versus complete obstruction Status: Acute (2) Leukocytosis: Code(s): D72.829 - Elevated white blood cell count, unspecified Status: Acute (3) Diabetes: Code(s): E11.9 - Type 2 diabetes mellitus without complications Status: Acute (4) Peripheral arterial disease: Code(s): I73.9 - Peripheral vascular disease, unspecified Status: Acute (5) Hypertension: Code(s): I10 - Essential (primary) hypertension Status: Acute (6) CAD (coronary artery disease): Code(s): I25.10 - Atherosclerotic heart disease of [place] coronary artery without angina pectoris Status: Acute (7) Atrial fibrillation: Code(s): I48.91 - Unspecified atrial fibrillation Status: Acute (8) CKD (chronic kidney disease): Code(s): N18.9 - Chronic kidney disease, unspecified Status: Acute (9) Neuropathy: Code(s): G62.9 - Polyneuropathy, unspecified Status: Acute DS: Summary Hospital Course Reason for hospitalization: - SBO - leukocytosis Hospital Course: The patient is a 64-year-old male admitted on 03/07/25 with a partial small bowel obstruction after presenting with 3?4 days of abdominal pain and nausea. CT abdomen/pelvis demonstrated a mild partial SBO with a transition point and suspected stricture. He was managed conservatively with bowel rest, nasogastric tube decompression, and intravenous fluids. General surgery was consulted and followed the patient throughout hospitalization, with no indication for operative intervention given clinical improvement and absence of peritoneal signs. Leukocytosis on admission resolved without antibiotics and was felt to be reactive. Renal function improved with IV fluids and remained near baseline. The NG tube was subsequently clamped and removed as symptoms improved, and diet was gradually advanced without issue. At the time of discharge, the patient was tolerating a regular diet, passing flatus, and denied abdominal pain, nausea, or vomiting. Blood pressures, which were elevated earlier in the admission due to missed medications, improved after resumption of home antihypertensive therapy. Overall, the SBO resolved with nonoperative management, and the patient was deemed stable for discharge home. Status at Discharge Functional status at discharge: independent ambulation Overall status at discharge: patient is back to baseline Time Spent with Patient Time attestation: Total time spent providing and/or coordinating discharge services: Time spent: Greater than 30 minutes Exam Narrative: General: NAD Eyes: EOMI ENT: neck supple Cardiovascular: Regular rate and rhythm Respiratory: Clear to auscultation, respirations even and unlabored on RA Gastrointestinal: Non distended, nontender, bowel sounds active. Genitourinary: no suprapubic tenderness Musculoskeletal: No edema Skin: warm, dry Neuro: Alert. Psych: Mood appropriate DS: Data Data Completed and Pending Completed studies during hospitalization: ITS Impressions Abdomen/Pelvis CT 03/07/25 09:21 IMPRESSION: 1. Likely mild partial small bowel obstruction with transition point at 2 cm segment of focal luminal narrowing with associated wall thickening suspicious for stricture. 2. Small amount of likely reactive ascites in the pelvis. No abscess or free intraperitoneal gas. 3. Cholelithiasis. 4. Patent aortobifemoral bypass graft spanning the thrombosed bilateral common and external iliac artery stents. Labs on day of discharge: Labs from last 24 hours 03/10/25 03/10/25 03/10/25 11:20 07:22 05:07 WBC 8.4 RBC 4.68 Hgb 13.4 L Hct 41.5 L MCV 88.7 MCH 28.6 MCHC 32.3 RDW 14.8 H Plt Count 230 MPV 11.9 H Immature Gran % (Auto) 0.5 Neut % (Auto) 71.8 Lymph % (Auto) 17.0 L [place] % (Auto) 7.4 Eos % (Auto) 2.6 Baso % (Auto) 0.7 Lymph # (Auto) 1.43 [place] # (Auto) 0.6 Eos # (Auto) 0.2 Baso # (Auto) 0.1 Abs Immat Gran (auto) 0.04 H Absolute Neuts (auto) 6.0 Absolute Nucleated RBC 0.000 Nucleated RBC % 0.0 Sodium 138 Potassium 3.6 Chloride 107 Carbon Dioxide 24 Anion Gap 7 BUN 13 Creatinine 1.02 Estim Creat Clear Calc 91 Estimated GFR > 60 Glucose 172 H POC Capillary Glucose 210 H 206 H Calcium 10.1 Magnesium 1.7 Total Bilirubin 0.9 AST 37 ALT 23 Alkaline Phosphatase 111 Total Protein 7.1 Albumin 3.8 03/09/25 03/09/25 20:18 16:07 WBC RBC Hgb Hct MCV MCH MCHC RDW Plt Count MPV Immature Gran % (Auto) Neut % (Auto) Lymph % (Auto) [place] % (Auto) Eos % (Auto) Baso % (Auto) Lymph # (Auto) [place] # (Auto) Eos # (Auto) Baso # (Auto) Abs Immat Gran (auto) Absolute Neuts (auto) Absolute Nucleated RBC Nucleated RBC % Sodium Potassium Chloride Carbon Dioxide Anion Gap BUN Creatinine Estim Creat Clear Calc Estimated GFR Glucose POC Capillary Glucose 225 H 204 H Calcium Magnesium Total Bilirubin AST ALT Alkaline Phosphatase Total Protein Albumin Discharge Plan Discharge Attending physician on discharge: Aimee Daniels Consulting providers: Irving De La Rosa Discharging Clinician: Aura London Anticipated Discharge Date/Time: 03/10/25 14:56 Patient Disposition: Home Activity: as tolerated Diet: regular Discharge Instructions: Your Diagnosis You were treated for a small bowel obstruction, which is a blockage in your small intestine. Your bowel has now improved enough for you to go home. It is important to follow these instructions carefully to help your recovery and prevent the obstruction from returning. Diet Instructions Continue low residue diet. Low-residue foods include: * White bread, white rice, pasta * Well-cooked vegetables without skins or seeds * Canned or cooked fruits without skins * Eggs, tender meats, fish, poultry * Milk and dairy products (if tolerated) Foods to Avoid?for at least 2-4 weeks: * Raw vegetables and salads * Nuts and seeds * Popcorn * Whole grains and high-fiber cereals * Tough or fibrous meats * Dried fruits * [place] Eat small, frequent meals rather than large meals. Chew your food thoroughly and eat slowly. Activity * Rest as needed, but walk several times daily to help your bowel function return to normal * Avoid heavy lifting (more than 10-15 pounds) for 2-4 weeks * Gradually increase your activity as tolerated * Avoid strenuous exercise until cleared by your doctor Medications * Take all prescribed medications as directed * Avoid narcotic pain medications if possible, as they can slow down your bowel function * Use stool softeners if prescribed to prevent constipation * Do not take laxatives unless specifically instructed by your doctor When to Seek Emergency Care Go to the emergency department immediately or call 911 if you experience: * Severe abdominal pain that is constant or worsening * Abdominal pain with fever (temperature over 100.4?F or 38?C) * Persistent vomiting, especially if you cannot keep down liquids * Vomiting blood or material that looks like coffee grounds * Inability to pass gas or have a bowel movement for more than 24 hours * Severe abdominal bloating or distension * Signs of dehydration: decreased urination, extreme thirst, dizziness, confusion * Abdominal tenderness with rigidity or guarding * Rapid heart rate or feeling faint Follow-Up Care * Schedule a follow-up appointment with your surgeon within 1-2 weeks of discharge * Keep all scheduled appointments * If you had surgery, your incision care instructions are provided separately Important Reminders * Small bowel obstructions can recur. Contact your doctor if you develop symptoms similar to those that brought you to the hospital. * Stay well-hydrated by drinking plenty of fluids throughout the day * Monitor your bowel movements and report any concerns to your doctor * If you were told the obstruction was caused by adhesions (scar tissue), you have a higher risk of future obstructions Patient Instructions: Antibiotic Form Patient Language: Haitian Stand Alone Forms: General Discharge Information Follow-up/Referrals: Latonia,Neel Braden MD [Primary Care Provider] - Call for Appointment Referral Note: follow-up in 1 week Discharge Medications: Continued omeprazole 40 mg capsule,delayed release(DR/EC) 40 mg PO DAILY fluticasone propionate 50 mcg/actuation spray,suspension 2 spray INTRANASAL Q12H PRN (Reason: nasal congestion) folic acid 1 mg tablet 1 mg PO DAILY insulin glargine U-300 conc [T[employer]o SoloStar U-300 Insulin] 300 unit/mL (1.5 mL) insulin pen 40 unit SUBCUT .Q12HR levetiracetam 500 mg tablet 250 mg PO Q12H metformin 500 mg tablet 500 mg PO HS gabapentin 400 mg Capsule 800 mg PO .Q12HR levothyroxine [Synthroid] 75 mcg Tablet 75 mcg PO HS furosemide 20 mg Tablet 20 mg PO QAM potassium chloride [K-Tab] 20 mEq Tablet Extended Release 20 meq PO DAILY pyridoxine (vitamin B6) 100 mg tablet 50 mg PO DAILY atorvastatin 80 mg Tablet 80 mg PO HS Qty: 30 0RF acetaminophen [Mapap (acetaminophen)] 325 mg Tablet 650 mg PO Q6H PRN (Reason: Pain) Qty: 30 0RF lisinopril 20 mg Tablet 20 mg PO DAILY Qty: 30 0RF isosorbide mononitrate 30 mg Tablet Extended Release 24 Hr 30 mg PO QAM Qty: 30 0RF metoprolol succinate [Toprol XL] 100 mg Tablet Extended Release 24 Hr 100 mg PO BID Qty: 60 0RF gemfibrozil 600 mg Tablet 600 mg PO BIDAC Qty: 60 0RF nitroglycerin [Nitrostat] 0.4 mg Tablet, Sublingual 0.4 mg sublingual Q5MIN PRN (Reason: Chest Pain) Qty: 30 0RF aspirin [Children's Aspirin] 81 mg Tablet,Chewable 81 mg PO DAILY@0800 Qty: 30 0RF ezetimibe [Zetia] 10 mg Tablet 10 mg PO QAM Qty: 30 0RF Discontinued Eliquis 5 mg Tablet 5 mg PO Q12HR Qty: 60 0RF insulin glargine 100 unit/mL solution 36 unit subcut BID Qty: 10 0RF Date of admission: 03/07/25 17:07 Primary Care Provider: LatoniaNeel Admitting Provider: Laura Lane Attending physician on admission: Laura Lane Condition: Stable
[2025-03-10] MEDS: BISACODYL 10 MG SUPPOSITORY RECTAL (15:28)
== END 2025-03-10 16:15 | disposition home or self-care (01) | DRG 389 ==
LOC: ANHED 12:08 → ANH2MED 14:47
PROVIDERS: Emergency Medicine; Admitting Provider Internal Medicine; Emergency Provider Emergency Medicine; PCP Internal Medicine; Visit Provider Physician Assistant
DX: K56.609 Unspecified intestinal obstruction, unspecified as to partial versus complete obstruction (principal); I48.20 Chronic atrial fibrillation, unspecified; I50.32 Chronic diastolic (congestive) heart failure; I11.0 Hypertensive heart disease with heart failure; I25.10 Atherosclerotic heart disease of native coronary artery without angina pectoris; E11.51 Type 2 diabetes mellitus with diabetic peripheral angiopathy without gangrene; E78.5 Hyperlipidemia, unspecified; Z79.4 Long term (current) use of insulin; Z87.891 Personal history of nicotine dependence; Z86.73 Personal history of transient ischemic attack (TIA), and cerebral infarction without residual deficits; Z79.01 Long term (current) use of anticoagulants; Z79.82 Long term (current) use of aspirin
CPT/HCPCS: 36415; 74177; 80053; 81001; 82948; 83036; 83605; 83690; 83735; 84443; 85025; 93005; 96361; 96374; 96375; 99285; A9270; G0378; J0360; J0616; J0650; J1171; J1815; J1953; J2405; J2470; J7120; Q9967

== ENCOUNTER 2025-03-13 20:45 | Emergency (ER) | payer MEDICARE, SELFPAY ==
--- NOTE | ~2025-03-13 | CT_ITS ---
EXAMINATION: CT abdomen pelvis w con DATE: 03/14/2025 04:29 INDICATION: Recent small bowel obstruction. Diarrhea. TECHNIQUE: Computed tomography (CT) of the abdomen and pelvis was performed with intravenous contrast. The dose-length product was 1606.98 mGy-cm. Automated exposure control and iterative reconstruction technique were employed. COMPARISON: CT dated 03/07/2025 FINDINGS: Dilated small bowel loops of the proximal and mid small bowel with transition in the central abdomen, consistent with obstruction. The colon is relatively decompressed. No abnormal pelvic masses. Extensive atherosclerosis. There is patent aortobifemoral bypass graft which extend beyond thrombosed bilateral common and external iliacs stents. No lymphadenopathy. Gallbladder contains stones. The liver, spleen, adrenal glands and kidneys are unremarkable. There are gallstones. Trace right pleural effusion. Trace pericardial effusion. Small hiatal hernia. No free air. No free fluid. No acute osseous abnormality. IMPRESSION: 1. Small bowel obstruction with likely transition in the central abdomen. 2: Cholelithiasis. 3: Small hiatal hernia. 4: Trace pericardial and right pleural effusions. Reviewed, dictated and finalized at location O. H MIXER HELPER
--- OUTSIDE RECORDS SUMMARY | 2025-03-13 20:48 | XMS_ITS | Encounter Summary ---
Author Organization [facility] Address [address] [place] [address] Care Team Providers Care Dairy And Food Laboratory Assistant Name Role Phone Neel Lincoln MD Primary Care Provider [phone] Nguyen Muller RN Unavailable [phone] Encounter Details Date Type Department Care Team (Late st Contact Info) Description 03/03/2024 Pre-Procedure Call [facility] [place] [address] Bony Celeste MD Three [facility]. [facility] [place] [address] [place], [place] [address] Anesthesia Record Procedure Summary Procedure Name Responsible Anesthesiologist Anesthesia Start Time Anesthesia Stop Time XA LEFT ATRIAL APPENDAGE CLOSURE Vanessa Escobar MD 03/03/24 1008 03/03/24 1232 Events Date Time Event Comment 03/03/2024 0949 AN OUTSIDE SOLAR SALES CONSULTANT Prepped 0955 0955 AN Anesthesia Prepped 1008 [...] Date: 03/03/24; Removal Time: 1223; Removal Person: OUTSIDE SOLAR SALES CONSULTANT; Removal Reason: End of Case 03/03/24 1211 [...] Sex Assigned at Male 03/29/2024 8:05 PM LEHR ATTENDANT Legal Sex Male 1:56 PM CDT [...] 128.8 kg (284 lb) 02/29/2024 9:20 AM LEHR ATTENDANT Height - - Body Mass Index 37.47 01/26/2024 8:27 AM LEHR ATTENDANT documented in this encounter Progress Notes * [...] before amputation. Spoke with pt : Remedios [phone] Lincoln for Medical Clearance due to pt HGBA1C 11.5. Dr Lincoln out of town this week. Dr Alvarez covering. Received call from SRINI Gloria who indicates that Dr Alvarez is not comfortable clearing pt for surgery. However, he asks that we reach out to pt ground crew linesman, Dr Vega to request clearance. Spoke with Dr Vega's staff who indicate that pt is scheduled to be seen in office today at 3:30. Faxed request to Dr Vega's office for surgery clearance. ATTENDANT ATTENDANT documented in this encounter OR Notes * OR PreOp - Lesli Martinez CNP - 02/29/2024 10:37 AM CST Chart reviewed. Per phone interview, patient denies any SOB/CP with 2 FOS. Uses cane since stroke in July. Per phone interview, patient sees assembling inspector Dr. Kelley. Please request medical clearance / [...] PCI was unsuccessful from the transradial approach. ATTENDANT ATTENDANT documented in this encounter Plan of Treatment Upcoming Encounters Date Type Department Care Team (Late st Contact Info) Description 03/27/2025 3:40 PM LEHR ATTENDANT Office Visit [facility] [address], [address] [place] [address] J Carlos Banuelos MD 3 [facility] [place] [address] 04/10/2025 8:00 AM LEHR ATTENDANT Office Visit [facility] [address] [facility] [address] [place] [address] Estrada Cao DO [address] [facility] [address] [place] [address] 06/12/2025 2:40 PM CDT Office Visit [facility] [place] [address] [place] [address] Neel Lincoln MD [address] [place] [address] 12/03/2025 12:30 PM CDT Office Visit [place] [facility] [address] [place] [address] Yonathan Kelley MD [address] [place] [address] documented as of this encounter Visit Diagnoses Not on filedocumented in this encounter Additional Health Concerns Infection Onset Date Last Indicated Resolved Time COVID-19 Rule Out 03/30/2024 03/30/2024 03/30/2024 6:06 AM LEHR ATTENDANT COVID-19 Rule Out 03/31/2024 03/31/2024 03/31/2024 11:07 AM LEHR ATTENDANT Assessment Noted Time PHQ-9 Depression Total Score: 1 12/04/19 22 1:22 PM CDT documented as of this encounter Care Teams Dairy And Food Laboratory Assistant Relationship Specialty Start Date End Date Neel Lincoln MD [address] [place] [address] [phone] PCP - General INTERNAL MEDICINE 09/02/21 Nguyen Muller, RN [address] [place], [place] [address] Chain Carrier (Ambulatory) REGISTERED NURSE 03/31/2402/06 documented as of this encounter
--- OUTSIDE RECORDS SUMMARY | 2025-03-13 20:48 | XMS_ITS | Encounter Summary ---
Author Organization [facility] Address [address] [place] [address] Care Team Providers Care Supervisor Chlorine Liquefaction Name Role Phone Neel Lincoln MD Primary Care Provider [phone] Nguyen Muller RN Unavailable [phone] Encounter Details Date Type Department Care Team (Late Contact Info) Description 11/05/2023 [employer] Message Enc [address], [address] [place] [address] [employer], [facility] Provider EEG Results Social History Tobacco Use [...] Sex Assigned at Male 03/29/2024 8:05 PM SUPERVISOR STEFFEN HOUSE Legal Sex Male 1:56 PM CDT Gender Identity Not on file Sexual Orientation Not on file Occupation Industry Job Start Date Job End Date Not on file Not on file Not on file Not on file documented as of this encounter Plan of Treatment Upcoming Encounters Date Type Department Care Team (Late Contact Info) Description 03/27/2025 3:40 PM SUPERVISOR STEFFEN HOUSE Office Visit [address], [address] [place] [address] J Carlos Banuelos MD [address] [facility] [place] [address] 04/10/2025 8:00 AM SUPERVISOR STEFFEN HOUSE Office Visit [facility] [address] [facility] [place] [address] Estrada Cao DO [address] [facility] [address] [place] [address] 06/12/2025 2:40 PM CDT Office Visit [facility] - [place] [address] [place] [address] Neel Lincoln MD [address] [place] [address] 12/03/2025 12:30 PM CDT Office Visit [place] [facility] [address] [place] [address] Yonathan Kelley MD Three [facility] [address] [place] [address] documented as of this encounter Visit Diagnoses Not on filedocumented in this encounter Additional Health Concerns Infection Onset Date Last Indicated Resolved Time COVID-19 Rule Out 03/30/2024 03/30/2024 03/30/2024 6:06 AM SUPERVISOR STEFFEN HOUSE COVID-19 Rule Out 03/31/2024 03/31/2024 03/31/2024 11:07 AM SUPERVISOR STEFFEN HOUSE Assessment Noted Time PHQ-9 Depression Total Score: 1 12/04/19 22 1:22 PM CDT documented as of this encounter Care Teams Supervisor Chlorine Liquefaction Relationship Specialty Start Date End Date Neel Lincoln MD [facility] [place] [address] PCP - General INTERNAL MEDICINE 09/02/21 Nguyen Muller, RN [address] [place] [address] Electronic Organ Mechanic (Ambulatory) REGISTERED NURSE 03/31/2402/06 documented as of this encounter
--- OUTSIDE RECORDS SUMMARY | 2025-03-13 20:48 | XMS_ITS | Encounter Summary ---
Author Organization [facility] Address [address] [place] [address] Care Team Providers Care Molder Offbearer Name Role Phone Neel Lincoln MD Primary Care Provider [phone] Nguyen Muller RN Unavailable [phone] Encounter Details Date Type Department Care Team (Latest Contact Info) Description 03/01/2024 Make It Work Message Enc [facility] [place] [address] [phone] [employer] [facility] Provider PAIN CLINIC CONSULTATION Social History Tobacco [...] Sex Assigned at Male 03/29/2024 8:05 PM EMPLOYEE'S REPRESENTATIVE Legal Sex Male 1:56 PM CDT Gender Identity Not on file Sexual Orientation Not on file Occupation Industry Job Start Date Job End Date Not on file Not on file Not on file Not on file documented as of this encounter Plan of Treatment Upcoming Encounters Date Type Department Care Team (Late st Contact Info) Description 03/27/2025 3:40 PM EMPLOYEE'S REPRESENTATIVE Office Visit [facility] Mult[facility] [address] [facility], [address] [place] [address] J Carlos Banuelos MD 3 [facility] [place] [address] 04/10/2025 8:00 AM EMPLOYEE'S REPRESENTATIVE Office Visit [facility] Medical [facility] Care [facility] [address] [facility] [address] [place] [address] Estrada Cao DO 3 [facility] [address] [place] [address] 06/12/2025 2:40 PM CDT Office Visit [facility] Family & Internal Medicine - [place] [address] [place] [address] Neel Lincoln MD [address] [place] [address] 12/03/2025 12:30 PM CDT Office Visit [facility] [address] [place] [address] Yonathan Kelley MD [address] [place] [address] documented as of this encounter Visit Diagnoses Not on filedocumented in this encounter Additional Health Concerns Infection Onset Date Last Indicated Resolved Time COVID-19 Rule Out 03/30/2024 03/30/2024 03/30/2024 6:06 AM EMPLOYEE'S REPRESENTATIVE COVID-19 Rule Out 03/31/2024 03/31/2024 03/31/2024 11:07 AM EMPLOYEE'S REPRESENTATIVE Assessment Noted Time PHQ-9 Depression Total Score: 1 12/04/19 22 1:22 PM CDT documented as of this encounter Care Teams Molder Offbearer Relationship Specialty Start Date End Date Neel Lincoln MD [address] [place] [address] PCP - General INTERNAL MEDICINE 09/02/21 Nguyen Muller RN [address] [place] [address] Career Resource Technician (Ambulatory) REGISTERED NURSE 03/31/2402/06 documented as of this encounter
--- OUTSIDE RECORDS SUMMARY | 2025-03-13 20:48 | XMS_ITS | Data Portability ---
Author Organization [facility] Address [address] [place] [address] Assessment No assessment recorded. Plan of Treatment Reminders Order Date Submit Date Provider Last Modified By Organization Details Last Modified Time Details Appointments None recorded. Lab None recorded. Referral None recorded. Procedures None recorded. Surgeries None recorded. Imaging None recorded. Medication Orders fluticasone propionate 50 mcg/actuati on nasal spray,suspe nsion 2024 025 [id number], [address], [place], [address], 16:04:42 Patient TargetsNo targets recorded. Patient InstructionsNo [...] Abnorm al Not Available Not Available 12:24:49 11/08/1911/07/2024 HbA1c (hemo globi n A1c), blood HbA1C (hemoglobin A1C), blood 10.2 % abnormal Not Available Not Available 03/07/2025 16:13:25 11/08/19 25 11/07/2024 HbA1c (hemo globi n A1c), blood lab interpretati on Abnorm al Not Available Not Available 16:13:25 02/28/20 25 02/27/2025 HbA1c (hemo globi n A1c), blood HbA1C (hemoglobin A1C), blood 8.7 % low: 4%high : 6% abnormal Not Available Not Available 03/07/2025 16:03:12 02/28/20 25 02/27/2025 HbA1c (hemo globi n A1c), blood lab interpretati on Abnorm al Not Available Not Available 16:03:12 Result Notes None recorded. Medical Equipment None Reported. Allergies Allergen ID Allergen Name Allergen Category Reaction Reaction Severity Criticality Documentation Date Start Date Code Code System Note Provider Name and Address Organization Details Recorded Time 092095 acetazola mide medicatio n Not available Not available high 03/07/20252022 167 RxNorm He state s he was dizzy and had a hard time movin g arms and legs and was milton ering . He state s he was dizzy and had a hard time movin g arms and legs and was milton ering . unrec ogniz ed react ion (text : Other , code: 85403 07) (from [facility]) Not Available [employer] - prod 16:02:54 697681 cefadroxi l medicatio n dyspnea Not available high 03/07/20252021 2177 RxNorm React ion: SOB, , Katia ated zosyn 3 Not Available [employer] - prod 16:02:54 712611 doxycycli ne Not available dyspnea Not available high 03/07/20252022 3640 RxNorm Not Available [employer] - prod 16:02:54 Medications Name Sig Start Date Stop Date [...] propionate 50 mcg/actuatio n nasal spray,suspen frankie Brick 2 sprays every day by intranasal route. [...] Last Updated DateTime 185.42 cm 37.2 kg/m2 914156. 69 g 87 /min 16 /min 97.2 [degF] 91/57 mm[Hg] Kendra Hickey MA [facility] 15:52:11 Social History Question Answer Notes LastModified by Organizat ion Details LastModified Time Tobacco Smoking Status Former Smoker quit 2021 Kendra Hickey MA null, [place] - [place] 11/07/2024 15:47:27 Are You Blind Or Do [...] Or The Highest Degree You Have Received? [id number] Information not available 11/07/2024 What Was The [...] anxious, or unable to sleep at night)? [id number] Information not available 11/07/2024 Family History Nothing Reported. Medical History No medical history recorded. Immunizations Vaccine Type Date Status Note Provider Nam e and Address Organization Details Recorded Time Influenza, split virus, quadrivalent, PF 0 completed Not Available [facility] 11/07/2024 15:32:35 COVID-19, mRNA, LNP-S, PF, 100 mcg/0.5mL dose or 50 mcg/0.25mL dose 1 completed Not Available [facility] 11/07/2024 15:32:35 COVID-19, mRNA, LNP-S, PF, 100 mcg/0.5mL dose or 50 mcg/0.25mL dose 1 completed Not Available [facility] 11/07/2024 15:32:35 Influenza, split virus, quadrivalent, PF 1 completed Not Available [facility] 11/07/2024 15:32:35 Influenza, split virus, quadrivalent, PF 3 completed Not Available [facility] 11/07/2024 15:32:35 Pneumococcal conjugate PCV20, polysaccharide [id number] conjugate, adjuvant, PF 4 completed Not Available [facility] 11/07/2024 15:32:35 Influenza, split virus, trivalent, PF 4 completed Not Available [facility] 11/07/2024 15:32:35 Past Encounters Encounter ID Performer Location Encounter Start Date Encounter Closed Date Diagnosis/Indication Diagnosis SNOMED-CT Code Diagnosis ICD10 Code Diagnosis IMO Codes Diagnosis Note [id number] [facility] [address] [place] [address] 11/07/2024 15:28:28 11/08/2024 15:04:09 Dysfunction of bilateral eustachian tubes 7663197468 818109 H69.93 [id number] follow back if not improving Chronic rhinitis 8338415 6 J31.0 2545 Health Concerns Section Related Observation LastModified by Organization Detai ls LastModified Time None Recorded Concern Status LastModified by Organization Details LastModified Time None Recorded Advance Directives Directive None Recorded Payers Insurance Date Sequence Insurance Name Policy Number Policy Lord Covered Member ID Lord Member ID Guarantor Name 11/07/2024 2 [employer] - [email or web address] [facility] (MEDICARE SUPPLEMENT) Cyrus Vee [id number] Cyrus Vee 11/07/2024 1 [place] Cyrus Vee [id number] Cyrus Vee 11/08/2024 [place] [facility] Cyrus Vee [id number] Cyrus Vee 11/07/2024 3 *SELF PAY* Ri ursula Vee Notes Date Note Type Note Provider Name and Address Organization Details Recorded Time 11/07/2024 text/html ROS as noted in the HPI Pt complaining of wax in his ears. He says they are blocked. He also complains of nasal congestion and drainage. he is on antihistamines Lester Roper MD Attn: Accounting,[address] [facility], [place], [address], [place] - [facility] 11/07/2024 16:05:15
--- OUTSIDE RECORDS SUMMARY | 2025-03-13 20:48 | XMS_ITS | Clinical Summary ---
Author Organization [facility] Address [address] [place] [address] Phone Care Team Providers Care Spot Remover Name Role Phone Neel Lincoln MD Primary Care Provider [phone] Neel Lincoln MD Unavailable [phone] J Carlos Banuelos MD Unavailable [phone] Delmer Heaton MD Unavailable [phone] Lemuel Vega MD Unavailable Allergies Active Allergy [...] Active Insulin Pen Needle (TechLite Plus Pen Tarrs) 32G X 4 MM [facility] 1 Pen Needle by Does not apply route 5 times daily. 500 Pen Needle 3 02/01/20 24 Active HumaLOG KwikPen 100 UNIT/ML Solution Pen-injector 24 units before each meal; correctional factor insulin of 1:15 if >140 mg/dL, up to 120 units per day 105 mL 1 02/29/20 24 Active ergocalciferol (VITAMIN D) 08227 UNIT CapsuleIndication s:Vitamin D deficiency TAKE 1 [...] 90 Tablet 3 09/06/19 Active Continuous Glucose Structurer (Dexcom G7 Structurer) Device Check blood glucose before each meal [...] Department Care Team Description 02/27/2025 1:15 PM SHUTTLE FIXER Office Visit [facility] - Endocrinology - [place] [address] [place] [address] Lemuel Vega MD Type 2 [...] 02/21/2025 Refill [facility] [address] [place] [address] Lemuel Vega MD Medication Refill from Last 3 Months Immunizations Immunization Administration Dates Next Due Influenza Vaccine, Quadrivalent, PF 02/02/2023,1 ,01/03/2020 Influenza, Seasonal, Injectable, Undefined 12/16 Influenza,Split Virus,Trivalent,Injectable,PF 01/26/2024 Pneumococcal conjugate PCV20 , polysaccharide [id number] conjugate, adjuvant, PF 11/17/2023 Family History Medical [...] Comments Blood Pressure 122/70 02/27/2025 1:27 PM SHUTTLE FIXER Pulse 85 02/27/2025 1:27 PM SHUTTLE FIXER Temperature 36.7 C (98 F) 02/27/2025 1:27 PM SHUTTLE FIXER Respiratory Rate 22 02/27/2025 1:27 PM SHUTTLE FIXER Oxygen Saturation 97% 02/27/2025 1:27 PM SHUTTLE FIXER Inhaled Oxygen Concentration - - Weight 131.7 kg (290 lb 6.4 oz) 02/27/2025 1:27 PM SHUTTLE FIXER Height 185.4 cm (6' 1) 10/04/2024 2:20 PM CDT Body Mass Index 38.31 10/04/2024 2:20 PM CDT Plan of Treatment Upcoming Encounters Date Type Department Care Team (Late st Contact Info) Description 04/02/2025 2:45 PM SHUTTLE FIXER Office Visit [facility] [address] [place] [address] Delmer Heaton MD [address] [place] [address] 05/29/2025 3:30 PM CDT Office Visit [facility] - [place] [address] [place] [address] Lemuel Vega MD [address] [facility] [address] Health Maintenance Due Date Last [...] POCT GLYCOSYLATED HEMOGLOBIN Routine 02/27/2025 1:30 PM SHUTTLE FIXER Type 2 diabetes mellitus with diabetic polyneuropathy, with long-term current use of insulin UR MICROALBUMIN/CREATINI NE RATIO RANDOM Routine 10/04/2024 2:59 PM CDT from Last 3 Months or Most Recently Relevant to Health Maintenance Results * (ABNORMAL) POCT GLYCOSYLATED HEMOGLOBIN (02/27/2025 1:30 PM SHUTTLE FIXER) HGB-A1C 8.7(A) 4 - 6 % Blood 02/27/2025 1:30 PM SHUTTLE FIXER Lemuel Vega MD POINT OF CARE TESTING (MANUAL) F inal Result * (ABNORMAL) UR MICROALBUMIN/CREATININE RATIO RANDOM (10/04/2024 2:59 PM CDT) CREATININE, URINE 61.9 NOT ESTAB. MG/DL CANCER AUTOMATIC CIGAR WRAPPER TENDER [facility] MICROALBUMIN, URINE 19.3 NOT ESTAB. UG/ML CANCER AUTOMATIC CIGAR WRAPPER TENDER [facility] MICROALB/CREAT RATIO 31(H) 0 - 29 MG/G CREAT CANCER AUTOMATIC CIGAR WRAPPER TENDER [facility] Comment: NORMAL: 0 - 29 MODERATELY INCREASED: 30 - 300 SEVERELY INCREASED: >300 10/04/2024 2:59 PM CDT Narrative CANCER AUTOMATIC CIGAR WRAPPER TENDER [facility] - 10/05/2024 1:08 PM CDT TESTING PERFORMED AT: [CB] [facility] [address] [facility], [place], [address], PHONE: [phone], CAMPUS POLICE OFFICER: YENNI RODRIGUEZ, PHD us Lemuel Vega MD URINE ORDERABLES Final Result CANC[facility] AUTOMATIC CIGAR WRAPPER TENDER [facility] [place] [address], from Last 3 Months or Most Recently Relevant to Health Maintenance Insurance MEDICARE [facility] MEDICARE [employer] Care Teams Spot Remover Relationship Specialty Start Date End Date Neel Lincoln MD [address] [place] [address] PCP - General Family Medicine 12/17/23 Neel Lincoln MD [address] [place] [address] Family Medicine 12/17/23 J Carlos Banuelos MD [address] [place] [address] Neuromuscular Medicine 11/02/23 Delmer Heaton MD [address] [place] [phone] Consulting Physician Oncology 11/02/23 Lemuel Vega MD [address] [phone] Consulting Physician Endocrinology 01/26/24
--- OUTSIDE RECORDS SUMMARY | 2025-03-13 20:48 | XMS_ITS | Encounter Summary ---
Author Organization [facility] Address [address] [place] [address] Care Team Providers Care Gear Shaper Set Up Operator Name Role Phone Neel Lincoln MD Primary Care Provider [phone] Encounter Details Date Type Department Care Team (Latest Contact Info) Description 03/07/2025 Scan [facility] SRVCS Scanned, Doc [...] doctor or pharmacy? Rarely 03/29/[address] [facility] Utilities Answer Date Recorded In the past 12 months has [facility] [employer], gas, oil, or water [employer] threatened to shut off services in your [...] How often do you attend chur or muslim services? 1 to 4 times per year [...] Recorded Patient Health Questionnaire-2 Score 0 04/04/2024 [facility] - Occupational Stress [...] any time in the past 12 m [facility], were you homeless or living in a longterm (including now)? No 03/29/2024 Sex and Gender Information Value Date Recorded Sex Assigned at Male 03/29/2024 8:05 PM SEAMING INSPECTOR Legal Sex Male 1:56 PM CDT [...] Assessment Author Status No 03/29/2024 11:07 PM SEAMING INSPECTOR Long, Jacki R, RN Active documented as of this encounter Mental Status * Because of a physical, mental, or emotional condition, do you have serious difficulty concentrating, remembering, or making decisions? Answer Entry Date Author Status No 03/29/2024 11:07 PM SEAMING INSPECTOR Jacki Hollins RN Active documented in this encounter Plan of Treatment Upcoming Encounters Date Type Department Care Team (Late st Contact Info) Description 03/27/2025 3:40 PM SEAMING INSPECTOR Office Visit [facility] [address] [facility] [place] [address] J Carlos Banuelos MD [address] [place] [address] 04/10/2025 8:00 AM SEAMING INSPECTOR Office Visit [facility] [address] [facility] [address] [place] [address] Estrada Cao DO [address] [facility] [address] [place] [address] 06/12/2025 2:40 PM CDT Office Visit [facility] Family & Internal Medicine - [place] [address] [place] [address] Neel Lincoln MD [address] [place] [address] 12/03/2025 12:30 PM CDT Office Visit [place] [facility] [address] [place] [address] Yonathan Kelley MD [address] [place] [address] documented as of this encounter Goals Goal Patient Goal Type Associated Problems Recent Progress Patient-Stated? Author Consistently take medications as Prescribed Lifestyle On track(2024 1:56 PM SEAMING INSPECTOR) No Nguyen Muller, RN Health - patient able to perform ADLs independently Lifestyle On track(2024 1:56 PM SEAMING INSPECTOR) No Nguyen Muller RN documented as of this encounter Visit Diagnoses Not on filedocumented in this encounter Additional Health Concerns Assessment Noted Time PHQ-9 Depression Total Score: 1 12/04/19 22 1:22 PM CDT documented as of this encounter Care Teams Gear Shaper Set Up Operator Relationship Specialty Start Date End Date Neel Lincoln MD [address] [place] [address] PCP - General INTERNAL MEDICINE 09/02/21 documented as of this encounter
--- OUTSIDE RECORDS SUMMARY | 2025-03-13 20:48 | XMS_ITS | Encounter Summary ---
Author Organization [facility] Address [address] [place] [address] Care Team Providers Care Steel Heater Name Role Phone Neel Lincoln MD Primary Care Provider [phone] Nguyen Muller RN Unavailable [phone] Encounter Details Date Type Department Care Team (Late st Contact Info) Description 02/29/2024 Pre-Procedure Call [facility] [place] [address] Bony Celeste MD Three [facility]. [address] [place], [place] [id number] Social History Tobacco Use Types Packs/Day Years [...] Sex Assigned at Male 03/29/2024 8:05 PM LOBBYIST Legal Sex Male 1:56 PM CDT Gender Identity Not on file Sexual Orientation Not on file Occupation Industry Job Start Date Job End Date Not on file Not on file Not on file Not on file documented as of this encounter Plan of Treatment Upcoming Encounters Date Type Department Care Team (Late st Contact Info) Description 03/27/2025 3:40 PM LOBBYIST Office Visit [facility] [address] [facility], [address] [place] [address] J Carlos Banuelos MD 3 [facility] [place] [address] 04/10/2025 8:00 AM LOBBYIST [facility] [address] [facility] [place] [address] Estrada Cao DO 3 [facility] [address] [place] [address] 06/12/2025 2:40 PM CDT Office Visit [facility] [place] [address] [place] [address] Neel Lincoln MD [address] [place] [address] 12/03/2025 12:30 PM CDT Office Visit [facility] [address] [place] [address] Yonathan Kelley MD Three [facility] [place] [address] documented as of this encounter Visit Diagnoses Not on filedocumented in this encounter Additional Health Concerns Infection Onset Date Last Indicated Resolved Time COVID-19 Rule Out 03/30/2024 03/30/2024 03/30/2024 6:06 AM LOBBYIST COVID-19 Rule Out 03/31/2024 03/31/2024 03/31/2024 11:07 AM LOBBYIST Assessment Noted Time PHQ-9 Depression Total Score: 1 12/04/19 22 1:22 PM CDT documented as of this encounter Care Teams Steel Heater Relationship Specialty Start Date End Date Neel Lincoln MD [address] [place] [address] PCP - General INTERNAL MEDICINE 09/02/21 Nguyen Muller RN [address] [place] [address] Assembly Associate (Ambulatory) REGISTERED NURSE 03/31/2402/06 documented as of this encounter
--- OUTSIDE RECORDS SUMMARY | 2025-03-13 20:48 | XMS_ITS | Clinical Summary ---
Author Organization [facility] Address [address] [place] [address] Care Team Providers Care Fleet Maintenance Manager Name Role Phone Neel Lincoln MD Primary Care Provider [phone] Allergies Active Allergy Reactions Criticality Noted Date [...] complication, with long-term current use of insulin ([facility]) INJECT UNDER THE SKIN TWICE A DAY [...] ncontrolled type 2 diabetes mellitus with hyperglycemia ([facility]/HCC) USE TO TEST TWICE DAILY 200 each 3 024 Active KR[employer]ER BLOOD GLUCOSE TEST test stripIndications: Uncontrolled type 2 diabetes mellitus with hyperglycemia ([facility]) 1 STRIP BY DOES NOT APPLY ROUTE 4 (FOUR) TIMES DAILY BEFORE MEALS AND NIGHTLY. 400 strip 5 024 Active CONTOUR NEXT TEST test stripIndications: Type 2 diabetes mellitus with other specified complication, with long-term current use of insulin ([facility]) USE TO TEST 4 TIMES DAILY BEFORE MEALS AND NIGHTLY 400 strip 5 024 Active Insulin Pen Needle (TECHLITE PEN NEEDLES) 31G X 5 MM MiscIndications:T ype 2 diabetes mellitus with other specified complication, with long-term current use of insulin ([facility]/HCC) USE 1 NEEDLE 4 TIMES A [...] 24 hr tabletIndications :Coronary artery disease involving tuscarora coronary artery of tuscarora heart with other form of angina pectoris,Abdomina l aortic aneurysm (AAA) without rupture, unspecified part,Permanent atrial fibrillation ([facility]/HCC) TAKE 1 TABLET BY MOUTH TWICE [...] 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 180 tablet 11 025 Active ASPIRIN LOW DOSE 81 MG chewable tabletIndications :Hyperlipidemia, mixed,Essential (primary) hypertension CHEW AND SWALLOW 1 TABLET BY MOUTH DAILY AT 8AM 90 tablet 3 025 Active gabapentin (NEURONTIN) 800 MG tabletIndications :Diabetic polyneuropathy associated with type 2 diabetes mellitus ([facility]/HCC) Take 1 tablet (800 mg total) by mouth 3 (three) times daily. 90 tablet 3 025 Active potassium chloride CR (K-TAB) 20 MEQ tabletIndications :Essential (primary) hypertension Take 1 tablet (20 mEq total) by mouth daily. 14 tablet 025 Active ezetimibe (ZETIA) 10 MG tabletIndications :Coronary artery disease involving tuscarora coronary artery of tuscarora heart with other form of angina pectoris,Hyperlip idemia, mixed,PAD (peripheral artery disease),Type 2 diabetes mellitus with other specified complication, with long-term current use of insulin ([facility]),Abdomina l aortic aneurysm (AAA) without rupture, unspecified [...] Active levETIRAcetam (KEPPRA) 500 MG tabletIndications :Seizure ([facility]) TAKE 1 TABLET BY MOUTH TWICE A DAY 60 tablet 1 025 2024 Discontinued(D uplicate Med) atorvastatin (LIPITOR) 80 MG tabletIndications :Hyperlipidemia, mixed TAKE 1 TABLET BY MOUTH EVERY NIGHT AT BEDTIME 90 tablet 1 025 2024 Discontinued gabapentin (NEURONTIN) 800 MG tabletIndications :Diabetic polyneuropathy associated with type 2 diabetes mellitus ([facility]) Take 1 tablet (800 mg total) by mouth 3 (three) times daily. 90 tablet 025 2024 Discontinued(R eorder) potassium chloride CR (K-TAB) 20 MEQ tabletIndications :Essential (primary) hypertension Take 1 tablet (20 mEq total) by mouth daily. 90 tablet 3 025 2024 Discontinued(R eorder) ezetimibe (ZETIA) 10 MG tabletIndications :Coronary artery disease involving tuscarora coronary artery of tuscarora heart with other form of angina pectoris,Hyperlip idemia, mixed,PAD (peripheral artery disease),Type 2 diabetes mellitus with other specified complication, with long-term current use of insulin ([facility]),Abdomina l aortic aneurysm (AAA) without rupture, unspecified [...] mellitus with hyperglycemi a 06/24/2021 Atherosclerosis of tuscarora ar teries of extremities with rest pain, bilateral legs 01/17/2021 Overview (10/19/2022): Added automatically from request for surgery [id number] Hypertension associated with type 2 diabetes kelly litus 07/12/2020 Coronary artery disease due to type 2 diabetes m ellitus 07/12/2020 GERD (gastroesophageal reflux disease) Sleep apnea 07/12/2020 Type 2 diabetes mellitus wit h atherosclerosis of tuscarora arteries of extremity with intermittent claudication 07/09/2020 Overview (04/11/2024): Added automatically from request for surgery [id number] Last Assessment & Plan: He has widely [...] arteries. Added automatically from request for surgery [id number] Chronic pain of both hips 02/26/2020 Overview [...] Encounters Date Type Department Care Team Description 03/07/2025 Scan HEALTH INFO SRVCS Scanned, Doc [facility] 03/06/2025 3:20 PM COLLAR PADDER BLINDSTITCH Office Visit [facility] [address] [address] Neel Lincoln MD Follow Up (Patient is here for a 3 month follow up.); Diabetes (Patient sees Dr. Vega @ [facility]. Last A1c on 02/27 was 8.7%.); Hyperlipidemia; Hypothyroidism; GERD 03/06/2025 Travel 02/27/2025 Scan HEALTH INFO SRVCS Scanned, Doc Med [facility] 02/26/2025 Telephone [facility] [address] [address] Neel Lincoln MD Medication Request 02/07/2025 Scan MG HEALTH INFO SRVCS Scanned, Doc [facility] 01/31/2025 [facility] [address] [place] [address] [place] [address] Clarissa Gonzalez LPN Pre-visit [facility] 01/12/2025 Scan MG HEALTH INFO SRVCS Scanned, Doc [facility] 12/20/2024 Telephone [facility] [address] [facility], [address] [place] [address] J Carlos Banuelos MD Medication [...] Mother Cancer Paternal Grandfather unknown typ e [place] Paternal Grandfather Diabetes Paternal Grandmother Cancer Paternal [...] from your doctor or pharmacy? Rarely 03/29/2024 [facility] Utilities Answer Date Recorded In the past 12 months has e [employer], gas, oil, or water [employer] threatened to shut off services in your [...] week 03/29/2024 How often do you attend [facility] or evangelical services? 1 to 4 times per year 03/29/2024 Do you belong to any clubs o r organizations such as religious groups, unions, fraternal or athletic groups, or [...] Recorded Patient Health Questionnaire-2 Score 0 04/04/2024 [facility] [place] of Occupat ional Health - Occupational Stress [...] any time in the past 12 m [facility], were you homeless or living in a snf (including now)? No 03/29/2024 Sex and Gender Information Value Date Recorded Sex Assigned at Male 03/29/2024 8:05 PM COLLAR PADDER BLINDSTITCH Legal Sex Male 1:56 PM CDT Gender Identity Not on file Sexual Orientation Not on file Occupation Industry Job Start Date Job End Date Not on file Not on file Not on file Not on file Last Filed Vital Signs Vital Sign Reading Time Taken Comments Blood Pressure 108/62 03/06/2025 3:25 PM COLLAR PADDER BLINDSTITCH Pulse 57 03/06/2025 3:25 PM COLLAR PADDER BLINDSTITCH Temperature 36.7 C (98.1 F) 03/06/2025 3:25 PM COLLAR PADDER BLINDSTITCH Respiratory Rate 20 11/27/2024 3:35 PM CDT Oxygen Saturation 92% 03/06/2025 3:25 PM COLLAR PADDER BLINDSTITCH Inhaled Oxygen Concentration - - Weight 130.8 kg (288 lb 4.8 oz) 03/06/2025 3:25 PM COLLAR PADDER BLINDSTITCH Height 182.9 cm (6') 03/06/2025 3:25 PM COLLAR PADDER BLINDSTITCH Body Mass Index 39.1 03/06/2025 3:25 PM COLLAR PADDER BLINDSTITCH Plan of Treatment Upcoming Encounters Date Type Department Care Team (Late st Contact Info) Description 03/27/2025 3:40 PM COLLAR PADDER BLINDSTITCH Office Visit [facility] [address] [facility], [address] [place] [address] J Carlos Banuelos MD [address] [place] [address] 04/10/2025 8:00 AM COLLAR PADDER BLINDSTITCH Office Visit [facility] [address] [facility] [place] [address] Estrada Cao DO 3 [facility] [address] [place] [address] 06/12/2025 2:40 PM CDT Office Visit [facility] [address] [address] Neel Lincoln MD [address] [place] [address] 12/03/2025 12:30 PM CDT Office Visit [facility] [address] [place] [address] Yonathan Kelley MD Three [facility], [address] [place] [address] Health Maintenance Due Date Last Done Comments [...] Vaccine: 50+ Years Completed 11/17/2023 PHQ-2 (Physician [place]) Completed 04/04/2024 Hepatitis A Vaccines Aged Out [...] as Prescribed Lifestyle On track(2024 1:56 PM COLLAR PADDER BLINDSTITCH) Nguyen Solis, RN Health - patient able to perform ADLs independently Lifestyle On track(2024 1:56 PM COLLAR PADDER BLINDSTITCH) No Nguyen Muller mechanical design engineer facilities Procedure Name Priority Date/Time Associated Diagnosis Comments XR CHEST PA+LAT Routine 03/06/2025 4:33 PM COLLAR PADDER BLINDSTITCH Malignant melanoma of skin of chest ([facility] H[facility]HCC) DIABETIC RETINOPATHY EXAM (NEGATIVE)(SCAN ORDER) Routine 12/04/2024 HEMOGLOBIN GLYCOSYLATED A1C Routine 11/07/2024 LIPID PANEL Routine 03/29/2024 8:40 PM COLLAR PADDER BLINDSTITCH from Last 3 Months or Most Recently Relevant to Health Maintenance Results * XR CHEST PA+LAT (03/06/2025 4:33 PM COLLAR PADDER BLINDSTITCH) Anatomical Region Laterality Modality Chest Radiographic Nini ging 03/06/2025 4:39 PM COLLAR PADDER BLINDSTITCH Impressions 03/06/2025 4:41 PM COLLAR PADDER BLINDSTITCH =====IMPRESSION:===== No acute findings. Ordered By: YONAS RITTER Interpreted By: Irving Hollins MD, 03/06/2025 4:39 PM Narrative 03/06/2025 4:41 PM COLLAR PADDER BLINDSTITCH [facility] [place] [address] EXAMINATION: PA AND LATERAL CHEST Exam date/time: [...] Procedure Note Irving Hollins MD - 03/06/2025 [facility] [place] [id number] EXAMINATION: PA AND LATERAL CHEST Exam date/time: [...] Med Group Scanned SCANNING Final Resu lt [facility] ONBASE * (ABNORMAL) HEMOGLOBIN, GLYCOSYLATED (11/07/2024) HGB A1C 10.2(A) % 11/07/2024 Default History Genericprovider LABORATORY Edited Result - Final * LIPID PANEL (03/29/2024 8:40 PM COLLAR PADDER BLINDSTITCH) CHOLESTEROL 143 <200 MG/DL 03/29/2024 10:26 PM COLLAR PADDER BLINDSTITCH [facility] TRIGLYCERIDES 90 <150 MG/DL 03/29/2024 10:26 PM COLLAR PADDER BLINDSTITCH [facility] HDL 46 >40.0 MG/DL 03/29/2024 10:26 PM COLLAR PADDER BLINDSTITCH [facility] LDL (CALCULATED) 79 <100 MG/DL 03/29/19 10:26 PM COLLAR PADDER BLINDSTITCH [facility] NON HDL CHOLESTEROL 97 <130 MG/DL 03/29 10:26 PM COLLAR PADDER BLINDSTITCH [facility] CHOL/HDL RATIO 3.1 0.0 - 4.5 03/29/2024 10:26 PM [facility] VLDL CALCULATION 18 5 - 55 MG/DL 03/29/2024 10:26 PM [facility] LIPID INTERPRETATION 03/29/2024 10:26 PM [facility] Comment: [facility] REPORT RECOMMENDATIONS: ADULT CHILD LOW RISK: CHOLESTEROL <200 <170 TRIGLYCERIDE <150 --- HDL >=60 --- LDL <100 <110 BORDERLINE: CHOLESTEROL 200-239 170-199 TRIGLYCERIDE 150-199 --- HDL 40-59 --- LDL 100-159 110-129 HIGH RISK: CHOLESTEROL >=240 >=200 TRIGLYCERIDE >=200 --- HDL <40 --- LDL >=160 >=130 03/29/2024 8:40 PM COLLAR PADDER BLINDSTITCH Heather Larose DO LABORATORY Final Result [facility] [address] [place] [address], from Last 3 Months or Most Recently Relevant to Health Maintenance Insurance MEDICARE [facility] Advance Directives * Full Code (Latest Code Status on File) Date Activated Date Inactivated Comments 03/29/2024 9:53 PM 04/02/2024 4:01 PM * Full Code Date Activated Date Inactivated Comments 03/03/2024 12:39 PM 03/03/2024 5:40 PM Care Teams Fleet Maintenance Manager Relationship Specialty Start Date End Date Neel Lincoln MD [address] [place] [id number] PCP - General INTERNAL MEDICINE 09/02/21
--- OUTSIDE RECORDS SUMMARY | 2025-03-13 20:48 | XMS_ITS | Clinical Summary ---
Author Organization [facility] Address [address] [place] [address] Care Team Providers Care Accredited Farm Manager Name Role Phone Moisés Flynn MD Unavailable [phone] Eileen Mueller MD Unavailable Neel Lincoln MD Primary Care Provider [phone] Wes Redmond MD Unavailable Moisés Bryant MD Unavailable Nikolai Russell MD Unavailable [phone] Allergies Active Allergy Reactions Criticality Noted [...] CAD (coronary artery disease) 07/12/2020 Atherosclerosis of blackfeet ar teries of extremities with intermittent claudication, bilateral legs 07/09/2020 Overview (07/09/2020): Added automatically from request for surgery [id number] Assessment & Plan (06/09/2021 12:42 PM CDT): [...] 02/26/2020 Assessment & Plan (02/26/2020 9:38 AM LINE UP EXAMINER): Bilateral hip claudication with chronically occluded bilateral [...] 01/15/2020 Assessment & Plan (03/04/2023 10:37 AM LINE UP EXAMINER): Due for follow-up carotid doppler summer 2023. Will coordinate with his 6 month f/u studies of his legs. Assessment & Plan (01/15/2020 2:00 PM LINE UP EXAMINER): Left SFA stent patent. Repeat arterial Doppler in six months. Our office will contact him to make the appointment when the time comes. Certainly if there are interval problems, we would be happy to see him sooner. Status post femoral-popliteal bypass surgery 04/2019 Assessment & Plan (03/04/2023 10:36 AM LINE UP EXAMINER): Widely patent aorto-bifemoral bypass and bilateral fem-pop bypasses. Repeat ABIs and bilateral LE duplex scans again in six months. Assessment & Plan (12/18/2020 10:32 AM CDT): Patent right leg bypass with stable right leg perfusion. Assessment & Plan (01/15/2020 1:59 PM LINE UP EXAMINER): Widely patent right leg bypass. Monitor with repeat Duplex scan in six months. Our office will contact him to make the appointment when the time comes. Certainly if there are interval problems, we would be happy to see him sooner. Generalized postprandial abdominal pain 01/15/20 20 Assessment & Plan (01/15/2020 1:57 PM LINE UP EXAMINER): Arrange CT Angiogram abdomen/pelvis to determine if [...] Resolved Date Claudication 01/22/2021 03/03/2023 Atherosclerosis of blackfeet ar teries of extremities with rest pain, bilateral legs 01/17/2021 03/03/2023 Overview (01/17/2021): Added automatically from request for surgery [id number] Atherosclerosis of blackfeet ar teries of extremities with intermittent claudication, left leg 06/01/2019 07/12/2020 Overview (06/01/2019): Added automatically from request for surgery [id number] Stenosis of peripheral vascular stent 06/01/2019 07/12/2020 Overview (06/01/2019): Added automatically from request for surgery [id number] Foreign body of great toe of right foot with infection 10/17/2018 07/12/2020 Atherosclerosis of blackfeet ar diogo of left lower extremity with intermittent claudication 08/17/2018 07/12/2020 Overview (08/17/2018): Added automatically from request for surgery [id number] Assessment & Plan (05/22/2019 2:44 PM CDT): [...] 07/12/2020 Assessment & Plan (01/15/2020 2:01 PM LINE UP EXAMINER): 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 Revascularization is not possible. Continue exercise to encourage collateral flow. Encounter for therapeutic drug monitoring 05/19/2017 07/12/2020 Surgical follow-up care 02/03/201606/15 Overview (06/18/2016): Postoperative follow-up Sebaceous cyst 12/30/2015 07/10/2022 Overview (06/18/2016): Sebaceous cyst Atherosclerosis of blackfeet artery of extremity 05/08/19 16 07/12/2020 Overview (06/18/2016): Atherosclerosis of blackfeet artery of right lower extremity with rest pain Encounters Date Type Department Care Team Description 02/22/2025 Telephone [facility] [place], [place] Ophthalmology [address] [facility] [address], [address] [place] [address] Romana Jurado MD PhD 02/20/2025 Telephone [facility] [place], [place] Ophthalmology [address] [place] [address] Romana Jurado MD PhD results requested 01/23/2025 3:00 PM LINE UP EXAMINER Imaging Exam [facility] [place], [place] Ophthalmology [address] [place] [phone] Epiretinal membrane (ERM) of both eyes 01/16/2025 2:00 PM LINE UP EXAMINER Imaging Exam [facility] Medicine Ophthalmology [address] [place] [phone] Epiretinal membrane (ERM) of both eyes 01/16/2025 Telephone [facility] [place] [place] Ophthalmology [address] [place] [address] Romana Jurado MD PhD ERG Questions 01/10/2025 Orders Only [facility] Medicine Ophthalmology [address] [place] [address] Gabe Peterson MD Epiretinal membrane (ERM) of both eyes (Primary Dx) 01/10/2025 Orders Only [facility] Medicine Ophthalmology [address] [place] [address] Gabe Peterson MD Epiretinal membrane (ERM) of both eyes (Primary Dx) 01/09/2025 8:00 AM CDT Office Visit [facility] Medicine Ophthalmology [address] [place] [phone] Romana Jurado MD PhD Retinitis pigmentosa of both eyes (Primary Dx); Epiretinal membrane (ERM) of both eyes; DM type 2 without retinopathy (HCC) 12/26/2024 [place] [address] Juan Pablo Huitron MD CKD follow-up from Last 3 Months Immunizations Immunization Administration [...] pain of both hips 02/26/2020 Atherosclerosis of blackfeet ar teries of extremities with intermittent claudication, bilateral legs 07/09/2020 Added automatically from request for surgery [id number] Sebaceous cyst 12/30/2015 Sebaceous cyst Foreign body [...] often do you attend chur ch or sabianism services? Never 07/20/2022 Do you belong to any clubs o r organizations such as presybeterian groups, unions, fraternal or athletic groups, or [...] on file Legal Sex Male 2:42 PM LINE UP EXAMINER Gender Identity Not on file Sexual Orientation [...] 01/09/2026 01/09/2025 Medical Devices Implanted Type Area Director Dental Services Device Identifier Shelf Expiration Date Model / Serial / Lot Drive.SG Hemagard 16/8mm 50cm Knit Cross Link Tensile Strength Excellent [id number] - [id number] - [id number] Implanted:Qty: 1 on 07/27/2022 by Moisés Flynn MD at [facility] Graft N/A: Abdomen Campaign Monitor INC 01/12/2027 [id number] / [id number] / Daig Thien [id number] Device Closure Angio-Seal Vip Bondek-Plus Polyglyd L70 Cm Od6 Fr Odsec.035 In Vascular - Sn/A - [id number] Implanted:Qty: 1 on 07/17/2020 by Moisés Flynn MD at [facility] Other - see comments Left: Groin Terumo Medical Thien 04/14/2021 [id number] / N/A / [id number] Bard Peripheral Vascular [id number] E-Luminexx Safe Performaxx 9mm 6fr 60mm 80cm Delivery System - [id number] Implanted:Qty: 1 on 12/13/2017 by Moisés Flynn MD at [facility] Stent Left: Arterial Bard Peripheral Vascular 01/12/2020 [id number] / / [id number] Description:Left Common and External Iliac Artery Medtronic Inc Everflex Entrust 6mm 60mm 80cm Self Expand Triaxial Low Profile - Sn/A - [id number] Implanted:Qty: 1 on 07/17/2020 by Moisés Flynn MD at [facility] Stent Right: Iliac Medtronic Inc 01/12/2022 EJP93-50 -060-080 / N/A / [id number] Medtronic Inc Everflex Entrust 6mm 100mm 80cm Self Expand Triaxial Low Profile - Sn/A - [id number] Implanted:Qty: 1 on 07/17/2020 by Moisés Flynn MD at [facility] Stent Left: Iliac Medtronic Inc 10/15/2022 FOS60-17 -100-080 / N/A / [id number] Daig Thien/St [employer] [id number] Angio-Seal Vip Bondek-Plus 6fr .035in 70cm Hemostatic Latex Free - [id number] Implanted:Qty: 1 on 12/13/2017 by Moisés Flynn MD at [facility] Left: Groin Daig Thien/[employer] 08/12/2018 [id number] / / [id number] Cryolife Inc Patch Cardiovascular 0.8x8cm Nonpyrogenic Pfp0.8x8 - [id number] Implanted:Qty: 1 on 07/21/2022 by Moisés Flynn MD at [facility] Left: Carotid Cryolife Inc 03/28/2024 PFP0.8X8 / / [id number] Vitalitec Intrnl Inc Sls-Clip Ligate Triangular Wire Chio Groove Small Chevron Clip Latex Free L3878-8 - [id number] Implanted:Qty: 1 on 07/21/2022 by Moisés Flynn MD at [facility] Left: Neck Vitalitec Intrnl Inc P0612-1 / / Vitalitec Intrnl Inc Sls-Clip Ligate Triangular Wire Chio Groove Small Chevron Clip Latex Free S3663-4 - [id number] Implanted:Qty: 4 on 07/27/2022 by Moisés Flynn MD at [facility] N/A: Abdomen Vitalitec Intrnl Inc K3204-1 / / Bard Peripheral Vascular Bard .25x.25in [place] Thk1.65mm Square Pledget Cardiovascular Ptfe 767239 - [id number] Implanted:Qty: 1 on 07/27/2022 by Moisés Flynn MD at [facility] N/A: Abdomen Bard Peripheral Vascular [id number] / / Bard Peripheral Vascular Bard 5/16x5/16in [place] Thk1.65mm Pledget Cardiovascular Ptfe 101951 - [id number] Implanted:Qty: 1 on 07/27/2022 by Moisés Flynn MD at [facility] N/A: Abdomen Bard Peripheral Vascular [id number] / / Procedures Procedure Name Priority Date/Time Associated Diagnosis Comments ERG FULL FIELD - OU - BOTH EYES Routine 01/23/2025 3:27 PM LINE UP EXAMINER Epiretinal membrane (ERM) of both eyes MULTIFOCAL ELECTRORETINOGRAPHY (ERG) - OU - BOTH EYES Routine 01/16/2025 2:29 PM LINE UP EXAMINER Epiretinal membrane (ERM) of both eyes FUNDUS [...] OU - Both Eyes (01/23/2025 3:27 PM LINE UP EXAMINER) Anatomical Region Laterality Modality Head Other Narrative 01/25/2025 11:15 AM LINE UP EXAMINER VISUAL DIAGNOSTIC REPORT: Patient: Cyrus Vee : [...] this study, please contact our office at [phone], and we would be happy to send these to your office. Please feel free to contact my office if you would like to discuss these results further. Gabe Peterson M.D. Professor, Departments of Ophthalmology and Visual Sciences and Neurology Director, Visual Electrophysiology Service [facility] E-mail: [email or web address] Gabe Peterson MD OPHTH ELECTRORETINOG ALEE Final Result * Multifocal Electroretinography (ERG) - OU - Both Eyes (01/16/2025 2:29 PM LINE UP EXAMINER) Anatomical Region Laterality Modality Head Other Narrative 01/18/2025 4:45 PM LINE UP EXAMINER VISUAL DIAGNOSTIC REPORT: Patient: Cyrus Vee : [...] Multifocal ERG testing was conducted using the edenes Electrodiagnostic Imaging System with 61hexagons covering the [...] this study, please contact our office at [phone], and we would be happy to send these to your office. Please feel free to contact my office if you would like to discuss these results further. Gabe Peterson M.D. Professor, Departments of Ophthalmology and Visual Sciences and Neurology Director, Visual Electrophysiology Service [facility] E-mail: [email or web address] Gabe Peterson MD OPHTH ELECTRORETINOG ALEE Final [...] Final Result Performing Organization Address [facility] Co de Phone Number [facility] [address] [place], [place] [phone] * (ABNORMAL) Hemoglobin A1c (08/27/2024 3:27 PM CDT) Hgb A1C 8.2(H) 4.0 - 5.6 % Estimated Average Glucose 189 mg/dL [facility] Comment: The ADA recommends reporting an estimated Average Glucose (eAG) with all Hemoglobin A1c results using the equation derived from a study of 507 normal and diabetic adults. Minority populations were underrepresented and children were not included. (Diabetes Care 31:6519-4868, 2008). The eAG is not equivalent to a fasting glucose. Blood 08/27/2024 3:27 PM CDT 08/27/2024 4:09 PM CDT Lb Pollard MD LAB BLOOD ORDERABLES Final Result Performing Organization Address [facility] Co de Phone Number [facility] [address] Department allyve [place], [place] [phone] * (ABNORMAL) Lipid panel (07/20/2022 12:27 AM CDT) Cholesterol 97 30 - 199 mg/dL [facility] Comment: Interpretive Data Ages < or = [...] revised on 2017. Triglycerides 133 <=149 mg/dL [facility] Comment: Interpretive Data Ages < or = [...] revised on 2017. HDL 25(L) >=40 mg/dL [facility] Comment: Interpretive Data Ages < or = [...] on 2017. LDL, calculated 45 <=129 mg/dL [facility] Comment: Interpretive Data Ages < or = [...] revised on 2017. Non-HDL Cholesterol 72 mg/dL [facility] Comment: Interpretive Data Ages < or = [...] last revised on 2017. Chol/HDL ratio 4 [facility] Blood 07/20/2022 12:2 7 AM CDT 07/20/2022 12:30 AM CDT us Navin Sandoval MD LAB BLOOD ORDERABLES Final Re sult [facility] [address] Department [place] [address] from Last 3 Months or Most Recently Relevant to Health Maintenance Additional Health Concerns Infection Onset Date Last Indicated Ring Surveillance: Vanna em Comment:W5 IPS C aurcaroline surveillance - rooms 1-16 08/28/202408/28 Insurance MEDICARE [employer] COMMERCIAL GENERIC MEDICARE [facility] MEDICARE [employer] Advance Directives For more information, please contact: [phone] * Full Code (Latest Code Status on [...] 7:55 PM 06/08/2019 3:07 PM Care Teams Accredited Farm Manager Relationship Specialty Start Date End Date Neel Lincoln MD [address] [place] [address] PCP - General Internal Medicine 09/03/21 Moisés Flynn MD Surgeon Vascular Surgery 12/14/17 Eileen Mueller MD Internal Medicine 12/18/20 Wes Redmond MD [address] [place] [address] Internal Medicine 03/04/22 Moisés Bryant MD [address] [place] [address] Neurology 08/24/22 Nikolai Russell MD [address] [place] [address] Referring Physician Ophthalmology 12/07/24
--- OUTSIDE RECORDS SUMMARY | 2025-03-13 20:48 | XMS_ITS | Encounter Summary ---
Author Organization [facility] Address [address] [place] [address] Care Team Providers Care Auto Research Engineer Name Role Phone Neel Lincoln MD Primary Care Provider [phone] Nguyen Muller RN Unavailable [phone] Encounter Details Date Type Department Care Team (Late Contact Info) Description 11/24/2021 [employer] Message Enc [facility] [address] [place], [facility] Provider Results Social History Tobacco Use Types Packs/Day Years Used Date Smoking Tobacco: Every Day Cigarettes 0.5 46 Smokeless Tobacco: Never Comments: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 [place] [address] 04/10/2025 8:00 AM CROP FARMERS Office Visit [facility] Medical [facility] Multispecialty Care - [facility] [address] [facility] [place] [address] Estrada Cao DO [address] [facility] [address] [place] [address] 06/12/2025 2:40 PM CDT Office Visit [facility] Medical [facility] Family & Internal Medicine [facility] [address] [place] [address] Neel Lincoln MD [address] [place] [address] 12/03/2025 12:30 PM CDT Office Visit [facility] [address] [place] [address] Yonathan Kelley MD [address] [facility] [address] [place] [address] documented as of this encounter Visit Diagnoses Not on filedocumented in this encounter Additional Health Concerns Infection Onset Date Last Indicated Resolved Time COVID-19 Rule Out 03/30/2024 03/30/2024 03/30/2024 6:06 AM CR[employer] F[employer]ERS COVID-19 Rule Out 03/31/2024 03/31/2024 03/31/2024 11:07 AM [employer] documented as of this encounter Care Teams Auto Research Engineer Relationship Specialty Start Date End Date Neel Lincoln MD [address] [place] [address] PCP - General INTERNAL MEDICINE 09/02/21 Nguyen Muller RN [address] [place] [address] Gel Coater (Ambulatory) REGISTERED NURSE 03/31/2402/06 documented as of this encounter
--- OUTSIDE RECORDS SUMMARY | 2025-03-13 20:48 | XMS_ITS | Encounter Summary ---
Author Organization [facility] Address [address] [place] [address] Care Team Providers Care On Air Announcer Name Role Phone Neel Lincoln MD Primary Care Provider [phone] Nguyen Muller RN Unavailable [phone] Encounter Details Date Type Department Care Team (Late st Contact Info) Description 08/14/2022 Hospital Follow-up Call [facility] Medical Group Family & Internal Medicine [address] [address] Neel Lincoln MD [address] [place] [address] Social History Tobacco Use Types Packs/Day Years Used Date Smoking Tobacco: Every Day Cigarettes 0.5 46 Smokeless Tobacco: Never Comments:Provider to vocational counselor , 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 trying to quite Alcohol Use Standard Drinks/Week Comments Not Currently 0 (1 standard drink = 0.6 oz pur e alcohol) quite 8 years ago PHQ-2 Answer Date Recorded Patient Health Questionnaire-2 Score 0 06/04/2022 Sex and Gender Information Value Date Recorded Sex Assigned at Male 03/29/2024 8:05 PM SFDC TECHNICAL ARCHITECT Legal Sex Male 1:56 PM CDT Gender [...] st Contact Info) Description 03/27/2025 3:40 PM SFDC TECHNICAL ARCHITECT Office Visit [facility] [address] [facility], [address] [place] [address] J Carlos Banuelos MD [address] [facility] [place] [address] 04/10/2025 8:00 AM SFDC TECHNICAL ARCHITECT Office Visit [facility] [address] [facility] [address] [place] [address] Estrada Cao DO [address] [facility] [address] [place] [address] 06/12/2025 2:40 PM CDT Office Visit [facility] [place] [address] [place] [address] Neel Lincoln MD [address] [place] [address] 12/03/2025 12:30 PM CDT Office Visit [facility] [address] [place] [address] Yonathan Kelley MD [address] [place] [address] documented as of this encounter Visit Diagnoses Not on filedocumented in this encounter Additional Health Concerns Infection Onset Date Last Indicated Resolved Time COVID-19 Rule Out 03/30/2024 03/30/2024 03/30/2024 6:06 AM SFDC TECHNICAL ARCHITECT COVID-19 Rule Out 03/31/2024 03/31/2024 03/31/2024 11:07 AM SFDC TECHNICAL ARCHITECT Assessment Noted Time PHQ-9 Depression Total Score: 1 12/04/19 22 1:22 PM CDT documented as of this encounter Care Teams On Air Announcer Relationship Specialty Start Date End Date Neel Lincoln MD [address] [place] [address] PCP - General INTERNAL MEDICINE 09/02/21 Nguyen Muller, RN [address] [place] [address] Computer Technical Support Specialist (Ambulatory) REGISTERED NURSE 03/31/2402/06 documented as of this encounter
[2025-03-13 20:57] VITALS: BP 105/61; PULSE 83; RESP 20; TEMP 36.1; O2SAT 100
--- NOTE | 2025-03-13 21:13 | ECG_ITS ---
Test Date: 2025-03-13 21:23:06 Measurements Intervals [place] Rate: 85 P: 0 IN: 0 QRS: 39 QRSD: 104 T: 42 QT: 396 QTc: 472 Interpretive Statements ATRIAL FIBRILLATION NONSPECIFIC ST & T-WAVE ABNORMALITY- INF/LAT LEADS BASELINE ARTIFACT- I, II, III, AVR, AVL, AVF ABNORMAL ECG Compared to ECG 03/10/2025 08:11:50 Possible ischemia no longer present Electronically Signed On 03-13-2025 21:56:09 GROUTER HELPER by Aydin Mcintosh D.O.
[2025-03-14] VITALS (7 sets, daily range): BP systolic 128–187; BP diastolic 73–100; PULSE 70–102; RESP 12–18; TEMP 37; O2SAT 95–98
[2025-03-14 03:57] LABS: Hematocrit 42.8 % (42.0-52.0); Hemoglobin 13.8 g/dL (14.0-18.0); Immature Granulocyte Percent A 0.3 % (0-0.5); Lymphocytes Absolute Auto 1.16 K/mm3 (0.9-3.2); Mean Corpuscular HGB Conc 32.2 g/dl (32-36); Mean Corpuscular Hemoglobin 28.9 pg (26-34); Mean Corpuscular Volume 89.7 fl (80-100); Nucleated Red Blood Cells Absolute Auto 0.000 K/mm3 (0.0-0.012); Nucleated Red Blood Cells Perc 0.0 % (0.0-0.2); Platelet Count Result 263 k/mm3 (150-375); Red Blood Count 4.77 M/mm3 (4.6-6.20); White Blood Count 9.4 K/mm3 (4.5-10.0)
--- NOTE | 2025-03-14 03:59 | ED.NAVMDI ---
HPI - Nausea/Vomiting/Diarrhea General Chief complaint: Nausea/Vomiting/Diarrhea Stated complaint: diarrhea, syncope Time Seen by Provider: 03/14/25 03:35 History of Present Illness HPI Narrative: 64-year-old male complex past medical history including diabetes, prior CVA, hypertension, hyperlipidemia, coronary artery disease, atrial fibrillation status post Watchman, diastolic heart failure, peripheral arterial disease status post aortic bypass. Patient presents to the emergency department today with episodes of voluminous diarrhea over last few days associated with a syncopal event that happened this afternoon. Patient states that he was in the bathroom trying to have bowel movements and was having diarrhea. He passed out briefly and his called an ambulance. He regained consciousness after several moments and was acting appropriately although somewhat groggy. No shaking or seizure-like activity was witnessed. Patient is mentating appropriately now has no complaints aside from the diarrhea. States he feels generalized weakness as well but no lateralizing weakness. Was recently admitted to the hospital for small bowel obstruction that resolved with medical management and no surgical interventions. He was seen by General surgery here and discharged 3 days ago. Patient has been doing well and continuing his treatment regimen but started developing diarrhea. He had no abdominal pain, nausea, vomiting, headache, chest pain or shortness of breath. Only complaint at this time is generalized weakness and malaise. Related Data Home Medications ?Medication ?Instructions ?Recorded ?Confirmed ?Last Taken ?Type fluticasone propionate 50 2 spray intranasal Q12H PRN nasal 03/07/25 03/07/25 Unknown History mcg/actuation nasal congestion spray,suspension folic acid 1 mg tablet 1 mg PO DAILY 03/07/25 03/07/25 Unknown History furosemide 20 mg tablet 20 mg PO QAM 03/07/25 03/07/25 Unknown History gabapentin 400 mg capsule 800 mg PO .Q12HR 03/07/25 03/07/25 Unknown History insulin glargine U-300 conc 300 40 unit subcut .Q12HR 03/07/25 03/07/25 Unknown History unit/mL (1.5 mL) subcutaneous pen ([employer] SoloStar U-300 Insulin) levetiracetam 500 mg tablet 250 mg PO Q12H 03/07/25 03/07/25 Unknown History levothyroxine 75 mcg tablet 75 mcg PO HS 03/07/25 03/07/25 Unknown History (Synthroid) metformin 500 mg tablet 500 mg PO HS 03/07/25 03/07/25 Unknown History omeprazole 40 mg capsule,delayed 40 mg PO DAILY 03/07/25 03/07/25 Unknown History release potassium chloride 20 mEq 20 meq PO DAILY 03/07/25 03/07/25 Unknown History tablet,extended release (K-Tab) pyridoxine (vitamin B6) 100 mg 50 mg PO DAILY 03/07/25 03/07/25 Unknown History tablet Allergies Allergy/AdvReac Type Severity Reaction Status Date / Time cefadroxil Allergy Dyspnea / Verified 03/13/25 21:12 SOB acetazolamide AdvReac Other Verified 03/13/25 21:12 Review of Systems Review of Systems: As reviewed above in HPI All systems reviewed & are unremarkable except as noted in HPI and below PMFSH Past Medical History Medical History Hyperlipidemia CAD (coronary artery disease) Hypertension Atrial fibrillation Peripheral arterial disease Acute on chronic diastolic heart failure Family History Family History Father Diabetes mellitus Heart disease Mother Diabetes mellitus Heart disease Social History Social History Smoking packs per day: 1.5 Smoking cigarettes per day: 30.0 Years smoked: 20 Smoking pack-years: 30.00 Smoking status: Former smoker Alcohol intake: former Substance use: never Lack of Transportation: No Lack of Food: Never True Current Housing: I Have Housing Concerned About Future Housing: No Difficulty Paying Gas/Electric Bills: No Difficulty Paying for Meds: No Currently Unemployed: No Education: High School Diploma/GED Difficulty w/ Childcare or Family Care: No Spiritual care concerns: No Exam Narrative: GENERAL: ill-appearing, morbidly obese, awake and answering questions appropriately but states he feels generalized weakness. HEAD: [Normocephalic, atraumatic.] EYES: [PERRLA and EOMI.] ENT: Nares clear, no rhinorrhea or epistaxis. Mucous membranes moist. NECK: Supple. CHEST: Clear to auscultation, no respiratory distress or tachypnea. HEART: [Regular rate and rhythm]. No murmur heard. [Normal peripheral pulses.] ABDOMEN: Protuberant but soft and nondistended, nontender, no rigidity or guarding. Prior ex lap scar present. EXTREMITIES: Normal range of motion. No pitting edema, cool extremities. SKIN: Warm, dry, no rash. NEURO: [No focal deficits]. Alert and oriented [x3.] PSYCH: [Normal mood and affect.] Course Vital Signs Vital signs: Vital Signs Temperature 36.1 C L 03/13/25 20:57 Pulse Rate 83 03/13/25 20:57 Respiratory Rate 20 03/13/25 20:57 Blood Pressure 105/61 03/13/25 20:57 Pulse Oximetry 100 03/13/25 20:57 Oxygen Delivery Room Air 03/13/25 20:57 Temperature 37.0 C 03/14/25 01:14 Pulse Rate 70 03/14/25 06:45 Respiratory Rate 12 03/14/25 06:45 Blood Pressure 155/100 H 03/14/25 06:45 Pulse Oximetry 96 03/14/25 06:45 Oxygen Delivery Room Air 03/13/25 20:57 MDM MDM Narrative Medical decision making narrative: 64-year-old male complex past medical history including diabetes, prior CVA, hypertension, hyperlipidemia, coronary artery disease, atrial fibrillation status post Watchman, diastolic heart failure, peripheral arterial disease status post aortic bypass. Patient presents to the emergency department today with episodes of voluminous diarrhea over last few days associated with a syncopal event that happened this afternoon. Patient states that he was in the bathroom trying to have bowel movements and was having diarrhea. He passed out briefly and his called an ambulance. He regained consciousness after several moments and was acting appropriately although somewhat groggy. No shaking or seizure-like activity was witnessed. Patient is mentating appropriately now has no complaints aside from the diarrhea. States he feels generalized weakness as well but no lateralizing weakness. Was recently admitted to the hospital for small bowel obstruction that resolved with medical management and no surgical interventions. He was seen by General surgery here and discharged 3 days ago. Patient has been doing well and continuing his treatment regimen but started developing diarrhea. He had no abdominal pain, nausea, vomiting, headache, chest pain or shortness of breath. Only complaint at this time is generalized weakness and malaise. Patient is ill-appearing with generalized malaise. He is soft blood pressure is 105/61 in triage but no tachycardia or tachypnea. He is afebrile saturating 95% on room air. Abdomen is soft and nondistended, nontender to palpation but is protuberant likely from body habitus and obesity. Diarrhea could be infectious in nature verses reactive to his recent treatment for small-bowel obstruction versus gastroenteritis versus overflow diarrhea from constipation or obstruction. His weakness could be dehydration or electrolyte imbalances from this or infectious process. Syncope likely related to combination of the above, no concerning features for seizure or CVA at this time. Laboratory studies and a CT scan were obtained at this time for further evaluation. Blood glucose and EKG obtained. Patient given fluids and re-evaluated on monitor. Laboratory studies are reassuring. No leukocytosis or anemia. Normal platelet count. Creatinine is mildly elevated likely from dehydration and volume loss. Glucose mildly elevated but chronic. LFTs normal. Albumin normal. Magnesium slightly low and was replenished here. He was given fluid resuscitation and feels much better. He is ambulatory without any difficulty and no longer feeling lightheaded or weak. His CT scan report by night radiology shows several mildly prominent loops of bowel may represent ileus with recommendations for follow-up. Improved based on the read from recent CT and his admission for partial small-bowel obstruction. He is having no abdominal pain or distension and no vomiting. Having bowel movements without difficulty with some diarrhea likely the source of his presentation today with volume loss and dehydration. Patient expressing desire to go home as he feels better, did discuss very low threshold to readmit him given his recent hospitalization and dehydration but patient would like to go home and try hydrating at home. Discussed strict return precautions and he was safe for discharge after we had shared decision-making at bedside. Differential Diagnosis Differential Diagnosis: Diarrhea could be infectious in nature verses reactive to his recent treatment for small-bowel obstruction versus gastroenteritis versus overflow diarrhea from constipation or obstruction. His weakness could be dehydration or electrolyte imbalances from this or infectious process. Syncope likely related to combination of the above, no concerning features for seizure or CVA at this time. Lab Data MDM Lab Attestation statement: I personally reviewed the patient's lab results. 03/14/25 03:50 03/14/25 03:50 Labs: Lab Results 03/13/25 03/14/25 Range/Units 21:17 03:50 WBC 9.4 (4.5-10.0) K/mm3 RBC 4.77 (4.6-6.20) M/mm3 Hgb 13.8 L (14.0-18.0) g/dL Hct 42.8 (42.0-52.0) % MCV 89.7 (80-100) fl MCH 28.9 (26-34) pg MCHC 32.2 (32-36) g/dl RDW 15.2 H (11.5-14.5) % Plt Count 263 (150-375) k/mm3 MPV 11.4 H (7.4-10.4) fl Immature Gran % (Auto) 0.3 (0-0.5) % Neut % (Auto) 79.2 H (45.5-73.1) % Lymph % (Auto) 12.4 L (18.3-44.2) % Gonzales % (Auto) 6.0 (2.6-8.5) % Eos % (Auto) 1.1 (0-4.4) % Baso % (Auto) 1.0 (0.2-1.2) % Lymph # (Auto) 1.16 (0.9-3.2) K/mm3 Gonzales # (Auto) 0.6 (0.1-0.6) K/mm3 Eos # (Auto) 0.1 (0-0.3) K/mm3 Baso # (Auto) 0.1 (0.0-0.1) K/mm3 Abs Immat Gran (auto) 0.03 (0.00-0.031) K/mm3 Absolute Neuts (auto) 7.4 H (1.3-6.7) K/mm3 Absolute Nucleated RBC 0.000 (0.0-0.012) K/mm3 Nucleated RBC % 0.0 (0.0-0.2) % PT 14.2 (11.1-14.7) Seconds INR 1.1 APTT 27.7 (22.3-36.8) Seconds Sodium 140 (137-145) mmol/L Potassium 4.1 (3.4-5.0) mmol/L Chloride 108 H (98-107) mmol/L Carbon Dioxide 21 L (22-30) mmol/L Anion Gap 11 (4-12) mmol/L BUN 23 H D (9-20) mg/dL Creatinine 1.39 H (0.7-1.3) mg/dL Estim Creat Clear Calc 68 ml/min Estimated GFR 51 L (59 - ) Glucose 267 H (65-110) mg/dL POC Capillary Glucose 222 H (65-105) mg/dl Calcium 10.1 (8.4-10.2) mg/dL Magnesium 1.5 L (1.6-2.3) mg/dL Total Bilirubin 0.7 (0.2-1.3) mg/dL AST 35 (17-59) U/L ALT 27 (6-50) U/L Alkaline Phosphatase 96 (38-126) U/L Total Protein 7.0 (6.3-8.2) g/dL Albumin 3.7 (3.5-5.1) g/dL Influenza A (RT-PCR) Negative (Negative) Influenza B (RT-PCR) Negative (Negative) RSV (RT-PCR) Negative (Negative) SARS-CoV-2 RNA (RT-PCR) Negative (Negative) Blood Type O Positive Antibody Screen Negative Imaging Data Attestation: I personally reviewed and interpreted this imaging study as follows: My impression: Mildly prominent bowel loops possible ileus, trace pelvic fluid Radiologist's impression: ITS Impressions Abdomen/Pelvis CT 03/14/25 06:46 IMPRESSION: 1. Small bowel obstruction with likely transition in the central abdomen. 2: Cholelithiasis. 3: Small hiatal hernia. 4: Trace pericardial and right pleural effusions. Discharge Plan Discharge Clinical Impression: Acute dehydration, Hypomagnesemia Patient Disposition: Home Condition: Stable Instructions: Antibiotic Form Additional Instructions: CT scan shows some mild dilated bowel loops but no signs of the bowel obstruction from previous. Symptoms consistent with dehydration and low magnesium from GI losses. Maintain good hydration at home with electrolyte replacement solutions and good water intake. Return with any recurrent emergent or new symptoms at any time. Patient Language: Australian Prescriptions: No Action omeprazole 40 mg capsule,delayed release(DR/EC) 40 mg PO DAILY fluticasone propionate 50 mcg/actuation spray,suspension 2 spray INTRANASAL Q12H PRN (Reason: nasal congestion) folic acid 1 mg tablet 1 mg PO DAILY insulin glargine U-300 conc [[employer] SoloStar U-300 Insulin] 300 unit/mL (1.5 mL) insulin pen 40 unit SUBCUT .Q12HR levetiracetam 500 mg tablet 250 mg PO Q12H metformin 500 mg tablet 500 mg PO HS gabapentin 400 mg Capsule 800 mg PO .Q12HR levothyroxine [Synthroid] 75 mcg Tablet 75 mcg PO HS furosemide 20 mg Tablet 20 mg PO QAM potassium chloride [K-Tab] 20 mEq Tablet Extended Release 20 meq PO DAILY pyridoxine (vitamin B6) 100 mg tablet 50 mg PO DAILY atorvastatin 80 mg Tablet 80 mg PO HS Qty: 30 0RF acetaminophen [Mapap (acetaminophen)] 325 mg Tablet 650 mg PO Q6H PRN (Reason: Pain) Qty: 30 0RF lisinopril 20 mg Tablet 20 mg PO DAILY Qty: 30 0RF isosorbide mononitrate 30 mg Tablet Extended Release 24 Hr 30 mg PO QAM Qty: 30 0RF metoprolol succinate [Toprol XL] 100 mg Tablet Extended Release 24 Hr 100 mg PO BID Qty: 60 0RF gemfibrozil 600 mg Tablet 600 mg PO BIDAC Qty: 60 0RF nitroglycerin [Nitrostat] 0.4 mg Tablet, Sublingual 0.4 mg sublingual Q5MIN PRN (Reason: Chest Pain) Qty: 30 0RF aspirin [Children's Aspirin] 81 mg Tablet,Chewable 81 mg PO DAILY@0800 Qty: 30 0RF ezetimibe [Zetia] 10 mg Tablet 10 mg PO QAM Qty: 30 0RF Follow-up/Referrals: Latonia,Neel Braden MD [Primary Care Provider] Time of Disposition: 06:41
--- OUTSIDE RECORDS SUMMARY | 2025-03-14 04:03 | XMS_ITS | Clinical Summary ---
Author Organization [facility] Address [address] [place] [address] Care Team Providers Care Electronics Inspector Name Role Phone Moisés Flynn MD Unavailable [phone] Eileen Mueller MD Unavailable Neel Lincoln MD Primary Care Provider [phone] Wes Redmond MD Unavailable Moisés Bryant MD Unavailable Nikolai Russell MD Unavailable [phone] Allergies Active Allergy Reactions Criticality Noted [...] CAD (coronary artery disease) 07/12/2020 Atherosclerosis of [place] ar teries of extremities with intermittent claudication, bilateral legs 07/09/2020 Overview (07/09/2020): Added automatically from request for surgery [id number] Assessment & Plan (06/09/2021 12:42 PM CDT): [...] 02/26/2020 Assessment & Plan (02/26/2020 9:38 AM LURE MAKER): Bilateral hip claudication with chronically occluded bilateral [...] 01/15/2020 Assessment & Plan (03/04/2023 10:37 AM LURE MAKER): Due for follow-up carotid doppler summer 2023. Will coordinate with his 6 month f/u studies of his legs. Assessment & Plan (01/15/2020 2:00 PM LURE MAKER): Left SFA stent patent. Repeat arterial Doppler in six months. Our office will contact him to make the appointment when the time comes. Certainly if there are interval problems, we would be happy to see him sooner. Status post femoral-popliteal bypass surgery 04/2019 Assessment & Plan (03/04/2023 10:36 AM LURE MAKER): Widely patent aorto-bifemoral bypass and bilateral fem-pop bypasses. Repeat ABIs and bilateral LE duplex scans again in six months. Assessment & Plan (12/18/2020 10:32 AM CDT): Patent right leg bypass with stable right leg perfusion. Assessment & Plan (01/15/2020 1:59 PM LURE MAKER): Widely patent right leg bypass. Monitor with repeat Duplex scan in six months. Our office will contact him to make the appointment when the time comes. Certainly if there are interval problems, we would be happy to see him sooner. Generalized postprandial abdominal pain 01/15/20 20 Assessment & Plan (01/15/2020 1:57 PM LURE MAKER): Arrange CT Angiogram abdomen/pelvis to determine if [...] Resolved Date Claudication 01/22/2021 03/03/2023 Atherosclerosis of [place] ar teries of extremities with rest pain, bilateral legs 01/17/2021 03/03/2023 Overview (01/17/2021): Added automatically from request for surgery [id number] Atherosclerosis of [place] ar teries of extremities with intermittent claudication, left leg 06/01/2019 07/12/2020 Overview (06/01/2019): Added automatically from request for surgery [id number] Stenosis of peripheral vascular stent 06/01/2019 07/12/2020 Overview (06/01/2019): Added automatically from request for surgery [id number] Foreign body of great toe of right foot with infection 10/17/2018 07/12/2020 Atherosclerosis of [place] of left lower extremity with intermittent claudication 08/17/2018 07/12/2020 Overview (08/17/2018): Added automatically from request for surgery [id number] Assessment & Plan (05/22/2019 2:44 PM CDT): [...] 07/12/2020 Assessment & Plan (01/15/2020 2:01 PM LURE MAKER): 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 Revascularization is not possible. Continue exercise to encourage collateral flow. Encounter for therapeutic drug monitoring 05/19/2017 07/12/2020 Surgical follow-up care 02/03/201606/15 Overview (06/18/2016): Postoperative follow-up Sebaceous cyst 12/30/2015 07/10/2022 Overview (06/18/2016): Sebaceous cyst Atherosclerosis of [place] artery of extremity 05/08/19 16 07/12/2020 Overview (06/18/2016): Atherosclerosis of [place] artery of right lower extremity with rest pain Encounters Date Type Department Care Team Description 02/22/2025 Telephone [facility] [address], [address] [place] [address] Romana Jurado MD PhD 02/20/2025 Telephone [facility] [address] [place] [address] Romana Jurado MD PhD results requested 01/23/2025 3:00 PM LURE MAKER Imaging Exam [facility] [address] [place] [phone] Epiretinal membrane (ERM) of both eyes 01/16/2025 2:00 PM LURE MAKER Imaging Exam [facility] Ophthalmology [address] [place] [phone] Epiretinal membrane (ERM) of both eyes 01/16/2025 Telephone [facility] [address] [place] [address] Romana Jurado MD PhD ERG Questions 01/10/2025 Orders Only [facility] Medicine Ophthalmology [address] [place] [address] Gabe Peterson MD Epiretinal membrane (ERM) of both eyes (Primary Dx) 01/10/2025 Orders Only [facility] Medicine Ophthalmology [address] [place] [address] Gabe Peterson MD Epiretinal membrane (ERM) of both eyes (Primary Dx) 01/09/2025 8:00 AM CDT Office Visit [facility] Medicine Ophthalmology [address] [place] [phone] Romana Jurado MD PhD Retinitis pigmentosa of both eyes (Primary Dx); Epiretinal membrane (ERM) of both eyes; DM type 2 without retinopathy (HCC) 12/26/2024 [place] [address] Juan Pablo Huitron MD CKD follow-up from [...] pain of both hips 02/26/2020 Atherosclerosis of [place] ar teries of extremities with intermittent claudication, bilateral legs 07/09/2020 Added automatically from request for surgery [id number] Sebaceous cyst 12/30/2015 Sebaceous cyst Foreign body [...] often do you attend chur ch or christianity services? Never 07/20/2022 Do you belong to [...] on file Legal Sex Male 2:42 PM LURE MAKER Gender Identity Not on file Sexual Orientation [...] 01/09/2026 01/09/2025 Medical Devices Implanted Type Area Dairy Manager Device Identifier Shelf Expiration Date Model / Serial / Lot [email or web address] Hemagard 16/8mm 50cm Knit Cross Link Tensile Strength Excellent [id number] - [id number] - [id number] Implanted:Qty: 1 on 07/27/2022 by Moisés Flynn MD at [facility] Graft N/A: Abdomen [employer] 01/12/2027 [id number] / [id number] / Daig Thien [id number] Device Closure Angio-Seal Vip Bondek-Plus Polyglyd L70 Cm Od6 Fr Odsec.035 In Vascular - Sn/A - [id number] Implanted:Qty: 1 on 07/17/2020 by Moisés Flynn MD at [facility] Other - see comments Left: Groin Terumo Medical Thien 04/14/2021 [id number] / N/A / [id number] Bard Peripheral Vascular [id number] E-Luminexx Safe Performaxx 9mm 6fr 60mm 80cm Delivery System - [id number] Implanted:Qty: 1 on 12/13/2017 by Moisés Flynn MD at [facility] Stent Left: Arterial Bard Peripheral Vascular 01/12/2020 [id number] / / [id number] Description:Left Common and External Iliac Artery Medtronic Inc Everflex Entrust 6mm 60mm 80cm Self Expand Triaxial Low Profile - Sn/A - [id number] Implanted:Qty: 1 on 07/17/2020 by Moisés Flynn MD at [facility] Stent Right: Iliac Medtronic Inc 01/12/2022 QGP11-65 -060-080 / N/A / [id number] Medtronic Inc Everflex Entrust 6mm 100mm 80cm Self Expand Triaxial Low Profile - Sn/A - [id number] Implanted:Qty: 1 on 07/17/2020 by Moisés Flynn MD at [facility] Stent Left: Iliac Medtronic Inc 10/15/2022 NBV33-62 -100-080 / N/A / [id number] Daig Thien/[employer] [id number] Angio-Seal Vip Bondek-Plus 6fr .035in 70cm Hemostatic Latex Free - [id number] Implanted:Qty: 1 on 12/13/2017 by Moisés Flynn MD at [facility] Left: Groin Daig Thien/[employer] 08/12/2018 [id number] / / [id number] Cryolife Inc Patch Cardiovascular 0.8x8cm Nonpyrogenic Pfp0.8x8 - [id number] Implanted:Qty: 1 on 07/21/2022 by Moisés Flynn MD at [facility] Left: Carotid Cryolife Inc 03/28/2024 PFP0.8X8 / / [id number] Vitalitec Intrnl Inc Sls-Clip Ligate Triangular Wire Chio Groove Small Chevron Clip Latex Free V7706-8 - [id number] Implanted:Qty: 1 on 07/21/2022 by Moisés Flynn MD at [facility] Left: Neck Vitalitec Intrnl Inc D2229-5 / / Vitalitec Intrnl Inc Sls-Clip Ligate Triangular Wire Chio Groove Small Chevron Clip Latex Free I6237-6 - [id number] Implanted:Qty: 4 on 07/27/2022 by Moisés Flynn MD at [facility] N/A: Abdomen Vitalitec Intrnl Inc [id number] / / Bard Peripheral Vascular Bard .25x.25in Solomons Thk1.65mm Square Pledget Cardiovascular Ptfe 123278 - [id number] Implanted:Qty: 1 on 07/27/2022 by Moisés Flynn MD at [facility] N/A: Abdomen Bard Peripheral Vascular [id number] / / Bard Peripheral Vascular Bard 5/16x5/16in Solomons Thk1.65mm Pledget Cardiovascular Ptfe 394974 - [id number] Implanted:Qty: 1 on 07/27/2022 by Moisés Flynn MD at [facility] N/A: Abdomen Bard Peripheral Vascular [id number] / / Procedures Procedure Name Priority Date/Time Associated Diagnosis Comments ERG FULL FIELD - OU - BOTH EYES Routine 01/23/2025 3:27 PM LURE MAKER Epiretinal membrane (ERM) of both eyes MULTIFOCAL ELECTRORETINOGRAPHY (ERG) - OU - BOTH EYES Routine 01/16/2025 2:29 PM LURE MAKER Epiretinal membrane (ERM) of both eyes FUNDUS [...] OU - Both Eyes (01/23/2025 3:27 PM LURE MAKER) Anatomical Region Laterality Modality Head Other Narrative 01/25/2025 11:15 AM LURE MAKER VISUAL DIAGNOSTIC REPORT: Patient: Cyrus Vee : [...] this study, please contact our office at [phone], and we would be happy to send these to your office. Please feel free to contact my office if you would like to discuss these results further. Gabe Peterson M.D. Professor, Departments of Ophthalmology and Visual Sciences and Neurology Director, Visual Electrophysiology Service [facility] E-mail: [email or web address] Gabe Peterson MD OPHTH ELECTRORETINOG ALEE Final Result * Multifocal Electroretinography (ERG) - OU - Both Eyes (01/16/2025 2:29 PM LURE MAKER) Anatomical Region Laterality Modality Head Other Narrative 01/18/2025 4:45 PM LURE MAKER VISUAL DIAGNOSTIC REPORT: Patient: Cyrus Vee : [...] Multifocal ERG testing was conducted using the [employer] Electrodiagnostic Imaging System with 61hexagons covering the [...] this study, please contact our office at [phone], and we would be happy to send these to your office. Please feel free to contact my office if you would like to discuss these results further. Gaeb Peterson M.D. Professor, Departments of Ophthalmology and Visual Sciences and Neurology Director, Visual Electrophysiology Service [facility] E-mail: [email or web address] Gabe Peterson MD OPHTH ELECTRORETINOG [...] BLOOD ORDERABLES Final Result Performing Organization Address [facility] Co de Phone Number [facility] [address] [employer] [place], [place] [phone] * (ABNORMAL) Hemoglobin A1c (08/27/2024 3:27 PM CDT) Hgb A1C 8.2(H) 4.0 - 5.6 % Estimated Average Glucose 189 mg/dL [facility] Comment: The ADA recommends reporting an estimated Average Glucose (eAG) with all Hemoglobin A1c results using the equation derived from a study of 507 normal and diabetic adults. Minority populations were underrepresented and children were not included. (Diabetes Care 31:7488-1801, 2008). The eAG is not equivalent to a fasting glucose. Blood 08/27/2024 3:27 PM CDT 08/27/2024 4:09 PM CDT Lb Pollard MD LAB BLOOD ORDERABLES Final Result Performing Organization Address [facility] Co de Phone Number [facility] [address] Department Drop Messages [place], [place] [phone] * (ABNORMAL) Lipid panel (07/20/2022 12:27 AM CDT) Cholesterol 97 30 - 199 mg/dL [facility] Comment: Interpretive Data Ages < or [...] revised on 2017. Triglycerides 133 <=149 mg/dL [facility] Comment: Interpretive Data Ages < or [...] revised on 2017. HDL 25(L) >=40 mg/dL [facility] Comment: Interpretive Data Ages < or [...] on 2017. LDL, calculated 45 <=129 mg/dL [facility] Comment: Interpretive Data Ages < or [...] revised on 2017. Non-HDL Cholesterol 72 mg/dL [facility] Comment: Interpretive Data Ages < or [...] last revised on 2017. Chol/HDL ratio 4 [facility] Blood 07/20/2022 12:2 7 AM CDT 07/20/2022 12:30 AM CDT us Navin Sandoval MD LAB BLOOD ORDERABLES Final Re sult [facility] [address] Department [place] [address] from Last 3 Months or Most Recently Relevant to Health Maintenance Additional Health Concerns Infection Onset Date Last Indicated Ring Surveillance: Vanna em Comment:W5 IPS C aurcaroline surveillance - rooms 1-16 08/28/202408/28 Insurance MEDICARE [place] [employer] COMMERCIAL GENERIC MEDICARE [facility] MEDICARE [employer] Advance Directives For more information, please contact: [phone] * Full Code (Latest Code Status on [...] 7:55 PM 06/08/2019 3:07 PM Care Teams Electronics Inspector Relationship Specialty Start Date End Date Neel [place] MD [address] [place] [address] PCP - General Internal Medicine 09/03/21 Moisés Flynn MD Surgeon Vascular Surgery 12/14/17 Eileen Mueller MD Internal Medicine 12/18/20 Wes Redmond MD [address] [place] [address] Internal Medicine 03/04/22 Moisés Bryant MD [address] [place] [address] Neurology 08/24/22 Nikolai Russell MD [address] [place] [address] Referring Physician Ophthalmology 12/07/24
--- OUTSIDE RECORDS SUMMARY | 2025-03-14 04:03 | XMS_ITS | Encounter Summary ---
Author Organization [facility] Address [address] [place] [address] Care Team Providers Care Frozen Yogurt Maker Name Role Phone Neel [place] MD Primary Care Provider [phone] Nguyen Muller RN Unavailable [phone] Encounter Details Date Type Department Care Team (Late Contact Info) Description 11/24/2021 [employer] Message Enc [facility] [address] [email or web address], [facility] Provider Results Social History Tobacco Use Types Packs/Day Years Used Date Smoking Tobacco: Every Day Cigarettes 0.5 46 Smokeless Tobacco: Never Comments:Provider 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 , 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 trying to quite Alcohol Use Standard Drinks/Week Comments Not Currently 0 (1 standard drink = 0.6 oz pur e alcohol) quite 8 years ago Sex and Gender Information Value Date Recorded Sex Assigned at Male 03/29/2024 8:05 PM ASSOCIATE DATA SCIENTIST Legal Sex Male 1:56 PM CDT Gender [...] (Late Contact Info) Description 03/27/2025 3:40 PM ASSOCIATE DATA SCIENTIST Office Visit [facility] Medical Group Multispecialty Care [facility] [address], [address] [place] [address] J Carlos Banuelos MD [address] [facility] [place] [address] 04/10/2025 8:00 AM ASSOCIATE DATA SCIENTIST Office Visit [facility] Medical [facility] Mult[facility]pec[facility]ty Care - [facility] [address] [place] [address] Estrada Cao DO [address] [facility] [address] [place] [address] 06/12/2025 2:40 PM CDT Office Visit [facility] Medical [facility] [address] [place] [address] Neel [place] MD [address] [place] [address] 12/03/2025 12:30 PM CDT Office Visit [facility] [address] [place] [address] Yonathan Kelley MD [address] [facility] [place] [address] documented as of this encounter Visit Diagnoses Not on filedocumented in this encounter Additional Health Concerns Infection Onset Date Last Indicated Resolved Time COVID-19 Rule Out 03/30/2024 03/30/2024 03/30/2024 6:06 AM ASSOCIATE DATA SCIENTIST COVID-19 Rule Out 03/31/2024 03/31/2024 03/31/2024 11:07 AM ASSOCIATE DATA SCIENTIST documented as of this encounter Care Teams Frozen Yogurt Maker Relationship Specialty Start Date End Date Neel [place] MD [address] [place] [address] PCP - General INTERNAL MEDICINE 09/02/21 Nguyen Muller RN [address] [place] [address] Emr Trainer (Ambulatory) REGISTERED NURSE 03/31/2402/06 documented as of this encounter
--- OUTSIDE RECORDS SUMMARY | 2025-03-14 04:03 | XMS_ITS | Encounter Summary ---
Author Organization [facility] Address [address] [place] [address] Care Team Providers Care Journalism Intern Name Role Phone Neel [place] MD Primary Care Provider [phone] Nguyen Muller RN Unavailable [phone] Encounter Details Date Type Department Care Team (Latest Contact Info) Description 03/01/2024 CRAVE Message Enc [facility] [place] [address] [id number] [employer], [facility] Provider PAIN CLINIC CONSULTATION Social [...] Sex Assigned at Male 03/29/2024 8:05 PM CYTOTECHNOLOGIST Legal Sex Male 1:56 PM CDT Gender Identity Not on file Sexual Orientation Not on file Occupation Industry Job Start Date Job End Date Not on file Not on file Not on file Not on file documented as of this encounter Plan of Treatment Upcoming Encounters Date Type Department Care Team (Late st Contact Info) Description 03/27/2025 3:40 PM CYTOTECHNOLOGIST Office Visit [facility] Medical Group Multispecialty Care - [facility] [address] [facility], [address] [place] [address] J Carlos Banuelos MD [address] [facility] [place] [address] 04/10/2025 8:00 AM CYTOTECHNOLOGIST Office Visit [facility] Medical [facility] Multispecialty Care - [facility] [address] [place] [address] Estrada Cao DO [address] [facility] [address] [place] [address] 06/12/2025 2:40 PM CDT Office Visit [facility] Medical Group Family & Internal Medicine - [place] [address] [place] [address] Neel [place] MD [address] [place] [address] 12/03/2025 12:30 PM CDT Office Visit [facility] [address] [place] [address] Yonathan Kelley MD [address] [place] [address] documented as of this encounter Visit Diagnoses Not on filedocumented in this encounter Additional Health Concerns Infection Onset Date Last Indicated Resolved Time COVID-19 Rule Out 03/30/2024 03/30/2024 03/30/2024 6:06 AM CYTOTECHNOLOGIST COVID-19 Rule Out 03/31/2024 03/31/2024 03/31/2024 11:07 AM CYTOTECHNOLOGIST Assessment Noted Time PHQ-9 Depression Total Score: 1 12/04/19 22 1:22 PM CDT documented as of this encounter Care Teams Journalism Intern Relationship Specialty Start Date End Date Neel [place] MD [address] [place] [address] PCP - General INTERNAL MEDICINE 09/02/21 Nguyen Muller RN [address] [place] [address] Blending Machine Operator (Ambulatory) REGISTERED NURSE 03/31/2402/06 documented as of this encounter
--- OUTSIDE RECORDS SUMMARY | 2025-03-14 04:03 | XMS_ITS | Clinical Summary ---
Author Organization [facility] Address [address] [place] [address] Phone Care Team Providers Care Park Warden Name Role Phone Neel Lincoln MD Primary Care Provider [phone] Neel Lincoln MD Unavailable [phone] J Carlos Banuelos MD Unavailable [phone] Delmer Heaton MD Unavailable [phone] Lemuel Vega MD Unavailable Allergies Active Allergy [...] Active Insulin Pen Needle (TechLite Plus Pen Wilburn) 32G X 4 MM [facility] [place] [place] 1 Pen Needle by Does not apply route 5 times daily. 500 Pen Needle 3 02/01/20 24 Active HumaLOG KwikPen 100 UNIT/ML Solution Pen-injector 24 units before each meal; correctional factor insulin of 1:15 if >140 mg/dL, up to 120 units per day 105 mL 1 02/29/20 24 Active ergocalciferol (VITAMIN D) 76540 UNIT CapsuleIndication s:Vitamin D deficiency TAKE 1 [...] 90 Tablet 3 09/06/19 Active Continuous Glucose Mechanical Drafter (Dexcom G7 Mechanical Drafter) Device Check blood glucose before each meal [...] Department Care Team Description 02/27/2025 1:15 PM LOGISTIC MANAGER Office Visit [facility] - Endocrinology - [place] [address] [place] [address] Lemuel Vega MD Type 2 [...] 02/21/2025 Refill [facility] [address] [place] [address] Lemuel Vega MD Medication Refill from Last 3 Months Immunizations Immunization Administration Dates Next Due Influenza Vaccine, Quadrivalent, PF 02/02/2023,1 ,01/03/2020 Influenza, Seasonal, Injectable, Undefined 12/16 Influenza,Split Virus,Trivalent,Injectable,PF 01/26/2024 Pneumococcal conjugate PCV20 , polysaccharide [id number] conjugate, adjuvant, PF 11/17/2023 Family History Medical [...] Comments Blood Pressure 122/70 02/27/2025 1:27 PM LOGISTIC MANAGER Pulse 85 02/27/2025 1:27 PM LOGISTIC MANAGER Temperature 36.7 C (98 F) 02/27/2025 1:27 PM LOGISTIC MANAGER Respiratory Rate 22 02/27/2025 1:27 PM LOGISTIC MANAGER Oxygen Saturation 97% 02/27/2025 1:27 PM LOGISTIC MANAGER Inhaled Oxygen Concentration - - Weight 131.7 kg (290 lb 6.4 oz) 02/27/2025 1:27 PM LOGISTIC MANAGER Height 185.4 cm (6' 1) 10/04/2024 2:20 PM CDT Body Mass Index 38.31 10/04/2024 2:20 PM CDT Plan of Treatment Upcoming Encounters Date Type Department Care Team (Late st Contact Info) Description 04/02/2025 2:45 PM LOGISTIC MANAGER Office Visit [facility] [address] [place] [address] Delmer Heaton MD [address] [place] [address] 05/29/2025 3:30 PM CDT Office Visit [facility] [place] [address] [place] [address] Lemuel Vega MD [address] [facility] [address] Health Maintenance Due Date Last [...] POCT GLYCOSYLATED HEMOGLOBIN Routine 02/27/2025 1:30 PM LOGISTIC MANAGER Type 2 diabetes mellitus with diabetic polyneuropathy, with long-term current use of insulin UR MICROALBUMIN/CREATINI NE RATIO RANDOM Routine 10/04/2024 2:59 PM CDT from Last 3 Months or Most Recently Relevant to Health Maintenance Results * (ABNORMAL) POCT GLYCOSYLATED HEMOGLOBIN (02/27/2025 1:30 PM LOGISTIC MANAGER) HGB-A1C 8.7(A) 4 - 6 % Blood 02/27/2025 1:30 PM LOGISTIC MANAGER Lemuel Vega MD POINT OF CARE TESTING (MANUAL) F inal Result * (ABNORMAL) UR MICROALBUMIN/CREATININE RATIO RANDOM (10/04/2024 2:59 PM CDT) CREATININE, URINE 61.9 NOT ESTAB. MG/DL [facility] DISINTEGRATOR COUNTS INCLUDE 234 BEDS AT THE [facility] MICROALBUMIN, URINE 19.3 NOT ESTAB. UG/ML CANCER SWE[facility] [place] DISINTEGRATOR COUNTS INCLUDE 234 BEDS AT THE [facility] MICROALB/CREAT RATIO 31(H) 0 - 29 MG/G CREAT CANCER SWEET [place] DISINTEGRATOR COUNTS INCLUDE 234 BEDS AT THE [facility] Comment: NORMAL: 0 - 29 MODERATELY INCREASED: 30 - 300 SEVERELY INCREASED: >300 10/04/2024 2:59 PM CDT Narrative [facility] SWE[facility] DISINTEGRATOR COUNTS INCLUDE 234 BEDS AT THE [facility] - 10/05/2024 1:08 PM CDT TESTING PERFORMED AT: [facility] [address], [place], [address], PHONE: [phone], HEAD MEN'S TENNIS COACH: YENNI RODRIGUEZ, PHD us Lemuel Vega MD URINE ORDERABLES Final Result [facility] DISINTEGRATOR OF [facility] [place] [address], from Last 3 Months or Most Recently Relevant to Health Maintenance Insurance MEDICARE [facility] MEDICARE [employer] Care Teams Park Warden Relationship Specialty Start Date End Date Neel Lincoln MD [address] [place] [address] PCP - General Family Medicine 12/17/23 Neel Lincoln MD [address] [place] [address] Family Medicine 12/17/23 J Carlos Banuelos MD [address] [place] [address] Neuromuscular Medicine 11/02/23 Delmer Heaton MD [address] [place] [phone] Consulting Physician Oncology 11/02/23 Lemuel Vega MD #[address] [phone] Consulting Physician Endocrinology 01/26/24
--- OUTSIDE RECORDS SUMMARY | 2025-03-14 04:03 | XMS_ITS | Encounter Summary ---
Author Organization [facility] Address [address] [place] [address] Care Team Providers Care Classified Advertising Supervisor Name Role Phone Neel Lincoln MD Primary Care Provider [phone] Nguyen Muller RN Unavailable [phone] Encounter Details Date Type Department Care Team (Late st Contact Info) Description 03/03/2024 Pre-Procedure Call [facility] [place] [address] Bony Celeste MD Three [facility]. [facility] [address] [place], [place] [phone] Anesthesia Record Procedure Summary Procedure Name Responsible Anesthesiologist Anesthesia Start Time Anesthesia Stop Time XA LEFT ATRIAL APPENDAGE CLOSURE Vanessa Escobar MD 03/03/24 1008 03/03/24 1232 Events Date Time Event Comment 03/03/2024 0949 AN ROLLER HELPER Prepped 0955 0955 AN Anesthesia Prepped 1008 [...] Date: 03/03/24; Removal Time: 1223; Removal Person: ROLLER HELPER; Removal Reason: End of Case 03/03/24 1211 [...] Sex Assigned at Male 03/29/2024 8:05 PM AUTOMATION QA TESTER Legal Sex Male 1:56 PM CDT Gender [...] 128.8 kg (284 lb) 02/29/2024 9:20 AM AUTOMATION QA TESTER Height - - Body Mass Index 37.47 01/26/2024 8:27 AM AUTOMATION QA TESTER documented in this encounter Progress Notes * [...] before amputation. Spoke with pt : Remedios [phone] Lincoln for Medical Clearance due to pt HGBA1C 11.5. Dr Lincoln out of town this week. Dr Alvarez covering. Received call from SRINI Gloria who indicates that Dr Alvarez is not comfortable clearing pt for surgery. However, he asks that we reach out to pt plate stacker, Dr Vega to request clearance. Spoke with Dr Vega's staff who indicate that pt is scheduled to be seen in office today at 3:30. Faxed request to Dr Vega's office for surgery clearance. MATION QA TESTER MATION QA TESTER documented in this encounter OR Notes * OR PreOp - Lesli Martinez CNP - 02/29/2024 10:37 AM CST Chart reviewed. Per phone interview, patient denies any SOB/CP with 2 FOS. Uses cane since stroke in July. Per phone interview, patient sees tip cementer Dr. Kelley. Please request medical clearance / [...] PCI was unsuccessful from the transradial approach. MATION QA TESTER MATION QA TESTER documented in this encounter Plan of Treatment Upcoming Encounters Date Type Department Care Team (Late st Contact Info) Description 03/27/2025 3:40 PM AUTOMATION QA TESTER Office Visit [facility] [address] [facility], [address] [place] [address] J Carlos Banuelos MD 3 [facility] [place] [address] 04/10/2025 8:00 AM AUTOMATION QA TESTER Office Visit [facility] [address] [facility] [address] [place] [address] Estrada Cao DO [address] [facility] [address] [place] [address] 06/12/2025 2:40 PM CDT Office Visit [facility] Family & Internal Medicine - [place] [address] [place] [address] Neel Lincoln MD [address] [place] [address] 12/03/2025 12:30 PM CDT Office Visit [facility] [address] [place] [address] Yonathan Kelley MD [address] [place] [address] documented as of this encounter Visit Diagnoses Not on filedocumented in this encounter Additional Health Concerns Infection Onset Date Last Indicated Resolved Time COVID-19 Rule Out 03/30/2024 03/30/2024 03/30/2024 6:06 AM AUTOMATION QA TESTER COVID-19 Rule Out 03/31/2024 03/31/2024 03/31/2024 11:07 AM AUTOMATION QA TESTER Assessment Noted Time PHQ-9 Depression Total Score: 1 12/04/19 22 1:22 PM CDT documented as of this encounter Care Teams Classified Advertising Supervisor Relationship Specialty Start Date End Date Neel Lincoln MD [address] [place] [address] [phone] PCP - General INTERNAL MEDICINE 09/02/21 Nguyen Muller, RN [address] [place], [place] [address] Black Topper (Ambulatory) REGISTERED NURSE 03/31/2402/06 documented as of this encounter
--- OUTSIDE RECORDS SUMMARY | 2025-03-14 04:03 | XMS_ITS | Encounter Summary ---
Author Organization [facility] Address [address] [place] [address] Care Team Providers Care Operations Examiner Name Role Phone Neel Lincoln MD Primary Care Provider [phone] Nguyen Muller RN Unavailable [phone] Encounter Details Date Type Department Care Team (Late st Contact Info) Description 02/29/2024 Pre-Procedure Call [facility] [place] [address] Bony Celeste MD Three [facility]. [facility] [address] [place], [place] [address] Social History Tobacco Use Types Packs/Day Years [...] Sex Assigned at Male 03/29/2024 8:05 PM TRAINING PROGRAM ASSISTANT Legal Sex Male 1:56 PM CDT Gender Identity Not on file Sexual Orientation Not on file Occupation Industry Job Start Date Job End Date Not on file Not on file Not on file Not on file documented as of this encounter Plan of Treatment Upcoming Encounters Date Type Department Care Team (Late st Contact Info) Description 03/27/2025 3:40 PM TRAINING PROGRAM ASSISTANT Office Visit [facility] Mult[facility]pec[facility] [address] [facility], [address] [place] [address] J Carlos Banuelos MD 3 [facility] [place] [address] 04/10/2025 8:00 AM TRAINING PROGRAM ASSISTANT [facility] [address] [facility] [address] [place] [address] Estrada Cao DO [address] [facility] [address] [place] [address] 06/12/2025 2:40 PM CDT Office Visit [facility] Family & Internal Medicine - [place] [address] [place] [address] Neel Lincoln MD [address] [place] [address] 12/03/2025 12:30 PM CDT Office Visit [facility] [address] [place] [address] Yonathan Kelley MD Three [facility] [address] [place] [address] documented as of this encounter Visit Diagnoses Not on filedocumented in this encounter Additional Health Concerns Infection Onset Date Last Indicated Resolved Time COVID-19 Rule Out 03/30/2024 03/30/2024 03/30/2024 6:06 AM TRAINING PROGRAM ASSISTANT COVID-19 Rule Out 03/31/2024 03/31/2024 03/31/2024 11:07 AM TRAINING PROGRAM ASSISTANT Assessment Noted Time PHQ-9 Depression Total Score: 1 12/04/19 22 1:22 PM CDT documented as of this encounter Care Teams Operations Examiner Relationship Specialty Start Date End Date Neel Lincoln MD [address] [place] [address] PCP - General INTERNAL MEDICINE 09/02/21 Nguyen Muller RN [address] [place] [address] Basketball Assembler (Ambulatory) REGISTERED NURSE 03/31/2402/06 documented as of this encounter
--- OUTSIDE RECORDS SUMMARY | 2025-03-14 04:03 | XMS_ITS | Encounter Summary ---
Author Organization [facility] Address [address] [place] [address] Care Team Providers Care Traffic Sign Erection Supervisor Name Role Phone Neel Lincoln MD Primary Care Provider [phone] Nguyen Muller RN Unavailable [phone] Encounter Details Date Type Department Care Team (Late Contact Info) Description 11/05/2023 [email or web address] Message Enc [address], [address] [place] [address] [employer], [facility] Provider EEG Results Social History Tobacco Use [...] Sex Assigned at Male 03/29/2024 8:05 PM WEAPONS ENGINEER Legal Sex Male 1:56 PM CDT Gender Identity Not on file Sexual Orientation Not on file Occupation Industry Job Start Date Job End Date Not on file Not on file Not on file Not on file documented as of this encounter Plan of Treatment Upcoming Encounters Date Type Department Care Team (Late Contact Info) Description 03/27/2025 3:40 PM WEAPONS ENGINEER Office Visit [address], [address] [place] [address] J Carlos Banuelos MD 3 [facility] [place] [place] [address] 04/10/2025 8:00 AM WEAPONS ENGINEER Office Visit [facility] [address] [facility] [address] [place] [address] Estrada Cao DO 3 [facility] [address] [place] [address] 06/12/2025 2:40 PM CDT Office Visit [facility] Family & Internal Medicine - [place] [address] [place] [address] Neel Lincoln MD [address] [place] [address] 12/03/2025 12:30 PM CDT Office Visit [place] [facility] [address] [place] [address] Yonathan Kelley MD Three [facility] [address] [place] [address] documented as of this encounter Visit Diagnoses Not on filedocumented in this encounter Additional Health Concerns Infection Onset Date Last Indicated Resolved Time COVID-19 Rule Out 03/30/2024 03/30/2024 03/30/2024 6:06 AM WEAPONS ENGINEER COVID-19 Rule Out 03/31/2024 03/31/2024 03/31/2024 11:07 AM WEAPONS ENGINEER Assessment Noted Time PHQ-9 Depression Total Score: 1 12/04/19 22 1:22 PM CDT documented as of this encounter Care Teams Traffic Sign Erection Supervisor Relationship Specialty Start Date End Date Neel Lincoln MD [facility] [place] [address] PCP - General INTERNAL MEDICINE 09/02/21 Nguyen Muller, RN [address] [place] [address] Insurance Agency Owner (Ambulatory) REGISTERED NURSE 03/31/2402/06 documented as of this encounter
--- OUTSIDE RECORDS SUMMARY | 2025-03-14 04:03 | XMS_ITS | Encounter Summary ---
Author Organization [facility] Address [address] [place] [address] Care Team Providers Care Automatic Chief Name Role Phone Neel Lincoln MD Primary [...] from your doctor or pharmacy? Rarely 03/29/2024 [facility] Utilities Answer Date Recorded In the past 12 months has [facility] [email or web address], gas, oil, or water [employer] threatened to shut off services in your [...] How often do you attend chur or rastafari services? 1 to 4 times per year 03/29/2024 Do you belong to any clubs o r organizations such as hoahaoism groups, unions, fraternal or athletic groups, or [...] Patient Health Questionnaire-2 Score 0 04/04/2024 [facility] - Occupational [...] any time in the past 12 m [facility], were you homeless or living in a fpc (including now)? No 03/29/2024 Sex and Gender Information Value Date Recorded Sex Assigned at Male 03/29/2024 8:05 PM SCALEMAKER Legal Sex Male 1:56 PM CDT Gender [...] Assessment Author Status No 03/29/2024 11:07 PM SCALEMAKER Long, Jacki R, RN Active documented as of this encounter Mental Status * Because of a physical, mental, or emotional condition, do you have serious difficulty concentrating, remembering, or making decisions? Answer Entry Date Author Status No 03/29/2024 11:07 PM SCALEMAKER Jacki Hollins RN Active documented in this encounter Plan of Treatment Upcoming Encounters Date Type Department Care Team (Late st Contact Info) Description 03/27/2025 3:40 PM SCALEMAKER Office Visit [facility] [address] [place] [address] J Carlos Banuelos MD [address] [place] [address] 04/10/2025 8:00 AM SCALEMAKER Office Visit [facility] [address] [facility] [address] [place] [address] Estrada Cao DO [address] [facility] [address] [place] [address] 06/12/2025 2:40 PM CDT Office Visit [facility] Internal Medicine - [place] [address] [place] [address] Neel Lincoln MD [address] [place] [address] 12/03/2025 12:30 PM CDT Office Visit [place] [facility] [address] [place] [address] Yonathan Kelley MD [address] [place] [address] documented as of this encounter Goals Goal Patient Goal Type Associated Problems Recent Progress Patient-Stated? Author Consistently take medications as Prescribed Lifestyle On track(2024 1:56 PM SCALEMAKER) No Nguyen Muller, RN Health - patient able to perform ADLs independently Lifestyle On track(2024 1:56 PM SCALEMAKER) No Nguyen Muller RN documented as of this encounter Visit Diagnoses Not on filedocumented in this encounter Additional Health Concerns Assessment Noted Time PHQ-9 Depression Total Score: 1 12/04/19 22 1:22 PM CDT documented as of this encounter Care Teams Automatic Chief Relationship Specialty Start Date End Date Neel Lincoln MD [address] [place] [address] PCP - General INTERNAL MEDICINE 09/02/21 documented as of this encounter
--- OUTSIDE RECORDS SUMMARY | 2025-03-14 04:03 | XMS_ITS | Encounter Summary ---
Author Organization [facility] Address [address] [place] [address] Care Team Providers Care Electroslag Welding Machine Operator Name Role Phone Neel Lincoln MD Primary Care Provider [phone] Nguyen Muller RN Unavailable [phone] Encounter Details Date Type Department Care Team (Late st Contact Info) Description 08/14/2022 Hospital Follow-up Call [facility] Family & Internal Medicine [address] [address] Neel Lincoln MD [address] [place] [address] Social History Tobacco Use Types Packs/Day Years Used Date Smoking Tobacco: Every Day Cigarettes 0.5 46 Smokeless Tobacco: Never Comments:Provider to rehabilitation services counselor , 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 trying to quite Alcohol Use Standard Drinks/Week Comments Not Currently 0 (1 standard drink = 0.6 oz pur e alcohol) quite 8 years ago PHQ-2 Answer Date Recorded Patient Health Questionnaire-2 Score 0 06/04/2022 Sex and Gender Information Value Date Recorded Sex Assigned at Male 03/29/2024 8:05 PM CARGO AND RAMP SERVICES MANAGER Legal Sex Male 1:56 PM CDT [...] st Contact Info) Description 03/27/2025 3:40 PM CARGO AND RAMP SERVICES MANAGER [facility] [address] [facility], [address] [place] [address] J Carlos Banuelos MD 3 [facility] [place] [address] 04/10/2025 8:00 AM CARGO AND RAMP SERVICES MANAGER [facility] [address] [facility] [address] [place] [address] Estrada Cao DO [address] [facility] [address] [place] [address] 06/12/2025 2:40 PM CDT Office Visit [facility] Medicine - [place] [address] [place] [address] Neel Lincoln MD [address] [place] [address] 12/03/2025 12:30 PM CDT Office Visit [facility] [address] [place] [address] Yonathan Kelley MD [address] [place] [address] documented as of this encounter Visit Diagnoses Not on filedocumented in this encounter Additional Health Concerns Infection Onset Date Last Indicated Resolved Time COVID-19 Rule Out 03/30/2024 03/30/2024 03/30/2024 6:06 AM CARGO AND RAMP SERVICES MANAGER COVID-19 Rule Out 03/31/2024 03/31/2024 03/31/2024 11:07 AM CARGO AND RAMP SERVICES MANAGER Assessment Noted Time PHQ-9 Depression Total Score: 1 12/04/19 22 1:22 PM CDT documented as of this encounter Care Teams Electroslag Welding Machine Operator Relationship Specialty Start Date End Date Neel Lincoln MD [address] [place] [address] PCP - General INTERNAL MEDICINE 09/02/21 Nguyen Muller, RN [address] [place] [address] Health Safety Specialist (Ambulatory) REGISTERED NURSE 03/31/2402/06 documented as of this encounter
[2025-03-14 04:08] LABS: Alanine Aminotransferase 27 U/L (6-50); Albumin Level 3.7 g/dL (3.5-5.1); Alkaline Phosphatase 96 U/L (38-126); Anion Gap 11 mmol/L (4-12); Aspartate Amino Transferase 35 U/L (17-59); Bilirubin,Total 0.7 mg/dL (0.2-1.3); Blood Urea Nitrogen 23 mg/dL (9-20); Calcium 10.1 mg/dL (8.4-10.2); Carbon Dioxide 21 mmol/L (22-30); Chloride 108 mmol/L (98-107); Estimated CRCL calculation 68 ml/min; Estimated Glomerular Filt Rate 51; Glucose 267 mg/dL (65-110); Magnesium 1.5 mg/dL (1.6-2.3); Potassium 4.1 mmol/L (3.4-5.0); Sodium 140 mmol/L (137-145); Total Protein 7.0 g/dL (6.3-8.2)
[2025-03-14] MEDS: LACTATED RINGERS 1,000 ML 999 ML IV CONT ×2 (04:08→04:38)
[2025-03-14 04:09] LABS: INR 1.1; Prothrombin Time 14.2 Seconds (11.1-14.7)
[2025-03-14 04:10] LABS: Partial Thromboplastin Time 27.7 Seconds (22.3-36.8)
[2025-03-14 04:33] LABS: Influenza A QL RT-PCR Negative (Negative); Influenza B QL RT-PCR Negative (Negative); RSV RNA, RT-PCR Negative (Negative); SARS-CoV-2 RNA PCR Negative (Negative)
[2025-03-14] MEDS: MAGNESIUM SULF 2 GM/WATER 50ML 2 GM/50 ML BAG IVPB (04:38)
== END 2025-03-14 07:20 | disposition home or self-care (01) ==
PROVIDERS: Emergency Provider Student in an Organized Health Care Education/Training Program; PCP Internal Medicine
DX: E86.0 Dehydration (principal); E83.42 Hypomagnesemia; I25.10 Atherosclerotic heart disease of native coronary artery without angina pectoris; I48.91 Unspecified atrial fibrillation; I50.33 Acute on chronic diastolic (congestive) heart failure; I11.0 Hypertensive heart disease with heart failure; E11.51 Type 2 diabetes mellitus with diabetic peripheral angiopathy without gangrene; I73.9 Peripheral vascular disease, unspecified; E78.5 Hyperlipidemia, unspecified; Z95.818 Presence of other cardiac implants and grafts; Z95.5 Presence of coronary angioplasty implant and graft; Z86.73 Personal history of transient ischemic attack (TIA), and cerebral infarction without residual deficits; Z87.891 Personal history of nicotine dependence; K80.20 Calculus of gallbladder without cholecystitis without obstruction; K44.9 Diaphragmatic hernia without obstruction or gangrene; K56.609 Unspecified intestinal obstruction, unspecified as to partial versus complete obstruction; R94.31 Abnormal electrocardiogram [ECG] [EKG]; Z79.84 Long term (current) use of oral hypoglycemic drugs; Z79.4 Long term (current) use of insulin; Z79.899 Other long term (current) drug therapy
CPT/HCPCS: 36415; 74177; 80053; 82948; 83735; 85025; 85610; 85730; 86850; 86900; 86901; 87637; 93005; 96361; 96365; 99284; J3475; J7120; Q9967